=== PATIENT | male | born 1950 | race Two or more races ===

== ENCOUNTER 2023-01-19 11:07 | Emergency (ER) | payer OTHER, SELFPAY ==
--- NOTE | ~2023-01-19 | CT_ITS ---
EXAMINATION: CT ABDOMEN AND PELVIS WITHOUT CONTRAST CLINICAL INFORMATION: Hematuria, question stone COMPARISON: None TECHNIQUE: Multidetector volumetric imaging was performed from the superior aspect of the liver through the pubic symphysis. Sagittal and coronal reformatted images were obtained on the technologist's workstation. This CT examination was performed using dose optimization techniques as appropriate, variously including the following: *Automated exposure control *Adjustment of mA and/or kV according to patient size (this includes techniques or standardized protocols for targeted exams where dose is matched to indication/reason for exam; i.e. extremities or head) *Use of iterative reconstruction technique DLP: 637 mGy-cm FINDINGS: LUNG BASES: Unremarkable. ABDOMINAL AND PELVIC WALL: Diastases of the rectus abdominis musculature. LIVER AND BILIARY TREE: Hypoattenuating hepatic parenchyma compatible with hepatic steatosis. Liver is enlarged measuring 18.3 cm in span. GALLBLADDER: Unremarkable. PANCREAS: Unremarkable. SPLEEN: Unremarkable. ADRENAL GLANDS: Unremarkable. KIDNEYS AND URETERS: 6 mm nonobstructing stone is noted in the left mid ureter resulting in mild to moderate proximal hydroureteronephrosis and slightly asymmetric perinephric fat stranding and periureteral fat stranding. 1 cm nonobstructing right lower pole renal stone is also seen. GASTROINTESTINAL TRACT: A 6 mm fat-containing lesion in the duodenum may reflect a small duodenal lipoma. Colonic diverticulosis without evidence of diverticulitis. Normal appendix. VASCULAR: Unremarkable. LYMPH NODES/PERITONEUM: No lymphadenopathy. FREE FLUID: None. BLADDER: Heterogeneous high density lesion within the urinary bladder measuring 5 cm. PELVIC VISCERA: Prostate is enlarged measuring 7 cm in transverse diameter. OSSEOUS STRUCTURES: Multilevel degenerative disc disease. CT/CT abdomen pelvis wo IV con IMPRESSION: Heterogeneous high density lesion within the urinary bladder measuring 5 cm., For which differential considerations could include blood clot in the setting of hematuria alternatively a discrete bladder mass. Recommend urologic evaluation and management. 6 mm nonobstructing stone is noted in the left mid ureter resulting in mild to moderate proximal hydroureteronephrosis and slightly asymmetric perinephric fat stranding and periureteral fat stranding. 1 cm nonobstructing right lower pole renal stone is also seen. Hepatomegaly and hepatic steatosis.
[2023-01-19 11:35] VITALS: BP 141/75; PULSE 73; RESP 16; TEMP 36.6; O2SAT 96; BMI 30.1
--- NOTE | 2023-01-19 11:41 | ED.MALEGU ---
HPI - Male Genitourinary General Chief complaint: Urogenital-Male Stated complaint: bleeding from penis Time Seen by Provider: 01/19/23 11:29 Source: patient Mode of arrival: ambulatory Limitations: no limitations History of Present Illness HPI Narrative: This is a 72 years old male presented to the emergency department with chief complaint of hematuria. Hematuria is been ongoing on and off for about 1 anf 1/2 month, was seen at [facility] December 01 was DX with the 7 mm the right kidney stone he was referred to urologist DR Desai. He is anticoagulated with apixaban . Onset (ago): month(s) (1.5 Month) Duration: intermittent Location: penis Severity: mild Quality: aching Relieving factors: none Exacerbating factors: none Related Data Previous Rx's Medication Instructions Recorded cephalexin 500 mg capsule 500 mg PO Q8H #21 caps 01/19/23 tamsulosin 0.4 mg capsule (Flomax) 0.8 mg PO BEDTIME #7 caps 01/19/23 Allergies Allergy/AdvReac Type Severity Reaction Status Date / Time No Known Allergies Allergy Verified 01/19/23 11:45 Review of Systems Constitutional: Constitutional: Reports no additional constitutional complaints ENT: Reports system reviewed and no additional complaints, except as documented Cardiovascular: Cardiovascular: Reports no additional cardiovascular complaints Respiratory: Respiratory: Reports no additional respiratory complaints Gastrointestinal: Gastrointestinal: Reports no additional gastrointestinal complaints [facility] Past Medical History [facility] Narrative: A.FIB/anticoagulated/kidney stone Social History Social History Advance Directives: Yes Advance Directives on File: No Physical Exam Vital Signs: Vital Signs: Last Vital Signs Temp 97.9 F 01/19/23 11:35 Pulse 73 01/19/23 11:35 Resp 16 01/19/23 11:35 BP 141/75 H 01/19/23 11:35 Pulse Ox 96 01/19/23 11:35 O2 Del Method 01/19/23 11:35 BMI result Body Mass Index 30.1 Const: General: cooperative, comfortable, no acute distress, well developed, alert, awake and Physically active Nutritional Appearance: well nourished Orientation/consciousness: patient oriented x3 Limitations: no limitations HEENT: Head: Yes normal to inspection Ears: hearing grossly normal bilaterally General nose exam: Normal external nose present Face and sinus: Yes normal facial exam Throat: Yes posterior oropharynx normal Neck: Neck: Yes normal visual inspection and Yes full ROM Chest: Chest palpation & inspection: normal inspection of the chest Resp: Effort & Inspection: normal respiratory effort Auscultation: clear to auscultation bilaterally Cardio: Jugular venous distension: no JVD Rate: regular rate Rhythm: regular rhythm GI: Inspection: Yes normal to inspection Palpation (GI): Soft to palpation, not firm and nontender Auscultation: normal bowel sounds : General: Yes no CVA tenderness Back/Spine/Pelvis: Back: no CVA tenderness Thoracic/Lumbar Spine: thoracic and lumbar spine normal to inspection Skin: General skin exam: no rashes or lesions noted, elasticity normal and turgor normal Lesions: no lesions Rashes: no rashes Trauma: no lacerations or abrasions Neuro: General: patient oriented x3 Course Reevaluation(s) Reevaluation #1: feels better able to urinate. case was d/w Urologist,ct reviewed kidney stone and bladder high density lesion ,Dr Lynn thinks pt can go home with follow up in the office Time: 14:52 Medications Administered Discontinued Medications Generic Name Dose Route Start Last Admin Trade Name Freq PRN Reason Stop Dose Admin Sodium Chloride 1,000 mls @ 999 mls/hr 01/19/23 13:15 01/19/23 13:22 Ns IVCONT 01/19/23 14:15 999 mls/hr .Q1H1M DARRELL Administration Medical Decision Making Medical Decision Making [facility] Narrative: Patient presented with hematuria will do UA/CT scan of the abdomen and pelvis and reassess Differential Diagnosis Differential Diagnoses: The differential diagnosis associated with the presentation includes Kidney stone/bladder tumor/UTI Admission/Observation Consideration of admission/observation: Escalation of care including admission/observation considered Consult Healthcare Provider Management of the patient was discussed with: [employer] spoke with Dr Cheek Lab Data [facility] Lab Attestation statement: I reviewed the patient's lab results. 01/19/23 12:11 01/19/23 12:11 Labs: Lab Results 01/19/23 01/19/23 01/19/23 Range/Units 12:11 12:11 12:11 WBC 9.3 (4.8-10.8) X10*3/uL RBC 5.05 (4.60-5.80) X10*6/uL Hgb 14.7 (14.0-18.0) g/dl Hct 44.4 (42.0-52.0) % MCV 87.9 (80.0-98.0) fL MCH 29.1 (27.0-33.0) pg MCHC 33.1 (31.0-36.0) g/dl RDW 13.1 (11.0-16.0) % Plt Count 173 (160-400) X10*3/uL MPV 12.2 (9.4-12.4) fL Immature Gran % (Auto) 0.3 (0.0-0.4) % Neut % (Auto) 80.3 H (45-73) % Lymph % (Auto) 11.0 L (20-40) % Ocean % (Auto) 7.0 (2-11) % Eos % (Auto) 0.8 (0-4) % Baso % (Auto) 0.6 (0-2) % Lymph # (Auto) 1.0 L (1.2-4.9) X10*3/uL Ocean # (Auto) 0.7 (0.1-1.2) X10*3/uL Eos # (Auto) 0.1 (0.0-0.4) X10*3/uL Baso # (Auto) 0.1 (0.0-0.2) X10*3/uL Abs Immat Gran (auto) 0.03 (0.00-0.03) X10*3/uL Absolute Neuts (auto) 7.4 (2.0-8.3) x10*3/uL Absolute Nucleated RBC 0.000 (0.0-0.012) X10*3/uL Nucleated RBC % (auto) 0.0 (0.0-0.2) /100WBC Sodium 138 (135-145) mmol/L Potassium 3.5 (3.3-5.1) mmol/L Chloride 103 (96-108) mmol/L Carbon Dioxide 26 (22-29) mmol/L Anion Gap 13 (12-20) BUN 13 (9-16) mg/dL Creatinine 1.35 (0.5-1.4) mg/dL Estim Creat Clear Calc 57.2 Estimated GFR 52 Random Glucose 221 H (60-115) mg/dL Calcium 9.5 (8.4-10.2) mg/dL Total Bilirubin 1.2 H (0.0-1.0) mg/dL AST 25 (5-37) U/L ALT 29 (0-40) U/L Alkaline Phosphatase 81 (39-117) U/L Total Protein 8.0 (6.5-8.0) g/dL Albumin 4.2 (3.5-5.0) g/dL Urine Color RED Urine Appearance Turbid Urine pH 6.5 (5.0-9.0) Ur Specific [place] 1.010 (1.005-1.025) Urine Protein 300 (3+) H (Neg-Trace) mg/dL Urine Glucose (UA) See Note (Negative) mg/dL Urine Ketones See Note (Negative) mg/dL Urine Blood Large (3+) H (Negative) Urine Nitrite Positive H (Negative) Ur Leukocyte Esterase Small (1+) H (Negative) Urine RBC >20 H (0-2) /HPF Urine WBC 0-5 (0-5) /HPF Ur Squamous Epith Cells 0-2 (0-2) /HPF Urine Bacteria 1+ (None Seen) Hyaline Casts 0-2 (0-2) /LPF Independent Interpretation I performed an independent interpretation of an: CT Scan Radiology Impression Discussion of test interpretation with radiology: I discussed test interpretation with the radiologist and I have reviewed the radiologist's reading. Radiologist Impression: BLADDER: Heterogeneous high density lesion within the urinary bladder measuring 5 cm.? PELVIC VISCERA: Prostate is enlarged measuring 7 cm in transverse diameter. OSSEOUS STRUCTURES: Multilevel degenerative disc disease.? CT/CT abdomen pelvis wo IV con IMPRESSION: ? Heterogeneous high density lesion within the urinary bladder measuring 5 cm., For which differential considerations could include blood clot in the setting of hematuria alternatively a discrete bladder mass. Recommend urologic evaluation and management. ? 6 mm nonobstructing stone is noted in the left mid ureter resulting in mild to moderate proximal hydroureteronephrosis and slightly asymmetric perinephric fat stranding and periureteral fat stranding. 1 cm nonobstructing right lower pole renal stone is also seen.? ? Hepatomegaly and hepatic steatosis. Dictated By: Bronwyn Ying MD Signed By: <Electronically signed by Bronwyn Ying MD in [place]> 01/19/23 1225 Discharge Plan Discharge Clinical Impression: Hematuria, Calculus in urethra Patient Disposition: Home, Self-Care Instructions: Kidney Stones (ED), Hematuria (ED) Additional Instructions: Follow-up with the urologist we gave you the number of Dr. Jose Carlos Santacruz,take antibiotic and flomax as directed return if worse Prescriptions: New cephalexin 500 mg capsule 500 mg PO Q8H Qty: 21 0RF tamsulosin [Flomax] 0.4 mg capsule 0.8 mg PO BEDTIME Qty: 7 0RF Referrals: Lizzette Cheek MD [Physician] - 01/29/23
[2023-01-19 12:18] LABS: MANUAL DIFF FLAG NO
[2023-01-19 12:19] LABS: Basophils Absolute Auto 0.1 X10*3/uL (0.0-0.2); Basophils Percent Auto 0.6 % (0-2); Eosinophils Absolute Auto 0.1 X10*3/uL (0.0-0.4); Eosinophils Percent Auto 0.8 % (0-4); Hematocrit 44.4 % (42.0-52.0); Hemoglobin 14.7 g/dl (14.0-18.0); Imm Gran Abs Auto 0.03 X10*3/uL (0.00-0.03); Imm Gran Pct Auto 0.3 % (0.0-0.4); Mean Corpuscular HGB Conc 33.1 g/dl (31.0-36.0); Mean Corpuscular Hemoglobin 29.1 pg (27.0-33.0); Mean Corpuscular Volume 87.9 fL (80.0-98.0); Mean Platelet Volume 12.2 fL (9.4-12.4); Monocytes Absolute Auto 0.7 X10*3/uL (0.1-1.2); Neutrophils Absolute Auto 7.4 x10*3/uL (2.0-8.3); Neutrophils Percent Auto 80.3 % (45-73); Platelet Count 173 X10*3/uL (160-400); Red Blood Count 5.05 X10*6/uL (4.60-5.80); Red Cell Distribution Width 13.1 % (11.0-16.0); White Blood Count 9.3 X10*3/uL (4.8-10.8)
[2023-01-19 12:28] LABS: Appearance Urine Turbid; Color Urine RED; Leukocyte Esterase Urine Small (1+) (Negative); Nitrite Urine Positive (Negative); PH 6.5 (5.0-9.0); UMIC TRIGGER UACC YES; Urine Blood Large (3+) (Negative); Urine Protein 300 (3+) mg/dL (Neg-Trace)
[2023-01-19 12:35] LABS: Bacteria Urine 1+ (None Seen); Hyaline Casts Urine 0-2 /LPF (0-2); RBC Urine >20 /HPF (0-2); Squamous Epithelial Cell Urine 0-2 /HPF (0-2); UACC Culture Trigger YES; WBC Urine 0-5 /HPF (0-5)
[2023-01-19 12:47] LABS: Alanine Aminotransferase 29 U/L (0-40); Albumin Level 4.2 g/dL (3.5-5.0); Alkaline Phosphatase 81 U/L (39-117); Anion Gap 13 (12-20); Aspartate Amino Transferase 25 U/L (5-37); Bilirubin Total 1.2 mg/dL (0.0-1.0); Blood Urea Nitrogen 13 mg/dL (9-16); Calcium 9.5 mg/dL (8.4-10.2); Carbon Dioxide 26 mmol/L (22-29); Chloride 103 mmol/L (96-108); Creatinine Clr Calc Pharmacy 57.2; Estimated Glomerular Filt Rate 52; Glucose Random 221 mg/dL (60-115); Potassium 3.5 mmol/L (3.3-5.1); Sodium 138 mmol/L (135-145)
[2023-01-19] MEDS: 0.9 % Sodium Chloride 1,000 ML 999 ML IVCONT (13:22)
[2023-01-19 15:32] VITALS: BP 140/88; PULSE 62; RESP 16; O2SAT 97
== END 2023-01-19 16:05 | disposition home or self-care (01) ==
PROVIDERS: Emergency Provider Emergency Medicine
DX: N13.2 Hydronephrosis with renal and ureteral calculous obstruction (principal); R31.9 Hematuria, unspecified
CPT/HCPCS: 36415; 74176; 80053; 81001; 85025; 87086; 96360; 96361; 99284

== ENCOUNTER 2025-03-12 15:22 | Inpatient (IN) | payer OTHER, SELFPAY ==
--- NOTE | ~2025-03-12 | XR_ITS ---
EXAMINATION: XR CHEST CLINICAL INFORMATION: cough, shortness of breath COMPARISON: None available. TECHNIQUE: 2 views of the chest were obtained. FINDINGS: There is cardiac enlargement. The mediastinal and hilar contours appear normal. Mild aortic tortuosity. Lungs are diffusely hyperaerated, however clear bilaterally. There is no pneumothorax or pleural effusion. There is no focal osseous or soft tissue abnormality. XR/XR chest 2V IMPRESSION: 1. Cardiomegaly. 2. Hyperaerated lung parenchyma suggesting COPD. 3. No active superimposed disease. Electronically signed by: Cory Chauhan MD 03/12/2025 04:16 PM EDT
--- NOTE | ~2025-03-12 | CT_ITS ---
CLINICAL HISTORY: Umbilical pain rule out hernia CT ABDOMEN AND PELVIS WITH CONTRAST Comparison: CT/SR - CT ABDOMEN PELVIS WO IV CON - 01/19/23 11:50 EST Findings: No basilar consolidation or pleural effusion. There are several tiny calcified pulmonary granulomas. Tiny pericardial effusion. There are multiple predominantly hypoattenuated hepatic lesions. The main portal vein is patent. There is surface nodularity in the liver suggesting cirrhotic morphology. There is diffuse fatty infiltration of the liver which is enlarged; the right hepatic lobe measures 18.7 cm on coronal image 37. There is a poorly defined hypoattenuated pancreatic head lesion that measures 2 cm in greatest diameter. There is a 1.6 cm exophytic component on axial image 34 series 3 versus a necrotic lymph node. On sagittal images sixty-one and 62 series 7, there is hypoattenuated eccentric filling defect in the proximal celiac artery near the origin. On sagittal image 63 series 7, there is intimal thickening involving the SMA. There are multiple borderline enlarged periportal and peripancreatic lymph nodes. There are multiple nonenlarged left para-aortic lymph nodes. The spleen is enlarged measuring 14.1 cm. There is mild thickening of the left adrenal gland, possible hyperplasia. No adrenal nodule. No hydronephrosis. There are tiny nonobstructing left intrarenal calculi. Atherosclerotic changes; no AAA. No bowel obstruction, pneumoperitoneum, or pneumatosis. No ascites or significant mesenteric edema. Colonic diverticulosis. No acute diverticulitis. The appendix is identified. No acute appendicitis. The prostate is enlarged measuring 5.5 cm transversely. There is diffuse urinary bladder wall thickening. The anterior abdominal wall is intact with no evidence for a ventral hernia. There is a small umbilical hernia with nonspecific soft tissue density. There are small fat containing bilateral inguinal hernias. No grossly destructive osseous lesion. No acute fracture. IMPRESSION: 1. Poorly defined 2 cm hypoattenuated lesion in the pancreatic head consistent with malignancy. There is suspicion for tumoral invasion in the proximal celiac artery and proximal SMA. 2. Widespread hepatic metastases. 3. Peripancreatic lymphadenopathy. 4. No obstructive or acute inflammatory changes in the gastrointestinal tract. 5. No acute obstructive uropathy. Nonobstructing left nephrolithiasis. 6. Diverticulosis coli. 7. Small umbilical hernia contains a nonspecific soft tissue density. 8. Urinary bladder wall thickening secondary to cystitis, underdistention or outlet obstruction from prostatomegaly. This document has been electronically signed by: Bella Perdue DO on 03/12/2025 18:04:19
[2025-03-12 15:27] VITALS: BP 158/94; PULSE 127; RESP 22; TEMP 36.9; O2SAT 98; BMI 26.1
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
--- NOTE | 2025-03-12 15:34 | ECG_ITS ---
Test Reason : tachycardia Blood Pressure : */* mmHG Vent. Rate : 99 BPM Atrial Rate : * BPM P-R Int : * ms QRS Dur : 106 ms QT Int : 384 ms P-R-T Axes : * -15 210 degrees QTcB Int : 492 ms Atrial fibrillation with premature ventricular or aberrantly conducted complexes Left ventricular hypertrophy with repolarization abnormality ( Tet[place] product ) Prolonged QT Abnormal ECG No previous ECGs available Referred By: Patricia Daniels Electronically Signed By: Stefan Shaffer
[2025-03-12 15:50] LABS: MANUAL DIFF FLAG NO
[2025-03-12 15:52] LABS: Basophils Absolute Auto 0.1 X10*3/uL (0.0-0.2); Basophils Percent Auto 0.5 % (0-2); Eosinophils Absolute Auto 0.1 X10*3/uL (0.0-0.4); Hematocrit 41.8 % (42.0-52.0); Hemoglobin 13.6 g/dl (14.0-18.0); Imm Gran Abs Auto 0.05 X10*3/uL (0.00-0.03); Imm Gran Pct Auto 0.5 % (0.0-0.4); Lymphocytes Absolute Auto 1.1 X10*3/uL (1.2-4.9); Lymphocytes Percent Auto 10.4 % (20-40); Mean Corpuscular HGB Conc 32.5 g/dl (31.0-36.0); Mean Corpuscular Hemoglobin 28.2 pg (27.0-33.0); Mean Corpuscular Volume 86.7 fL (80.0-98.0); Mean Platelet Volume 12.1 fL (9.4-12.4); Monocytes Absolute Auto 0.8 X10*3/uL (0.1-1.2); Monocytes Percent Auto 7.3 % (2-11); Neutrophils Absolute Auto 8.7 x10*3/uL (2.0-8.3); Neutrophils Percent Auto 80.3 % (45-73); Platelet Count 215 X10*3/uL (160-400); Red Blood Count 4.82 X10*6/uL (4.60-5.80); White Blood Count 10.8 X10*3/uL (4.8-10.8)
[2025-03-12 15:56] LABS: Appearance Urine Cloudy; Color Urine Dark Yellow; Glucose Urine UA >=1000 mg/dL (Negative); Leukocyte Esterase Urine Moderate (2+) (Negative); Nitrite Urine Positive (Negative); PH 7.5 (5.0-9.0); Specific Gravity - Urine >= 1.030 (1.005-1.025); UMIC TRIGGER UACC YES; Urine Blood Negative (Negative); Urine Ketones Trace mg/dL (Negative); Urine Protein 100 (2+) mg/dL (Neg-Trace)
[2025-03-12 15:56] LABS: INTERNATIONAL NORM RATIO 1.2 (0.9-1.1); Prothrombin Time 13.7 SEC (10.9-12.4)
[2025-03-12 16:00] VITALS: BP 141/86; PULSE 81; RESP 20; TEMP 36.7; O2SAT 99
[2025-03-12 16:04] LABS: Alanine Aminotransferase 12 U/L (0-40); Albumin Level 3.7 g/dL (3.5-5.0); Alkaline Phosphatase 209 U/L (39-117); Anion Gap 11 (12-20); Aspartate Amino Transferase 22 U/L (5-37); Bilirubin Total 0.9 mg/dL (0.0-1.0); Blood Urea Nitrogen 14 mg/dL (9-16); Calcium 9.4 mg/dL (8.4-10.2); Carbon Dioxide 32 mmol/L (22-29); Chloride 101 mmol/L (96-108); Creatinine Clr Calc Pharmacy 67.7; Estimated Glomerular Filt Rate > 60; Glucose Random 175 mg/dL (60-115); Lipase 40 U/L (8-78); Potassium 4.2 mmol/L (3.3-5.1); Sodium 140 mmol/L (135-145); Total Protein 8.3 g/dL (6.5-8.0)
[2025-03-12 16:09] LABS: B Type Natriuretic Peptide 580 pg/mL (<100)
[2025-03-12 16:10] LABS: Bacteria Urine 2+ (None Seen); RBC Urine 0-2 /HPF (0-2); Squamous Epithelial Cell Urine 0-2 /HPF (0-2); UACC Culture Trigger YES; WBC Urine >50 /HPF (0-5)
--- OUTSIDE RECORDS SUMMARY | 2025-03-12 16:15 | XMS_ITS | Clinical Summary ---
Author Organization [facility] Address [address] [place] [address] Phone Care Team Providers Care Administrative Support Manager Name Role Phone Unavailable Primary Care Provider Unavailabl e Active Problems Problem Noted Date Diagnosed Date Hypertensive renal disease 07/16/202307/16 Renal disorder due to type 2 diabetes mellitus 0 07/16/2023 07/16/2023 Urinary frequency due to benign prostatic hypert rophy 03/10/2021 07/16/2023 Microalbuminuria 01/30/2021 07/16/2023 Chronic kidney disease 03/14/2016 3 Overview (07/16/2023): Follows with [facility]. Stage III with baseline Cr of 1.3. Last seen 10/10/[address] Stevie Rivera, Advised tot jose g lisinopril 20mg QD, labetolol 400mg qAM, 600mg q-noon, 400mg qPM. Low salt diet. Added lasix 20mg QD. (may need 40mg in the future) If Cr increases above 1.5, increase apixaban to 2.5mg BID and metformin should be stopped. Essential hypertension 03/06/2016 3 Resolved Problems Problem Noted Date Diagnosed Date Resolved Date Vitamin D deficiency 07/16/2023 07/16/2023 023 Dry skin dermatitis 03/10/2021 07/16/2023 07/16/20 23 Tinea pedis 03/10/2021 07/16/2023 07/16/2023 Glomerular filtration rate b elow reference range 01/30/2021 07/16/2023 Obesity 03/31/2020 07/16/2023 07/16/2023 Chronic congestive heart failure 06/24/2019 07/16/20 23 07/16/2023 Overview (07/16/2023): Followed by Cardiology 05/30/20 F/u [facility]. Pt advised to have cardiac MRI but declines due to covid-19 pandemic. Recommends continue AC with Apixaban. Advised continue ASA, statin. Increase nefedipine to 90 mg and f/u 1 month for HTN. Drug therapy finding 06/24/2019 07/16/2023 023 Overview (07/16/2023): AC with Apixaban Obstructive sleep apnea syndrome 09/16/2018 07/16/20 23 07/16/2023 Overview (07/16/2023): HST 08/22/18 at [facility] shows CT mild-mod. Recommends start CPAP Panic attack 09/05/2018 07/16/2023 07/16/2023 Overview (07/16/2023): Seen at [facility] Patient noncompliance - general 01/29/2017 07/16/2023 Overview (07/16/2023): 02/20/19 [facility]. No DR. 09/21/20 [facility]. No DR f/u 1 year. Patient encounter status 07/18/2016 07/16/2023 Overview (07/16/2023): 07/16/16 U/S of AAA at [facility] shows no visualized abdominal aortic aneurysm Umbilical hernia 07/18/2016 07/16/2023 07/16/2023 Overview (07/16/2023): 07/16/16 U/S at [facility] shows bowel containing periumbilical hernia. Referred to general surgery. 09/10/[address] Welch at [facility]. Pure hypercholesterolemia 03/13/2016 07/16/2023 Atrial fibrillation 03/06/2016 07/16/2023 07/16/20 23 Overview (07/16/2023): Previously seen by Dr Syed Mares at [facility] CT chest angiography 03/24/15 shows cardiomegaly with findings suggestive of CHF. Cardioverted 03/01/16 at [facility] by Dr Mares, 125 joules. Given labetolol IV Managed by Dr Mares, [facility] Last visit 03/14/16. Has h/o dificult to control hypertension and recent weight gain r/t CHF. Currently managed on - lisinopril 40mg 1 tab PO QD -labetalol Hcl 200mg 2 tabs qAM, 3 tabs q-noon, 2 tabs qPM. --Lasix 20mg 1 tab PO QD Taztia XT 360mg cap RX 1 cap QD Conlidine 0.1 mg 1 tab PO QD Apixaban 5mg 1 tab PO QD 10/03/16 Discharged from [facility] d/t no shows 03/12/[address] Eliseo Juarez at Cardiology Dx: significant junctional bradycardia, raising suspicion of sick sinus syndrome, may be aggravated by anithypertensives and psych meds. Recommend D/c cardizem, increase amlodipine to 10 mg QD. Get Holter monitor. If bradycardia does not resolve or if A-fib recurs, consider pacemaker and then antiarrhythmic therapy or resumption of CCB. F/u 2-3 weeks. 03/19/17 24 hours Holter- 1. Predominant rhythym sinus dee, baseline ST abnormality. 2. HR 35-73, avg of 46. 3. Rare PACs with a Few atrial pairs, no PVCs, 4. No pauses noted. Diary shows no sx's. No A-fib noted. 08/18/18-08/23/18 Admitted to [facility] for suspected CHF exacerbation d/t hypervolemia and hypertension. He was diuresed with furosemide. Advised to d/c amlodipine, clonidine, hold lisinopril until creatinine back to baseline. Start nifedepine ER 60 mg. Change dose of labetolol to 200 mg PO BID, furosemide 40 mg QD. Adivsed needs to f/u with Cardiology re: cardiac cacath. Echo found EF 45-50% with significant deficit of LV filling. Had non-sustianing VT on telemetry. Was offered cardiac cath while inpatient and declined. Concern for CT but pt did not tolerate sleep study previously. History of transurethral prostatectomy 03/06/201607/16/2023 Overview (07/16/2023): Managed by SHOBHA Samaniego at Urology Type 2 diabetes mellitus 03/06/2016 07/16/2023 Uncomplicated moderate persistent asthma 03/06/2016 07/16/2023 07/16/2023 Immunizations Immunization Administration Dates Next Due Influenza Split High Dose Preservative Free IM 1 12/19/2018 Influenza, Quadrivalent, Preservative Free 01/29 Influenza, Unspecified 09/01/2020 Pneumococcal Conjugate 13-Valent 04/17/2016 Pneumococcal Polysaccharide 04/23/2015 Tdap 04/17/2016 Family History Medical History Relation Comments Hypertension Father Diabetes Mother Diabetes Sibling 1 sister Hypertension Sibling 2 sister Heart disease Sibling 3 sister Relation Status Comments Father Mother Sibling 1 Sibling 2 Sibling 3 Social History Tobacco Use Types Packs/Day Years Used Date Smoking Tobacco: Never Sex and Gender Information Value Date Recorded Sex Assigned at Not on file Legal Sex Male 5:13 PM EST Gender Identity Not on file Sexual Orientation Not on file Plan of Treatment Health Maintenance Due Date Last Done Comments Colorectal Cancer Screening: Annual FOBT 1999 Colorectal Cancer Screening: Colonoscopy 1999 Colorectal Cancer Screening: Sigmoidoscopy 1999 Pneumococcal Vaccine: 50+ Years (3 of 3 - PPSV23 or PCV20) 04/23/2020 04/17/2016, 04/23/2015 Diabetes: Hemoglobin A1C 01/01/2021 Diabetes: Ophthalmology Exam 01/01/2021 Diabetes: Pedal Pulse Checked 01/01/2021 Diabetes: Sensory Foot Exam 01/01/2021 Diabetes: Visual Foot Exam 01/01/2021 Influenza Vaccine (Season Ended) 2025 09/01/2020, 10/19/2019, 01/29/2017 Hepatitis B Vaccine Aged Out No longe r eligible based on patient's age to complete this topic Insurance ([id number]) SHOBHA TAN [id number] ([id number]) SHOBHA TAN [id number]
--- OUTSIDE RECORDS SUMMARY | 2025-03-12 16:16 | XMS_ITS | Clinical Summary ---
Author Organization [facility] Address [address] [place] [address] Care Team Providers Care Kitchen Aide Name Role Phone Yari Lopez CALVIN Primary Care Provider [phone] Source Comments PLEASE NOTE, if this patient is a minor, it may be UNLAWFUL to discuss sensitive information that is contained in these records (such as FAMILY PLANNING, MENTAL HEALTH or SUBSTANCE ABUSE) with the minor patient's parent or other person without the patient's specific authorization.[facility] Allergies No known active allergies Medications blood pressure monitorIndications:Vishal taylor hypertension Check BP once daily at same time of the daily. Dx:I10.0 1 Kit 0 03/06/20 16 Active ELIQUIS 5 mg tab TK 1 T PO BID PER CARDIOLOGY 3 03/03/20 19 Active blood-glucose meter monitoring kitIndications:Type 2 diabetes mellitus with complication ([facility]),Type 2 diabetes mellitus with complication, without long-term current use of insulin ([facility]) Check FBS BID E11.65 1 Each 06/08/20 21 Active acetaminophen (TYLENOL) 500 mg tablet Take 1 Tablet by mouth every 6 (six) hours as needed for pain or fever 120 Tablet 2 03/29/20 22 Active blood sugar diagnostic (FREESTYLE LITE STRIPS) stripsIndications:Type 2 diabetes mellitus with complication ([facility]),Type 2 diabetes mellitus with complication, without long-term current use of insulin ([facility]) USE DIRECTED TO TEST BLOOD SUGAR TWICE DAILY 100 Each 1 01/04/20 23 Active FREESTYLE LANCETS 28 gaugeIndications:Type 2 diabetes mellitus with complication ([facility]),Type 2 diabetes mellitus with complication, without long-term current use of insulin ([facility]) USE DIRECTED FOR TESTING BLOOD SUGAR TWICE DAILY 100 Each 1 01/04/20 23 Active ezetimibe (ZETIA) 10 mg tablet TAKE 1 TABLET BY MOUTH DAILY 02/26/20 23 Active spironolactone (ALDACTONE) 25 mg tablet Take 25 mg by mouth once daily 05/15/20 23 Active albuterol (PROVENTIL) 2.5 mg /3 mL (0.083 %) nebulizer solutionIndications:Mod erate persistent asthma without complication ([facility]) USE 3 ML VIA NEBULIZER EVERY 6 HOURS NEEDED FOR WHEEZING 300 mL 2 11/28/20 23 Active ammonium lactate (AMLACTIN) 12 % creamIndications:Dry skin dermatitis APPLY TOPICALLY NEEDED FOR DRY SKIN 385 g 2 12/03/19 24 Active metoprolol succinate XL (TOPROL-XL) 50 mg 24 hr tabletIndications:Atria l fibrillation, unspecified type ([facility]) TAKE 1 TABLET BY MOUTH EVERY DAY 90 Tablet 1 01/22/20 24 Active NIFEdipine (PROCARDIA XL) 90 mg 24 hr tabletIndications:Essen tial hypertension Take 1 Tablet by mouth once daily Further refills requires appt with PCP 90 Tablet 05/27/20 24 Active atorvastatin (LIPITOR) 80 mg tabletIndications:Pure hypercholesterolemia TAKE 1 TABLET BY MOUTH DAILY 90 Tablet 1 07/02/20 24 Active triamcinolone (KENALOG) 0.1 % creamIndications:Dry skin dermatitis APPLY TOPICALLY TO THE AFFECTED AREA TWICE DAILY 15 g 2 11/23/20 24 Active budesonide-formoteroL (SYMBICORT) 160-4.5 mcg/actuation inhalerIndications:Mode rate persistent asthma with acute exacerbation ([facility]) Inhale 2 Puffs into the lungs 2 (two) times daily 30.6 g 12/16/19 25 Active albuterol HFA 90 mcg/actuation inhalerIndications:Mode rate persistent asthma with acute exacerbation ([facility]) Inhale 2 Puffs into the lungs every 4 (four) hours as needed for shortness of breath or wheezing Appt with PCP required for further refills. 25.5 g 12/16/19 25 Active predniSONE 50 mg tablet Take 50 mg by mouth daily 12/12/19 25 Active SITagliptin phos-metformin (JANUMET) 50-1,000 mg per tablet Take 1 Tablet by mouth 2 (two) times daily with a meal Active dapagliflozin propanediol 10 mg tab Take 10 mg by mouth Daily 07/12/20 Active lisinopriL 40 mg tabletIndications:Silvia tiavictor hugo hypertension TAKE 1 TABLET BY MOUTH EVERY DAY 90 Tablet 1 02/05/20 25 Active Active Problems Problem Noted Date Diagnosed Date Hematuria 02/20/2023 Overview (02/20/2023): 02/15/23 Admitted to [facility] for gross hematuria/ bladder obstruction/ urinary retention. Renal calculus, right 12/06/2022 Overview (12/06/2022): [facility] ED 12/01/22 Treated with Bactim and advised to f/u with Dr Desai at Urology CAD (coronary artery disease) 05/21/2022 Overview (01/30/2023): 04/25/22 F/u [facility], Dr Lindsey. 1. A-Fib. Continue rate control with BB and AC with apixaban. Check Holter monitor. 2. Cardiomyopathy: Nuclear stress test 08/2018 showed inferior infarct with LVEF of 47%. Echo 01/2019 showed global hypokinesis with LVEF 45-50% with severe LVH, at that time pt was recommended to undergo cardiac MRI and refused d/t covid-19 pandemic. Currently taking lisinopril, metoprolol, furosemide and has ongoing dyspnea while euvolemic. Recommends repeat echocardiogram to re-eval LV function and LVH. If still present, will need to get cardiac MRI. If LV function has decreased, will need cardiac catheterization. F/u 3 months. 05/24/22 Echocardiogram at [facility] shows LV mildly dilated. Moderate concentric LV hypertrophy. Global hypokinesis in the basal interoseptal wall and basal-mid inferior wall. Moderately reduced LV systolic function. LVEF 35-40%. Enlarged RV size. Normal RV systolic function. No significant valvular disease. 07/26/22 F/u [facility]; 1. A Fib- Continue Rate control with metoprolol succinate 50 mg QD. Continue Eliquis for AC. 2. Cardiomyopathy-- persistent; recommends Left heart cardiac catheterization to complete ischemic work up. 10/09/22 F/u [facility]; pt still hesistent to undergo cardiac catheterization; Add spironolactone to current med regimen and recheck labs in 1 week. Cont metoprolol, atorvastatin, ASA, Eliquis, nifedipine. 12/10/22 Cardiac catheterization at [facility]. No lesions found requiring angioplasty. Resume regular medical therapy. Sebaceous cyst 01/09/2022 Overview (01/09/2022): 01/03/22 Eval [facility]. Will excise sebaceous cyst of upper back. Needs pre-op clearance Elevated PSA 11/06/2021 Overview (11/06/2021): 09/06/21 Eval [facility]. Recheck labs, get MRI of prostate and f/u with Dr Desai. Dry skin dermatitis 03/10/2021 BPH s/p prostatectomy 03/10/2021 Overview (04/22/2023): 04/16/23 F/u [facility]. Pt has had prostatectomy-- showed 101 g prostate adenoma that was benign; can d/c Flomax. Resume Eliquis. Tinea pedis of both feet 03/10/2021 Microalbuminuria 01/30/2021 Class 1 obesity due to exces s calories with serious comorbidity and body mass index (BMI) of 32.0 to 32.9 in adult 03/31/2020 HFrEF (heart failure with re duced ejection fraction) ([facility]) 06/24/2019 Overview (05/21/2022): Followed by [facility] 05/30/20 F/u [facility]. Pt advised to have cardiac MRI but declines due to covid-19 pandemic. Recommends continue AC with Apixaban. Advised continue ASA, statin. Increase nefedipine to 90 mg and f/u 1 month for HTN. 04/25/22 F/u [facility], Dr Lindsey. 1. A-Fib. Continue rate control with BB and AC with apixaban. Check Holter monitor. 2. Cardiomyopathy: Nuclear stress test 08/2018 showed inferior infarct with LVEF of 47%. Echo 01/2019 showed global hypokinesis with LVEF 45-50% with severe LVH, at that time pt was recommended to undergo cardiac MRI and refused d/t covid-19 pandemic. Currently taking lisinopril, metoprolol, furosemide and has ongoing dyspnea while euvolemic. Recommends repeat echocardiogram to re-eval LV function and LVH. If still present, will need to get cardiac MRI. If LV function has decreased, will need cardiac catheterization. F/u 3 months. Anticoagulated 06/24/2019 Overview (06/24/2019): AC with Apixaban H/O complete eye exam 03/31/2019 Overview (03/07/2021): 02/20/19 [facility]. No DR. 09/21/20 [facility]. No DR f/u [address] (obstructive sleep apnea) 09/16/2018 Overview (09/16/2018): HST 08/22/18 at [facility] shows CT mild-mod. Recommends start CPAP Panic attack 09/05/2018 Overview (09/05/2018): Seen at [facility] 01/29/2017 Periumbilical hernia s/p repair 07/18/2016 Overview (09/14/2016): 07/16/16 U/S at [facility] shows bowel containing periumbilical hernia. Referred to general surgery. 09/10/[address] Welch at [facility]. Screening for AAA (abdominal aortic aneurysm) Overview (07/18/2016): 07/16/16 U/S of AAA at [facility] shows no visualized abdominal aortic aneurysm Chronic kidney disease 03/14/2016 Overview (03/14/2016): Follow[facility] with [facility]. Stage III with baseline Cr of 1.3. Last seen 10/10/[address] Stevie Rivera, Advised tot jose g lisinopril 20mg QD, labetolol 400mg qAM, 600mg q-noon, 400mg qPM. Low salt diet. Added lasix 20mg QD. (may need 40mg in the future) If Cr increases above 1.5, increase apixaban to 2.5mg BID and metformin should be stopped. Pure hypercholesterolemia 03/13/2016 Moderate persistent asthma without complication ([facility]) 03/06/2016 Essential hypertension 03/06/2016 Atrial fibrillation s/p cardioversion 03/06/2016 Overview (07/08/2024): Previously seen by Dr Syed Mares at [facility] CT chest angiography 03/24/15 shows cardiomegaly with findings suggestive of CHF. Cardioverted 03/01/16 at [facility] by Dr Mares, 125 joules. Given labetolol IV Managed by Dr Mares, [facility] Last visit 03/14/16. Has h/o dificult [...] 1 tab PO QD 10/03/16 Discharged from [facility] d/t no shows 03/12/17 Eval by [...] sx's. No A-fib noted. 08/18/18-08/23/18 [place] [facility] [place] suspected CHF exacerbation d/t hypervolemia and hypertension. He was diuresed with furosemide. Advised to d/c amlodipine, clonidine, hold lisinopril until creatinine back to baseline. Start nifedepine ER 60 mg. Change dose of labetolol to 200 mg PO BID, furosemide 40 mg QD. Adivsed needs to f/u with [facility] re: cardiac cacath. Echo found EF 45-50% with significant deficit of LV filling. Had non-sustianing VT on telemetry. Was offered cardiac cath while inpatient and declined. Concern for CT but pt did not tolerate sleep study previously. 12/21/21 Eval prior to surgery to remove lesion on back-- EKG shows he is in AFib. Pt non-compliant with Eliquis and metoprolol, advised to restart and f/u with PCP> 04/25/22 F/u [facility], Dr Lindsey. 1. A-Fib. Continue rate control with BB and AC with apixaban. Check Holter monitor. 2. Cardiomyopathy: Nuclear stress test 08/2018 showed inferior infarct with LVEF of 47%. Echo 01/2019 showed global hypokinesis with LVEF 45-50% with severe LVH, at that time pt was recommended to undergo cardiac MRI and refused d/t covid-19 pandemic. Currently taking lisinopril, metoprolol, furosemide and has ongoing dyspnea while euvolemic. Recommends repeat echocardiogram to re-eval LV function and LVH. If still present, will need to get cardiac MRI. If LV function has decreased, will need cardiac catheterization. F/u 3 months. 07/26/22 F/u [facility]; 1. A Fib- Continue Rate control with metoprolol succinate 50 mg QD. Continue Eliquis for AC. 2. Cardiomyopathy-- persistent; recommends Left heart cardiac catheterization to complete ischemic work up. 07/12/23 F/u [facility]; continue medicaitons including Eliquis; plan for cardioversion at [place] with Dr Kinsey. 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 GEOVANY planned for after cardioversion 07/01/24 F/u [facility]; A-Fib; recommended cardio ablation and pt declines; will continue medical management with Eliquis 5 mg BID and beta iqra. HFrEF with EF of 30%; s/p cardiac cath in Dec 2022. Taking metoprolol 50 mg QD, Farxiga 10 mg QD, spironolactone 25 mg QD, lisinopril 40 mg QD, no diuretic Type 2 diabetes mellitus with complication ([facility]) 03/06/2016 S/P TURP 03/06/2016 Overview (03/06/2016): Managed by SHOBHA Samaniego at Urology Resolved Problems Problem Noted Date Diagnosed Date Resolved Date Incidental pulmonary nodule 03/11/2023 07/18/2023 Overview (03/11/2023): 12/01/22 incidental 5 mm pulmonary nodule noted in the R lower lobe on abdominal CT, needs f/u. Decreased GFR 01/30/2021 06/17/[address] 10/19/201903/04 Urinary retention 08/25/2019 03/31/2020 Overview (08/25/2019): Admitted to [facility] 08/07/19-08/08/19 for urinary retention d/t BPH; relieved with Dong cath, to f/u with Dr Winslow at Urology Encounters Date Type Department Care Team Description 12/16/2024 Telemedicine Visit [facility] [address] [place] [id number] Mulu Coulter, ARUN COPD exacerbation ([facility]) (Primary Dx); Moderate persistent asthma with acute exacerbation; Medical non-compliance from Last 3 Months Immunizations Immunization Administration Dates Next Due Flu, High Dose, 65y+, Fluzone High Dose 09/01/20 20 Flu, Preservative Free 01/29/2017 Influenza (FLUZONE), high-do se, trivalent, PF 10/19/2019 PFIZER COVID VACCINE, PURPLE CAP, 12+ 10/12/2021 ,02/23/2021,02/02/2021 PNEUMOCOCCAL CONJUGATE PCV 13 04/17/2016 PNEUMOCOCCAL POLYSACCHARIDE PPV23 06/08/2021,,04/23/2015 TDAP 04/17/2016 ZOSTER VACCINE, RECOMBINANT (SHINGRIX) 3,06/08/2021 Family History Medical History Relation Name Comments Other (See Comments) Brother 1 Meningi tis Hypertension Brother 2 No Known Problems Daughter Asthma Father Diabetes Father Heart Problems Maternal Grandfather Diabetes Maternal Grandmother Asthma Mother Diabetes Sister 1 Depression Sister 2 Diabetes Sister 3 Mental illness Sister 3 No Known Problems Son Cancer Neg Relation Name Status Comments Brother 1 Brother 2 Alive Daughter Alive Father Maternal Grandfather Maternal Grandmother Mother Sister 1 Sister 2 Alive Sister 3 Alive Sister 4 Alive Sister 5 Alive Son Alive Social History Tobacco Use Types Packs/Day Years Used Date Smoking Tobacco: Former Cigarettes 2 14 Smokeless Tobacco: Never Tobacco Cessation:Counseling Given: Not Answered Comments:started smoking age 18, quit around age 32 Alcohol Use Standard Drinks/Week Comments No 0 (1 standard drink = 0.6 oz pur e alcohol) Former use Social Connections Answer Date Recorded Connectedness 0 08/20/2024 Financial Resource Strain Answer Date R ecorded Financial Resource Strain 0 2018 Stress Answer Date Recorded Stress 0 07/26/2019 Physical Activity Answer Date Recorded Physical Activity 0 07/26/2019 Food Insecurity Answer Date Recorded Food 0 08/27/2024 Transportation Needs Answer Date Record ed Transportation 0 07/26/2019 Housing Stability Answer Date Recorded Housing 0 07/26/2019 Safety and Environment Answer Date Kirit rded Safety 0 07/26/2019 Utilities Answer Date Recorded Utilities 0 07/26/2019 Employment Answer Date Recorded Stress 0 08/20/2024 Sex and Gender Information Value Date Recorded Sex Assigned at Male 04/29/2018 9:51 AM PDT Legal Sex Male 6:14 AM PDT Gender Identity Male 04/29/2018 9:51 AM PDT Sexual Orientation Don't know 04/29/2018 9: 51 AM PDT Last Filed Vital Signs Vital Sign Reading Time Taken Comments Blood Pressure 120/62 06/12/2023 3:22 PM EDT Pulse 86 06/12/2023 3:22 PM EDT Temperature 36.5 ??C (97.7 ??F) 06/12/2023 3:22 PM ED T Respiratory Rate 26 06/12/2023 3:22 PM EDT Oxygen Saturation 97% 06/12/2023 3:22 PM EDT Inhaled Oxygen Concentration - - Weight 97.5 kg (215 lb) 06/12/2023 3:22 PM EDT Height 177.8 cm (5' 10 ) 06/12/2023 3:22 PM EDT Body Mass Index 30.85 06/12/2023 3:22 PM EDT Plan of Treatment Health Maintenance Due Date Last Done Comments Dental Examination 1950 CT Colonography 1995 Colonoscopy 1995 Colorectal Cancer Screening 1995 FIT/gFOBT 1995 Fecal DNA 1995 Flexible Sigmoidoscopy 1995 Medicare Annual Wellness Visit 06/11/2018 06/11/2017 Retinopathy Screening 09/21/2021 09/21/2020 (Managed by Outside Provider), 02/20/2019 (Managed by Outside Provider) Urine Albumin Creatinine Rat io Screening 01/25/2022 01/25/2021, 06/11/2017, 04/17/2016 Diabetes Foot Exam 03/07/2022 03/07/2021, 04/17/2016 Falls Prevention 03/29/2023 03/29/2022, 03/07/2021 Diabetes HbA1c 12/13/2023 06/12/2023, 01/03, 10/19/2019, Additional history exists Lipid Screening 06/12/2024 06/12/2023, 06/01, 01/25/2021, Additional history exists [id number]-03 ( season) 2024 10/12/2021, 02/23/2021, 02/02/2021 Imm-Influenza (#1) 2024 09/01/2020, 1 12/19/2018, 01/29/2017 Alcohol and Drug Screen 12/02/2024 06/12/20 23, 01/31/2022, 03/07/2021, Additional history exists Depression Annual Screen 12/02/2024 023, 04/30/2017, 03/06/2016, Additional history exists Serum Creatinine 12/12/2025 12/12/2024, 11/2023, 01/25/2021, Additional history exists Tobacco Screening 12/16/2025 12/16/2024 Imm-DTaP/Tdap/Td (2 - Td or Tdap) 04/17/2026 016 Abdominal Aortic Aneurysm Screening Completed 07/16/2016 Imm-Pneumococcal 65+ Completed 06/08/2021, 04/17/2016, 07/14/2015, Additional history exists Hepatitis C Screening Completed 06/12/2023 Imm-Zoster, Recombinant Completed 06/12/2023, 06/08 Procedures Procedure Name Priority Date/Time Associated Diagnosis Comments REFERRAL SCANNED DOCUMENT 03/05/2025 3:00 AM EDT CARD SCANNED DOCUMENT 12/12/2024 3:00 AM EST IMAGING SCANNED DOCUMENT 12/12/2024 3:00 AM EST COMPREHENSIVE METABOLIC PANEL Routine 06/12/2023 4:07 PM EDT Type 2 diabetes mellitus with complication (HCC-CMS) HEPATITIS C AB W/RFLX HCV RNA, QT, RT PCR Routine 06/12/2023 4:07 PM EDT Type 2 diabetes mellitus with complication ([facility]CC-CMS) Encounter for hepatitis C screening test for low risk patient LIPID PANEL Routine 06/12/2023 4:07 PM EDT Type 2 diabetes mellitus with complication ([facility]CC-CMS) HEMOGLOBIN GLYCOSYLATED A1C Routine 06/12/2023 4:07 PM EDT Type 2 diabetes mellitus with complication ([facility]CC-CMS) MICROALBUMIN/CREATINI NE RATIO, URINE, RANDOM Routine 01/25/2021 1:16 PM EST Essential hypertension Pure hypercholesterolemia Atrial fibrillation, unspecified type ([facility]CC-CMS) Type 2 diabetes mellitus with complication (HCC-CMS) from Last 3 Months or Most Recently Relevant to Health Maintenance Results * REFERRAL SCANNED DOCUMENT (03/05/2025 3:00 AM EDT) 03/05/2025 3:00 AM EDT us [facility] Provider Default SCAN REFERRAL Final Resu lt * CARD SCANNED DOCUMENT (12/12/2024 3:00 AM EST) 12/12/2024 3:00 AM EST Mulu Coulter HOME RESTORATION SERVICE SUPERVISOR SCAN ECGS Final Res ult * IMAGING SCANNED DOCUMENT (12/12/2024 3:00 AM EST) 12/12/2024 3:00 AM EST Mulu Coulter HOME RESTORATION SERVICE SUPERVISOR SCAN IMAGING Final Res ult * HEPATITIS C AB W/RFLX HCV RNA, QT, RT PCR (06/12/2023 4:07 PM EDT) HEPATITIS C ANTIBODY NON-REACT JUAN ANTONIO NON-REACT JUAN ANTONIO [facility] Comment: HCV antibody was non-reactive. There is no laboratory evidence of HCV infection. In most cases, no further action is required. However, if recent HCV exposure is suspected, a test for HCV RNA (test code 41760) is suggested. For additional information please refer to http://education.[employer]/faq/SQJ83a4 (This link is being provided for informational/ educational purposes only.) Blood Blood / Unknown 06/12/2023 4 :07 PM EDT 06/12/2023 4:08 PM EDT Narrative [facility] - 06/13/2023 6:08 AM EDT PATIENT UNABLE TO VOID; ADVISED TO RETURN FOR COLLECTION. Mulu Coulter [facility] - BLOOD DRAW Edited R esult - Final [facility] [address] [place] [id number], [facility] [address] [address] * (ABNORMAL) HEMOGLOBIN GLYCOSYLATED A1C (06/12/2023 4:07 PM EDT) HEMOGLOBIN A1C 7.0(H) <5.7 % of total Hgb [facility] Comment: For someone without known diabetes, a hemoglobin A1c value of 6.5% or greater indicates that they may have diabetes and this should be confirmed with a follow-up test. For someone with known diabetes, a value <7% indicates that their diabetes is well controlled and a value greater than or equal to 7% indicates suboptimal control. A1c targets should be individualized based on duration of diabetes, age, comorbid conditions, and other considerations. Currently, no consensus exists regarding use of hemoglobin A1c for diagnosis of diabetes for children. ?? Blood Blood / Unknown 06/12/2023 4 :07 PM EDT 06/12/2023 4:08 PM EDT Narrative [facility] - 06/13/2023 6:08 AM EDT PATIENT UNABLE TO VOID; ADVISED TO RETURN FOR COLLECTION. Mulu Coulter [employer]ORATION SERVICE SUPERVIS[employer] LAB - BLOOD DRAW Final Re sult [facility] [address] [place] [id number], [facility] [address] [address] * (ABNORMAL) LIPID PANEL (06/12/2023 4:07 PM EDT) [facility] CHOLESTEROL, TOTAL 169 <200 mg/dL [facility] HDL CHOLESTEROL 40 > OR = 40 mg/dL [facility] TRIGLYCERIDES 183(H) <150 mg/dL [facility] LDL-CHOLESTEROL 101(H) 99 mg/dL (calc) [facility] Comment: Reference range: <100 Desirable range <100 mg/dL for primary prevention; ?? <70 mg/dL for patients with CHD or diabetic patients with > or = 2 CHD risk factors. LDL-C is now calculated using the Maurice-Stanton calculation, which is a validated novel method providing better accuracy than the Friedewald equation in the estimation of LDL-C. Maurice SS et al. KUSH. 2013;310(19): 1646-3031 (http://education.P[employer]/faq/PDX534) CHOL/HDLC RATIO 4.2 <5.0 (calc) [facility] NON-HDL CHOLESTEROL 129 <130 mg/dL (calc) [facility] Comment: For patients with diabetes plus 1 major ASCVD risk factor, treating to a non-HDL-C goal of <100 mg/dL (LDL-C of <70 mg/dL) is considered a therapeutic option. Blood Blood / Unknown 06/12/2023 4 :07 PM EDT 06/12/2023 4:08 PM EDT Narrative [facility] - 06/13/2023 6:08 AM EDT PATIENT UNABLE TO VOID; ADVISED TO RETURN FOR COLLECTION. Mulu Coulter [facility] - BLOOD DRAW Final Re sult [facility] [address] [id number], [facility] [address] [place] [address] * (ABNORMAL) COMPREHENSIVE METABOLIC PANEL (06/12/2023 4:07 PM EDT) [facility] GLUCOSE 113(H) 65 - 99 mg/dL [facility] Comment: ?Fasting reference interval For someone without known diabetes, a glucose value between 100 and 125 mg/dL is consistent with prediabetes and should be confirmed with a follow-up test. UREA NITROGEN (BUN) 23 7 - 25 mg/dL [facility] CREATININE (blood) 1.62(H) 0.70 - 1.28 mg/dL [facility] [address] [facility] EGFR 45(L) > OR = 60 mL/min/1. 73m2 [facility] Comment: The eGFR is based on the CKD-EPI 2020 equation. To calculate the new eGFR from a previous Creatinine or Cystatin C result, go to https://www.kidney.org/professionals/ kdoqi/gfr%5Fcalculator BUN/CREATININE RATIO 14 6 - 22 (calc) [facility] [address] [facility] SODIUM 139 135 - 146 mmol/L [facility] [address] [facility] POTASSIUM 3.9 3.5 - 5.3 mmol/L [facility] [address] [facility] CHLORIDE 101 98 - 110 mmol/L [facility] [address] [facility] CARBON DIOXIDE 32 20 - 32 mmol/L [facility] [address] [facility] CALCIUM 9.4 8.6 - 10.3 mg/dL [facility] [address] [facility] PROTEIN, TOTAL 7.6 6.1 - 8.1 g/dL [facility] [address] [facility] ALBUMIN 3.9 3.6 - 5.1 g/dL [facility] GLOBULIN 3.7 1.9 - 3.7 g/dL (calc) [facility] [address] [facility] ALBUMIN/GLOBULI N RATIO 1.1 1.0 - 2.5 (calc) [facility] [address] [facility] BILIRUBIN, TOTAL 0.6 0.2 - 1.2 mg/dL [facility] ALKALINE PHOSPHATASE 76 35 - 144 U/L [facility] AST 14 10 - 35 U/L [facility] ALT 13 9 - 46 U/L [facility] Blood Blood / Unknown 06/12/2023 4 :07 PM EDT 06/12/2023 4:08 PM EDT Narrative [facility] - 06/13/2023 6:08 AM EDT PATIENT UNABLE TO VOID; ADVISED TO RETURN FOR COLLECTION. [facility] DI[facility] - BLOOD DRAW Edited R esult - Final [facility] [address] [id number], [facility] [address] [id number] * (ABNORMAL) MICROALBUMIN/CREATININE RATIO, URINE, RANDOM (01/25/2021 1:16 PM EST) CREATININE, RANDOM URINE 223 mg/dL [facility] MICROALBUMIN, RANDOM 1050.0(H) 0.0 - 29.0 mg/L [facility] Comment:RECHECKED MICROALB/CRE RATIO RANDOM 470.8(H) 0.0 - 30.0 mg/G [facility] Urine Urine specimen / Unknown 01/25/2021 1:16 PM EST 01/25/2021 3:01 PM EST Narrative [facility] 01/25/2021 7:01 PM EST [employer], [place] [address] Print Operator - Sherry Knox MD PT ID [id number] ORD# [id number] [facility] - NO BLOOD DRAW Edite d Result - Final [address] [address], from Last 3 Months or Most Recently Relevant to Health Maintenance Insurance [employer] Member Subscriber Plan / Payer (Ef fective 2016-Present) Name:Prakash Díaz Relation to Subscriber:Self Name:Prakash Díaz Payer ID:[id number] Group ID:Not on file Type:Indemnity Address: [place] [address] [address] [address] Care Teams Kitchen Aide Relationship Specialty Start Date End Date Yari Lopez NP [address] [place] [address] PCP - General Family Medicine, NATIONAL ACCOUNT REPRESENTATIVE 10/06/24
[2025-03-12 16:31] LABS: Influenza A PCR NEGATIVE (Negative); Influenza B PCR NEGATIVE (Negative); Resp Syncy Virus RNA Qual PCR NEGATIVE (Negative); SARS COV2 PCR INHOUSE NEGATIVE (Negative)
[2025-03-12] MEDS: iohexoL 350 MG/ML 100 ML INFUS..BTL IV (17:07)
[2025-03-12 17:53] LABS: Troponin-I High Sensitivity 636.8 ng/L (<3.5-35.0)
--- NOTE | 2025-03-12 17:57 | ECG_ITS ---
Test Reason : Elevated troponin Blood Pressure : */* mmHG Vent. Rate : 77 BPM Atrial Rate : * BPM P-R Int : * ms QRS Dur : 112 ms QT Int : 424 ms P-R-T Axes : * -20 241 degrees QTcB Int : 479 ms Atrial fibrillation with premature ventricular or aberrantly conducted complexes Left ventricular hypertrophy with repolarization abnormality ( [place] product ) Abnormal ECG When compared with ECG of 12-Mar-2025 15:36, T wave inversion more evident in Inferior leads Referred By: Aryan Spivey Electronically Signed By: Stefan Shaffer
[2025-03-12] MEDS: Aspirin 81 MG TAB.CHEW PO (18:04)
[2025-03-12 18:21] VITALS: BP 141/84; PULSE 84; RESP 20; O2SAT 96
[2025-03-12 19:30] LABS: Troponin-I High Sensitivity 638.3 ng/L (<3.5-35.0)
[2025-03-12 20:00] VITALS: BP 137/87; PULSE 84; RESP 20; TEMP 36.7; O2SAT 96
[2025-03-12 21:26] LABS: Glucose, Whole Blood 115 mg/dL (60-115)
--- NOTE | 2025-03-12 22:05 | PHA.MEDREC ---
Pharmacy Consult ? Medication Reconciliation Pharmacy has completed the medication reconciliation. Spoke with patient and at bedside. Pt's was able to confirm medications by pulling out all his prescription bottles to show what he is currently taking. He states he only takes him Symbicort as needed for SOB. There are no pharmacy claims for Nifedepine Er 60mg, his bottle looked very old, but patient says he takes this prn when his SBP > 160, he last took this about 3 days ago. Pt took all his medication this morning.
--- NOTE | 2025-03-12 22:11 | P.HPHOSP_ITS ---
History of Present Illness Date of Service: 03/12/25 Attending physician on admission: Tavon Nielson Chief Complaint: SOB, abd pain Patient is a 74-year-old male with a past medical history significant for HTN, persistent AFib on Eliquis, type 2 diabetes on metformin, COPD unspecified and s/p hernia repair in 2018, who presented to the ED due to abdominal pain and shortness of breath with cough for the past month. He describes intermittent umbilical pain and a 20 lb weight loss. His reports that he has been very pale. He has had no change in diet and has been able to eat and drink without issues. His pain does not increase with eating or movement. He also reports occasional melena. He reports about 1 month ago he had norovirus and this triggered a cough and chronic abdominal pain for him. His also had similar symptoms but hers have resolved. He denies any urinary symptoms including frequency, urgency or dysuria. Review of Systems 2 Constitutional: Constitutional: Denies body ache(s), Denies chills, Denies fatigue, Denies fever(s) and Denies headache(s) Eyes: Eyes: Denies change in vision and Denies photophobia ENT: Denies headache(s), Denies nasal congestion, Denies nasal discharge and Denies sore throat Cardiovascular: Cardiovascular: Denies chest pain, Denies chest pain at rest, Denies rapid heart rate, Denies leg edema, Denies lightheadedness and Reports dyspnea Respiratory: Respiratory: Reports chest congestion, Reports cough, Reports dyspnea and Reports wheezing Gastrointestinal: Gastrointestinal: Denies diarrhea, Denies nausea and Denies vomiting Genitourinary: Genitourinary: Denies difficulty urinating, Denies urinary frequency, Denies urinary hesitancy and Denies urinary urgency Musculoskeletal: Musculoskeletal: Denies back pain and Denies myalgias Integumentary/Breasts: Skin/Breast: Denies rash Neurologic: Denies confusion and Denies headache(s) Psychiatric: Psychiatric: Denies confusion Endocrine: Endocrine: Denies fatigue Hematologic/Lymphatic: Hematologic/Lymphatic: Denies easy bleeding and Denies easy bruising Allergic/Immunologic: Allergic/Immunologic: Reports wheezing [facility] Medical History (Updated 03/12/25 @ 22:30 by Ailyn García PA-C) COPD (chronic obstructive pulmonary disease) HTN (hypertension) Type 2 diabetes mellitus without complications Persistent atrial fibrillation Functional capacity: independent ambulation Social History Smoked in Last 30 Days: No Advance Directives: No Advance Directives Information Provided: Yes Narrative: No smoking, alcohol or drug use Meds Allergies Allergy/AdvReac Type Severity Reaction Status Date / Time No Known Allergies Allergy Verified 03/12/25 15:34 Active Medications: Current Medications Acetaminophen (Acetaminophen 325 Mg Tablet) 650 mg PO Q6H PRN PRN Reason: Pain, Mild 1-3,fever,headache Albuterol/Ipratropium (Albuterol/Iprat 2.5/0.5mg 3 Ml Ampul.Neb) 3 ml INHALE RQ4H WHILE AWAKE [facility] Apixaban (Apixaban 5 Mg Tablet) 5 mg PO BID [facility] Calcium Carbonate (Calcium Carbonate 750 Mg Tab.Chew) 750 mg PO Q4H PRN PRN Reason: Heartburn Ceftriaxone Sodium (Ceftriaxone Sodium 1 Gm Vial) 1 gm IVPUSH Q24H [facility] Dextrose (Dextrose 50 % 25 Gm/50 Ml Syringe) 25 gm IVPUSH Q15M PRN; Protocol PRN Reason: per Hypoglycemia Standing Ord. Glucose (Glucose Gel 15 Gm Gel..Gram.) 15 gm PO Q15M PRN; Protocol PRN Reason: per Hypoglycemia Standing Ord. Insulin Human Lispro (Insulin Lispro 100 Unit/Ml 3 Ml Vial) 0 unit SUBCUT QIDACHS [facility]; Protocol Magnesium Hydroxide (Milk Of Magnesia 30 Ml Oral.Susp) 30 ml PO DAILY PRN PRN Reason: Constipation Melatonin (Melatonin 3 Mg Tablet) 6 mg PO BEDTIME PRN PRN Reason: Insomnia Methylprednisolone Sodium Succinate (Methylprednisolone Sod Succ 40 Mg/Ml Vial) 40 mg IVPUSH BID [facility] Morphine Sulfate (Morphine Sulfate 4 Mg/Ml Cartridge) 2 mg IVPUSH Q4H PRN; Protocol PRN Reason: Pain, Severe (Pain Scale 7-10) Oxycodone HCl (Oxycodone Hcl Immed Release 5 Mg Tablet) 5 mg PO Q6H PRN PRN Reason: Pain, Moderate(Pain Scale 4-6) Polyethylene Glycol (Polyethylene Glycol 3350 17 Gm Powd.Pack) 17 gm PO DAILY PRN PRN Reason: Constipation Sodium Chloride (0.9 % Sodium Chloride Flush 3 Ml Syringe) 3 ml IVFLUSH QSHIFT [facility] Home Medications ?Medication ?Instructions ?Recorded ?Confirmed ?Last Taken ?Type acetaminophen 325 mg tablet 650 mg PO Q6H PRN Pain 03/12/25 03/12/25 Unknown History albuterol sulfate 2.5 mg/3 mL 2.5 mg continuous nebulization Q4H 03/12/25 03/12/25 Unknown History (0.083 %) solution for nebulization PRN SOB apixaban 5 mg tablet (Eliquis) 5 mg PO BID 03/12/25 03/12/25 03/12/25 History aspirin 81 mg tablet,delayed 81 mg PO DAILY 03/12/25 03/12/25 03/12/25 History release atorvastatin 80 mg tablet 80 mg PO DAILY 03/12/25 03/12/25 03/12/25 History budesonide-formoterol HFA 160 2 puff inhalation BID PRN SOB 03/12/25 03/12/25 03/12/25 History mcg-4.5 mcg/actuation aerosol inhaler lisinopril 40 mg tablet 40 mg PO DAILY 03/12/25 03/12/25 03/12/25 History metformin 500 mg tablet 500 mg PO BIDWM 03/12/25 03/12/25 03/12/25 History metoprolol succinate 50 mg 50 mg PO DAILY 03/12/25 03/12/25 03/12/25 History tablet,extended release 24 hr montelukast 10 mg tablet 10 mg PO BEDTIME 03/12/25 03/12/25 03/12/25 History (Singulair) nifedipine 60 mg tablet,extended 60 mg PO DAILY PRN SBP > 160 03/12/25 03/12/25 3 Days Ago History release 24 hr ~03/09/25 Physical Exam 2 Vital Signs and Narrative: Vital Signs: Last Vital Signs Temp 98.0 F 03/12/25 20:00 Pulse 84 03/12/25 20:00 Resp 20 03/12/25 20:00 BP 137/87 03/12/25 20:00 Pulse Ox 96 03/12/25 20:00 O2 Del Method Room Air 03/12/25 20:00 O2 Flow Rate 2 03/12/25 16:00 BMI result Body Mass Index 26.1 General: AOx3, no acute distress, seen with bedside Resp: wheezing with inspiration and expiration. no crackles or rhonchi CVS: Regularly irregular, normal rate GI: +BS, tender periumbilical region no distention Skin: Warm, dry Neuro: Cranial nerves II-XII grossly intact bilaterally. Motor grossly intact bilaterally Extremities: No lower extremity edema Psych: Appropriate affect Const: General: No confusion Orientation/consciousness: No confusion Eyes: Direct Ophthalmoscopy: No photophobia Neuro: General: No confusion Results Labs 03/12/25 15:46 03/12/25 15:46 Labs: Laboratory Results - last 24 hr 03/12/25 03/12/25 03/12/25 15:45 15:46 15:50 MCV 86.7 MCH 28.2 MCHC 32.5 RDW 15.0 Plt Count 215 MPV 12.1 Immature Gran % (Auto) 0.5 H Neut % (Auto) 80.3 H Lymph % (Auto) 10.4 L [place] % (Auto) 7.3 Eos % (Auto) 1.0 Baso % (Auto) 0.5 Lymph # (Auto) 1.1 L [place] # (Auto) 0.8 Eos # (Auto) 0.1 Baso # (Auto) 0.1 Abs Immat Gran (auto) 0.05 H Absolute Neuts (auto) 8.7 H Absolute Nucleated RBC 0.000 Nucleated RBC % (auto) 0.0 PT 13.7 H INR 1.2 H Anion Gap 11 L Estim Creat Clear Calc 67.7 Estimated GFR > 60 POC Glucose Random Glucose 175 H Calcium 9.4 Total Bilirubin 0.9 AST 22 ALT 12 Alkaline Phosphatase 209 H B-Natriuretic Peptide 580 H Total Protein 8.3 H Albumin 3.7 Lipase 40 Urine Color Dark Yellow Urine Appearance Cloudy Urine pH 7.5 Ur Specific [place] >= 1.030 H Urine Protein 100 (2+) H Urine Glucose (UA) >=1000 H Urine Ketones Trace Urine Blood Negative Urine Nitrite Positive H Ur Leukocyte Esterase Moderate (2+) H Urine RBC 0-2 Urine WBC >50 H Ur Squamous Epith Cells 0-2 Urine Bacteria 2+ Hyaline Casts 3-5 Influenza Type A (PCR) NEGATIVE Influenza Type B (PCR) NEGATIVE RSV RNA Qual (PCR) NEGATIVE SARS-CoV-2 RNA (RT-PCR) NEGATIVE 03/12/25 21:22 MCV MCH MCHC RDW Plt Count MPV Immature Gran % (Auto) Neut % (Auto) Lymph % (Auto) [place] % (Auto) Eos % (Auto) Baso % (Auto) Lymph # (Auto) [place] # (Auto) Eos # (Auto) Baso # (Auto) Abs Immat Gran (auto) Absolute Neuts (auto) Absolute Nucleated RBC Nucleated RBC % (auto) PT INR Anion Gap Estim Creat Clear Calc Estimated GFR POC Glucose 115 Random Glucose Calcium Total Bilirubin AST ALT Alkaline Phosphatase B-Natriuretic Peptide Total Protein Albumin Lipase Urine Color Urine Appearance Urine pH Ur Specific [place] Urine Protein Urine Glucose (UA) Urine Ketones Urine Blood Urine Nitrite Ur Leukocyte Esterase Urine RBC Urine WBC Ur Squamous Epith Cells Urine Bacteria Hyaline Casts Influenza Type A (PCR) Influenza Type B (PCR) RSV RNA Qual (PCR) SARS-CoV-2 RNA (RT-PCR) Imaging Radiologist's Impressions: Impressions Chest X-Ray 03/12/25 15:33 IMPRESSION: 1. Cardiomegaly. 2. Hyperaerated lung parenchyma suggesting COPD. 3. No active superimposed disease. Electronically signed by: Cory Chauhan MD 03/12/2025 04:16 PM EDT RP Assessment and Plan (1) Acute non-ST elevation myocardial infarction (NSTEMI): Status: Acute (2) Abdominal pain: Qualifiers: Abdominal location: periumbilical Qualified Code(s): R10.33 - Periumbilical pain Status: Acute (3) Pancreatic lesion: Status: Acute (4) Metastatic cancer: Qualifiers: Digestive structure secondary neoplasm location: metastatic to liver Status: Acute (5) COPD exacerbation: Status: Acute (6) Urinary tract infection: Status: Acute (7) Elevated brain natriuretic peptide (BNP) level: Status: Acute Plan Patient is a 74-year-old male with a past medical history significant for HTN, persistent AFib on Eliquis, type 2 diabetes on metformin, COPD unspecified and s/p hernia repair in 2018, who presented to the ED due to abdominal pain and shortness of breath with cough for the past month. NSETMI - trop elevated at 636, and remains elevated at 638 on repeat - EKG with AFib with P PVCs, left ventricular hypertrophy, prolonged QT - repeat EKG with AFib with PVCs, left ventricular hypertrophy and T-wave inversions more evident in inferior leads - ED provider spoke with Cardiology who suggested admission here and to continue patient's Eliquis, no heparin - given ASA 81, patient takes this daily, continue - monitor on tele - echocardiogram - lipid panel complete, HDL low - cardiology consult - monitor BMP Abdominal pain secondary to pancreatic lesion with likely metastatic cancer - abdominopelvic CT with 2 cm lesion in the pancreatic head consistent with malignancy, there is suspicion for tomorrow invasion in the proximal celiac artery and proximal submitted. Widespread hepatic metastasis. Reanna pancreatic lymphadenopathy. Small umbilical hernia contains a nonspecific soft tissue density. Urinary bladder wall thickening secondary to cystitis, underdistention or outlet obstruction from prostatomegaly - ED provider spoke with Oncology who suggested outpatient biopsy after stabilization from NSTEMI - LFTs elevated secondary to liver metastasis - oncology consult - pain management with oxycodone and morphine as needed Urinary tract infection - WBC 10.8, tachycardia secondary to albuterol use at home, no fever, no sepsis - UA positive, patient asymptomatic - urine culture pending - ceftriaxone 1 g daily - monitor CBC Acute COPD exacerbation - wheezing on exam after recent illness - COVID/flu/RSV negative - chest x-ray negative - Solu-Medrol 40 mg b.i.d. - DuoNebs q.4h p.r.n. Elevated BNP - likely secondary to NSTEMI - no signs of fluid overload - echocardiogram as above HTN - continue metoprolol and lisinopril - patient has p.r.n. nifedipine 60 mg, hold for now given BP normal Persistent AFib - EKG with AFib, rate controlled - continue metoprolol and Eliquis Type 2 diabetes - hold metformin - sliding scale insulin - diabetic diet Full code VTE prophylaxis: [facility] Patient with NSTEMI, acute COPD exacerbation and new diagnosis of metastatic pancreatic cancer, requiring admission for at least 2 midnights stay for further evaluation, monitoring and IV steroids. Quality Stroke Does the patient have a stroke diagnosis?: No VTE Prior VTE?: No VTE Risk Level:: Medical - moderate - high VTE Device Contraindication: Treatment Not Indicated VTE Drug Contraindication: N/A - Med Ordered
[2025-03-12 22:19] LABS: Cholesterol 145 mg/dL (<200); HDL Cholesterol 34 mg/dL (>40); LDL Cholesterol Calculated 82 mg/dL (<100); Magnesium 1.8 mg/dL (1.6-2.6); Triglycerides 145 mg/dL (<150)
[2025-03-12] MEDS: Montelukast Sodium 10 MG TABLET PO (22:45)
[2025-03-12] MEDS: Apixaban 5 MG TABLET PO (22:45)
[2025-03-12] MEDS: methylPREDNISolone Sod Succ 40 MG/ML VIAL IVPUSH (22:45)
[2025-03-12] MEDS: cefTRIAXone sodium 1 GM VIAL IVPUSH (22:52)
[2025-03-13] VITALS (11 sets, daily range): BP systolic 146–169; BP diastolic 56–99; PULSE 74–103; RESP 16–24; TEMP 36.2–37.4; O2SAT 94–100; BMI 25.7
--- NOTE | 2025-03-13 | ECG_ITS ---
Test Reason : Elevated troponins Blood Pressure : */* mmHG Vent. Rate : 83 BPM Atrial Rate : * BPM P-R Int : * ms QRS Dur : 108 ms QT Int : 424 ms P-R-T Axes : * -14 227 degrees QTcB Int : 498 ms Atrial fibrillation Left ventricular hypertrophy with repolarization abnormality ( [place] product ) Prolonged QT Abnormal ECG When compared with ECG of 12-Mar-2025 18:13, No significant change was found Referred By: Stefan Shaffer Electronically Signed By: Stefan Shaffer
[2025-03-13] MEDS: 0.9 % Sodium Chloride Flush 3 ML SYRINGE IVFLUSH ×4 (05:28→19:52)
[2025-03-13 07:34] LABS: Glucose, Whole Blood 252 mg/dL (60-115)
[2025-03-13 07:37] LABS: Anion Gap 13 (12-20); Blood Urea Nitrogen 18 mg/dL (9-16); Calcium 9.1 mg/dL (8.4-10.2); Carbon Dioxide 26 mmol/L (22-29); Chloride 102 mmol/L (96-108); Creatinine Clr Calc Pharmacy 61.3; Estimated Glomerular Filt Rate > 60; Glucose Random 289 mg/dL (60-115); Potassium 4.3 mmol/L (3.3-5.1); Sodium 137 mmol/L (135-145)
[2025-03-13] MEDS: Metoprolol Succinate ER 50 MG TAB.ER.24H PO (07:45)
[2025-03-13] MEDS: methylPREDNISolone Sod Succ 40 MG/ML VIAL IVPUSH ×2 (07:45→19:52)
[2025-03-13] MEDS: lisinopriL 40 MG TABLET PO (07:45)
[2025-03-13] MEDS: Atorvastatin Calcium 80 MG TABLET PO (07:45)
[2025-03-13] MEDS: Apixaban 5 MG TABLET PO (07:45)
[2025-03-13] MEDS: Insulin Lispro 100 UNIT/ML 3 ML VIAL SUBCUT ×4 (07:45→22:05)
[2025-03-13] MEDS: Aspirin Enteric Coated 81 MG TABLET.DR PO (07:45)
[2025-03-13] MEDS: polyethylene glycoL 3350 17 GM POWD.PACK PO (07:48)
[2025-03-13 07:49] LABS: Hematocrit 43.1 % (42.0-52.0); Hemoglobin 13.9 g/dl (14.0-18.0); Mean Corpuscular HGB Conc 32.3 g/dl (31.0-36.0); Mean Corpuscular Hemoglobin 27.7 pg (27.0-33.0); Mean Corpuscular Volume 85.9 fL (80.0-98.0); Mean Platelet Volume 12.3 fL (9.4-12.4); Platelet Count 194 X10*3/uL (160-400); Red Blood Count 5.02 X10*6/uL (4.60-5.80); White Blood Count 6.9 X10*3/uL (4.8-10.8)
[2025-03-13] MEDS: Albuterol/Iprat 2.5/0.5MG 3 ML AMPUL.NEB INHALE ×4 (08:16→19:08)
[2025-03-13 09:17] LABS: Troponin-I High Sensitivity 689.1 ng/L (<3.5-35.0)
--- NOTE | 2025-03-13 11:08 | MHC.CM.PN ---
IMM 03/13/25, Pt. lives with his , he does not have home health services. For DME: he has a walker (needs a new one), a cane and shower chair. PCP is ARUN Ayala at [facility]. HCP to be completed here and added to chart. to transport home at DC, DCP: home, self care, CM to follow for DC needs.
--- NOTE | 2025-03-13 11:37 | P.CONCA_ITS ---
History of Present Illness History of Present Illness Date of Service: 03/13/25 Requesting physician: August Navarro Chief complaint: NSTEMI, UTI, COPD exacerbation, new dx pancreatic Narrative: 74-year-old gentleman who follows at [facility] for cardiovascular care. He has persistent atrial fibrillation and has been treated with rate control strategy and currently takes aspirin and Eliquis. He is on metoprolol succinate 50 mg daily. He is presenting with abdominal pain and is imaging is concerning for abdominal malignancy. He was also noticed to have elevated high sensitivity troponin level of 689. BNP was 580. Creatinine clearance and 61 and creatinine is 1.16. He has no chest discomfort shortness of breath. He presented mostly for abdominal pain. EKGs has lateral T-wave inversions and ST depressions which are persistent and I think that related to left ventricular hypertrophy. He is saying his abdominal pain is somewhat improved at this point. Blood pressure is elevated. [facility] Past Medical History Medical History COPD (chronic obstructive pulmonary disease) HTN (hypertension) Type 2 diabetes mellitus without complications Persistent atrial fibrillation Social History Social History Household Members: Spouse Housing: Apartment Do you presently have visiting nurse or other home services: No Patient Tobacco Use Status: Former Tobacco user Tobacco use type: Cigarette Smoked in Last 30 Days: No e-Cigarette/Vaping Use: Never Used Patient Interested in Nicotine Replacement: No Patient Given Instructions on How to Stop Smoking: No Second Hand Smoke Exposure: No Use of substances other than those prescribed or required for medical reasons: No Currently Displaying Signs/Symptoms of Drug Intoxication Withdrawal: No Any prior treatment program specific to substance use: No Have you been hit, kicked, punched, or otherwise hurt by someone within the past year? If so, by whom?: No Do you feel safe in your current relationship?: Yes Is there a partner from a previous relationship who is making you feel unsafe now?: No Are you made to feel afraid or neglected: No Spiritual Healthcare Practices: Quaker Advance Directives: No Advance Directives Information Provided: Yes Advance Directives on File: No Do you have a plan to hurt others: No Plan Recently lost weight without trying: No Eating poorly because of decreased appetite: No Nutrition Risks: No Nutritional Risk Poor oral hygiene: No service: No Meds Allergies Allergy/AdvReac Type Severity Reaction Status Date / Time No Known Allergies Allergy Verified 03/12/25 15:34 Active Medications: Current Medications Acetaminophen (Acetaminophen 325 Mg Tablet) 650 mg PO Q6H PRN PRN Reason: Pain, Mild 1-3,fever,headache Albuterol/Ipratropium (Albuterol/Iprat 2.5/0.5mg 3 Ml Ampul.Neb) 3 ml INHALE RQ4H WHILE AWAKE [facility] Last Admin: 03/13/25 08:16 Dose: 3 ml Apixaban (Apixaban 5 Mg Tablet) 5 mg PO BID [facility] Last Admin: 03/13/25 07:45 Dose: 5 mg Aspirin (Aspirin Enteric Coated 81 Mg Tablet.Dr) 81 mg PO DAILY [facility] Last Admin: 03/13/25 07:45 Dose: 81 mg Atorvastatin Calcium (Atorvastatin Calcium 80 Mg Tablet) 80 mg PO DAILY [facility] Last Admin: 03/13/25 07:45 Dose: 80 mg Calcium Carbonate (Calcium Carbonate 750 Mg Tab.Chew) 750 mg PO Q4H PRN PRN Reason: Heartburn Ceftriaxone Sodium (Ceftriaxone Sodium 1 Gm Vial) 1 gm IVPUSH Q24H [facility] Last Admin: 03/12/25 22:52 Dose: 1 gm Dextrose (Dextrose 50 % 25 Gm/50 Ml Syringe) 25 gm IVPUSH Q15M PRN; Protocol PRN Reason: per Hypoglycemia Standing Ord. Fluticasone/Vilanterol (Fluticasone/Vilanterol 200/25 Blst.W.Dev) 1 puff INHALE RDAILY PRN PRN Reason: Shortness of Breath Glucose (Glucose Gel 15 Gm Gel..Gram.) 15 gm PO Q15M PRN; Protocol PRN Reason: per Hypoglycemia Standing Ord. Insulin Human Lispro (Insulin Lispro 100 Unit/Ml 3 Ml Vial) 0 unit SUBCUT QIDACHS [facility]; Protocol Last Admin: 03/13/25 10:55 Dose: 8 unit Lisinopril (Lisinopril 40 Mg Tablet) 40 mg PO DAILY [facility]; Protocol Last Admin: 03/13/25 07:45 Dose: 40 mg Magnesium Hydroxide (Milk Of Magnesia 30 Ml Oral.Susp) 30 ml PO DAILY PRN PRN Reason: Constipation Melatonin (Melatonin 3 Mg Tablet) 6 mg PO BEDTIME PRN PRN Reason: Insomnia Methylprednisolone Sodium Succinate (Methylprednisolone Sod Succ 40 Mg/Ml Vial) 40 mg IVPUSH BID [facility] Last Admin: 03/13/25 07:45 Dose: 40 mg Metoprolol Succinate (Metoprolol Succinate Er 50 Mg Tab.Er.24h) 50 mg PO DAILY [facility]; Protocol Last Admin: 03/13/25 07:45 Dose: 50 mg Montelukast Sodium (Montelukast Sodium 10 Mg Tablet) 10 mg PO BEDTIME [facility] Last Admin: 03/12/25 22:45 Dose: 10 mg Morphine Sulfate (Morphine Sulfate 4 Mg/Ml Cartridge) 2 mg IVPUSH Q4H PRN; Protocol PRN Reason: Pain, Severe (Pain Scale 7-10) Oxycodone HCl (Oxycodone Hcl Immed Release 5 Mg Tablet) 5 mg PO Q6H PRN PRN Reason: Pain, Moderate(Pain Scale 4-6) Polyethylene Glycol (Polyethylene Glycol 3350 17 Gm Powd.Pack) 17 gm PO DAILY PRN PRN Reason: Constipation Last Admin: 03/13/25 07:48 Dose: 17 gm Sodium Chloride (0.9 % Sodium Chloride Flush 3 Ml Syringe) 3 ml IVFLUSH [facility] Last Admin: 03/13/25 07:49 Dose: 3 ml Home Medications ?Medication ?Instructions ?Recorded ?Confirmed ?Last Taken ?Type acetaminophen 325 mg tablet 650 mg PO Q6H PRN Pain 03/12/25 03/12/25 Unknown History albuterol sulfate 2.5 mg/3 mL 2.5 mg continuous nebulization Q4H 03/12/25 03/12/25 Unknown History (0.083 %) solution for nebulization PRN SOB apixaban 5 mg tablet (Eliquis) 5 mg PO BID 03/12/25 03/12/25 03/12/25 History aspirin 81 mg tablet,delayed 81 mg PO DAILY 03/12/25 03/12/25 03/12/25 History release atorvastatin 80 mg tablet 80 mg PO DAILY 03/12/25 03/12/25 03/12/25 History budesonide-formoterol HFA 160 2 puff inhalation BID PRN SOB 03/12/25 03/12/25 03/12/25 History mcg-4.5 mcg/actuation aerosol inhaler lisinopril 40 mg tablet 40 mg PO DAILY 03/12/25 03/12/25 03/12/25 History metformin 500 mg tablet 500 mg PO BIDWM 03/12/25 03/12/25 03/12/25 History metoprolol succinate 50 mg 50 mg PO DAILY 03/12/25 03/12/25 03/12/25 History tablet,extended release 24 hr montelukast 10 mg tablet 10 mg PO BEDTIME 03/12/25 03/12/25 03/12/25 History (Singulair) nifedipine 60 mg tablet,extended 60 mg PO DAILY PRN SBP > 160 03/12/25 03/12/25 3 Days Ago History release 24 hr ~03/09/25 Physical Exam 2 Vital Signs: Vital Signs: Last Vital Signs Temp 97.6 F 03/13/25 11:04 Pulse 74 03/13/25 11:04 Resp 18 03/13/25 11:04 BP 169/99 H 03/13/25 07:45 Pulse Ox 98 03/13/25 11:04 O2 Del Method Room Air 03/13/25 11:04 O2 Flow Rate 2 03/12/25 16:00 BMI result Body Mass Index 25.7 GENERAL APPEARANCE: in no acute distress, pleasant. SKIN: no suspicious lesions, warm and dry. HEART: no murmurs, irregular rate and rhythm. LUNGS: clear to auscultation anteriorly. ABDOMEN: soft, nontender. EXTREMITIES: no edema. PERIPHERAL PULSES: equal. NEUROLOGIC: No gross deficits, AAO X 3 Objective Labs and Meds 03/13/25 07:01 03/13/25 07:00 Lab results: Laboratory Results - last 24 hr 03/12/25 03/12/25 03/12/25 15:45 15:46 15:50 WBC 10.8 RBC 4.82 Hgb 13.6 L Hct 41.8 L MCV 86.7 MCH 28.2 MCHC 32.5 RDW 15.0 Plt Count 215 MPV 12.1 Immature Gran % (Auto) 0.5 H Neut % (Auto) 80.3 H Lymph % (Auto) 10.4 L [place] % (Auto) 7.3 Eos % (Auto) 1.0 Baso % (Auto) 0.5 Lymph # (Auto) 1.1 L [place] # (Auto) 0.8 Eos # (Auto) 0.1 Baso # (Auto) 0.1 Abs Immat Gran (auto) 0.05 H Absolute Neuts (auto) 8.7 H Absolute Nucleated RBC 0.000 Nucleated RBC % (auto) 0.0 PT 13.7 H INR 1.2 H Sodium 140 Potassium 4.2 Chloride 101 Carbon Dioxide 32 H Anion Gap 11 L BUN 14 Creatinine 1.05 Estim Creat Clear Calc 67.7 Estimated GFR > 60 POC Glucose Random Glucose 175 H Calcium 9.4 Magnesium Total Bilirubin 0.9 AST 22 ALT 12 Alkaline Phosphatase 209 H Troponin I High Sens 636.8 H* B-Natriuretic Peptide 580 H Total Protein 8.3 H Albumin 3.7 Triglycerides Cholesterol LDL Cholesterol, Calc HDL Cholesterol Lipase 40 Urine Color Dark Yellow Urine Appearance Cloudy Urine pH 7.5 Ur Specific [place] >= 1.030 H Urine Protein 100 (2+) H Urine Glucose (UA) >=1000 H Urine Ketones Trace Urine Blood Negative Urine Nitrite Positive H Ur Leukocyte Esterase Moderate (2+) H Urine RBC 0-2 Urine WBC >50 H Ur Squamous Epith Cells 0-2 Urine Bacteria 2+ Hyaline Casts 3-5 Influenza Type A (PCR) NEGATIVE Influenza Type B (PCR) NEGATIVE RSV RNA Qual (PCR) NEGATIVE SARS-CoV-2 RNA (RT-PCR) NEGATIVE 03/12/25 03/12/25 03/13/25 19:03 21:22 07:00 WBC RBC Hgb Hct MCV MCH MCHC RDW Plt Count MPV Immature Gran % (Auto) Neut % (Auto) Lymph % (Auto) [place] % (Auto) Eos % (Auto) Baso % (Auto) Lymph # (Auto) [place] # (Auto) Eos # (Auto) Baso # (Auto) Abs Immat Gran (auto) Absolute Neuts (auto) Absolute Nucleated RBC Nucleated RBC % (auto) PT INR Sodium 137 Potassium 4.3 Chloride 102 Carbon Dioxide 26 Anion Gap 13 BUN 18 H Creatinine 1.16 Estim Creat Clear Calc 61.3 Estimated GFR > 60 POC Glucose 115 Random Glucose 289 H Calcium 9.1 Magnesium 1.8 Total Bilirubin AST ALT Alkaline Phosphatase Troponin I High Sens 638.3 H* 689.1 H* B-Natriuretic Peptide Total Protein Albumin Triglycerides 145 Cholesterol 145 LDL Cholesterol, Calc 82 HDL Cholesterol 34 L Lipase Urine Color Urine Appearance Urine pH Ur Specific [place] Urine Protein Urine Glucose (UA) Urine Ketones Urine Blood Urine Nitrite Ur Leukocyte Esterase Urine RBC Urine WBC Ur Squamous Epith Cells Urine Bacteria Hyaline Casts Influenza Type A (PCR) Influenza Type B (PCR) RSV RNA Qual (PCR) SARS-CoV-2 RNA (RT-PCR) 03/13/25 03/13/25 07:01 07:28 WBC 6.9 RBC 5.02 Hgb 13.9 L Hct 43.1 MCV 85.9 MCH 27.7 MCHC 32.3 RDW 15.0 Plt Count 194 MPV 12.3 Immature Gran % (Auto) Neut % (Auto) Lymph % (Auto) [place] % (Auto) Eos % (Auto) Baso % (Auto) Lymph # (Auto) [place] # (Auto) Eos # (Auto) Baso # (Auto) Abs Immat Gran (auto) Absolute Neuts (auto) Absolute Nucleated RBC 0.000 Nucleated RBC % (auto) 0.0 PT INR Sodium Potassium Chloride Carbon Dioxide Anion Gap BUN Creatinine Estim Creat Clear Calc Estimated GFR POC Glucose 252 H Random Glucose Calcium Magnesium Total Bilirubin AST ALT Alkaline Phosphatase Troponin I High Sens B-Natriuretic Peptide Total Protein Albumin Triglycerides Cholesterol LDL Cholesterol, Calc HDL Cholesterol Lipase Urine Color Urine Appearance Urine pH Ur Specific [place] Urine Protein Urine Glucose (UA) Urine Ketones Urine Blood Urine Nitrite Ur Leukocyte Esterase Urine RBC Urine WBC Ur Squamous Epith Cells Urine Bacteria Hyaline Casts Influenza Type A (PCR) Influenza Type B (PCR) RSV RNA Qual (PCR) SARS-CoV-2 RNA (RT-PCR) Imaging Radiologist's impression: Impressions Chest X-Ray 03/12/25 15:33 IMPRESSION: 1. Cardiomegaly. 2. Hyperaerated lung parenchyma suggesting COPD. 3. No active superimposed disease. Electronically signed by: Cory Chauhan MD 03/12/2025 04:16 PM EDT Assessment and Plan (1) Persistent atrial fibrillation: Status: Acute (2) Elevated troponin I level: Status: Acute Plan 74-year-old gentleman presenting for abdominal pain with CT scan showing 2 cm hypoattenuating lesion in the pancreatic head consistent with malignancy. There is also suspicion for tumoral invasion in the proximal celiac artery and proximal SMA. Widespread hepatic metastasis. Peripancreatic lymphadenopathy also noted. He is denying any chest discomfort. He has lateral T-wave changes which I think are related to left ventricular hypertrophy. He also has uncontrolled hypertension currently. I do not believe his presentation is due to NSTEMI. This is likely a type 2 injury. I think he is nifedipine should be restarted as daily rather than as needed. Discussed with oncology whether inpatient further testing should be performed. In that case Eliquis can be held for 48 hours and he can undergo biopsy etc.. Thank you for allowing me to participate in the care of your patient. Please feel free to contact me if you have any questions. Procedures Date of Service Date of Service: 03/13/25
[2025-03-13 11:58] LABS: Glucose, Whole Blood 303 mg/dL (60-115)
--- NOTE | 2025-03-13 12:22 | P.CNHO_ITS ---
Subjective - Subjective Chief complaint: Epigastric discomfort epigastric discomfort Patient: new to practice Consult date: 03/13/25 Primary Care Provider: Unknown Physician Electrical Laboratory Technician Utilized?: No - Khmer Speaking HPI - Consult Narrative Reason for consult: Probable metastatic pancreatic cancer Narrative: Prakash Díaz is a 74 year old male who presented to [facility] ED with complaints of epigastric discomfort, weight loss and weakness. According to his who is the main historian, patient has been feeling rather weak since norovirus infection beginning of January. Initially he had a lot of cough which was causing chest discomfort but this was persistent and she felt that he was starting to look pale. He did not have any chest pain, dizziness or diaphoresis. No nausea or emesis, they did not notice any jaundice. He is a well controlled diabetic. He has had chronic atrial fibrillation and is on Eliquis. He has history of BPH, he denies any difficulty urinating. He denies any complaints such as hematochezia, melena or hematuria. He has never been diagnosed with cancer. He is 1 of 9 siblings and there is no family history of cancer. He denies smoking or alcohol use. 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 At home with his . He has 2 children. Review of Systems - Constitutional Reports as per HPI, Reports fatigue, Denies night sweats, Reports poor appetite, Reports weakness, Reports weight loss - Cardiovascular Reports no additional cardiovascular complaints, Denies chest pain with activity, Denies excessive sweating, Denies fainting, Denies foot swelling - Respiratory Reports cough, Denies dyspnea - Gastrointestinal Reports as per HPI, Reports abdominal pain, Denies black, tarry stools, Denies change in bowel habits, Denies coffee ground vomit, Denies constipation - Neurologic Denies confusion, Denies headache(s) [facility] Medical History: Medical History (Last Reviewed 03/13/25 @ 01:02 by Zeynep Batista RN) COPD (chronic obstructive pulmonary disease) HTN (hypertension) Persistent atrial fibrillation Type 2 diabetes mellitus without complications Functional capacity: independent ambulation Social History: Social History (Last Reviewed 01/19/23 @ 11:45 by Heber Berrios MD) Living Situation History: Household Members: Spouse Housing: Apartment Do you presently have visiting nurse or other home services: No Alcohol History Details: 1. How often do you have a drink containing alcohol?: a. Never 3. How often do you have six or more drinks on one occasion?: a. Never AUDIT-C Alcohol total score: 0 Currently Displaying Signs/Symptoms of Alcohol Withdrawal: No Tobacco History: Patient Tobacco Use Status: Former Tobacco user Tobacco use type: Cigarette Smoked in Last 30 Days: No e-Cigarette/Vaping Use: Never Used Patient Interested in Nicotine Replacement: No Patient Given Instructions on How to Stop Smoking: No Second Hand Smoke Exposure: No Substance Use History: Use of substances other than those prescribed or required for medical reasons : No Currently Displaying Signs/Symptoms of Drug Intoxication Withdrawal: No Any prior treatment program specific to substance use: No Domestic Abuse History: Have you been hit, kicked, punched, or otherwise hurt by someone within the past year? If so, by whom?: No Do you feel safe in your current relationship?: Yes Is there a partner from a previous relationship who is making you feel unsafe now?: No Are you made to feel afraid or neglected: No Healthcare Practices: Spiritual Healthcare Practices: Taoist Advance Directives: Advance Directives: No Advance Directives Information Provided: Yes Advance Directives on File: No Homicidal Assessment: Do you have a plan to hurt others: No Plan Nutrition Assessment: Recently lost weight without trying: No Eating poorly because of decreased appetite: No Nutrition Risks: No Nutritional Risk Poor oral hygiene: No Occupation Assessmet: service: No Home Medications and Allergies Current Medications: Current Medications Acetaminophen (Acetaminophen 325 Mg Tablet) 650 mg PO Q6H PRN PRN Reason: Pain, Mild 1-3,fever,headache Albuterol/Ipratropium (Albuterol/Iprat 2.5/0.5mg 3 Ml Ampul.Neb) 3 ml INHALE RQ4H WHILE AWAKE [facility] Last Admin: 03/13/25 11:45 Dose: 3 ml Apixaban (Apixaban 5 Mg Tablet) 5 mg PO BID [facility] Last Admin: 03/13/25 07:45 Dose: 5 mg Aspirin (Aspirin Enteric Coated 81 Mg Tablet.) 81 mg PO DAILY [facility] Last Admin: 03/13/25 07:45 Dose: 81 mg Atorvastatin Calcium (Atorvastatin Calcium 80 Mg Tablet) 80 mg PO DAILY [facility] Last Admin: 03/13/25 07:45 Dose: 80 mg Calcium Carbonate (Calcium Carbonate 750 Mg Tab.Chew) 750 mg PO Q4H PRN PRN Reason: Heartburn Ceftriaxone Sodium (Ceftriaxone Sodium 1 Gm Vial) 1 gm IVPUSH Q24H [facility] Last Admin: 03/12/25 22:52 Dose: 1 gm Dextrose (Dextrose 50 % 25 Gm/50 Ml Syringe) 25 gm IVPUSH Q15M PRN; Protocol PRN Reason: per Hypoglycemia Standing Ord. Fluticasone/Vilanterol (Fluticasone/Vilanterol 200/25 Blst.W.Dev) 1 puff INHALE RDAILY PRN PRN Reason: Shortness of Breath Glucose (Glucose Gel 15 Gm Gel..Gram.) 15 gm PO Q15M PRN; Protocol PRN Reason: per Hypoglycemia Standing Ord. Insulin Human Lispro (Insulin Lispro 100 Unit/Ml 3 Ml Vial) 0 unit SUBCUT QIDACHS [facility]; Protocol Last Admin: 03/13/25 10:55 Dose: 8 unit Lisinopril (Lisinopril 40 Mg Tablet) 40 mg PO DAILY [facility]; Protocol Last Admin: 03/13/25 07:45 Dose: 40 mg Magnesium Hydroxide (Milk Of Magnesia 30 Ml Oral.Susp) 30 ml PO DAILY PRN PRN Reason: Constipation Melatonin (Melatonin 3 Mg Tablet) 6 mg PO BEDTIME PRN PRN Reason: Insomnia Methylprednisolone Sodium Succinate (Methylprednisolone Sod Succ 40 Mg/Ml Vial) 40 mg IVPUSH BID [facility] Last Admin: 03/13/25 07:45 Dose: 40 mg Metoprolol Succinate (Metoprolol Succinate Er 50 Mg Tab.Er.24h) 50 mg PO DAILY [facility]; Protocol Last Admin: 03/13/25 07:45 Dose: 50 mg Montelukast Sodium (Montelukast Sodium 10 Mg Tablet) 10 mg PO BEDTIME [facility] Last Admin: 03/12/25 22:45 Dose: 10 mg Morphine Sulfate (Morphine Sulfate 4 Mg/Ml Cartridge) 2 mg IVPUSH Q4H PRN; Protocol PRN Reason: Pain, Severe (Pain Scale 7-10) Oxycodone HCl (Oxycodone Hcl Immed Release 5 Mg Tablet) 5 mg PO Q6H PRN PRN Reason: Pain, Moderate(Pain Scale 4-6) Polyethylene Glycol (Polyethylene Glycol 3350 17 Gm Powd.Pack) 17 gm PO DAILY PRN PRN Reason: Constipation Last Admin: 03/13/25 07:48 Dose: 17 gm Sodium Chloride (0.9 % Sodium Chloride Flush 3 Ml Syringe) 3 ml IVFLUSH QSHIFT [facility] Last Admin: 03/13/25 07:49 Dose: 3 ml Home Medications ?Medication ?Instructions ?Recorded ?Confirmed ?Type acetaminophen 325 mg tablet 650 mg PO Q6H PRN Pain 03/12/25 03/12/25 History albuterol sulfate 2.5 mg/3 mL 2.5 mg continuous nebulization Q4H 03/12/25 03/12/25 History (0.083 %) solution for nebulization PRN SOB apixaban 5 mg tablet (Eliquis) 5 mg PO BID 03/12/25 03/12/25 History aspirin 81 mg tablet,delayed 81 mg PO DAILY 03/12/25 03/12/25 History release atorvastatin 80 mg tablet 80 mg PO DAILY 03/12/25 03/12/25 History budesonide-formoterol HFA 160 2 puff inhalation BID PRN SOB 03/12/25 03/12/25 History mcg-4.5 mcg/actuation aerosol inhaler lisinopril 40 mg tablet 40 mg PO DAILY 03/12/25 03/12/25 History metformin 500 mg tablet 500 mg PO BIDWM 03/12/25 03/12/25 History metoprolol succinate 50 mg 50 mg PO DAILY 03/12/25 03/12/25 History tablet,extended release 24 hr montelukast 10 mg tablet 10 mg PO BEDTIME 03/12/25 03/12/25 History (Singulair) nifedipine 60 mg tablet,extended 60 mg PO DAILY PRN SBP > 160 03/12/25 03/12/25 History release 24 hr Allergies Allergy/AdvReac Type Severity Reaction Status Date / Time No Known Allergies Allergy Verified 03/12/25 15:34 Physical Exam Vital signs: Vital Signs Temp 97.6 F 03/13/25 11:04 Pulse 74 03/13/25 11:46 Resp 18 03/13/25 11:46 BP 169/99 H 03/13/25 07:45 Pulse Ox 98 03/13/25 11:04 O2 Del Method Room Air 03/13/25 11:04 O2 Flow Rate 2 03/12/25 16:00 Intake & Output 03/12/25 03/13/25 03/13/25 18:59 06:59 18:59 Intake Total 260 / 260 Balance 260 / 260 Intake: Intake, Oral Amount 260 / 260 Other: Dinner % Eaten 0% Last Bowel Movement 03/12/25 03/11/25 Weight 87.4 kg 86 kg [place] Weight in Grams [id number] Weight 86 kg - Constitutional Present: no acute distress - Routine HEENT Exam Head: Present: normal inspection Eye: Present: EOMI, PERRL. Absent: scleral icterus - Routine Neck Exam Present: supple. Absent: lymphadenopathy - Routine Respiratory Exam Present: CTAB. Absent: rhonchi, wheezes - Routine Cardiovascular Exam Cardiovascular: Present: RRR, S1, S2 - Routine Abdominal Exam Present: soft - Routine Extremities Exam Present: normal inspection - Routine Skin Exam Present: intact. Absent: cyanosis - Routine Neurological Exam Present: alert, oriented X3 Hem/Onc Consult Result - Labs CBC & Chem 7: 03/13/25 07:01 03/13/25 07:00 Labs: Short CBC 03/12/25 03/13/25 Range/Units 15:46 07:01 WBC 10.8 6.9 (4.8-10.8) X10*3/uL Hgb 13.6 L 13.9 L (14.0-18.0) g/dl Hct 41.8 L 43.1 (42.0-52.0) % Plt Count 215 194 (160-400) X10*3/uL BMP 03/12/25 03/13/25 15:46 07:00 Sodium 140 137 Potassium 4.2 4.3 Chloride 101 102 Carbon Dioxide 32 H 26 BUN 14 18 H Creatinine 1.05 1.16 Calcium 9.4 9.1 Liver Function 03/12/25 Range/Units 15:46 Total Bilirubin 0.9 (0.0-1.0) mg/dL AST 22 (5-37) U/L ALT 12 (0-40) U/L Alkaline Phosphatase 209 H (39-117) U/L Albumin 3.7 (3.5-5.0) g/dL Urine 03/12/25 Range/Units 15:50 Urine Color Dark Yellow Urine Appearance Cloudy Urine pH 7.5 (5.0-9.0) Ur Specific [place] >= 1.030 H (1.005-1.025) Urine Protein 100 (2+) H (Neg-Trace) mg/dL Urine Glucose (UA) >=1000 H (Negative) mg/dL Assessment and Plan Patient Active problem list reviewed?: Yes (1) Metastatic cancer Status: Acute Assessment and plan: 1. This is a 74-year-old male with past medical history significant for type 2 diabetes mellitus and atrial fibrillation on Eliquis who presented with epigastric discomfort and found to have pancreatic mass with liver metastasis. CT abdomen/pelvis without IV contrast performed 03/12/2025 shows a 2 cm poorly defined lesion in the pancreatic head, 1.6 cm necrotic lymph node, multiple borderline enlarged periportal and peripancreatic lymph nodes, enlarged spleen measuring 14.1 cm, diffuse fatty infiltration of the liver with multiple hypoattenuated hepatic lesions consistent with hepatic metastasis. This suspicion of tumoral invasion in the proximal celiac artery and proximal SMA. This is consistent with metastatic pancreatic cancer. Biopsy of liver lesion can be performed, Eliquis have to be stopped. Lovenox 1 milligram/kilos b.i.d. can be initiated, dose to be held 12 hours before biopsy. Blood work fortunately is normal with only mild elevation in alkaline phosphatase level. Submit LDH and CA 19 9 level. I discussed with patient and family further workup which includes biopsy, outpatient PET scan. Systemic therapy recommendations will be made after biopsy. He is not a candidate for any surgery. I thank you for the consultation, will follow with you. - Time Spent With Patient Time Spent with Patient (in minutes): 35 Additional Coding: - Additional E/M codes Complex E/M visit Add On: CPT G2211
--- NOTE | 2025-03-13 12:31 | HO.PM.IMPN ---
Subjective Subjective Date of Service: 03/13/25 Interval History: No acute issues. No chest pain since admission. Review of Systems Denies chest pain Denies shortness of breath Denies nausea vomiting diarrhea Denies fever chills Physical Exam Vital Signs: Vital Signs: Last Vital Signs Temp 97.6 F 03/13/25 11:04 Pulse 74 03/13/25 11:46 Resp 18 03/13/25 11:46 BP 169/99 H 03/13/25 07:45 Pulse Ox 98 03/13/25 11:04 O2 Del Method Room Air 03/13/25 11:04 O2 Flow Rate 2 03/12/25 16:00 BMI result Body Mass Index 25.7 Const: Other: Awake alert no acute distress Resp: Other: Clear to auscultation bilaterally no rales rhonchi or wheezes Cardio: Other: Irregularly irregular. No S4; positive S1-S2; no S3 murmurs rubs or gallops GI: Other: Soft nontender nondistended with normoactive bowel sounds Extrem: Other: No edema bilaterally Objective Data Active Medications Acetaminophen (Acetaminophen 325 Mg Tablet) 650 mg PO Q6H PRN PRN Reason: Pain, Mild 1-3,fever,headache Albuterol/Ipratropium (Albuterol/Iprat 2.5/0.5mg 3 Ml Ampul.Neb) 3 ml INHALE RQ4H WHILE AWAKE [facility] Last Admin: 03/13/25 11:45 Dose: 3 ml Documented By: GRIS Apixaban (Apixaban 5 Mg Tablet) 5 mg PO BID [facility] Last Admin: 03/13/25 07:45 Dose: 5 mg Documented By: JACKI Aspirin (Aspirin Enteric Coated 81 Mg Tablet.) 81 mg PO DAILY [facility] Last Admin: 03/13/25 07:45 Dose: 81 mg Documented By: JACKI Atorvastatin Calcium (Atorvastatin Calcium 80 Mg Tablet) 80 mg PO DAILY [facility] Last Admin: 03/13/25 07:45 Dose: 80 mg Documented By: JACKI Calcium Carbonate (Calcium Carbonate 750 Mg Tab.Chew) 750 mg PO Q4H PRN PRN Reason: Heartburn Ceftriaxone Sodium (Ceftriaxone Sodium 1 Gm Vial) 1 gm IVPUSH Q24H [facility] Last Admin: 03/12/25 22:52 Dose: 1 gm Documented By: NIRU Dextrose (Dextrose 50 % 25 Gm/50 Ml Syringe) 25 gm IVPUSH Q15M PRN; Protocol PRN Reason: per Hypoglycemia Standing Ord. Fluticasone/Vilanterol (Fluticasone/Vilanterol 200/25 Blst.W.Dev) 1 puff INHALE RDAILY PRN PRN Reason: Shortness of Breath Glucose (Glucose Gel 15 Gm Gel..Gram.) 15 gm PO Q15M PRN; Protocol PRN Reason: per Hypoglycemia Standing Ord. Insulin Human Lispro (Insulin Lispro 100 Unit/Ml 3 Ml Vial) 0 unit SUBCUT QIDACHS [facility]; Protocol Last Admin: 03/13/25 10:55 Dose: 8 unit Documented By: JACKI Lisinopril (Lisinopril 40 Mg Tablet) 40 mg PO DAILY [facility]; Protocol Last Admin: 03/13/25 07:45 Dose: 40 mg Documented By: JACKI Magnesium Hydroxide (Milk Of Magnesia 30 Ml Oral.Susp) 30 ml PO DAILY PRN PRN Reason: Constipation Melatonin (Melatonin 3 Mg Tablet) 6 mg PO BEDTIME PRN PRN Reason: Insomnia Methylprednisolone Sodium Succinate (Methylprednisolone Sod Succ 40 Mg/Ml Vial) 40 mg IVPUSH BID [facility] Last Admin: 03/13/25 07:45 Dose: 40 mg Documented By: JACKI Metoprolol Succinate (Metoprolol Succinate Er 50 Mg Tab.Er.24h) 50 mg PO DAILY [facility]; Protocol Last Admin: 03/13/25 07:45 Dose: 50 mg Documented By: JACKI Montelukast Sodium (Montelukast Sodium 10 Mg Tablet) 10 mg PO BEDTIME [facility] Last Admin: 03/12/25 22:45 Dose: 10 mg Documented By: NIRU Morphine Sulfate (Morphine Sulfate 4 Mg/Ml Cartridge) 2 mg IVPUSH Q4H PRN; Protocol PRN Reason: Pain, Severe (Pain Scale 7-10) Oxycodone HCl (Oxycodone Hcl Immed Release 5 Mg Tablet) 5 mg PO Q6H PRN PRN Reason: Pain, Moderate(Pain Scale 4-6) Polyethylene Glycol (Polyethylene Glycol 3350 17 Gm Powd.Pack) 17 gm PO DAILY PRN PRN Reason: Constipation Last Admin: 03/13/25 07:48 Dose: 17 gm Documented By: HO.ARTING Sodium Chloride (0.9 % Sodium Chloride Flush 3 Ml Syringe) 3 ml IVFLUSH QSHIFT [facility] Last Admin: 03/13/25 07:49 Dose: 3 ml Documented By: ARTING Labs 03/13/25 07:01 03/13/25 07:00 Labs: Laboratory Results - last 24 hr 03/12/25 03/12/25 03/12/25 15:45 15:46 15:50 MCV 86.7 MCH 28.2 MCHC 32.5 RDW 15.0 Plt Count 215 MPV 12.1 Immature Gran % (Auto) 0.5 H Neut % (Auto) 80.3 H Lymph % (Auto) 10.4 L [place] % (Auto) 7.3 Eos % (Auto) 1.0 Baso % (Auto) 0.5 Lymph # (Auto) 1.1 L [place] # (Auto) 0.8 Eos # (Auto) 0.1 Baso # (Auto) 0.1 Abs Immat Gran (auto) 0.05 H Absolute Neuts (auto) 8.7 H Absolute Nucleated RBC 0.000 Nucleated RBC % (auto) 0.0 PT 13.7 H INR 1.2 H Anion Gap 11 L Estim Creat Clear Calc 67.7 Estimated GFR > 60 POC Glucose Random Glucose 175 H Calcium 9.4 Magnesium Total Bilirubin 0.9 AST 22 ALT 12 Alkaline Phosphatase 209 H B-Natriuretic Peptide 580 H Total Protein 8.3 H Albumin 3.7 Triglycerides Cholesterol LDL Cholesterol, Calc HDL Cholesterol Lipase 40 Urine Color Dark Yellow Urine Appearance Cloudy Urine pH 7.5 Ur Specific [place] >= 1.030 H Urine Protein 100 (2+) H Urine Glucose (UA) >=1000 H Urine Ketones Trace Urine Blood Negative Urine Nitrite Positive H Ur Leukocyte Esterase Moderate (2+) H Urine RBC 0-2 Urine WBC >50 H Ur Squamous Epith Cells 0-2 Urine Bacteria 2+ Hyaline Casts 3-5 Influenza Type A (PCR) NEGATIVE Influenza Type B (PCR) NEGATIVE RSV RNA Qual (PCR) NEGATIVE SARS-CoV-2 RNA (RT-PCR) NEGATIVE 03/12/25 03/12/25 03/13/25 19:03 21:22 07:00 MCV MCH MCHC RDW Plt Count MPV Immature Gran % (Auto) Neut % (Auto) Lymph % (Auto) [place] % (Auto) Eos % (Auto) Baso % (Auto) Lymph # (Auto) [place] # (Auto) Eos # (Auto) Baso # (Auto) Abs Immat Gran (auto) Absolute Neuts (auto) Absolute Nucleated RBC Nucleated RBC % (auto) PT INR Anion Gap 13 Estim Creat Clear Calc 61.3 Estimated GFR > 60 POC Glucose 115 Random Glucose 289 H Calcium 9.1 Magnesium 1.8 Total Bilirubin AST ALT Alkaline Phosphatase B-Natriuretic Peptide Total Protein Albumin Triglycerides 145 Cholesterol 145 LDL Cholesterol, Calc 82 HDL Cholesterol 34 L Lipase Urine Color Urine Appearance Urine pH Ur Specific [place] Urine Protein Urine Glucose (UA) Urine Ketones Urine Blood Urine Nitrite Ur Leukocyte Esterase Urine RBC Urine WBC Ur Squamous Epith Cells Urine Bacteria Hyaline Casts Influenza Type A (PCR) Influenza Type B (PCR) RSV RNA Qual (PCR) SARS-CoV-2 RNA (RT-PCR) 03/13/25 03/13/25 03/13/25 07:01 07:28 10:52 MCV 85.9 MCH 27.7 MCHC 32.3 RDW 15.0 Plt Count 194 MPV 12.3 Immature Gran % (Auto) Neut % (Auto) Lymph % (Auto) [place] % (Auto) Eos % (Auto) Baso % (Auto) Lymph # (Auto) [place] # (Auto) Eos # (Auto) Baso # (Auto) Abs Immat Gran (auto) Absolute Neuts (auto) Absolute Nucleated RBC 0.000 Nucleated RBC % (auto) 0.0 PT INR Anion Gap Estim Creat Clear Calc Estimated GFR POC Glucose 252 H 303 H Random Glucose Calcium Magnesium Total Bilirubin AST ALT Alkaline Phosphatase B-Natriuretic Peptide Total Protein Albumin Triglycerides Cholesterol LDL Cholesterol, Calc HDL Cholesterol Lipase Urine Color Urine Appearance Urine pH Ur Specific [place] Urine Protein Urine Glucose (UA) Urine Ketones Urine Blood Urine Nitrite Ur Leukocyte Esterase Urine RBC Urine WBC Ur Squamous Epith Cells Urine Bacteria Hyaline Casts Influenza Type A (PCR) Influenza Type B (PCR) RSV RNA Qual (PCR) SARS-CoV-2 RNA (RT-PCR) Microbiology Microbiology Results: Microbiology 03/12/25 15:50 Urine Culture - Preliminary Urine clean catch - Clean Catch Midstream Culture too young to evaluate. Assessment and Plan (1) Pancreatic lesion: Status: Acute (2) COPD exacerbation: Status: Acute (3) Type 2 diabetes mellitus without complications: Status: Acute Plan Patient is a 74-year-old male with a past medical history significant for HTN, persistent AFib on Eliquis, type 2 diabetes on metformin, COPD unspecified and s/p hernia repair in 2018, who presented to the ED due to abdominal pain and shortness of breath with cough for the past month. 1.Type 2 Tropnin leak - seen by Cardiology; persistent AFib without acute changes on EKG -cardiology does not feel this is an acute cardiac event - echocardiogram -continue anticoagulation 2.Pancreatic mass - abdominopelvic CT with 2 cm lesion in the pancreatic head consistent with malignancy -oncology consulted -DC Eliquis in favor of Lovenox for possible biopsy -pain management with oxycodone and morphine as needed 3.Urinary tract infection - ceftriaxone 1 g IV daily (2) -urine culture pending. . . Adjust as indicated 4.Acute COPD exacerbation -Solu-Medrol 40 mg b.i.d... Switch to prednisone in a.m. -DuoNebs q.4h p.r.n. 5.HTN -continue metoprolol and lisinopril -scheduled nifedipine daily -adjust as indicated 6.Persistent AFib - EKG with AFib, rate controlled -Lovenox as ordered 7.Type 2 diabetes - hold metformin - lispro correctional scale -adjust as indicated Full code Lovenox Patient with NSTEMI, acute COPD exacerbation and new diagnosis of metastatic pancreatic cancer, requiring specialty consultation Quality Stroke Does the patient have a stroke diagnosis?: No VTE Prior VTE?: No VTE Risk Level:: Medical - moderate - high VTE Device Contraindication: Treatment Not Indicated VTE Drug Contraindication: N/A - Med Ordered
[2025-03-13 13:14] LABS: Hematocrit 42.8 % (42.0-52.0); Hemoglobin 13.9 g/dl (14.0-18.0); Mean Corpuscular HGB Conc 32.5 g/dl (31.0-36.0); Mean Corpuscular Hemoglobin 27.7 pg (27.0-33.0); Mean Corpuscular Volume 85.3 fL (80.0-98.0); Mean Platelet Volume 12.6 fL (9.4-12.4); Platelet Count 209 X10*3/uL (160-400); Red Blood Count 5.02 X10*6/uL (4.60-5.80); White Blood Count 9.5 X10*3/uL (4.8-10.8)
[2025-03-13 13:21] LABS: INTERNATIONAL NORM RATIO 1.4 (0.9-1.1); Prothrombin Time 16.8 SEC (10.9-12.4)
[2025-03-13 13:24] LABS: Partial Thromboplastin Time 34.2 SEC (26.0-36.8)
[2025-03-13 16:18] LABS: Glucose, Whole Blood 248 mg/dL (60-115)
[2025-03-13] MEDS: Montelukast Sodium 10 MG TABLET PO (19:52)
[2025-03-13] MEDS: Enoxaparin Sodium 100 MG/ML SYRINGE 90 MG SUBCUT (19:52)
[2025-03-13 20:36] LABS: Glucose, Whole Blood 267 mg/dL (60-115)
[2025-03-13] MEDS: cefTRIAXone sodium 1 GM VIAL IVPUSH (22:06)
[2025-03-14] VITALS (11 sets, daily range): BP systolic 130–169; BP diastolic 78–93; PULSE 69–115; RESP 16–24; TEMP 36.3–37.1; O2SAT 95–100
[2025-03-14 07:43] LABS: Hematocrit 43.4 % (42.0-52.0); Hemoglobin 14.2 g/dl (14.0-18.0); Mean Corpuscular HGB Conc 32.7 g/dl (31.0-36.0); Mean Corpuscular Hemoglobin 27.8 pg (27.0-33.0); Mean Corpuscular Volume 85.1 fL (80.0-98.0); Mean Platelet Volume 12.1 fL (9.4-12.4); Platelet Count 196 X10*3/uL (160-400); Red Cell Distribution Width 14.9 % (11.0-16.0)
[2025-03-14] MEDS: Albuterol/Iprat 2.5/0.5MG 3 ML AMPUL.NEB INHALE ×4 (07:45→19:43)
[2025-03-14 07:59] LABS: Anion Gap 11 (12-20); Blood Urea Nitrogen 21 mg/dL (9-16); Calcium 9.1 mg/dL (8.4-10.2); Carbon Dioxide 26 mmol/L (22-29); Chloride 105 mmol/L (96-108); Creatinine Clr Calc Pharmacy 61.8; Estimated Glomerular Filt Rate > 60; Glucose Random 187 mg/dL (60-115); Lactate Dehydrogenase 131 U/L (118-273); Sodium 138 mmol/L (135-145)
[2025-03-14 08:20] LABS: Glucose, Whole Blood 186 mg/dL (60-115)
[2025-03-14] MEDS: Atorvastatin Calcium 80 MG TABLET PO (09:48)
[2025-03-14] MEDS: Enoxaparin Sodium 100 MG/ML SYRINGE 90 MG SUBCUT ×2 (09:48→20:55)
[2025-03-14] MEDS: lisinopriL 40 MG TABLET PO (09:48)
[2025-03-14] MEDS: Metoprolol Succinate ER 50 MG TAB.ER.24H PO (09:48)
[2025-03-14] MEDS: Aspirin Enteric Coated 81 MG TABLET.DR PO (09:48)
[2025-03-14] MEDS: methylPREDNISolone Sod Succ 40 MG/ML VIAL IVPUSH (09:49)
[2025-03-14] MEDS: 0.9 % Sodium Chloride Flush 3 ML SYRINGE IVFLUSH ×3 (09:49→20:56)
[2025-03-14] MEDS: Insulin Lispro 100 UNIT/ML 3 ML VIAL SUBCUT ×4 (09:49→20:56)
[2025-03-14 11:25] LABS: Glucose, Whole Blood 284 mg/dL (60-115)
[2025-03-14] MEDS: Milk of Magnesia 30 ML ORAL.SUSP PO (11:47)
--- NOTE | 2025-03-14 12:22 | HO.PM.IMPN ---
Subjective Subjective Date of Service: 03/14/25 Interval History: No acute events overnight. Isolated episode of nonsustained VT. Patient asymptomatic Review of Systems Denies chest pain Denies shortness of breath Denies nausea vomiting diarrhea Denies fever chills Physical Exam Vital Signs: Vital Signs: Last Vital Signs Temp 98.3 F 03/14/25 07:22 Pulse 93 03/14/25 11:12 Resp 18 03/14/25 11:12 BP 150/80 H 03/14/25 09:48 Pulse Ox 96 03/14/25 07:22 O2 Del Method Room Air 03/14/25 07:22 O2 Flow Rate 2 03/12/25 16:00 BMI result Body Mass Index 25.7 Const: Other: Awake alert no acute distress Resp: Other: Clear to auscultation bilaterally no rales rhonchi or wheezes Cardio: Other: Irregularly irregular. No S4; positive S1-S2; no S3 murmurs rubs or gallops GI: Other: Soft nontender nondistended with normoactive bowel sounds Extrem: Other: No edema bilaterally Objective Data Active Medications Acetaminophen (Acetaminophen 325 Mg Tablet) 650 mg PO Q6H PRN PRN Reason: Pain, Mild 1-3,fever,headache Albuterol/Ipratropium (Albuterol/Iprat 2.5/0.5mg 3 Ml Ampul.Neb) 3 ml INHALE RQ4H WHILE AWAKE [facility] Last Admin: 03/14/25 11:12 Dose: 3 ml Documented By: GRIS Aspirin (Aspirin Enteric Coated 81 Mg Tablet.) 81 mg PO DAILY [facility] Last Admin: 03/14/25 09:48 Dose: 81 mg Documented By: JOELLE Atorvastatin Calcium (Atorvastatin Calcium 80 Mg Tablet) 80 mg PO DAILY [facility] Last Admin: 03/14/25 09:48 Dose: 80 mg Documented By: JOELLE Calcium Carbonate (Calcium Carbonate 750 Mg Tab.Chew) 750 mg PO Q4H PRN PRN Reason: Heartburn Ceftriaxone Sodium (Ceftriaxone Sodium 1 Gm Vial) 1 gm IVPUSH Q24H [facility] Last Admin: 03/13/25 22:06 Dose: 1 gm Documented By: PETER Dextrose (Dextrose 50 % 25 Gm/50 Ml Syringe) 25 gm IVPUSH Q15M PRN; Protocol PRN Reason: per Hypoglycemia Standing Ord. Enoxaparin Sodium (Enoxaparin Sodium 100 Mg/Ml Syringe) 90 mg 1 mg/kg (90 mg) SUBCUT Q12H [facility] Last Admin: 03/14/25 09:48 Dose: 90 mg Documented By: JOELLE Fluticasone/Vilanterol (Fluticasone/Vilanterol 200/25 Blst.W.Dev) 1 puff INHALE RDAILY PRN PRN Reason: Shortness of Breath Glucose (Glucose Gel 15 Gm Gel..Gram.) 15 gm PO Q15M PRN; Protocol PRN Reason: per Hypoglycemia Standing Ord. Insulin Human Lispro (Insulin Lispro 100 Unit/Ml 3 Ml Vial) 0 unit SUBCUT QIDACHS [facility]; Protocol Last Admin: 03/14/25 11:45 Dose: 6 unit Documented By: JOELLE Lisinopril (Lisinopril 40 Mg Tablet) 40 mg PO DAILY [facility]; Protocol Last Admin: 03/14/25 09:48 Dose: 40 mg Documented By: JOELLE Magnesium Hydroxide (Milk Of Magnesia 30 Ml Oral.Susp) 30 ml PO DAILY PRN PRN Reason: Constipation Last Admin: 03/14/25 11:47 Dose: 30 ml Documented By: JOELLE Melatonin (Melatonin 3 Mg Tablet) 6 mg PO BEDTIME PRN PRN Reason: Insomnia Methylprednisolone Sodium Succinate (Methylprednisolone Sod Succ 40 Mg/Ml Vial) 40 mg IVPUSH BID [facility] Last Admin: 03/14/25 09:49 Dose: 40 mg Documented By: JOELLE Metoprolol Succinate (Metoprolol Succinate Er 50 Mg Tab.Er.24h) 50 mg PO DAILY [facility]; Protocol Last Admin: 03/14/25 09:48 Dose: 50 mg Documented By: JOELLE Montelukast Sodium (Montelukast Sodium 10 Mg Tablet) 10 mg PO BEDTIME [facility] Last Admin: 03/13/25 19:52 Dose: 10 mg Documented By: PETER Morphine Sulfate (Morphine Sulfate 4 Mg/Ml Cartridge) 2 mg IVPUSH Q4H PRN; Protocol PRN Reason: Pain, Severe (Pain Scale 7-10) Oxycodone HCl (Oxycodone Hcl Immed Release 5 Mg Tablet) 5 mg PO Q6H PRN PRN Reason: Pain, Moderate(Pain Scale 4-6) Polyethylene Glycol (Polyethylene Glycol 3350 17 Gm Powd.Pack) 17 gm PO DAILY PRN PRN Reason: Constipation Last Admin: 03/13/25 07:48 Dose: 17 gm Documented By: JACKI Sodium Chloride (0.9 % Sodium Chloride Flush 3 Ml Syringe) 3 ml IVFLUSH QSHIFT [facility] Last Admin: 03/14/25 09:49 Dose: 3 ml Documented By: JOELLE Labs 03/14/25 06:59 03/14/25 06:59 Labs: Laboratory Results - last 24 hr 03/13/25 03/13/25 03/13/25 12:58 16:09 20:07 MCV 85.3 MCH 27.7 MCHC 32.5 RDW 15.0 Plt Count 209 MPV 12.6 H Absolute Nucleated RBC 0.000 Nucleated RBC % (auto) 0.0 PT 16.8 H D INR 1.4 H APTT 34.2 Anion Gap Estim Creat Clear Calc Estimated GFR POC Glucose 248 H 267 H Random Glucose Calcium Lactate Dehydrogenase 03/14/25 03/14/25 03/14/25 06:59 07:20 11:10 MCV 85.1 MCH 27.8 MCHC 32.7 RDW 14.9 Plt Count 196 MPV 12.1 Absolute Nucleated RBC 0.000 Nucleated RBC % (auto) 0.0 PT INR APTT Anion Gap 11 L Estim Creat Clear Calc 61.8 Estimated GFR > 60 POC Glucose 186 H 284 H Random Glucose 187 H Calcium 9.1 Lactate Dehydrogenase 131 Microbiology Microbiology Results: Microbiology 03/12/25 15:50 Urine Culture - Final Urine clean catch - Clean Catch Midstream Assessment and Plan (1) Pancreatic lesion: Status: Acute (2) COPD exacerbation: Status: Acute Plan Patient is a 74-year-old male with a past medical history significant for HTN, persistent AFib on Eliquis, type 2 diabetes on metformin, COPD unspecified and s/p hernia repair in 2018, who presented to the ED due to abdominal pain and shortness of breath with cough for the past month. 1.Pancreatic mass - abdominopelvic CT with 2 cm lesion in the pancreatic head consistent with malignancy -oncology consulted.. Hopeful biopsy in a.m. -DC Eliquis in favor of Lovenox for possible biopsy -pain management with oxycodone and morphine as needed 2. Nonsustained VT -asymptomatic -discussed with Cardiology; continue beta-iqra 3.Urinary tract infection - ceftriaxone 1 g IV daily (3) -urine culture pending. . . Adjust as indicated 4.Acute COPD exacerbation -Solu-Medrol 40 mg b.i.d... Switch to prednisone -DuoNebs q.4h p.r.n. 5.HTN -continue metoprolol and lisinopril -scheduled nifedipine daily -adjust as indicated 6.Persistent AFib - EKG with AFib, rate controlled -Lovenox as ordered 7.Type 2 diabetes - hold metformin - lispro correctional scale -adjust as indicated Full code Lovenox Patient with NSTEMI, acute COPD exacerbation and new diagnosis of metastatic pancreatic cancer, requiring specialty consultation Quality Stroke Does the patient have a stroke diagnosis?: No VTE Prior VTE?: No VTE Risk Level:: Medical - moderate - high VTE Device Contraindication: Treatment Not Indicated VTE Drug Contraindication: N/A - Med Ordered
[2025-03-14 12:40] LABS: INTERNATIONAL NORM RATIO 1.2 (0.9-1.1); Prothrombin Time 14.1 SEC (10.9-12.4)
[2025-03-14 16:21] LABS: Glucose, Whole Blood 207 mg/dL (60-115)
[2025-03-14 20:08] LABS: Glucose, Whole Blood 312 mg/dL (60-115)
[2025-03-14] MEDS: Montelukast Sodium 10 MG TABLET PO (20:55)
[2025-03-14] MEDS: cefTRIAXone sodium 1 GM VIAL IVPUSH (20:56)
[2025-03-15 03:53] VITALS: BP 156/101; PULSE 70; RESP 16; TEMP 36.9; O2SAT 95
[2025-03-15 06:48] LABS: Anion Gap 13 (12-20); Blood Urea Nitrogen 31 mg/dL (9-16); Carbon Dioxide 27 mmol/L (22-29); Chloride 103 mmol/L (96-108); Creatinine Clr Calc Pharmacy 51.1; Estimated Glomerular Filt Rate 50; Glucose Random 132 mg/dL (60-115); Potassium 3.6 mmol/L (3.3-5.1); Sodium 139 mmol/L (135-145)
[2025-03-15 06:59] LABS: Hematocrit 42.2 % (42.0-52.0); Hemoglobin 13.7 g/dl (14.0-18.0); Mean Corpuscular HGB Conc 32.5 g/dl (31.0-36.0); Mean Corpuscular Hemoglobin 27.8 pg (27.0-33.0); Mean Corpuscular Volume 85.6 fL (80.0-98.0); Mean Platelet Volume 12.4 fL (9.4-12.4); Platelet Count 189 X10*3/uL (160-400); Red Blood Count 4.93 X10*6/uL (4.60-5.80); Red Cell Distribution Width 15.3 % (11.0-16.0); White Blood Count 18.6 X10*3/uL (4.8-10.8)
--- NOTE | 2025-03-15 07:00 | CA_ITS ---
Transthoracic Echocardiogram Patient (Last, First, Middle): Prakash Díaz, Gender: Male Date of : 1950 Age: 74 Procedure Date: 03/15/2025 Procedure Type: Transthoracic Echocardiogram Location: [facility] [place] Height: 182.88 cm Weight: 85.73 kg BSA: 2.08 m2 Heart Rate: bpm BP: 156 / 101 mmHg Associate Consulting Engineer: MYNOR Referring MD: Ailyn García PA-C News Technical Director: Dima Jones MD Symptoms: ?NSTEMI Study Quality: Adequate ECG Rhythm: Atrial Fibrillation Conclusions: - 1. Severely reduced LV ejection fraction 15-20% with mild LVH. Regional wall motion abnormality can not be entirely ruled out with suggestive of increased filling pressures 2. Severe biatrial enlargement 3. Mild mitral regurgitation 4. Normal calculated RV systolic pressure with mildly elevated right atrial pressures 5. No gross pericardial effusion Findings Left Ventricle Normal left ventricular cavity size. There is mildly increased left ventricular wall thickness. The left ventricular systolic function is severely decreased. The visually estimated ejection fraction is between 15 20%. Regional wall motion abnormalities can not be excluded due to suboptimal endocardial definition. Spectral Doppler is indicative of a restrictive filling pattern. Elevated left atrial and left ventricular end diastolic pressures. E/E prime ratio is >15, consistent with elevated filling pressures. Right Ventricle Moderately increased right ventricular cavity size. There is normal right ventricular systolic function. Atria Severe biatrial enlargement. There is no evidence of interatrial shunt. Aortic Valve Normal aortic valve structure and function. There is no aortic valve stenosis. There is no aortic valve regurgitation. Mitral Valve There is mild anterior and posterior mitral leaflet thickening. There is mild mitral valve regurgitation. There is no mitral valve stenosis. Tricuspid Valve Normal tricuspid valve structure. There is mild tricuspid valve regurgitation. Mildly elevated right atrial pressure. There is no evidence of pulmonary hypertension. Great Vessels The pulmonary artery was not well visualized. Venous The inferior vena cava is moderately dilated and collapses greater than 50% with inspiration. Pericardium/Pleural There is no evidence of pericardial effusion. Prior Study Comparison No prior study available for comparison. Measurements 2D Linear Measurements IVSd: 1.38 0.6-0.9/0.6-1.0 cm LVIDd: 5.41 3.9-5.3/4.2-5.9 cm LVIDd Index: 2.60 2.4-3.2/2.2-3.1 cm/m2 LVIDs: 4.80 2.0-3.6 cm LVPWd: 1.35 0.7-1.1 cm LA Diam: 6.00 2.7-3.8/3.0-4.0 cm LAIDs Index: 2.88 1.5-2.3 cm/m2 LV Mass: 396.25 67-162/88-224 g LV Mass Index: 190.51 43-95/49-115 g/m2 LVOT Diam: 2.30 3.0+(-)1.3 cm 2D Systolic Function EF 4C: 16.80 >55% EF 2C: 29.40 >55% EF BiP: 20.60 >55% Mitral Valve MV Pk E: 1.17 MV Decel Time: 162.00 E'Lateral: 5.77 E'Medial: 6.74 E/E' Med: 17.40 E/E' Lat: 20.30 PHT: 48.00 MVA PHT: 4.58 Decel [place]: 7.18 Aortic Valve AoV Pk Robson: 1.26 AoV Mn Robson: 0.84 AoV VTI: 0.21 AoV Pk Grad: 6.00 Aov Mn Grad: 3.00 ELMA Cont.VTI: 2.36 LVOT LVOT Pk [place]son: 0.69 LVOT Mn Robson: 0.47 LVOT VTI: 0.12 LVOT Pk Grad: 2.00 LVOT Mn Grad: 1.00 LVOT Diam: 2.30 LVOT Area: 4.15 Diastolic Function MV Pk E: 1.17 E'Medial: 6.74 E/E' Med: 17.40 E' Laterial: 5.77 E/E' Lat: 20.30 Right Ventricle TAPSE (mm): 22.50 TVS' Robson: 9.36 Tricuspid Valve TR Pk Robson: 1.93 TR Pk Grad: 15.00 RA Press: 8.00 RVSP: 23.00 Great Vessels Aorta Sinus of Valsalva: 3.80 2.0-3.5 cm Ao Asc: 3.50 2.1-3.4 cm Pulmonary Valve PV Pk Robson: 0.80 Peak PV Grad: 3.00 Updated in Other Vendor System with Status of Final Dima Jones MD electronically signed on 03/15/2025 11:50:18 AM with status of Final
[2025-03-15 07:15] VITALS: BP 153/99; PULSE 84; RESP 18; TEMP 36.4; O2SAT 97
[2025-03-15] MEDS: Albuterol/Iprat 2.5/0.5MG 3 ML AMPUL.NEB INHALE ×2 (07:36→11:21)
[2025-03-15 07:38] VITALS: PULSE 85; RESP 15; O2SAT 97
[2025-03-15 07:47] LABS: Glucose, Whole Blood 130 mg/dL (60-115)
[2025-03-15] MEDS: Metoprolol Succinate ER 50 MG TAB.ER.24H PO (08:26)
[2025-03-15] MEDS: Atorvastatin Calcium 80 MG TABLET PO (08:26)
[2025-03-15] MEDS: lisinopriL 40 MG TABLET PO (08:26)
[2025-03-15] MEDS: predniSONE 20 MG TABLET 40 MG PO (08:26)
[2025-03-15] MEDS: 0.9 % Sodium Chloride Flush 3 ML SYRINGE IVFLUSH (08:27)
[2025-03-15 10:47] VITALS: BP 159/85; PULSE 92; RESP 18; TEMP 36.7; O2SAT 96
[2025-03-15 11:06] LABS: Glucose, Whole Blood 134 mg/dL (60-115)
[2025-03-15] MEDS: Apixaban 5 MG TABLET PO (11:14)
[2025-03-15 11:22] VITALS: PULSE 88; RESP 17; O2SAT 96
--- NOTE | 2025-03-15 12:48 | P.DS_ITS ---
DS: Providers Provider Date of Service: 03/15/25 Date of admission: 03/12/25 21:52 Date of discharge: 03/15/25 Primary care physician: Mulu Coulter NP Consults: 03/12/25 21:57 Consult to Cardiology Routine Consulting Provider: Stefan Shaffer Reason for consultation: elevated trop x2, ?NSTEMI Has provider been notified: Yes Consult to Hematology / Oncology Routine Consulting Provider: [facility] Oncology/Hematology Reason for consultation: new dx pancreatic cancer with liver mets Has provider been notified: Yes DS: Diagnosis Discharge Diagnosis (1) Pancreatic lesion: Status: Acute (2) COPD exacerbation: Status: Acute DS: Summary Hospital Course Hospital Course: 74-year-old male with a past medical history significant for HTN, persistent AFib on Eliquis, type 2 diabetes on metformin, COPD unspecified and s/p hernia repair in 2018, who presented to the ED due to abdominal pain and shortness of breath with cough for the past month. He describes intermittent umbilical pain and a 20 lb weight loss. His reports that he has been very pale. He has had no change in diet and has been able to eat and drink without issues. His pain does not increase with eating or movement. He also reports occasional melena. He reports about 1 month ago he had norovirus and this triggered a cough and chronic abdominal pain for him. His also had similar symptoms but hers have resolved. He denies any urinary symptoms including frequency, urgency or dysuria. ER Course Workup in the ER consistent with a troponin elevated at 636 with EKG noted to have AFib with controlled rate. Abdominal pelvic CT demonstrated a 2 cm lesion in the pancreatic head consistent with malignancy and suspicion for liver metastasis. Hospital Course Patient admitted to telemetry where he remained in AFib. He was seen in consultation by Cardiology who felt this was not an and STEMI rather a type 2 troponin leak. He was also seen in consultation by Oncology who recommended outpatient biopsy with follow up with . Patient had a history of COPD and presented with a mild exacerbation for which he was treated with ceftriaxone and steroids. At this point outpatient scheduling for ultrasound-guided biopsy of liver lesion will be arranged and patient will follow up with Oncology thereafter. Both interventional and Oncology will call patient with the appointments Directions about Eliquis and biopsy were included in the patient's directions. He will be discharged home to complete a course of Ceftin along with prednisone taper. Time Attestation Discharge Coordination Time (in mins): 35 Quality: Safe Use of Opioids Does Pt have an Active Cancer Diagnosis on the Problem List?: No Quality: Stroke Does the patient have a stroke diagnosis?: No Physical Exam Vital Signs: Vital Signs: Last Vital Signs Temp 98.1 F 03/15/25 10:47 Pulse 88 03/15/25 11:22 Resp 17 03/15/25 11:22 BP 159/85 H 03/15/25 10:47 Pulse Ox 96 03/15/25 10:47 O2 Del Method Room Air 03/15/25 10:47 O2 Flow Rate 2 03/12/25 16:00 BMI result Body Mass Index 25.7 Const: Other: Awake alert no acute distress Resp: Other: Clear to auscultation bilaterally no rales rhonchi or wheezes Cardio: Other: Irregularly irregular. No S4; positive S1-S2; no S3 murmurs rubs or gallops GI: Other: Soft nontender nondistended with normoactive bowel sounds Extrem: Other: No edema bilaterally DS: Data Data Completed and Pending Labs on day of discharge: Laboratory Results - last 24 hr 03/14/25 03/14/25 03/15/25 16:13 20:04 06:12 WBC 18.6 H RBC 4.93 Hgb 13.7 L Hct 42.2 MCV 85.6 MCH 27.8 MCHC 32.5 RDW 15.3 Plt Count 189 MPV 12.4 Absolute Nucleated RBC 0.000 Nucleated RBC % (auto) 0.0 Sodium 139 Potassium 3.6 Chloride 103 Carbon Dioxide 27 Anion Gap 13 BUN 31 H Creatinine 1.39 Estim Creat Clear Calc 51.1 Estimated GFR 50 POC Glucose 207 H 312 H Random Glucose 132 H Calcium 9.0 03/15/25 03/15/25 07:13 10:53 WBC RBC Hgb Hct MCV MCH MCHC RDW Plt Count MPV Absolute Nucleated RBC Nucleated RBC % (auto) Sodium Potassium Chloride Carbon Dioxide Anion Gap BUN Creatinine Estim Creat Clear Calc Estimated GFR POC Glucose 130 H 134 H Random Glucose Calcium Discharge Plan Discharge Anticipated Discharge Date/Time: 03/15/25 12:30 Patient Disposition: Home Health Service Discharge Diagnosis: Pancreatic mass Referrals: Mulu Coulter NP [Primary Care Provider] - 1 Week Discharge Medications: New cefuroxime axetil 500 mg tablet 500 mg PO BID 7 Days Qty: 14 0RF prednisone 20 mg tablet See Rx Instructions .Route .COMPLEX Qty: 18 0RF Rx Instructions: 20 mg orally; 3 tabs daily for 3 days, 2 tabs daily for 3 days, 1 tab daily for 3 days Continued metformin 500 mg tablet 500 mg PO BIDWM atorvastatin 80 mg tablet 80 mg PO DAILY metoprolol succinate 50 mg tablet extended release 24 hr 50 mg PO DAILY montelukast [Singulair] 10 mg tablet 10 mg PO BEDTIME lisinopril 40 mg tablet 40 mg PO DAILY budesonide-formoterol 160-4.5 mcg/actuation HFA aerosol inhaler 2 puff inhalation BID PRN (Reason: SOB) Rx Instructions: RX label directions that pt does not follow: 2 puffs BID Eliquis 5 mg tablet 5 mg PO BID acetaminophen 325 mg Tablet 650 mg PO Q6H PRN (Reason: Pain) albuterol sulfate 2.5 mg /3 mL (0.083 %) solution for nebulization 2.5 mg continuous nebulization Q4H PRN (Reason: SOB) nifedipine 60 mg Tablet Extended Release 24hr 60 mg PO DAILY PRN (Reason: SBP > 160) Discontinued aspirin 81 mg tablet,delayed release (DR/EC) 81 mg PO DAILY Discharge Orders: Discharge Order (Routine); Ordered 03/15/25 Ordered By: August Navarro Diet: Advance to usual diet Activity on Discharge: As tolerated Stand Alone Forms: Patient Portal Discharge page Print Language: Turkmen Care Plan Goals: Resume all your medicines as taken prior to hospitalization; complete antibiotic and prednisone taper as ordered Health Concerns: Interventional radiology will call you with the date for your liver biopsy; Dr. Almeida's office will call you for a follow-up. I have verified this with both of them. Plan of Treatment: To not resume your aspirin at home. Stop her Eliquis 3 days before your biopsy. Radiologist will tell you when it is okay to restart your Eliquis Assessment: See discharge summary
--- NOTE | 2025-03-15 14:18 | P.CDIM_ITS ---
PROVIDER RESPONSE TEXT: To clarify, the appropriate diagnosis supported by the clinical indicators: Diabetes mellitus Type 2 with hyperglycemia: resolved QUERY TEXT: PHYSICIAN'S DOCUMENTATION REQUEST Date of Query: 03/15/2025 09:19 AM EDT Patient Name: Prakash Díaz Admit Date: 03/13/2025 Dear August Navarro DO, A review of the medical record indicates additional documentation may be needed. Please review below and update the documentation accordingly. Clinical Indicators: LABS-POC glucose: 207 H 312 H 130 Insulin DM type 2 Please clarify if there is a link between the Diabetes and the elevated POC glucose: Diabetes mellitus Type 2 with hyperglycemia resolved, possible, probable etc. Other specified Other (explain) Clinically unable to determine (explain) Thank you, Raquel Bustos, CCS, CDIS Use of terms such as suspected, likely, concern for, or probable (associated with a specific diagnosi s that is being evaluated, monitored, or treated as if it exists) are acceptable and can be coded in the inpatient se tting, when documented at the time of discharge. Please use your independent medical judgment in providing your response. THIS QUERY IS PART OF THE PERMANENT MEDICAL RECORD
[2025-03-17 10:29] LABS: Carbohydrate Antigen 19-9 29988 U/mL (<34)
== END 2025-03-15 14:05 | disposition home health service (06) | DRG 435 ==
LOC: HO.ED 21:26 → HO.EDOVER 22:06 → HO.IMC 23:48
PROVIDERS: Nurse Practitioner Family; Admitting Provider Physician Assistant; Emergency Provider Emergency Medicine Emergency Medical Services; PCP Nurse Practitioner; Visit Provider Hospitalist
DX: C25.0 Malignant neoplasm of head of pancreas (principal); I21.A1 Myocardial infarction type 2; C78.7 Secondary malignant neoplasm of liver and intrahepatic bile duct; I48.19 Other persistent atrial fibrillation; J44.1 Chronic obstructive pulmonary disease with (acute) exacerbation; I47.20 Ventricular tachycardia, unspecified; E11.65 Type 2 diabetes mellitus with hyperglycemia; Z20.822 Contact with and (suspected) exposure to COVID-19; Z87.891 Personal history of nicotine dependence; Z79.84 Long term (current) use of oral hypoglycemic drugs; Z79.01 Long term (current) use of anticoagulants; Z79.899 Other long term (current) drug therapy
CPT/HCPCS: 0241U; 36415; 71046; 74177; 80048; 80053; 80061; 81001; 82947; 83615; 83690; 83735; 83880; 84484; 85025; 85027; 85610; 85730; 86301; 87086; 93005; 93306; 94640; 99285; J0696; J1650; J2919; Q9957; Q9967

== ENCOUNTER → 2025-03-12 15:33 | Outpatient (BNV) | payer OTHER, SELFPAY | PROVIDERS: Emergency Provider Emergency Medicine Emergency Medical Services; Visit Provider Radiology Diagnostic Radiology | DX: K86.9 Disease of pancreas, unspecified (principal); C78.7 Secondary malignant neoplasm of liver and intrahepatic bile duct; R59.0 Localized enlarged lymph nodes; K57.90 Diverticulosis of intestine, part unspecified, without perforation or abscess without bleeding; R05.9 Cough, unspecified; R06.02 Shortness of breath | CPT/HCPCS: 71046; 74177 ==

== ENCOUNTER 2025-03-12 21:52 | Outpatient (BNV) | payer OTHER, SELFPAY | END 2025-03-15 07:00 | PROVIDERS: Admitting Provider Physician Assistant; Emergency Provider Emergency Medicine Emergency Medical Services; PCP Nurse Practitioner; Visit Provider Internal Medicine Cardiovascular Disease | DX: I48.91 Unspecified atrial fibrillation (principal) | CPT/HCPCS: 93306 ==

== ENCOUNTER 2025-03-12 21:52 | Outpatient (BNV) | payer OTHER, SELFPAY | END 2025-03-13 10:56 | PROVIDERS: Admitting Provider Physician Assistant; Emergency Provider Emergency Medicine Emergency Medical Services; Visit Provider Internal Medicine Cardiovascular Disease | DX: I48.91 Unspecified atrial fibrillation (principal); I51.7 Cardiomegaly | CPT/HCPCS: 93010 ==

== ENCOUNTER → 2025-03-12 21:52 | Outpatient (BNV) | payer OTHER, SELFPAY | PROVIDERS: Admitting Provider Physician Assistant; Emergency Provider Emergency Medicine Emergency Medical Services; Visit Provider Hospitalist | DX: K86.9 Disease of pancreas, unspecified (principal); J44.1 Chronic obstructive pulmonary disease with (acute) exacerbation; E11.9 Type 2 diabetes mellitus without complications | CPT/HCPCS: 99223; 99233 ==

== ENCOUNTER → 2025-03-12 21:52 | Outpatient (BNV) | payer OTHER, SELFPAY | PROVIDERS: Admitting Provider Physician Assistant; Emergency Provider Emergency Medicine Emergency Medical Services; Visit Provider Internal Medicine | DX: K86.9 Disease of pancreas, unspecified (principal); K76.9 Liver disease, unspecified | CPT/HCPCS: 99222 ==

== ENCOUNTER → 2025-03-12 21:52 | Outpatient (BNV) | payer OTHER, SELFPAY | PROVIDERS: Admitting Provider Physician Assistant; Emergency Provider Emergency Medicine Emergency Medical Services; Visit Provider Internal Medicine Cardiovascular Disease | DX: I48.19 Other persistent atrial fibrillation (principal); R79.89 Other specified abnormal findings of blood chemistry | CPT/HCPCS: 93010; 99223 ==

== ENCOUNTER → 2025-03-17 09:00 | Outpatient (BNV) | payer OTHER, SELFPAY | PROVIDERS: Visit Provider Internal Medicine | DX: C25.9 Malignant neoplasm of pancreas, unspecified (principal); C78.7 Secondary malignant neoplasm of liver and intrahepatic bile duct | CPT/HCPCS: 99215 ==

== ENCOUNTER 2025-03-23 12:45 | Day surgery (SDC) | payer OTHER, SELFPAY ==
--- OUTSIDE RECORDS SUMMARY | 2025-03-17 15:12 | XMS_ITS | Clinical Summary ---
Author Organization [facility] Address [address] [place] [address] Phone Care Team Providers Care Crane Chaser Name Role Phone Unavailable Primary Care Provider [...] 23 07/16/2023 Overview (07/16/2023): HST 08/22/18 at [facility] shows CT mild-mod. Recommends start CPAP Panic attack 09/05/2018 07/16/2023 07/16/2023 Overview (07/16/2023): Seen at [facility] Patient noncompliance - general 01/29/2017 07/16/2023 Overview (07/16/2023): 02/20/19 [facility]. No DR. 09/21/20 [facility]. No DR f/u 1 year. Patient encounter status 07/18/2016 07/16/2023 Overview (07/16/2023): 07/16/16 U/S of AAA at [facility] shows no visualized abdominal aortic aneurysm Umbilical hernia 07/18/2016 07/16/2023 07/16/2023 Overview (07/16/2023): 07/16/16 U/S at [facility] shows bowel containing periumbilical hernia. Referred to general surgery. 09/10/[address] Welch at [facility]. Pure hypercholesterolemia 03/13/2016 07/16/2023 Atrial fibrillation 03/06/2016 07/16/2023 07/16/20 23 Overview (07/16/2023): Previously seen by Dr Syed Mares at [facility] CT chest angiography 03/24/15 shows cardiomegaly with findings suggestive of CHF. Cardioverted 03/01/16 at [facility] by Dr Mares, 125 joules. Given labetolol IV Managed by Dr Mares, [facility] Last visit 03/14/16. Has h/o dificult [...] 1 tab PO QD 10/03/16 Discharged from [facility] d/t no shows 03/12/[address] [...] sx's. No A-fib noted. 08/18/18-08/23/18 [place] [facility] [place] suspected [place]F exacerbation d/t hypervolemia and [...] Vaccine: 50+ Years (3 of 3 - PPSV23, PCV20 or PCV21) 04/23/2020 04/17/2016, 04/23/2015 Diabetes: Hemoglobin A1C 01/01/2021 Diabetes: Ophthalmology Exam 01/01/2021 Diabetes: Pedal Pulse Checked 01/01/2021 Diabetes: Sensory Foot Exam 01/01/2021 Diabetes: Visual Foot Exam 01/01/2021 Influenza Vaccine (Season Ended) 2025 09/01/2020, 10/19/2019, 01/29/2017 Pneumococcal Vaccine: Peds ( 0 to 5 Years) and At-Risk Patients (6 to 49 Years) Discontinued 04/17/2016, 04/23/2015 Hepatitis B Vaccine Aged Out No longe r eligible based on patient's age to complete this topic Insurance ([id number]) [place] [address] ([id number])
--- OUTSIDE RECORDS SUMMARY | 2025-03-17 15:12 | XMS_ITS | Clinical Summary ---
Author Organization [facility] Address [address] [place] [address] Phone Care Team Providers Care Industrial Machine System Technician Name Role Phone Marielle Coulter [facility] Primary Care Provider [phone] Allergies No known active allergies Medications albuterol HFA (PROAIR HFA ; PROVENTIL HFA ; VENTOLIN HFA) 90 mcg/actuation inhaler 1 (one) time each day. 5 Active atorvastatin (LIPITOR) 80 mg tablet Take by mouth daily. 0 Active dapagliflozin propanediol (Farxiga) 10 mg tablet Take 10 mg by mouth daily. 3 Active ezetimibe (ZETIA) 10 mg tablet Take 1 tablet (10 mg total) by mouth 1 (one) time each day. 3 Active fluticasone-cornelius meterol (Wixela Inhub) 250-50 mcg/dose diskus inhaler 1 (one) time each day. 2 Active lisinopril (PRINIVIL,ZESTR IL) 40 mg tablet Take 40 mg by mouth daily. Active NIFEdipine CC (ADALAT CC) 60 mg 24 hr tablet Take 1 tablet (60 mg total) by mouth 1 (one) time each day. 9 Active SITagliptin-met FORMIN (Janumet) 50-1,000 mg per tablet Take 1 Tablet by mouth 2 times daily (with meals). Active spironolactone (ALDACTONE) 25 mg tablet Take 1 tablet (25 mg total) by mouth 1 (one) time each day. 4 Active metoprolol succinate (TOPROL-XL) 50 mg 24 hr tablet TAKE 1 TABLET BY MOUTH DAILY 90 tablet 1 4 Active apixaban (Eliquis) 5 mg tablet TAKE 1 TABLET BY MOUTH TWICE DAILY 180 tablet 1 4 Active predniSONE (DELTASONE) 50 mg tablet Take 1 tablet (50 mg total) by mouth 1 (one) time each day. See instructions. 5 tablet 5 Active albuterol 2.5 mg /3 mL (0.083 %) nebulizer solution Take 3 mL (2.5 mg total) by nebulization every 6 (six) hours if needed for wheezing. 75 mL 5 Active Active Problems Problem Noted Date Diagnosed Date CAD (coronary artery disease) 01/15/2023 Overview (09/08/2024): Last Assessment & Plan: The patient has a history of coronary artery disease and maintained on medical management. He continues on cardioprotective medical therapies and metoprolol and atorvastatin. He is also on Eliquis for anticoagulation. He denies any exertional symptoms. Patient advised to seek emergency medical attention by calling 911 if they were to develop severe dyspnea, chest pain that did not resolve with rest or nitroglycerin, or if they were to faint. Chronic HFrEF (heart failure with reduced ejection fraction) (CMS/HCC V24, CMS/HCC V28) 10/09/2022 Overview (09/08/2024): Last Assessment & Plan: Patient has a history of HFrEF. His last echocardiogram in May 2022 showed an LVEF of 35 to 40%. The patient subsequently underwent a left heart catheterization to rule any underlying coronary artery disease as a cause of his cardiomyopathy. Cardiac catheterization completed 12/10/2022 revealed LAD 60% lesion, left ramus intermedius 90% proximal lesion, 65% lesion in ISAAC, 95% proximal lesion of the RCA. It was recommended the patient maintain medical management at this point and he did not require angioplasty. He appears euvolemic on physical exam without clinical signs of acute heart failure. 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 He underwent successful cardioversion on 07/29/23. He continues on GDMT with lisinopril, metoprolol, Farxiga and spironolactone. He feels well from a cardiac standpoint. We will continue his medications as prescribed. I recommend the patient complete an echocardiogram to reassess his LV function after maintaining normal sinus rhythm. I've asked the patient to call if they develop worsening symptoms of heart failure such as increased shortness of breath, new or worsening cough, increased swelling in the legs or ankles, or weight gain of more than 2 pounds in one day or 4 pounds in one week. A-fib ([facility] V24, [facility] V28) 04/25/2022 Overview (09/08/2024): Last Assessment & Plan: The patient has a history of atrial fibrillation. He underwent a successful GEOVANY and cardioversion on 07/29/23. Today, his EKG shows sinus bradycardia at a rate of 42 bpm. He reports he has been feeling well from a cardiac standpoint and his swelling has improved in his bilateral lower extremities. He will occasionally experience mild intermittent dizziness with position changes, however he denies any near-syncope or syncope. At this point, I will have him complete a 48-hour Holter monitor to assess his heart rates. I will also have him decrease his metoprolol from 50 mg orally daily to 25 mg orally daily. He continues on anticoagulation with Eliquis 5 mg orally twice daily based on his age, weight, and kidney function. We discussed the importance of adherence to his medications and potential triggers of atrial fibrillation. Cardiomyopathy ([facility] V24, [facility] V28) 2021 Overview (09/08/2024): Last Assessment & Plan: Patient with history of mild cardiomyopathy. In the past, he underwent a nuclear stress test in August 2018 that showed an apparent medium size infarct in the inferior wall with no ischemia. At that time, his LVEF was 47%. Subsequently he underwent a transthoracic echo in January 2019 that showed global hypokinesis but no specific wall motion abnormality in the inferior wall to suggest an infarct. His LVEF was noted to be 45 to 50% and he had severe LVH. At that time he was recommended to undergo a cardiac MRI but the patient refused. In regards to his medical therapies, he is on lisinopril and metoprolol succinate. He also takes furosemide 20 mg orally daily. He underwent a recent echocardiogram in May 2022 that showed left ventricular mildly dilated with moderate concentric LVH with global hypokinesis in the basal inferior septal wall and basal mid inferior wall with moderately reduced left ventricular systolic function of 35 to 40%. Given the persistence of this cardiomyopathy, we should consider an invasive ischemic work-up. At this time, I recommended we proceed with a left heart catheterization. This was discussed in depth with patient and his . I described the procedure in full detail. I did explain that there is risk for bleeding around the insertion site, infection, pain, bruising. I did explain there is the very rare, less than 1% chance of the patient suffering an WA, stroke, arterial dissection. HLD (hyperlipidemia) 04/25/2022 Overview (09/08/2024): Last Assessment & Plan: The patient has history of hyperlipidemia as well as a history of coronary artery disease. His last LDL cholesterol in July showed an LDL of 101. At that time, the patient was reporting missed doses of his medications including his atorvastatin and Zetia. At this point, I will have him maintain adherence with his cholesterol-lowering medications for 3 months and recheck a fasting lipid panel at that time. The patient reports he now has a POLE PEELER who is helping him with his medications to ensure adherence. At that time, if he is still not at goal which would ideally be less than 70 given his history, we can discuss considering PCSK9 inhibitors for further lipid control. I have reviewed with the patient the importance of a heart healthy lifestyle which includes eating a low-fat low-salt diet, getting regular exercise, maintaining a healthy weight, not smoking, and following up with routine medical care. HTN (hypertension) 04/25/2022 Overview (09/08/2024): Last Assessment & Plan: Patient's blood pressure is well controlled. We will continue his current antihypertensive medication regimen with lisinopril, spironolactone, nifedipine, and metoprolol. Immunizations Name Administration Dates Next Due [employer] SARS-CoV-2 COVID-19, mRNA, LNP-S, preservative free 10/12/2021,02/23/2021,02/02/2021 Medical History Medical History Date Comments Asthma DX:Asthma BPH (benign prostatic hyperplasia) DX:BPH (benign prostatic hyperplasia) Hematuria DX:Hematuria Indwelling Dong catheter present DX:Indwelling Dong catheter present Social History Tobacco Use Types Packs/Day Years Used Date Smoking Tobacco: Former Smokeless Tobacco: Never Alcohol Use Standard Drinks/Week Comments Never 0 (1 standard drink = 0.6 oz pur e alcohol) Sex and Gender Information Value Date Recorded Sex Assigned at Male 12/12/2024 8:26 PM EST Legal Sex Male 4:16 PM EST Gender Identity Male 12/12/2024 8:26 PM EST Sexual Orientation Not on file Obstetrics History Last Filed Vital Signs Vital Sign Reading Time Taken Comments Blood Pressure 152/90 12/12/2024 10:00 PM EST Pulse 77 12/12/2024 10:00 PM EST Temperature 36.7 ??C (98.1 ??F) 12/12/2024 10:[address] Respiratory Rate 17 12/12/2024 10:00 PM EST Oxygen Saturation 96% 12/12/2024 10:00 PM EST Inhaled Oxygen Concentration - - Weight 99.8 kg (220 lb) 12/12/2024 3:26 PM EST Height 177.8 cm (5' 10 ) 12/12/2024 3:26 PM EST Body Mass Index 31.57 12/12/2024 3:26 PM EST Plan of Treatment Health Maintenance Due Date Last Done Comments Diabetes: Annual Foot Exam 1960 Diabetes: Annual Retina Eye Exam 1960 RSV Immunization Adult Patients (1 - Risk 60-74 years 1-dose series) 2010 Abdominal Aortic Aneurysm (AAA) Screen 10/31/2022 Colorectal Cancer Screening: Colonoscopy 10/31/2022 Falls Risk Assessment 10/31/2022 Medicare Annual Wellness Visit 10/31/2022 Social Influencers of Health Screening 10/31/2022 Depression Screening 06/12/2024 06/12/2023 COVID-19 Vaccine ( season) 2024 10/12/2021, 02/23/2021, 02/02/2021 Diabetes: Annual Urine Albumin-Creatinine Ratio (uACR) 11/04/2024 01/25/2021, 01/25/2021 Diabetes: Blood Sugar Control Test (HGBA1C) 11/04/2024 06/12/2023 Influenza Vaccine (Season Ended) 2025 09/01/2020, 10/19/2019, 01/27/2019, Additional history exists Diabetes: Annual GFR (Glomerular Filtration Rate) 12/12/2025 12/12/2024, 06/12/2023, 06/12/2023 Hypertension/CHF/CAD Annual BMP Blood Test 12/12/2025 12/12/2024, 06/12/2023, 06/12/2023 DTaP,Tdap,and Td Vaccines (2 - Td or Tdap) 04/17/2026 04/17/2016 Cholesterol Screening (Lipid Panel) 06/12/2028 06/12/2023, 06/12/2023, 06/12/2023, Additional history exists Pneumococcal Vaccine: 50+ Years Completed 06/08/2021, 04/17/2016, 07/14/2015, Additional history exists Hepatitis C Screening Completed 06/12/2023, 023 Zoster Vaccines Completed 06/12/2023, 06/08/2021 HIB Vaccines Aged Out No longer eligi ble based on patient's age to complete this topic HPV Vaccines Aged Out No longer eligi ble based on patient's age to complete this topic Hepatitis A Vaccines Aged Out No long er eligible based on patient's age to complete this topic Hepatitis B Vaccines Aged Out No long er eligible based on patient's age to complete this topic IPV Vaccines Aged Out No longer eligi ble based on patient's age to complete this topic MMR Vaccines Aged Out No longer eligi ble based on patient's age to complete this topic Meningococcal ACWY Vaccine Aged Out N o longer eligible based on patient's age to complete this topic Meningococcal B Vaccine Aged Out No l onger eligible based on patient's age to complete this topic RSV Immunization Patients Under 20 months Aged Out No longer eligible based on patient's age to complete this topic Varicella Vaccines Aged Out No longer eligible based on patient's age to complete this topic Procedures Procedure Name Priority Date/Time Associated Diagnosis Comments BASIC METABOLIC PANEL STAT 12/12/2024 3:41 PM EST HM HEPATITIS C SCREENING Routine 06/12/2023 LIPID PANEL Routine 06/12/2023 HM URINE ALBUMIN CREATININE RATIO Routine 01/25/2021 from Last 3 Months or Most Recently Relevant to Health Maintenance Results * (ABNORMAL) Basic metabolic panel (12/12/2024 3:41 PM EST) Sodium 140 133 - 145 mmol/L LAB CHEMISTRY METHOD 12/12/2024 4:[address] [facility] Potassium 3.4(L) 3.5 - 5.5 mmol/L LAB CHEMISTRY METHOD 12/12/2024 4:[address] [facility] Chloride 103 96 - 110 mmol/L LAB CHEMISTRY METHOD 12/12/2024 4:[address] [facility] CO2 32 21 - 32 mmol/L LAB CHEMISTRY METHOD 12/12/2024 4:[address] [facility] Anion Gap 5 3 - 11 LAB CHEMISTRY METHOD 12/12/2024 4:[address] [facility] Glucose 133(H) 70 - 100 mg/dL LAB CHEMISTRY METHOD 12/12/2024 4:[address] [facility] BUN 17 5 - 25 mg/dL LAB CHEMISTRY METHOD 12/12/2024 4:[address] [facility] Creatinine 1.42(H) 0.70 - 1.30 mg/dL LAB CHEMISTRY METHOD 12/12/2024 4:[address] [facility] eGFR 52(L) >=60 mL/min/1. 73m2 LAB CHEMISTRY METHOD 12/12/2024 4:[address] [facility] Comment:Calculation based on the??Chronic Kidney Disease Epidemiology Collaboration (CKD-EPI) equation refit??without adjustment for race. BUN/Creatinine Ratio 12.0 LAB CHEMISTRY METHOD 12/12/2024 4:[address] [facility] Calcium 9.3 8.5 - 10.5 mg/dL LAB CHEMISTRY METHOD 12/12/2024 4:09 PM EST [facility] Blood Venous blood specimen / Unknown Venipuncture / Unknown 12/12/2024 3:41 PM EST 12/12/2024 3:49 PM EST Jc Chen MD LAB BLOOD ORDERABLES Leni l Result [facility] [address] [place] [address], [place] [phone] * Hepatitis C Screening (06/12/2023) [facility] Hepatitis C Screening abstracted Historical [facility] Final Result * Lipid panel (06/12/2023) Pathologist [facility] LDL/HDL Ratio 0 Comment:no interpretation, a bstracted Triglycerides 0 mg/dL Comment:no interpretation, a bstracted Cholesterol 0 mg/dL Comment:no interpretation, a bstracted HDL 0 mg/dL Comment:no interpretation, a bstracted LDL Cholesterol 0 mg/dL Comment:no interpretation, a bstracted Blood Venous blood specimen / Unknown Toño Marie MD LAB BLOOD ORDERABLES Leni l Result * Urine Albumin Creatinine Ratio (01/25/2021) [facility] Urine Albumin Creatinine Ratio abstracted Historical [facility] Final Result from Last 3 Months or Most Recently Relevant to Health Maintenance Insurance A[address]: [address] [place] [id number] [facility] MEDICARE Member Subscriber Plan / Payer (Ef fective 2015-Present) Name:Prakash Díaz Relation to Subscriber:Self Name:Prakash Díaz Payer ID:[id number] Group ID:[id number] Type:Not on file Address: [address] [address] Care Teams Industrial Machine System Technician Relationship Specialty Start Date End Date Marielle Coulter FNP PCP - General Internal Medicine 04/25/22
--- OUTSIDE RECORDS SUMMARY | 2025-03-17 15:12 | XMS_ITS | Clinical Summary ---
Author Organization [facility] Address [address] [place] [address] Care Team Providers Care Raw Cheese Worker Name Role Phone Yari Lopez CALVIN Primary Care Provider [phone] Source Comments PLEASE NOTE, if this patient [...] monitoring kitIndications:Type 2 diabetes mellitus with complication ([facility]),Type 2 diabetes mellitus with complication, without long-term current use of insulin ([facility]) Check FBS BID E11.65 1 Each 06/08/20 21 Active acetaminophen (TYLENOL) 500 mg tablet Take 1 Tablet by mouth every 6 (six) hours as needed for pain or fever 120 Tablet 2 03/29/20 22 Active blood sugar diagnostic (FREESTYLE LITE STRIPS) stripsIndications:Type 2 diabetes mellitus with complication ([facility]),Type 2 diabetes mellitus with complication, without long-term current use of insulin ([facility]) USE DIRECTED TO TEST BLOOD SUGAR TWICE DAILY 100 Each 1 01/04/20 23 Active FREESTYLE LANCETS 28 gaugeIndications:Type 2 diabetes mellitus with complication ([facility]),Type 2 diabetes mellitus with complication, without long-term current use of insulin ([facility]) USE DIRECTED FOR TESTING BLOOD SUGAR TWICE DAILY 100 Each 1 01/04/20 23 Active ezetimibe (ZETIA) 10 mg tablet TAKE 1 TABLET BY MOUTH DAILY 02/26/20 23 Active spironolactone (ALDACTONE) 25 mg tablet Take 25 mg by mouth once daily 05/15/20 23 Active albuterol (PROVENTIL) 2.5 mg /3 mL (0.083 %) nebulizer solutionIndications:Mod erate persistent asthma without complication ([facility]) USE 3 ML VIA NEBULIZER EVERY 6 HOURS NEEDED FOR WHEEZING 300 mL 2 11/28/20 23 Active ammonium lactate (AMLACTIN) 12 % creamIndications:Dry skin dermatitis APPLY TOPICALLY NEEDED FOR DRY SKIN 385 g 2 12/03/19 24 Active metoprolol succinate XL (TOPROL-XL) 50 mg 24 hr tabletIndications:Atria l fibrillation, unspecified type ([facility]) TAKE 1 TABLET BY MOUTH EVERY DAY [...] inhalerIndications:Mode rate persistent asthma with acute exacerbation ([facility]) Inhale 2 Puffs into the lungs 2 (two) times daily 30.6 g 12/16/19 25 Active albuterol HFA 90 mcg/actuation inhalerIndications:Mode rate persistent asthma with acute exacerbation ([facility]) Inhale 2 Puffs into the lungs every [...] Hematuria 02/20/2023 Overview (02/20/2023): 02/15/23 Admitted to [facility] for gross hematuria/ bladder obstruction/ urinary retention. Renal calculus, right 12/06/2022 Overview (12/06/2022): [facility] ED 12/01/22 Treated with Bactim and [...] catheterization. F/u 3 months. 05/24/22 Echocardiogram at [facility] shows LV mildly dilated. Moderate concentric LV [...] ASA, Eliquis, nifedipine. 12/10/22 Cardiac catheterization at [facility]. No lesions found requiring angioplasty. Resume regular medical therapy. Sebaceous cyst 01/09/2022 Overview (01/09/2022): 01/03/22 Eval [facility] Gen Surgery. Will excise sebaceous cyst of [...] (heart failure with re duced ejection fraction) ([facility]) 06/24/2019 Overview (05/21/2022): Followed by [facility] [...] apnea) 09/16/2018 Overview (09/16/2018): HST 08/22/18 at [facility] shows CT mild-mod. Recommends start CPAP Panic attack 09/05/2018 Overview (09/05/2018): Seen at [facility] 01/29/2017 Periumbilical hernia s/p repair 07/18/2016 Overview (09/14/2016): 07/16/16 U/S at [facility] shows bowel containing periumbilical hernia. Referred to general surgery. 09/10/[address] Welch at [facility]. Screening for AAA (abdominal aortic aneurysm) Overview (07/18/2016): 07/16/16 U/S of AAA at [facility] shows no visualized abdominal aortic aneurysm [...] hypercholesterolemia 03/13/2016 Moderate persistent asthma without complication ([facility]) 03/06/2016 Essential hypertension 03/06/2016 Atrial fibrillation s/p cardioversion 03/06/2016 Overview (07/08/2024): Previously seen by Dr Syed Mares at [facility] CT chest angiography 03/24/15 shows cardiomegaly with findings suggestive of CHF. Cardioverted 03/01/16 at [facility] by Dr Mares, 125 joules. Given labetolol IV Managed by Dr Mares, [facility] Last visit 03/14/16. Has h/o [...] 1 tab PO QD 10/03/16 Discharged from [facility] d/t no shows 03/12/17 Eval [...] sx's. No A-fib noted. 08/18/18-08/23/18 Admitted to [facility] for suspected CHF exacerbation d/t hypervolemia and [...] medicaitons including Eliquis; plan for cardioversion at [place] with Dr Kinsey. Needs SOFTWARE ANALYST for med compliance. GEOVANY planned for after [...] diuretic Type 2 diabetes mellitus with complication ([facility]) 03/06/2016 S/P TURP 03/06/2016 Overview (03/06/2016): Managed [...] to f/u with Dr Winslow at Urology Immunizations Immunization Administration Dates Next Due Flu, [...] 06/12/2024 06/12/2023, 06/01, 01/25/2021, Additional history exists [id number] ( season) 2024 10/12/2021, 02/23/2021, 02/02/2021 Imm-Influenza [...] REFERRAL SCANNED DOCUMENT 03/05/2025 3:00 AM EDT COMPREHENSIVE METABOLIC PANEL Routine 06/12/2023 4:07 PM [...] 3:00 AM EDT) 03/05/2025 3:00 AM EDT [facility] Provider Default SCAN REFERRAL Final Resu lt * HEPATITIS C AB W/RFLX HCV RNA, QT, RT PCR (06/12/2023 4:07 PM EDT) HEPATITIS C ANTIBODY NON-REACT JUAN ANTONIO NON-REACT JUAN ANTONIO [facility] Comment: HCV antibody was non-reactive. There is no laboratory evidence of HCV infection. In most cases, no further action is required. However, if recent HCV exposure is suspected, a test for HCV RNA (test code 96898) is suggested. For additional information please refer to http://education.Kamibu/faq/RTC20j6 (This link is being provided for informational/ educational purposes only.) Blood Blood / Unknown 06/12/2023 4 :07 PM EDT 06/12/2023 4:08 PM EDT Narrative [facility] - 06/13/2023 6:08 AM EDT PATIENT UNABLE TO VOID; ADVISED TO RETURN FOR COLLECTION. Shyann Belinda [facility] - BLOOD DRAW Edited R esult - Final Performing Organization Address [facility] Co de Phone Number [facility] [address] [address], [address] [address] [address] * (ABNORMAL) HEMOGLOBIN GLYCOSYLATED A1C (06/12/2023 4:07 PM EDT) HEMOGLOBIN A1C 7.0(H) <5.7 % of total Hgb [facility] Comment: For someone without known diabetes, a [...] PM EDT 06/12/2023 4:08 PM EDT Narrative [facility] - 06/13/2023 6:08 AM EDT PATIENT UNABLE TO VOID; ADVISED TO RETURN FOR COLLECTION. Shyann Marylin [facility] - BLOOD DRAW Final Re sult Performing Organization Address [facility]/ZIP Co de Phone Number [facility] [address] [address], [address] [address] * (ABNORMAL) LIPID PANEL (06/12/2023 4:07 PM EDT) CHOLESTEROL, TOTAL 169 <200 mg/dL [facility] HDL CHOLESTEROL 40 > OR = 40 mg/dL [facility] TRIGLYCERIDES 183(H) <150 mg/dL [facility] LDL-CHOLESTEROL 101(H) 99 mg/dL (calc) [facility] Comment: Reference range: <100 Desirable range <100 mg/dL for primary prevention; ?? <70 mg/dL for patients with CHD or diabetic patients with > or = 2 CHD risk factors. LDL-C is now calculated using the Sherrie calculation, which is a validated novel method providing better accuracy than the Friedewald equation in the estimation of LDL-C. Maurice HORAN et al. KUSH. 2013;310(19): 7019-5953 (http://education.KAL/faq/DJS547) CHOL/HDLC RATIO 4.2 <5.0 (calc) [facility] NON-HDL CHOLESTEROL 129 <130 mg/dL (calc) [facility] Comment: For patients with diabetes plus 1 major ASCVD risk factor, treating to a non-HDL-C goal of <100 mg/dL (LDL-C of <70 mg/dL) is considered a therapeutic option. Blood Blood / Unknown 06/12/2023 4 :07 PM EDT 06/12/2023 4:08 PM EDT Narrative [facility] - 06/13/2023 6:08 AM EDT PATIENT UNABLE TO VOID; ADVISED TO RETURN FOR COLLECTION. [facility] - BLOOD DRAW Final Re sult [facility] [address] [place] [id number], [facility] [address] [place] [phone] * (ABNORMAL) COMPREHENSIVE METABOLIC PANEL (06/12/2023 4:07 PM EDT) GLUCOSE 113(H) 65 - 99 mg/dL [facility] Comment: ?Fasting reference interval For someone without known diabetes, a glucose value between 100 and 125 mg/dL is consistent with prediabetes and should be confirmed with a follow-up test. UREA NITROGEN (BUN) 23 7 - 25 mg/dL [facility] CREATININE (blood) 1.62(H) 0.70 - 1.28 mg/dL [facility] EGFR 45(L) > OR = 60 mL/min/1. 73m2 [facility] Comment: The eGFR is based on the CKD-EPI 2020 equation. To calculate the new eGFR from a previous Creatinine or Cystatin C result, go to https://www.kidney.org/professionals/ kdoqi/gfr%5Fcalculator BUN/CREATININE RATIO 14 6 - 22 (calc) [facility] SODIUM 139 135 - 146 mmol/L [facility] POTASSIUM 3.9 3.5 - 5.3 mmol/L [facility] CHLORIDE 101 98 - 110 mmol/L [facility] CARBON DIOXIDE 32 20 - 32 mmol/L [facility] CALCIUM 9.4 8.6 - 10.3 mg/dL [facility] PROTEIN, TOTAL 7.6 6.1 - 8.1 g/dL [facility] ALBUMIN 3.9 3.6 - 5.1 g/dL [facility] GLOBULIN 3.7 1.9 - 3.7 g/dL (calc) [facility] ALBUMIN/GLOBULI N RATIO 1.1 1.0 - 2.5 (calc) [facility] BILIRUBIN, TOTAL 0.6 0.2 - 1.2 mg/dL [facility] ALKALINE PHOSPHATASE 76 35 - 144 U/L [facility] AST 14 10 - 35 U/L [facility] ALT 13 9 - 46 U/L [facility] Blood Blood / Unknown 06/12/2023 4 :07 PM EDT 06/12/2023 4:08 PM EDT Narrative [facility] - 06/13/2023 6:08 AM EDT PATIENT UNABLE TO VOID; ADVISED TO RETURN FOR COLLECTION. Mulu Coulter [facility] - BLOOD DRAW Edited R esult - Final [facility] [address] [address], [address] [address] [address] * (ABNORMAL) MICROALBUMIN/CREATININE RATIO, URINE, RANDOM (01/25/2021 1:16 PM EST) CREATININE, RANDOM URINE 223 mg/dL [facility] MICROALBUMIN, RANDOM 1050.0(H) 0.0 - 29.0 mg/L [facility] Comment:RECHECKED MICROALB/CRE RATIO RANDOM 470.8(H) 0.0 - 30.0 mg/G [facility] Urine Urine specimen / Unknown 01/25/2021 1:16 PM EST 01/25/2021 3:01 PM EST Narrative [facility] - 01/25/2021 7:01 PM EST [employer], [place] [address] Multimedia Designer - Sherry Knox MD PT ID [id number] ORD# [id number] [facility] [employer] [facility]PER[facility] - NO BLOOD DRAW Edite d Result - Final [facility] [address], from Last 3 Months or Most Recently Relevant to Health Maintenance Insurance [facility] Member Subscriber Plan / Payer (Ef fective 2016-Present) Name:Prakash Díaz Relation to Subscriber:Self Name:Prakash Díaz Payer ID:[id number] Group ID:Not on file Type:Indemnity Address: [place] [address] [place] [address] Care Teams Raw Cheese Worker Relationship Specialty Start Date End Date Yari Lopez NP [address] [place] [address] PCP - General Family Medicine, COMMISSARY SUPERINTENDENT 10/06/24
[2025-03-23] VITALS (14 sets, daily range): BP systolic 128–168; BP diastolic 74–105; PULSE 65–119; RESP 14–28; TEMP 36.6–36.8; O2SAT 94–100; BMI 27.8
--- NOTE | ~2025-03-23 | US_ITS ---
History: Patient with pancreatic cancer and liver metastases. Procedures performed: 1. Ultrasound-guided core biopsy of liver metastasis Physician: Tristin Tinoco MD FSIR Anesthesia: IV moderate sedation with intravenous fentanyl and versed was administered under my direct supervision with continuous physiologic monitoring for a total of 30 minutes. 6 mL of 1% lidocaine was used for local anesthesia. Specimen: Five 20-gauge core specimens Drain: None Estimated blood loss: Minimal Complications: None Procedure in detail: Informed and written consent was obtained and placed in the patient's chart. The patient was positioned oblique supine on the ultrasound examination table. Ultrasound showed a lesion suitable for biopsy in the left lobe of the liver. The overlying skin was prepped and draped. 1% lidocaine was injected subcutaneously and extended to the hepatic capsule. A small incision was made in the skin with a #11 blade. Through the incision and under ultrasound guidance with permanent recordings, the outer coaxial needle was advanced through the liver parenchyma to the edge of the mass located in the left lobe of the liver. Through the coaxial needle, five 20-gauge core specimens were obtained and placed in formalin. The specimens were confirmed to be adequate. A gelfoam slurry was then injected through the coaxial needle before it was removed. A sterile dressing was applied. Summary: Successful ultrasound-guided core biopsy of a metastatic lesion in the left lobe of the liver. Electronically signed by: Geraldo Tinoco MD 03/23/2025 03:06 PM EDT
[2025-03-23 13:28] LABS: Glucose, Whole Blood 194 mg/dL (60-115)
[2025-03-23 14:01] LABS: Basophils Percent Auto 0.1 % (0-2); Eosinophils Absolute Auto 0.1 X10*3/uL (0.0-0.4); Eosinophils Percent Auto 0.5 % (0-4); Hematocrit 41.2 % (42.0-52.0); Hemoglobin 13.5 g/dl (14.0-18.0); Imm Gran Pct Auto 0.7 % (0.0-0.4); Lymphocytes Absolute Auto 0.9 X10*3/uL (1.2-4.9); Lymphocytes Percent Auto 6.3 % (20-40); Mean Corpuscular HGB Conc 32.8 g/dl (31.0-36.0); Mean Corpuscular Hemoglobin 27.9 pg (27.0-33.0); Mean Corpuscular Volume 85.1 fL (80.0-98.0); Mean Platelet Volume 12.8 fL (9.4-12.4); Monocytes Absolute Auto 1.2 X10*3/uL (0.1-1.2); Monocytes Percent Auto 7.8 % (2-11); Neutrophils Absolute Auto 12.6 x10*3/uL (2.0-8.3); Neutrophils Percent Auto 84.6 % (45-73); Platelet Count 120 X10*3/uL (160-400); Red Blood Count 4.84 X10*6/uL (4.60-5.80); Red Cell Distribution Width 15.3 % (11.0-16.0); White Blood Count 14.8 X10*3/uL (4.8-10.8)
[2025-03-23 14:03] LABS: MANUAL DIFF FLAG SCAN
[2025-03-23 14:19] LABS: SLIDE REVIEW VERIFIED
[2025-03-23] MEDS: Midazolam HCl 2 MG/2 ML VIAL 1 MG IVPUSH (14:30)
[2025-03-23] MEDS: fentaNYL citrate/PF 100 MCG/2 ML VIAL 50 MCG IVPUSH (14:30)
[2025-03-23] MEDS: Lidocaine HCl 1% PF/Epi 1:200,000 30 ML VIAL 5 ML SUBCUT (14:47)
--- NOTE | 2025-03-23 18:04 | PC.NURSE ---
Confirmed via [place] Message with Dr Florez that patient may restart Eliquis tomorrow.
== END 2025-03-23 18:03 | disposition home or self-care (01) ==
LOC: HO.SSS 12:46
PROVIDERS: Radiology Diagnostic Radiology; Radiology Vascular & Interventional Radiology; PCP Nurse Practitioner; Visit Provider Hospitalist
DX: C78.7 Secondary malignant neoplasm of liver and intrahepatic bile duct (principal); C25.9 Malignant neoplasm of pancreas, unspecified; I10 Essential (primary) hypertension; I48.19 Other persistent atrial fibrillation; J44.9 Chronic obstructive pulmonary disease, unspecified; E11.9 Type 2 diabetes mellitus without complications; Z79.84 Long term (current) use of oral hypoglycemic drugs; Z79.82 Long term (current) use of aspirin; Z79.899 Other long term (current) drug therapy; Z79.01 Long term (current) use of anticoagulants; Z98.890 Other specified postprocedural states
CPT/HCPCS: 36415; 47000; 76942; 82947; 85025; 88307; 88313; 88341; 88342; 99152; J2003; J2250; J2310; J3010

== ENCOUNTER → 2025-03-23 13:42 | Outpatient (BNV) | payer OTHER, SELFPAY | PROVIDERS: PCP Nurse Practitioner; Visit Provider Radiology Vascular & Interventional Radiology | DX: C78.7 Secondary malignant neoplasm of liver and intrahepatic bile duct (principal) | CPT/HCPCS: 47000; 76942 ==

== ENCOUNTER 2025-04-02 12:23 | Emergency (ER) | payer OTHER, SELFPAY ==
[2025-04-02] VITALS (10 sets, daily range): BP systolic 117–141; BP diastolic 81–97; PULSE 78–114; RESP 20–32; TEMP 36.2–36.8; O2SAT 94–98; BMI 31.6; BMI 28.9
--- NOTE | ~2025-04-02 | CT_ITS ---
EXAMINATION: CT CHEST ANGIOGRAPHY WITH IV CONTRAST INDICATION: dyspnea, tachycardia COMPARISON: Correlation is made with PA and lateral views of the chest with 03/12/2025. TECHNIQUE: Helical CT scan of the chest was performed following administration of intravenous contrast (65 mL Omnipaque 350). The contrast bolus was timed to optimally opacify the pulmonary arteries. Thin sections were obtained through the pulmonary arteries. Coronal and sagittal reformatted images were generated. 3D/MIP reconstructed images are also obtained and reviewed. This CT exam was performed with one or more of the following dose reduction techniques: automated exposure control, adjustment of the mA and/or kV according to patient size, use of iterative reconstruction technique. DLP: 335 mGy-cm CHEST: THYROID: The thyroid gland is unremarkable. PULMONARY ARTERIES: No intraluminal filling defects are identified within the pulmonary arteries to suggest pulmonary emboli. LUNGS: There are thickened interlobular septae at the lung apices and at the lung bases. Findings are suggestive of pulmonary vascular congestion. There is a 5 mm nodule in the right middle lobe (series 6, image 82). There is a 4 mm nodule in the superior segment of the left lower lobe (series 6, image 55). Multiple additional small pulmonary nodules are identified. There are no focal airspace opacities. MEDIASTINUM: There are enlarged paratracheal lymph nodes measuring up to 1.8 cm. There are AP window lymph nodes measuring up to 1.9 cm. There is a 2.9 cm subcarinal lymph node. SOFYA: There is no hilar lymphadenopathy. CARDIOVASCULATURE: The heart is markedly enlarged. There is no pericardial effusion. The thoracic aorta is normal in caliber. DEGREE OF CORONARY CALCIFICATION: moderate PLEURA: There is no pleural effusion. No pneumothorax. MAIN AIRWAYS: The mainstem bronchi and proximal branches are patent. AXILLA: There is no axillary lymphadenopathy. UPPER ABDOMEN: There is reflux of contrast material into the inferior vena cava. The liver and spleen appear enlarged. Multiple hypodensities are noted in the liver as seen on recent abdominal CT dated 03/12/2025. BONES AND SOFT TISSUES: Unremarkable. CT/CT angio chest PE protocol IMPRESSION: 1. No evidence of pulmonary emboli. 2. Cardiomegaly and findings suggestive of pulmonary vascular congestion. 3. Multiple masses in the liver as seen on recent CT of the abdomen and pelvis, consistent with metastatic disease. 4. Multiple subcentimeter pulmonary nodules, suggestive of metastatic disease. Electronically signed by: Kei Emmanuel MD 04/02/2025 02:07 PM EDT
--- NOTE | 2025-04-02 12:32 | ED_ITS ---
HPI - SOB/Dyspnea General Chief Complaint: Asthma Stated Complaint: Trouble Breathing Time Seen by Provider: 04/02/25 12:55 Source: patient and old records reviewed Mode of arrival: ambulatory Limitations: no limitations History of Present Illness ED Provider: FERNANDO SOTELO Narrative: 74 yo male with PMH of COPD not on home O2 and no INH or neb therapy, HTN, afib on eliquis, metastatic stage 4 pancreatic cancer managed by Dr. Almeida who is supposed to start on palliative chemotherapy he presents today with c/o worsening breathing x 3 to 4 days with exertion. He denies chest pain. He is not wheezing, having fevers or sputum production. He denies chest pain. He has an intermittent cough. He states no other new areas of pain has lingering chronic upper abdominal pain MD elicited complaint: shortness of breath Pertinent past history: COPD Onset (ago): day(s) (4) Context: other Timing: intermittent Severity: moderate Exacerbating factors: lying flat and exertion Relieving factors: rest Known history of: COPD Associated symptoms: cough Treatment prior to arrival: none Related Data Home Medications ?Medication ?Instructions ?Recorded ?Confirmed acetaminophen 325 mg tablet 650 mg PO Q6H PRN Pain 03/12/25 03/26/25 albuterol sulfate 2.5 mg/3 mL 2.5 mg continuous nebulization Q4H 03/12/25 03/26/25 (0.083 %) solution for nebulization PRN SOB apixaban 5 mg tablet (Eliquis) 5 mg PO BID 03/12/25 03/26/25 atorvastatin 80 mg tablet 80 mg PO DAILY 03/12/25 03/26/25 budesonide-formoterol HFA 160 2 puff inhalation BID PRN SOB 03/12/25 03/26/25 mcg-4.5 mcg/actuation aerosol inhaler lisinopril 40 mg tablet 40 mg PO DAILY 03/12/25 03/26/25 metformin 500 mg tablet 500 mg PO BIDWM 03/12/25 03/26/25 metoprolol succinate 50 mg 50 mg PO DAILY 03/12/25 03/26/25 tablet,extended release 24 hr nifedipine 60 mg tablet,extended 60 mg PO DAILY PRN SBP > 160 03/12/25 03/26/25 release 24 hr Previous Rx's ?Medication ?Instructions ?Recorded cefuroxime axetil 500 mg tablet 500 mg PO BID 7 days #14 tabs 03/15/25 prednisone 20 mg tablet See Rx Instructions .Route 03/15/25 .COMPLEX #18 tabs Allergies Allergy/AdvReac Type Severity Reaction Status Date / Time No Known Allergies Allergy Verified 04/02/25 12:34 Review of Systems 2 Review of Systems: Constitutional : No Fever, No Chills ENT/Mouth : No Hoarseness, No sore throat, No Rhinorrhea Eyes: No Redness, No Discharge, No Vision Changes Cardiovascular : No Chest Pain, positive SOB, positive Dyspnea on Exertion, No Edema Respiratory : positive Cough, No Sputum, no Wheezing, Gastrointestinal : No Nausea, No Vomiting, No Diarrhea, No abdominal Pain Genitourinary : No Dysuria, No Hematuria Musculoskeletal : No joint pain, No Myalgias Skin : No rash Neuro : No Weakness, No Numbness, No Headache All other systems reviewed and are negative [facility] Past Medical History Attestation statement: The following information was validated with the patient. Source: old records reviewed Medical History Pancreatic lesion COPD (chronic obstructive pulmonary disease) HTN (hypertension) Type 2 diabetes mellitus without complications Persistent atrial fibrillation Metastatic cancer Family History Family History (Updated 03/26/25 @ 16:07 by Alina Almeida MD) Daughter Ovarian cancer Social History Social History Household Members: Spouse Housing: Apartment Are you a primary animal care worker to a significant other at home: No Do you presently have visiting nurse or other home services: No Patient Tobacco Use Status: Former Tobacco user Tobacco use type: Cigarette Cigarette Packs Per Day: 1 e-Cigarette/Vaping Use: Never Used Second Hand Smoke Exposure: No Advance Directives: Yes Advance Directives on File: Yes Advance Directives Date on File: 03/17/25 Do you have a plan to hurt others: No Plan service: No Current occupational status: retired Physical Exam 2 Vital Signs: Vital Signs: Last Vital Signs Temp 97.5 F 04/02/25 13:07 Pulse 100 04/02/25 14:00 Resp 20 04/02/25 14:00 BP 123/83 04/02/25 14:00 Pulse Ox 95 04/02/25 14:00 O2 Del Method Room Air 04/02/25 14:00 BMI result Body Mass Index 31.6 Appearance: Alert. Oriented X3. No acute distress. Eyes: Pupils equal, round and reactive to light. ENT: Pharynx normal. Neck: Normal inspection. Neck supple. CVS: Normal heart rate and rhythm. Pulses normal. Respiratory: No respiratory distress. Breath sounds diminished in both bases crackles heard as well Abdomen: Soft and nontender. Skin: Skin warm and dry. pale skin color. Normal skin turgor. Extremities: trace edema bilateral ankles No calf ttp Neuro: Oriented X 3. No motor deficit. No sensory deficit. CN2-12 intact Course Course Course Narrative: This is an RME performed by Tristin Daniels, [employer]EVEL SALES CONSULTANT: Additional HPI, ROS, PE not included below will be deferred to primary provider. Patient is a 74-year-old male who presents emergency department for evaluation of shortness of breath over the past 3-4 days, intermittent cough, denies any chest pain Plan: Serum labs, viral serologies, CXR, EKG Reevaluation(s) Reevaluation #1: accepted by medicine team Dr. Garnett discussed case with Dr. Mcmahon 245pm Medications Administered Discontinued Medications Generic Name Dose Route Start Last Admin Trade Name Freq PRN Reason Stop Dose Admin Albuterol/Ipratropium 3 ml 04/02/25 13:07 04/02/25 13:22 Albuterol/Iprat 2.5/0.5mg 3 Ml Ampul.Neb INHALE 04/02/25 13:08 3 ml ONCE ONE Administration Furosemide 20 mg 04/02/25 13:25 04/02/25 14:31 Furosemide 20 Mg/2 Ml Vial IVPUSH 04/02/25 13:26 20 mg ONCE ONE Administration Protocol Iohexol 100 ml 04/02/25 13:39 04/02/25 13:39 Iohexol 350 Mg/Ml 100 Ml Infus..Btl IV 04/02/25 13:40 65 ml ONCE ONE Administration Methylprednisolone Sodium Succinate 60 mg 04/02/25 12:57 04/02/25 13:22 Methylprednisolone Sod Succ 125 Mg/2 Ml Vial IVPUSH 04/02/25 12:58 60 mg ONCE ONE Administration Medical Decision Making Medical Decision Making MDM Narrative: 74 yo male with PMH of COPD not on home O2 and no INH or neb therapy, afib on eliquis, HTN, metastatic stage 4 pancreatic cancer managed by Dr. Almeida who is supposed to start on palliative chemotherapy he presents today with c/o dyspnea on exam he has crackles - he is not wheezing for his increased work of breathing - at this time will trial neb, IV steroids, IV lasix and obtain CTA:PE for mass/VTE/effusion, could also be cardiac given recent troponins/EKG, CHF ECHO from 03/15/25 Date of Service: 03/15/25 Procedure(s): CA echo transthoracic complete Accession Number(s): cc: Ailyn García PA-C~ Transthoracic Echocardiogram Patient (Last, First, Middle): Prakash Díaz, Gender: Male Date of : 1950 Age: 74 Procedure Date: 03/15/2025 Procedure Type: Transthoracic Echocardiogram [place] [facility] [place] Height: 182.88 cm Weight: 85.73 kg BSA: 2.08 m2 Heart Rate: bpm BP: 156 / 101 mmHg Photostatic Copy Maker: Referring MD: Ailyn García PA-C Button Broacher: Dima Jones MD Symptoms: ?NSTEMI Study Quality: Adequate ECG Rhythm: Atrial Fibrillation Conclusions: - 1. Severely reduced LV ejection fraction 15-20% with mild LVH. Regional wall motion abnormality can not be entirely ruled out with suggestive of increased filling pressures 2. Severe biatrial enlargement 3. Mild mitral regurgitation 4. Normal calculated RV systolic pressure with mildly elevated right atrial pressures 5. No gross pericardial effusion Findings Left Ventricle Normal left ventricular cavity size. There is mildly increased left ventricular wall thickness. The left ventricular systolic function is severely decreased. The visually estimated ejection fraction is between 15 20%. Regional wall motion abnormalities can not be excluded due to suboptimal endocardial definition. Spectral Doppler is indicative of a restrictive filling pattern. Elevated left atrial and left ventricular end diastolic pressures. E/E prime ratio is >15, consistent with elevated filling pressures. Right Ventricle Moderately increased right ventricular cavity size. There is normal right ventricular systolic function. Atria Severe biatrial enlargement. There is no evidence of interatrial shunt. Aortic Valve Normal aortic valve structure and function. There is no aortic valve stenosis. There is no aortic valve regurgitation. Mitral Valve There is mild anterior and posterior mitral leaflet thickening. There is mild mitral valve regurgitation. There is no mitral valve stenosis. Tricuspid Valve Normal tricuspid valve structure. There is mild tricuspid valve regurgitation. Mildly elevated right atrial pressure. There is no evidence of pulmonary hypertension. Great Vessels The pulmonary artery was not well visualized. Venous The inferior vena cava is moderately dilated and collapses greater than 50% with inspiration. Pericardium/Pleural There is no evidence of pericardial effusion. Prior Study Comparison No prior study available for comparison. Differential Diagnosis Differential Diagnoses: The differential diagnosis associated with the presentation includes COPD, mass/VTE/effusion/CHF/ACS Admission/Observation Consideration of admission/observation: Escalation of care including admission/observation considered given troponin and EKG though no sig change from most recent March 13 cardiology here advises transfer to [facility] call to transfer line 215pm per Dr. Shaffer transfer for cardiac cath Consult Healthcare Provider Management of the patient was discussed with: Neonatal Surgeon Lab Data [facility] Lab Attestation statement: I reviewed the patient's lab results. 04/02/25 12:57 04/02/25 12:57 Labs: Lab Results 04/02/25 Range/Units 12:57 WBC 13.0 H (4.8-10.8) X10*3/uL RBC 4.32 L (4.60-5.80) X10*6/uL Hgb 12.1 L (14.0-18.0) g/dl Hct 37.3 L (42.0-52.0) % MCV 86.3 (80.0-98.0) fL MCH 28.0 (27.0-33.0) pg MCHC 32.4 (31.0-36.0) g/dl RDW 15.9 (11.0-16.0) % Plt Count 166 D (160-400) X10*3/uL MPV 12.1 (9.4-12.4) fL Immature Gran % (Auto) 0.4 (0.0-0.4) % Neut % (Auto) 86.1 H (45-73) % Lymph % (Auto) 5.9 L (20-40) % Gonzales % (Auto) 7.1 (2-11) % Eos % (Auto) 0.3 (0-4) % Baso % (Auto) 0.2 (0-2) % Lymph # (Auto) 0.8 L (1.2-4.9) X10*3/uL Gonzales # (Auto) 0.9 (0.1-1.2) X10*3/uL Eos # (Auto) 0.0 (0.0-0.4) X10*3/uL Baso # (Auto) 0.0 (0.0-0.2) X10*3/uL Abs Immat Gran (auto) 0.05 H (0.00-0.03) X10*3/uL Absolute Neuts (auto) 11.2 H (2.0-8.3) x10*3/uL Absolute Nucleated RBC 0.000 (0.0-0.012) X10*3/uL Nucleated RBC % (auto) 0.0 (0.0-0.2) /100WBC Sodium 138 (135-145) mmol/L Potassium 4.7 D (3.3-5.1) mmol/L Chloride 101 (96-108) mmol/L Carbon Dioxide 27 (22-29) mmol/L Anion Gap 15 (12-20) BUN 19 H (9-16) mg/dL Creatinine 1.17 (0.5-1.4) mg/dL Estim Creat Clear Calc 65.5 Estimated GFR > 60 Random Glucose 214 H (60-115) mg/dL Calcium 9.1 (8.4-10.2) mg/dL Total Bilirubin 1.5 H (0.0-1.0) mg/dL AST 161 H (5-37) U/L ALT 33 (0-40) U/L Alkaline Phosphatase 302 H (39-117) U/L Troponin I High Sens > 33149.0 H* D (<3.5-35.0) ng/L B-Natriuretic Peptide 1693 H (<100) pg/mL Total Protein 7.2 (6.5-8.0) g/dL Albumin 3.3 L (3.5-5.0) g/dL Influenza Type A (PCR) NEGATIVE (Negative) Influenza Type B (PCR) NEGATIVE (Negative) RSV RNA Qual (PCR) NEGATIVE (Negative) SARS-CoV-2 RNA (RT-PCR) NEGATIVE (Negative) Independent Interpretation I performed an independent interpretation of an: EKG and CT Scan Interpretation: Rate: 100 Rhythm: afib [place]: left Normal QRS complex. ST T wave : inverted t waves I and aVL, flat t waves inf leads, V4-V6 - ST depressions qTC: 510 prior studies: unchanged from prior The study has been interpreted contemporaneously by me. . Radiology Impression Discussion of test interpretation with radiology: I have reviewed the radiologist's reading. Radiologist Impression: TECHNIQUE: Helical CT scan of the chest was performed following administration of intravenous contrast (65 mL Omnipaque 350). The contrast bolus was timed to optimally opacify the pulmonary arteries. Thin sections were obtained through the pulmonary arteries. Coronal and sagittal reformatted images were generated. 3D/MIP reconstructed images are also obtained and reviewed. This CT exam was performed with one or more of the following dose reduction techniques: automated exposure control, adjustment of the mA and/or kV according to patient size, use of iterative reconstruction technique. DLP: 335 mGy-cm CHEST: THYROID: The thyroid gland is unremarkable. PULMONARY ARTERIES: No intraluminal filling defects are identified within the pulmonary arteries to suggest pulmonary emboli. LUNGS: There are thickened interlobular septae at the lung apices and at the lung bases. Findings are suggestive of pulmonary vascular congestion. There is a 5 mm nodule in the right middle lobe (series 6, image 82). There is a 4 mm nodule in the superior segment of the left lower lobe (series 6, image 55). Multiple additional small pulmonary nodules are identified. There are no focal airspace opacities. MEDIASTINUM: There are enlarged paratracheal lymph nodes measuring up to 1.8 cm. There are AP window lymph nodes measuring up to 1.9 cm. There is a 2.9 cm subcarinal lymph node. SOFYA: There is no hilar lymphadenopathy. CARDIOVASCULATURE: The heart is markedly enlarged. There is no pericardial effusion. The thoracic aorta is normal in caliber. DEGREE OF CORONARY CALCIFICATION: moderate PLEURA: There is no pleural effusion. No pneumothorax. MAIN AIRWAYS: The mainstem bronchi and proximal branches are patent. AXILLA: There is no axillary lymphadenopathy. UPPER ABDOMEN: There is reflux of contrast material into the inferior vena cava. The liver and spleen appear enlarged. Multiple hypodensities are noted in the liver as seen on recent abdominal CT dated 03/12/2025. BONES AND SOFT TISSUES: Unremarkable. CT/CT angio chest PE protocol IMPRESSION: 1. No evidence of pulmonary emboli. 2. Cardiomegaly and findings suggestive of pulmonary vascular congestion. 3. Multiple masses in the liver as seen on recent CT of the abdomen and pelvis, consistent with metastatic disease. 4. Multiple subcentimeter pulmonary nodules, suggestive of metastatic disease. Independent Historian Clinical information obtained from an independent historian. History obtained from or confirmed by: Spouse External Record Review External record reviewed: Inpatient record and Outpatient record Critical Care Time Critical Care Time Critical Care Time: Yes Total Critical Care Time: 45 Attestation: review of records, medical consult, ACS work up, transfer [facility], discussion of goals with family I attest to this time spent taking care of the patient Discharge Plan Discharge Clinical Impression: Non-ST elevation DC (NSTEMI), Acute CHF Patient Disposition: er [facility] Transfer Details: [facility] Prescriptions: No Action metformin 500 mg tablet 500 mg PO BIDWM atorvastatin 80 mg tablet 80 mg PO DAILY metoprolol succinate 50 mg tablet extended release 24 hr 50 mg PO DAILY lisinopril 40 mg tablet 40 mg PO DAILY budesonide-formoterol 160-4.5 mcg/actuation HFA aerosol inhaler 2 puff inhalation BID PRN (Reason: SOB) Rx Instructions: RX label directions that pt does not follow: 2 puffs BID Eliquis 5 mg tablet 5 mg PO BID acetaminophen 325 mg Tablet 650 mg PO Q6H PRN (Reason: Pain) albuterol sulfate 2.5 mg /3 mL (0.083 %) solution for nebulization 2.5 mg continuous nebulization Q4H PRN (Reason: SOB) nifedipine 60 mg Tablet Extended Release 24hr 60 mg PO DAILY PRN (Reason: SBP > 160) cefuroxime axetil 500 mg tablet 500 mg PO BID 7 Days Qty: 14 0RF prednisone 20 mg tablet See Rx Instructions .Route .COMPLEX Qty: 18 0RF Rx Instructions: 20 mg orally; 3 tabs daily for 3 days, 2 tabs daily for 3 days, 1 tab daily for 3 days Print Language: Portuguese
--- NOTE | 2025-04-02 12:33 | ECG_ITS ---
Test Reason : SOB Blood Pressure : */* mmHG Vent. Rate : 100 BPM Atrial Rate : * BPM P-R Int : * ms QRS Dur : 104 ms QT Int : 396 ms P-R-T Axes : * -19 203 degrees QTcB Int : 510 ms Atrial fibrillation with premature ventricular or aberrantly conducted complexes Left ventricular hypertrophy with repolarization abnormality ( Lefty product ) Prolonged QT Abnormal ECG When compared with ECG of 13-Mar-2025 10:56, No significant change was found Referred By: Patricia Daniels Electronically Signed By: Stefan Shaffer
[2025-04-02 13:01] LABS: MANUAL DIFF FLAG NO
[2025-04-02 13:02] LABS: Basophils Percent Auto 0.2 % (0-2); Eosinophils Percent Auto 0.3 % (0-4); Hematocrit 37.3 % (42.0-52.0); Hemoglobin 12.1 g/dl (14.0-18.0); Imm Gran Abs Auto 0.05 X10*3/uL (0.00-0.03); Imm Gran Pct Auto 0.4 % (0.0-0.4); Lymphocytes Absolute Auto 0.8 X10*3/uL (1.2-4.9); Lymphocytes Percent Auto 5.9 % (20-40); Mean Corpuscular HGB Conc 32.4 g/dl (31.0-36.0); Mean Corpuscular Volume 86.3 fL (80.0-98.0); Mean Platelet Volume 12.1 fL (9.4-12.4); Monocytes Absolute Auto 0.9 X10*3/uL (0.1-1.2); Monocytes Percent Auto 7.1 % (2-11); Neutrophils Absolute Auto 11.2 x10*3/uL (2.0-8.3); Neutrophils Percent Auto 86.1 % (45-73); Platelet Count 166 X10*3/uL (160-400); Red Blood Count 4.32 X10*6/uL (4.60-5.80); Red Cell Distribution Width 15.9 % (11.0-16.0)
[2025-04-02 13:18] LABS: Alanine Aminotransferase 33 U/L (0-40); Albumin Level 3.3 g/dL (3.5-5.0); Anion Gap 15 (12-20); Aspartate Amino Transferase 161 U/L (5-37); Bilirubin Total 1.5 mg/dL (0.0-1.0); Blood Urea Nitrogen 19 mg/dL (9-16); Calcium 9.1 mg/dL (8.4-10.2); Carbon Dioxide 27 mmol/L (22-29); Chloride 101 mmol/L (96-108); Creatinine Clr Calc Pharmacy 65.5; Estimated Glomerular Filt Rate > 60; Glucose Random 214 mg/dL (60-115); Potassium 4.7 mmol/L (3.3-5.1); Sodium 138 mmol/L (135-145); Total Protein 7.2 g/dL (6.5-8.0)
[2025-04-02] MEDS: Albuterol/Iprat 2.5/0.5MG 3 ML AMPUL.NEB INHALE (13:22)
[2025-04-02] MEDS: methylPREDNISolone Sod Succ 125 MG/2 ML VIAL 60 MG IVPUSH (13:22)
--- OUTSIDE RECORDS SUMMARY | 2025-04-02 13:22 | XMS_ITS | Clinical Summary ---
Author Organization [address] [facility] Address [address] [place] [address] Phone Care Team Providers Care Rn Travel Name Role Phone Marielle Coulter [facility] Primary Care Provider [phone] Allergies No known active allergies Medications albuterol HFA (PROAIR HFA ; PROVENTIL HFA ; VENTOLIN HFA) 90 mcg/actuation inhaler 1 (one) time each day. 09/09/20 15 Active atorvastatin (LIPITOR) 80 mg tablet Take by mouth daily. 04/19/20 20 Active dapagliflozin propanediol (Farxiga) 10 mg tablet Take 10 mg by mouth daily. 07/12/20 23 Active ezetimibe (ZETIA) 10 mg tablet Take 1 tablet (10 mg total) by mouth 1 (one) time each day. 09/12/20 23 Active fluticasone-sa lmeterol (Wixela Inhub) 250-50 mcg/dose diskus inhaler 1 (one) time each day. 03/23/20 22 Active lisinopril (PRINIVIL,ZEST RIL) 40 mg tablet Take 40 mg by mouth daily. Active SITagliptin-me tFORMIN (Janumet) 50-1,000 mg per tablet Take 1 Tablet by mouth 2 times daily (with meals). Active metoprolol succinate (TOPROL-XL) 50 mg 24 hr tablet TAKE 1 TABLET BY MOUTH DAILY 90 tablet 1 11/04/20 24 Active apixaban (Eliquis) 5 mg tablet TAKE 1 TABLET BY MOUTH TWICE DAILY 180 tablet 1 11/04/20 24 Active predniSONE (DELTASONE) 50 mg tablet Take 1 tablet (50 mg total) by mouth 1 (one) time each day. See instructions. 5 tablet 12/12/19 25 Active albuterol 2.5 mg /3 mL (0.083 %) nebulizer solution Take 3 mL (2.5 mg total) by nebulization every 6 (six) hours if needed for wheezing. 75 mL 12/12/19 25 Active NIFEdipine CC (ADALAT CC) 60 mg 24 hr tablet TAKE 1 TABLET BY MOUTH DAILY 90 tablet 1 04/02/20 25 Active spironolactone (ALDACTONE) 25 mg tablet TAKE 1 TABLET BY MOUTH DAILY 90 tablet 1 04/02/20 25 Active NIFEdipine CC (ADALAT CC) 60 mg 24 hr tablet Take 1 tablet (60 mg total) by mouth 1 (one) time each day. 01/31/20 19 025 Discontinued spironolactone (ALDACTONE) 25 mg tablet Take 1 tablet (25 mg total) by mouth 1 (one) time each day. 03/03/20 24 025 Discontinued Active Problems Problem Noted Date Diagnosed Date [...] HFrEF (heart failure with reduced ejection fraction) ([facility] V24, [facility] V28) 10/09/2022 Overview (09/08/2024): Last Assessment & [...] or 4 pounds in one week. A-fib ([facility] V24, [facility] V28) 04/25/2022 Overview (09/08/2024): Last Assessment & [...] and potential triggers of atrial fibrillation. Cardiomyopathy ([facility] V24, [facility] V28) 2021 Overview (09/08/2024): Last Assessment & [...] 1% chance of the patient suffering an DC, stroke, arterial dissection. HLD (hyperlipidemia) 04/25/2022 Overview [...] The patient reports he now has a FINANCE CLERK who is helping him with his medications [...] metoprolol. Immunizations Name Administration Dates Next Due Pfizer SARS-CoV-2 COVID-19, mRNA, LNP-S, preservative free 10/12/2021,02/23/2021,02/02/2021 Medical History Medical History Date Comments Asthma DX:Asthma BPH (benign prostatic hyperplasia) DX:BPH (benign prostatic hyperplasia) Hematuria DX:Hematuria Indwelling Dong catheter present DX:Indwelling Dnog catheter present Social History Tobacco Use Types [...] METABOLIC PANEL STAT 12/12/2024 3:41 PM EST HEPATITIS C SCREENING Routine 06/12/2023 LIPID PANEL Routine 06/12/2023 URINE ALBUMIN CREATININE RATIO Routine 01/25/2021 from Last 3 Months or Most Recently Relevant to Health Maintenance Results * (ABNORMAL) Basic metabolic panel (12/12/2024 3:41 PM EST) Sodium 140 133 - 145 mmol/L LAB CHEMISTRY METHOD 12/12/2024 4:09 PM [facility] Potassium 3.4(L) 3.5 - 5.5 mmol/L LAB CHEMISTRY METHOD 12/12/2024 4:09 PM [facility] Chloride 103 96 - 110 mmol/L LAB CHEMISTRY METHOD 12/12/2024 4:09 PM [facility] CO2 32 21 - 32 mmol/L LAB CHEMISTRY METHOD 12/12/2024 4:09 PM [facility] Anion Gap 5 3 - 11 LAB CHEMISTRY METHOD 12/12/2024 4:09 PM [facility] Glucose 133(H) 70 - 100 mg/dL LAB CHEMISTRY METHOD 12/12/2024 4:09 PM [facility] BUN 17 5 - 25 mg/dL LAB CHEMISTRY METHOD 12/12/2024 4:09 PM [facility] Creatinine 1.42(H) 0.70 - 1.30 mg/dL LAB CHEMISTRY METHOD 12/12/2024 4:09 PM [facility] eGFR 52(L) >=60 mL/min/1. 73m2 LAB CHEMISTRY METHOD 12/12/2024 4:09 PM EST [facility] Comment:Calculation based on the??Chronic Kidney Disease Epidemiology Collaboration (CKD-EPI) equation refit??without adjustment for race. BUN/Creatinine Ratio 12.0 LAB CHEMISTRY METHOD 12/12/2024 4:09 PM EST [facility] Calcium 9.3 8.5 - 10.5 mg/dL LAB CHEMISTRY METHOD 12/12/2024 4:09 PM EST [facility] Blood Venous blood specimen / Unknown Venipuncture / Unknown 12/12/2024 3:41 PM EST 12/12/2024 3:49 PM EST Jc Chen MD LAB BLOOD ORDERABLES Leni l Result [facility] [address] [place] [address], * Hepatitis C Screening (06/12/2023) Pathologist [facility] Hepatitis C Screening abstracted Historical Provider HEALTH MAINTENANCE Final Result * Lipid panel (06/12/2023) [facility] LDL/HDL Ratio 0 Comment:no interpretation, a bstracted Triglycerides 0 mg/dL Comment:no interpretation, a bstracted Cholesterol 0 mg/dL Comment:no interpretation, a bstracted HDL 0 mg/dL Comment:no interpretation, a bstracted LDL Cholesterol 0 mg/dL Comment:no interpretation, a bstracted Blood Venous blood specimen / Unknown Historical Provider LAB BLOOD ORDERABLES Leni l Result * Urine Albumin Creatinine Ratio (01/25/2021) Pathologist [facility] Urine Albumin Creatinine Ratio abstracted Historical Provider HEALTH MAINTENANCE Final Result from Last 3 Months or Most Recently Relevant to Health Maintenance Insurance [address] [place] [address] [employer] Member Subscriber Plan / Payer (Ef fective 2015-Present) Name:Prakash Díaz Relation to Subscriber:Self Name:Prakash Díaz Payer ID:[id number] Group ID:[id number] Type:Not on file Address: [place] [address] [address] [address] Care Teams Rn Travel Relationship Specialty Start Date End Date Marielle Coulter FNP PCP - General Internal Medicine 04/25/22
--- OUTSIDE RECORDS SUMMARY | 2025-04-02 13:22 | XMS_ITS | Clinical Summary ---
Author Organization [facility] Address [address] [place] [address] Phone Care Team Providers Care Director Of Medicare Name Role Phone Unavailable Primary Care Provider [...] 23 07/16/2023 Overview (07/16/2023): HST 08/22/18 at [facility] shows CT mild-mod. Recommends start CPAP Panic attack 09/05/2018 07/16/2023 07/16/2023 Overview (07/16/2023): Seen at [facility] Patient noncompliance - general 01/29/2017 07/16/2023 Overview (07/16/2023): 02/20/19 [facility]. No DR. 09/21/20 [facility]. No DR f/u 1 year. Patient encounter status 07/18/2016 07/16/2023 Overview (07/16/2023): 07/16/16 U/S of AAA at [facility] shows no visualized abdominal aortic aneurysm Umbilical hernia 07/18/2016 07/16/2023 07/16/2023 Overview (07/16/2023): 07/16/16 U/S at [facility] shows bowel containing periumbilical hernia. Referred to general surgery. 09/10/[address] Welch at [facility]. Pure hypercholesterolemia 03/13/2016 07/16/2023 Atrial fibrillation 03/06/2016 07/16/2023 07/16/20 23 Overview (07/16/2023): Previously seen by Dr Syed Mares at [facility] CT chest angiography 03/24/15 shows cardiomegaly with findings suggestive of CHF. Cardioverted 03/01/16 at [facility] by Dr Mares, 125 joules. Given labetolol IV Managed by Dr aMres, [facility] Last visit 03/14/16. Has h/o [...] tab PO QD 10/03/16 Discharged from [facility] d/t no shows 03/12/17 Eval by [...] sx's. No A-fib noted. 08/18/18-08/23/18 Admitted to [facility] for suspected CHF exacerbation d/t hypervolemia and [...] age to complete this topic Insurance ([id number]) [place] [address] ([id number])
--- OUTSIDE RECORDS SUMMARY | 2025-04-02 13:22 | XMS_ITS | Clinical Summary ---
Author Organization [facility] Address [address] [place] [address] Care Team Providers Care Assistant Broker Name Role Phone Yari Lopez CALVIN Primary Care Provider [phone] Source Comments PLEASE NOTE, if this patient is a minor, it may be UNLAWFUL to discuss sensitive information that is contained in these records (such as FAMILY PLANNING, MENTAL HEALTH or SUBSTANCE ABUSE) with the minor patient's parent or other person without the patient's specific authorization.[facility] Allergies No known active allergies Medications blood pressure monitorIndications:[facility] ential hypertension Check BP once daily at same time of the daily. Dx:I10.0 1 Kit 0 016 Active ELIQUIS 5 mg tab TK 1 T PO BID PER CARDIOLOGY 3 019 Active blood-glucose meter monitoring kitIndications:Type 2 diabetes mellitus with complication ([facility]),Type 2 diabetes mellitus with complication, without long-term current use of insulin ([facility]) Check FBS BID E11.65 1 Each 021 Active acetaminophen (TYLENOL) 500 mg tablet Take 1 Tablet by mouth every 6 (six) hours as needed for pain or fever 120 Tablet 2 022 Active blood sugar diagnostic (FREESTYLE LITE STRIPS) stripsIndications:Type 2 diabetes mellitus with complication ([facility]),Type 2 diabetes mellitus with complication, without long-term current use of insulin ([facility]) USE DIRECTED TO TEST BLOOD SUGAR TWICE DAILY 100 Each 1 023 Active FREESTYLE LANCETS 28 gaugeIndications:Type 2 diabetes mellitus with complication ([facility]),Type 2 diabetes mellitus with complication, without long-term current use of insulin ([facility]) USE DIRECTED FOR TESTING BLOOD SUGAR TWICE DAILY 100 Each 1 023 Active ezetimibe (ZETIA) 10 mg tablet TAKE 1 TABLET BY MOUTH DAILY 023 Active spironolactone (ALDACTONE) 25 mg tablet Take 25 mg by mouth once daily 023 Active albuterol (PROVENTIL) 2.5 mg /3 mL (0.083 %) nebulizer solutionIndications:Mo derate persistent asthma without complication (HHS-HCC) USE 3 ML VIA NEBULIZER EVERY 6 HOURS NEEDED FOR WHEEZING 300 mL 2 023 Active ammonium lactate (AMLACTIN) 12 % creamIndications:Dry skin dermatitis APPLY TOPICALLY NEEDED FOR DRY SKIN 385 g 2 024 Active NIFEdipine (PROCARDIA XL) 90 mg 24 hr tabletIndications:Esse ntial hypertension Take 1 Tablet by mouth once daily Further refills requires appt with PCP 90 Tablet 024 Active atorvastatin (LIPITOR) 80 mg tabletIndications:Pure hypercholesterolemia TAKE 1 TABLET BY MOUTH DAILY 90 Tablet 1 024 Active triamcinolone (KENALOG) 0.1 % creamIndications:Dry skin dermatitis APPLY TOPICALLY TO THE AFFECTED AREA TWICE DAILY 15 g 2 024 Active budesonide-formoteroL (SYMBICORT) 160-4.5 mcg/actuation inhalerIndications:Mod erate persistent asthma with acute exacerbation ([facility]) Inhale 2 Puffs into the lungs 2 (two) times daily 30.6 g 025 Active albuterol HFA 90 mcg/actuation inhalerIndications:Mod erate persistent asthma with acute exacerbation ([facility]) Inhale 2 Puffs into the lungs every 4 (four) hours as needed for shortness of breath or wheezing Appt with PCP required for further refills. 25.5 g 025 Active predniSONE 50 mg tablet Take 50 mg by mouth daily 025 Active SITagliptin phos-metformin (JANUMET) 50-1,000 mg per tablet Take 1 Tablet by mouth 2 (two) times daily with a meal Active dapagliflozin propanediol 10 mg tab Take 10 mg by mouth Daily 023 Active lisinopriL 40 mg tabletIndications:Esse ntial hypertension TAKE 1 TABLET BY MOUTH EVERY DAY 90 Tablet 1 025 Active metoprolol succinate XL (TOPROL-XL) 50 mg 24 hr tabletIndications:Atri al fibrillation, unspecified type (HCC-CMS) TAKE 1 TABLET BY MOUTH EVERY DAY 90 Tablet 1 025 Active metoprolol succinate XL (TOPROL-XL) 50 mg 24 hr tabletIndications:Atri al fibrillation, unspecified type (HCC-CMS) TAKE 1 TABLET BY MOUTH EVERY DAY 90 Tablet 1 024 04/02 Discontinued Active Problems Problem Noted Date Diagnosed Date Hematuria 02/20/2023 Overview (02/20/2023): 02/15/23 Admitted to [facility] for gross hematuria/ bladder obstruction/ urinary retention. Renal calculus, right 12/06/2022 Overview (12/06/2022): [facility] ED 12/01/22 Treated with Bactim [...] catheterization. F/u 3 months. 05/24/22 Echocardiogram at [facility] shows LV mildly dilated. Moderate concentric LV [...] ASA, Eliquis, nifedipine. 12/10/22 Cardiac catheterization at [facility]. No lesions found requiring angioplasty. Resume regular medical therapy. Sebaceous cyst 01/09/2022 Overview (01/09/2022): 01/03/22 Eval [facility]. Will excise sebaceous cyst [...] (heart failure with re duced ejection fraction) ([facility]) 06/24/2019 Overview (05/21/2022): Followed by [facility] [...] apnea) 09/16/2018 Overview (09/16/2018): HST 08/22/18 at [facility] shows CT mild-mod. Recommends start CPAP Panic attack 09/05/2018 Overview (09/05/2018): [facility] 01/29/2017 Periumbilical hernia s/p repair 07/18/2016 Overview (09/14/2016): 07/16/16 U/S at [facility] shows bowel containing periumbilical hernia. Referred to general surgery. 09/10/[address] Welch at [facility]. Screening for AAA (abdominal aortic aneurysm) Overview (07/18/2016): 07/16/16 U/S of AAA at [facility] shows no visualized abdominal aortic [...] hypercholesterolemia 03/13/2016 Moderate persistent asthma without complication ([facility]) 03/06/2016 Essential hypertension 03/06/2016 Atrial fibrillation s/p cardioversion 03/06/2016 Overview (07/08/2024): Previously seen by Dr Syed Mares at [facility] CT chest angiography 03/24/15 shows cardiomegaly with findings suggestive of CHF. Cardioverted 03/01/16 at [facility] by Dr Mares, 125 joules. Given labetolol IV Managed by Dr Mares, [facility] Last visit 03/14/16. Has h/o [...] 1 tab PO QD 10/03/16 Discharged from [facility] d/t no shows 03/12/[address] [...] sx's. No A-fib noted. 08/18/18-08/23/18 Admitted to [facility] for suspected CHF exacerbation d/t hypervolemia and [...] medicaitons including Eliquis; plan for cardioversion at [place] with Dr Kinsey. Needs NUTRITION WORKER for med compliance. GEOVANY planned for after [...] diuretic Type 2 diabetes mellitus with complication ([facility]) 03/06/2016 S/P TURP 03/06/2016 Overview (03/06/2016): Managed [...] CONJUGATE PCV 13 04/17/2016 PNEUMOCOCCAL POLYSACCHARIDE PPV23 (Pneumovax 23) 06/08/2021,07/14/2015,04/23/2015 TDAP 04/17/2016 ZOSTER VACCINE, RECOMBINANT (SHINGRIX) 3,06/08/2021 [...] 06/12/2024 06/12/2023, 06/01, 01/25/2021, Additional history exists [id number] ( season) 2024 10/12/2021, 02/23/2021, 02/02/2021 Imm-Influenza [...] Procedure Name Priority Date/Time Associated Diagnosis Comments MEDICATIONS SCANNED DOCUMENT 03/30/2025 3:00 AM EDT REFERRAL SCANNED DOCUMENT 03/05/2025 3:00 AM EDT [...] Recently Relevant to Health Maintenance Results * MEDICATIONS SCANNED DOCUMENT (03/30/2025 3:00 AM EDT) 03/30/2025 3:00 AM EDT [facility] Provider Default SCAN MEDS OTHER ORDERS Fin al Result * REFERRAL SCANNED DOCUMENT (03/05/2025 3:00 AM EDT) 03/05/2025 3:00 AM EDT [facility] Provider Default SCAN REFERRAL Final Resu lt * HEPATITIS C AB W/RFLX HCV RNA, QT, RT PCR (06/12/2023 4:07 PM EDT) HEPATITIS C ANTIBODY NON-REACT JUAN ANTONIO NON-REACT JUAN ANTONIO [facility] Comment: HCV antibody was non-reactive. There is no laboratory evidence of HCV infection. In most cases, no further action is required. However, if recent HCV exposure is suspected, a test for HCV RNA (test code 91919) is suggested. For additional information please refer to http://education.[employer]/faq/TIT65f5 (This link is being provided for informational/ educational purposes only.) Blood Blood / Unknown 06/12/2023 4 :07 PM EDT 06/12/2023 4:08 PM EDT Narrative [facility] [facility] - 06/13/2023 6:08 AM EDT PATIENT UNABLE TO VOID; ADVISED TO RETURN FOR COLLECTION. us Mulu Coulter [facility] - BLOOD DRAW Edited R esult - Final [facility] [facility] [address] [place] [id number], [employer] [address] [place] [phone] * (ABNORMAL) HEMOGLOBIN GLYCOSYLATED A1C (06/12/2023 4:07 PM EDT) HEMOGLOBIN A1C 7.0(H) <5.7 % of total Hgb [facility] Comment: For someone without known diabetes, a [...] :07 PM EDT 06/12/2023 4:08 PM EDT [facility] - 06/13/2023 6:08 AM EDT PATIENT UNABLE TO VOID; ADVISED TO RETURN FOR COLLECTION. us [facility] - BLOOD DRAW Final Re sult Performing Organization Address [facility] Co de Phone Number [facility] [address] [address], [facility] [address] [address] * (ABNORMAL) LIPID PANEL (06/12/2023 4:07 PM EDT) [facility] Signature CHOLESTEROL, TOTAL 169 <200 mg/dL [facility] HDL CHOLESTEROL 40 > OR = 40 mg/dL [facility] TRIGLYCERIDES 183(H) <150 mg/dL [facility] LDL-CHOLESTEROL 101(H) 99 mg/dL (calc) [facility] Comment: Reference range: <100 Desirable range <100 mg/dL for primary prevention; ?? <70 mg/dL for patients with CHD or diabetic patients with > or = 2 CHD risk factors. LDL-C is now calculated using the Sherrie calculation, which is a validated novel method providing better accuracy than the Friedewald equation in the estimation of LDL-C. Maurice SS et al. KUSH. 2013;310(19): 4910-6321 (http://education.[employer]/faq/GVP593) CHOL/HDLC RATIO 4.2 <5.0 (calc) [facility] NON-HDL CHOLESTEROL 129 <130 mg/dL (calc) [facility] Comment: For patients with diabetes plus 1 major ASCVD risk factor, treating to a non-HDL-C goal of <100 mg/dL (LDL-C of <70 mg/dL) is considered a therapeutic option. Blood Blood / Unknown 06/12/2023 4 :07 PM EDT 06/12/2023 4:08 PM EDT Narrative [facility] - 06/13/2023 6:08 AM EDT PATIENT UNABLE TO VOID; ADVISED TO RETURN FOR COLLECTION. Mulu Coulter [facility] - BLOOD DRAW Final Re sult Performing Organization Address [facility]/ZIP Co de Phone Number [facility] [address] [address], [facility] [address] [address] * (ABNORMAL) COMPREHENSIVE METABOLIC PANEL (06/12/2023 4:07 PM EDT) GLUCOSE 113(H) 65 - 99 mg/dL [facility] Comment: ?Fasting reference interval For someone without known diabetes, a glucose value between 100 and 125 mg/dL is consistent with prediabetes and should be confirmed with a follow-up test. UREA NITROGEN (BUN) 23 7 - 25 mg/dL [facility] CREATININE (blood) 1.62(H) 0.70 - 1.28 mg/dL [facility] EGFR 45(L) > OR = 60 mL/min/1. 73m2 [facility] Comment: The eGFR is based on the CKD-EPI 2020 equation. To calculate the new eGFR from a previous Creatinine or Cystatin C result, go to https://www.kidney.org/professionals/ kdoqi/gfr%5Fcalculator BUN/CREATININE RATIO 14 6 - 22 (calc) [facility] SODIUM 139 135 - 146 mmol/L [facility] POTASSIUM 3.9 3.5 - 5.3 mmol/L [facility] CHLORIDE 101 98 - 110 mmol/L [facility] CARBON DIOXIDE 32 20 - 32 mmol/L [facility] CALCIUM 9.4 8.6 - 10.3 mg/dL [facility] PROTEIN, TOTAL 7.6 6.1 - 8.1 g/dL [facility] ALBUMIN 3.9 3.6 - 5.1 g/dL [facility] GLOBULIN 3.7 1.9 - 3.7 g/dL (calc) [facility] ALBUMIN/GLOBULI N RATIO 1.1 1.0 - 2.5 (calc) [facility] BILIRUBIN, TOTAL 0.6 0.2 - 1.2 mg/dL [facility] ALKALINE PHOSPHATASE 76 35 - 144 U/L [facility] AST 14 10 - 35 U/L [facility] ALT 13 9 - 46 U/L [facility] Blood Blood / Unknown 06/12/2023 4 :07 PM EDT 06/12/2023 4:08 PM EDT [facility] - 06/13/2023 6:08 AM EDT PATIENT UNABLE TO VOID; ADVISED TO RETURN FOR COLLECTION. Mulu Cowaninda [facility] - BLOOD DRAW Edited R esult - Final [facility] [address] [address], [facility] [address] [place] [address] * (ABNORMAL) MICROALBUMIN/CREATININE RATIO, URINE, RANDOM (01/25/2021 1:16 PM EST) CREATININE, RANDOM URINE 223 mg/dL [facility] MICROALBUMIN, RANDOM 1050.0(H) 0.0 - 29.0 mg/L [facility] Comment:RECHECKED MICROALB/CRE RATIO RANDOM 470.8(H) 0.0 - 30.0 mg/G [facility] Urine Urine specimen / Unknown 01/25/2021 1:16 PM EST 01/25/2021 3:01 PM EST Narrative [facility] - 01/25/2021 7:01 PM EST [employer], [place] [address] Coal Loader - Sherry Knox MD PT ID [id number] ORD# [id number] [facility]ulu Fuentesa [facility] - NO BLOOD DRAW Edite d Result - Final Performing Organization Address [facility] Co de Phone Number [address] [address], from Last 3 Months or Most Recently Relevant to Health Maintenance Insurance [facility] Member Subscriber Plan / Payer (Ef fective 2016-Present) Name:Prakash Díaz Relation to Subscriber:Self Name:Prakash Díaz Payer ID:[id number] Group ID:Not on file Type:Indemnity Address: [place] [address] [place] [id number] Care Teams Assistant Broker Relationship Specialty Start Date End Date Yari Lopez NP [address] [place] [address] PCP - General Family Medicine, CALVIN 10/06/24
[2025-04-02 13:23] LABS: B Type Natriuretic Peptide 1693 pg/mL (<100)
[2025-04-02] MEDS: iohexoL 350 MG/ML 100 ML INFUS..BTL IV (13:39)
[2025-04-02 13:44] LABS: Troponin-I High Sensitivity > 60000.0 ng/L (<3.5-35.0)
[2025-04-02 13:45] LABS: Influenza A PCR NEGATIVE (Negative); Influenza B PCR NEGATIVE (Negative); Resp Syncy Virus RNA Qual PCR NEGATIVE (Negative); SARS COV2 PCR INHOUSE NEGATIVE (Negative)
[2025-04-02 13:57] LABS: Alkaline Phosphatase 302 U/L (39-117)
--- NOTE | 2025-04-02 14:00 | PC.NURSE ---
Patient is a 74 yo male with PMH of COPD not on home O2 and no INH or neb therapy, afib on eliquis, HTN, metastatic stage 4 pancreatic cancer managed by Dr. Almeida who is supposed to start on palliative chemotherapy he presents today with c/o dyspnea on exam he has crackles - he is not wheezing for his increased work of breathing - at this time will trial neb, IV steroids, IV lasix and obtain CTA:PE for mass/VTE/effusion, could also be cardiac given recent troponins/EKG, CHF. Patient alert and oriented. concession supervisor applied and afib noted. Lungs diminished throughout. Respirations deep and sl labored with use of abdominal muscles. Abdomen soft, non-tender with positive bowel sounds. Positive pedal pulses with no edema. Patient diagnosed with an NSTEMI and CHF and plan to transfer to a higher level of care. Plan for the initiation of heparin.
[2025-04-02] MEDS: Furosemide 20 MG/2 ML VIAL IVPUSH ×2 (14:31→15:37)
--- NOTE | 2025-04-02 15:05 | PC.NURSE ---
Patient is a 74 yo male with PMH of COPD not on home O2 and no INH or neb therapy, afib on eliquis, HTN, metastatic stage 4 pancreatic cancer managed by Dr. Almeida who is supposed to start on palliative chemotherapy he presents today with c/o dyspnea on exam he has crackles - he is not wheezing for his increased work of breathing - at this time will trial neb, IV steroids, IV lasix and obtain CTA:PE for mass/VTE/effusion, could also be cardiac given recent troponins/EKG, CHF
[2025-04-02 15:08] LABS: INTERNATIONAL NORM RATIO 1.3 (0.9-1.1); Prothrombin Time 15.4 SEC (10.9-12.4)
[2025-04-02 15:10] LABS: PTT Heparin Drip 32.3 SEC (53-77.9)
[2025-04-02] MEDS: Heparin Sodium,Porcine/1/2NS 25,000 UNIT/250 ML IV.SOLN 10 UNIT IVCONT (15:29)
[2025-04-02] MEDS: Metoprolol Tartrate 12.5 MG HALFTAB PO (17:40)
--- NOTE | 2025-04-02 18:32 | MHC.EDTECH ---
Patient was given ate 50 % of dinner ,and drank 120 ml toni alexei .
--- NOTE | 2025-04-02 18:33 | PC.NURSE ---
Patient noted to have a non-sustained 31 beat run of vtach. No complaints noted at this time and vital signs were stable. Will continue to monitor.
--- NOTE | 2025-04-02 19:43 | PC.NURSE ---
Pt resting comfortably on stretcher, Denies any current pain. [facility] transport [place] [facility].
--- NOTE | 2025-04-02 20:48 | PC.NURSE ---
Report called to Deya LOWERY at [facility] on [address].
== END 2025-04-02 21:19 | disposition short-term general hospital (02) ==
PROVIDERS: Nurse Practitioner Family; Emergency Provider Emergency Medicine
DX: I21.4 Non-ST elevation (NSTEMI) myocardial infarction (principal); I50.9 Heart failure, unspecified; I11.0 Hypertensive heart disease with heart failure; R06.02 Shortness of breath; R00.0 Tachycardia, unspecified; R06.00 Dyspnea, unspecified; C25.9 Malignant neoplasm of pancreas, unspecified; R05.9 Cough, unspecified; I48.91 Unspecified atrial fibrillation; J44.9 Chronic obstructive pulmonary disease, unspecified; Z03.818 Encounter for observation for suspected exposure to other biological agents ruled out; Z79.01 Long term (current) use of anticoagulants; Z79.899 Other long term (current) drug therapy
CPT/HCPCS: 0241U; 36415; 71275; 80053; 83880; 84484; 85025; 85610; 85730; 93005; 94640; 96374; 96375; 96376; 99285; J1644; J1938; J2919; Q9967

== ENCOUNTER → 2025-04-02 12:33 | Outpatient (BNV) | payer OTHER, SELFPAY | PROVIDERS: Emergency Provider Emergency Medicine; Visit Provider Internal Medicine Cardiovascular Disease | DX: I48.91 Unspecified atrial fibrillation (principal); I51.7 Cardiomegaly | CPT/HCPCS: 93010 ==

== ENCOUNTER → 2025-04-02 13:07 | Outpatient (BNV) | payer OTHER, SELFPAY | PROVIDERS: Emergency Provider Emergency Medicine; Visit Provider Radiology Diagnostic Radiology | DX: R00.0 Tachycardia, unspecified (principal); R06.09 Other forms of dyspnea | CPT/HCPCS: 71275 ==

== ENCOUNTER 2025-04-20 10:32 | Outpatient (REF) | payer OTHER, SELFPAY ==
--- NOTE | ~2025-04-20 | PE_ITS ---
PT/CT SKULL BASE TO MID THIGH HISTORY: Initial staging pancreatic cancer COMPARISON: Correlation is made with a CT of the abdomen with contrast dated 03/12/2025. TECHNIQUE: Images were obtained from the skull base to the proximal thighs. Image reconstruction was performed in the axial, coronal, and sagittal planes. Fusion images were obtained and evaluated using the concurrently performed unenhanced CT scan. Images were obtained approximately 48 minutes after the intravenous administration of 19.7 mCi F18-FDG. A low dose 3.[address] scan was acquired for attenuation correction. PET and CT in-line fusion was performed for anatomical correlation of the functional information obtained from FDG PET imaging. FINDINGS: HEAD/NECK: No abnormal FDG uptake is identified in the head or neck. Physiologic COMMUNITY RELATIONS COORDINATOR, salivary, pharyngeal, laryngeal and muscular uptake appears symmetric. CHEST: There is a 3 mm nodule in the left upper lobe (series 102, image 263). This does not demonstrate FDG uptake, although it is likely below the resolution of PET scanning. No abnormal FDG uptake is identified in the chest. The heart is enlarged. Physiologic cardiac activity is noted. ABDOMEN/PELVIS: There are multiple foci of abnormal increased uptake in the liver, the most intense of which is at the dome of the right lobe demonstrating an SUV max of 6.6. These are consistent with metastatic disease. There is a focus of increased activity in the pancreatic head corresponding to the mass noted on CT. This demonstrates an SUV max of 4.5. There are enlarged peripancreatic/periportal lymph nodes which demonstrate an SUV max of 3.1. There is an 8 mm nonobstructing calculus at the lower pole of the left kidney. There is a small amount of ascites around the liver. Physiologic activity is noted in the GI and tracts. SKELETAL: No suspicious musculoskeletal uptake is identified. PET/CT SCAN PET/PET CT fusion skull to thigh IMPRESSION: 1. FDG avid pancreatic head mass as seen on CT, consistent with pancreatic carcinoma. There is FDG avid peripancreatic lymphadenopathy and FDG avid liver metastases as described. 2. 3 mm left upper lobe pulmonary nodule which is likely below the resolution of PET scanning. 3. Small amount of ascites around the liver. Electronically signed by: Kei Emmanuel MD 04/27/2025 11:36 AM EDT
--- OUTSIDE RECORDS SUMMARY | 2025-04-20 11:49 | XMS_ITS | Clinical Summary ---
Author Organization [facility] Address [address] [place] [address] Phone Care Team Providers Care Patient Access Coordinator Name Role Phone Unavailable Primary Care Provider [...] 23 07/16/2023 Overview (07/16/2023): HST 08/22/18 at [facility] shows CT mild-mod. Recommends start CPAP Panic attack 09/05/2018 07/16/2023 07/16/2023 Overview (07/16/2023): Seen at [facility] Patient noncompliance - general 01/29/2017 07/16/2023 Overview (07/16/2023): 02/20/19 [facility]. No DR. 09/21/20 [facility]. No DR f/u 1 year. Patient encounter status 07/18/2016 07/16/2023 Overview (07/16/2023): 07/16/16 U/S of AAA at [facility] shows no visualized abdominal aortic aneurysm Umbilical hernia 07/18/2016 07/16/2023 07/16/2023 Overview (07/16/2023): 07/16/16 U/S at [facility] shows bowel containing periumbilical hernia. Referred to general surgery. 09/10/[address] Welch at [facility]. Pure hypercholesterolemia 03/13/2016 07/16/2023 Atrial fibrillation 03/06/2016 07/16/2023 07/16/20 23 Overview (07/16/2023): Previously seen by Dr Syed Mares at [facility] CT chest angiography 03/24/15 shows cardiomegaly with findings suggestive of CHF. Cardioverted 03/01/16 at [facility] by Dr Mares, 125 joules. Given labetolol IV Managed by Dr Mares, [facility] Last visit 03/14/16. Has h/o [...] PO QD 10/03/16 Discharged from [facility] d/t no shows 03/12/17 Eval [...] sx's. No A-fib noted. 08/18/18-08/23/18 Admitted to [facility] for suspected CHF exacerbation d/t hypervolemia and [...] Vaccine: 50+ Years (3 of 3 - PCV20 or PCV21) 04/23/2020 04/17/2016, 04/23/2015 Diabetes: [...] age to complete this topic Insurance ([id number]) [facility] ([id number]) [place] [id number]
--- OUTSIDE RECORDS SUMMARY | 2025-04-20 11:49 | XMS_ITS | Clinical Summary ---
Author Organization [address] [facility] Address [address] [place] [address] Phone Care Team Providers Care Dry Kiln Operator Name Role Phone Marielle Coulter [facility] Primary Care Provider [phone] Allergies No known active allergies Medications albuterol [...] HFrEF (heart failure with reduced ejection fraction) ([facility] V24, CMS/[facility] V28) 10/09/2022 Overview (09/08/2024): Last Assessment & [...] or 4 pounds in one week. A-fib ([facility] V24, [facility] V28) 04/25/2022 Overview (09/08/2024): Last Assessment [...] and potential triggers of atrial fibrillation. Cardiomyopathy ([facility] V24, [facility] V28) 2021 Overview (09/08/2024): Last Assessment [...] 1% chance of the patient suffering an UT, stroke, arterial dissection. HLD (hyperlipidemia) 04/25/2022 Overview [...] The patient reports he now has a WEIGHT CONTROL LECTURER who is helping him with his medications [...] regimen with lisinopril, spironolactone, nifedipine, and metoprolol. Encounters Date Type Department Care Team Description 04/08/2025 Telephone [facility] [address] [place] [address] Ailyn Cleary NP from Last 3 Months Immunizations Name Administration Dates Next Due Pfizer [...] LAB CHEMISTRY METHOD 12/12/2024 4:09 PM EST [facility] Comment:Calculation based on the??Chronic Kidney Disease Epidemiology Collaboration (CKD-EPI) equation refit??without adjustment for race. BUN/Creatinine Ratio 12.0 LAB CHEMISTRY METHOD 12/12/2024 4:09 PM [facility] Calcium 9.3 8.5 - 10.5 mg/dL LAB CHEMISTRY METHOD 12/12/2024 4:09 PM [facility] Blood Venous blood specimen / Unknown Venipuncture / Unknown 12/12/2024 3:41 PM EST 12/12/2024 3:49 PM EST Jc Chen MD LAB BLOOD ORDERABLES Leni l Result [facility] [address] [place] [address], * Hepatitis C Screening (06/12/2023) [facility] Hepatitis C Screening abstracted Historical Provider HEALTH MAINTENANCE Final Result * Lipid panel (06/12/2023) [facility] LDL/HDL Ratio 0 Comment:no interpretation, a bstracted Triglycerides 0 mg/dL Comment:no interpretation, a bstracted Cholesterol 0 mg/dL Comment:no interpretation, a bstracted HDL 0 mg/dL Comment:no interpretation, a bstracted LDL Cholesterol 0 mg/dL Comment:no interpretation, a bstracted Blood Venous blood specimen / Unknown Historical Provider LAB BLOOD ORDERABLES Leni l Result * Urine Albumin Creatinine Ratio (01/25/2021) [facility] Urine Albumin Creatinine Ratio abstracted Historical Provider HEALTH MAINTENANCE Final Result from Last 3 Months or Most Recently Relevant to Health Maintenance Insurance [address] [place], [place] [id number] [employer] MED[employer] Member Subscriber Plan / Payer (Ef fective 2015-Present) Name:Prakash Díaz Relation to Subscriber:Self Name:Prakash Díaz Payer ID:[id number] Group ID:[id number] Type:Not on file Address: [address] [facility] [place] [address] Care Teams Dry Kiln Operator Relationship Specialty Start Date End Date Marielle Coulter FNP PCP - General Internal Medicine 04/25/22
--- OUTSIDE RECORDS SUMMARY | 2025-04-20 11:49 | XMS_ITS | Clinical Summary ---
Author Organization [facility] Address [address] [place] [address] Care Team Providers Care Load Builder Name Role Phone Yari Lopez CALVIN Primary Care Provider [phone] Source Comments PLEASE NOTE, if this patient is a minor, it may be UNLAWFUL to discuss sensitive information that is contained in these records (such as FAMILY PLANNING, MENTAL HEALTH or SUBSTANCE ABUSE) with the minor patient's parent or other person without the patient's specific authorization.[facility] Allergies No known active allergies Medications blood pressure monitorIndications:[facility] ential hypertension Check BP once daily at same time of the daily. Dx:I10.0 1 Kit 0 016 Active ELIQUIS 5 mg tab TK 1 T PO BID PER CARDIOLOGY 3 019 Active blood-glucose meter monitoring kitIndications:Type 2 diabetes mellitus with complication ([facility]),Type 2 diabetes mellitus with complication, without long-term current use of insulin ([facility]) Check FBS BID E11.65 1 Each 021 Active acetaminophen (TYLENOL) 500 mg tablet Take 1 Tablet by mouth every 6 (six) hours as needed for pain or fever 120 Tablet 2 022 Active blood sugar diagnostic (FREESTYLE LITE STRIPS) stripsIndications:Type 2 diabetes mellitus with complication ([facility]),Type 2 diabetes mellitus with complication, without long-term current use of insulin ([facility]) USE DIRECTED TO TEST BLOOD SUGAR TWICE DAILY 100 Each 1 023 Active FREESTYLE LANCETS 28 gaugeIndications:Type 2 diabetes mellitus with complication ([facility]),Type 2 diabetes mellitus with complication, without long-term current use of insulin ([facility]) USE DIRECTED FOR TESTING BLOOD SUGAR TWICE DAILY 100 Each 1 023 Active ezetimibe (ZETIA) 10 mg tablet TAKE 1 TABLET BY MOUTH DAILY 023 Active spironolactone (ALDACTONE) 25 mg tablet Take 25 mg by mouth once daily 023 Active albuterol (PROVENTIL) 2.5 mg /3 mL (0.083 %) nebulizer solutionIndications:Mo derate persistent asthma without complication ([facility]) USE 3 ML VIA NEBULIZER EVERY 6 HOURS NEEDED FOR WHEEZING 300 mL 2 023 Active ammonium lactate (AMLACTIN) 12 % creamIndications:Dry skin dermatitis APPLY TOPICALLY NEEDED FOR DRY SKIN 385 g 2 024 Active NIFEdipine (PROCARDIA XL) 90 mg 24 hr tabletIndications:Esse ntial hypertension Take 1 Tablet by mouth once daily Further refills requires appt with PCP 90 Tablet 024 Active triamcinolone (KENALOG) 0.1 % creamIndications:Dry skin dermatitis APPLY TOPICALLY TO THE AFFECTED AREA TWICE DAILY 15 g 2 024 Active budesonide-formoteroL (SYMBICORT) 160-4.5 mcg/actuation inhalerIndications:Mod erate persistent asthma with acute exacerbation ([facility]) Inhale 2 Puffs into the lungs 2 (two) times daily 30.6 g 025 Active predniSONE 50 mg tablet [...] 24 hr tabletIndications:Atri al fibrillation, unspecified type ([facility]) TAKE 1 TABLET BY MOUTH EVERY DAY 90 Tablet 1 025 Active albuterol HFA 90 mcg/actuation inhalerIndications:Mod erate persistent asthma with acute exacerbation ([facility]) INHALE 2 PUFFS INTO THE LUNGS EVERY 4 HOURS NEEDED FOR SHORTNESS OF BREATH OR WHEEZING 25.5 g 025 Active atorvastatin (LIPITOR) 80 mg tabletIndications:Pure hypercholesterolemia TAKE 1 TABLET BY MOUTH DAILY 90 Tablet 025 Active metoprolol succinate XL (TOPROL-XL) 50 mg 24 hr tabletIndications:Atri al fibrillation, unspecified type ([facility]) TAKE 1 TABLET BY MOUTH EVERY DAY 90 Tablet 1 024 04/02 Discontinued atorvastatin (LIPITOR) 80 mg tabletIndications:Pure hypercholesterolemia TAKE 1 TABLET BY MOUTH DAILY 90 Tablet 1 024 04/11 Discontinued albuterol HFA 90 mcg/actuation inhalerIndications:Mod erate persistent asthma with acute exacerbation ([facility]) Inhale 2 Puffs into the lungs every 4 (four) hours as needed for shortness of breath or wheezing Appt with PCP required for further refills. 25.5 g 025 04/03 Discontinued Active Problems Problem Noted Date Diagnosed Date Hematuria 02/20/2023 Overview (02/20/2023): 02/15/23 Admitted to [facility] for gross hematuria/ bladder obstruction/ urinary retention. Renal calculus, right 12/06/2022 Overview (12/06/2022): [facility] ED 12/01/22 Treated with Bactim and advised [...] catheterization. F/u 3 months. 05/24/22 Echocardiogram at [facility] shows LV mildly dilated. Moderate concentric [...] ASA, Eliquis, nifedipine. 12/10/22 Cardiac catheterization at [facility]. No lesions found requiring angioplasty. Resume regular medical therapy. Sebaceous cyst 01/09/2022 Overview (01/09/2022): 01/03/22 [facility] Gen Surgery. Will excise sebaceous cyst of upper back. Needs pre-op clearance Elevated PSA 11/06/2021 Overview (11/06/2021): 09/06/21 [facility] Urology. Recheck labs, get MRI of prostate [...] (heart failure with re duced ejection fraction) ([facility]) 06/24/2019 Overview (05/21/2022): Followed by PV [...] apnea) 09/16/2018 Overview (09/16/2018): HST 08/22/18 at [facility] shows CT mild-mod. Recommends start CPAP Panic attack 09/05/2018 Overview (09/05/2018): Seen at [facility] 01/29/2017 Periumbilical hernia s/p repair 07/18/2016 Overview (09/14/2016): 07/16/16 U/S at [facility] shows bowel containing periumbilical hernia. Referred to general surgery. 09/10/[address] Welch at [facility]. Screening for AAA (abdominal aortic aneurysm) Overview (07/18/2016): 07/16/16 U/S of AAA at [facility] shows no visualized abdominal aortic aneurysm Chronic [...] hypercholesterolemia 03/13/2016 Moderate persistent asthma without complication ([facility]) 03/06/2016 Essential hypertension 03/06/2016 Atrial fibrillation s/p cardioversion 03/06/2016 Overview (07/08/2024): Previously seen by Dr Syed Mares at [place] and [facility] chest angiography 03/24/15 shows cardiomegaly with findings suggestive of CHF. Cardioverted 03/01/16 at [facility] by Dr Mares, 125 joules. Given labetolol IV Managed by Dr Mares, [facility] Last visit 03/14/16. Has h/o [...] 1 tab PO QD 10/03/16 Discharged from [facility] d/t no shows 03/12/17 Eval [...] sx's. No A-fib noted. 08/18/18-08/23/18 Admitted to [facility] for suspected CHF exacerbation d/t hypervolemia and [...] medicaitons including Eliquis; plan for cardioversion at [place] with Dr Kinsey. 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 [place] planned for after [...] diuretic Type 2 diabetes mellitus with complication ([facility]) 03/06/2016 S/P TURP 03/06/2016 Overview (03/06/2016): [...] 06/12/2024 06/12/2023, 06/01, 01/25/2021, Additional history exists Obc-GRPSG-09 ( season) 2024 10/12/2021, 02/23/2021, 02/02/2021 Imm-Influenza [...] 3:00 AM EDT) 03/30/2025 3:00 AM EDT [facility] Provider Default SCAN MEDS OTHER ORDERS Fin al Result * REFERRAL SCANNED DOCUMENT (03/05/2025 3:00 AM EDT) 03/05/2025 3:00 AM EDT [facility] Provider Default SCAN REFERRAL Final Resu lt * HEPATITIS C AB W/RFLX HCV RNA, QT, RT PCR (06/12/2023 4:07 PM EDT) HEPATITIS C ANTIBODY NON-REACT JUAN ANTONIO NON-REACT JUAN ANTONIO [employer] [employer] Comment: HCV antibody was non-reactive. There is no laboratory evidence of HCV infection. In most cases, no further action is required. However, if recent HCV exposure is suspected, a test for HCV RNA (test code 56901) is suggested. For additional information please refer to http://education.[employer]/faq/CRH08f7 (This link is being provided for informational/ educational purposes only.) Blood Blood / Unknown 06/12/2023 4 :07 PM EDT 06/12/2023 4:08 PM EDT Narrative [facility] - 06/13/2023 6:08 AM EDT PATIENT UNABLE TO VOID; ADVISED TO RETURN FOR COLLECTION. [facility] - BLOOD DRAW Edited R esult - Final [facility] [address] [place] [address], [employer] [employer] [address] [place] [id number] * (ABNORMAL) HEMOGLOBIN, GLYCOSYLATED (A1C) (06/12/2023 4:07 PM EDT) HEMOGLOBIN A1C 7.0(H) <5.7 % of total Hgb [employer] [employer] Comment: For someone without known diabetes, a [...] PM EDT 06/12/2023 4:08 PM EDT Narrative [facility] - 06/13/2023 6:08 AM EDT PATIENT UNABLE TO VOID; ADVISED TO RETURN FOR COLLECTION. [facility] Coulter [employer] INTERCEPT CONTROLLER [facility] - BLOOD DRAW Final Re sult [facility] [address] [address], [facility] [address] [place] [address] * (ABNORMAL) LIPID PANEL (06/12/2023 4:07 PM EDT) CHOLESTEROL, TOTAL 169 <200 mg/dL [email or web address] [facility] HDL CHOLESTEROL 40 > OR = 40 mg/dL [email or web address] [facility] TRIGLYCERIDES 183(H) <150 mg/dL [email or web address] [facility] LDL-CHOLESTEROL 101(H) 99 mg/dL (calc) [email or web address] [facility] Comment: Reference range: <100 Desirable range <100 mg/dL for primary prevention; ?? <70 mg/dL for patients with CHD or diabetic patients with > or = 2 CHD risk factors. LDL-C is now calculated using the Maurice-Eid calculation, which is a validated novel method providing better accuracy than the Friedewald equation in the estimation of LDL-C. Maurice HORAN et al. KUSH. 2013;310(19): 0709-5070 (http://education.[employer].AccuVein/faq/HOZ852) CHOL/HDLC RATIO 4.2 <5.0 (calc) [email or web address] [facility] NON-HDL CHOLESTEROL 129 <130 mg/dL (calc) [facility] Comment: For patients with diabetes plus 1 major ASCVD risk factor, treating to a non-HDL-C goal of <100 mg/dL (LDL-C of <70 mg/dL) is considered a therapeutic option. Blood Blood / Unknown 06/12/2023 4 :07 PM EDT 06/12/2023 4:08 PM EDT Narrative [facility] - 06/13/2023 6:08 AM EDT PATIENT UNABLE TO VOID; ADVISED TO RETURN FOR COLLECTION. [facility] Coulter [facility] - BLOOD DRAW Final Re sult [facility] [address] [address], [email or web address] [facility] [address] [place] [address] * (ABNORMAL) COMPREHENSIVE METABOLIC PANEL (06/12/2023 4:07 PM EDT) [facility] GLUCOSE 113(H) 65 - 99 mg/dL [email or web address] [facility] Comment: ?Fasting reference interval For someone without known diabetes, a glucose value between 100 and 125 mg/dL is consistent with prediabetes and should be confirmed with a follow-up test. UREA NITROGEN (BUN) 23 7 - 25 mg/dL [facility] CREATININE (blood) 1.62(H) 0.70 - 1.28 mg/dL [facility] EGFR 45(L) > OR = 60 mL/min/1. 73m2 [email or web address] [facility] Comment: The eGFR is based on the CKD-EPI 2020 equation. To calculate the new eGFR from a previous Creatinine or Cystatin C result, go to https://www.kidney.org/professionals/ kdoqi/gfr%5Fcalculator BUN/CREATININE RATIO 14 6 - 22 (calc) [facility] SODIUM 139 135 - 146 mmol/L [facility] POTASSIUM 3.9 3.5 - 5.3 mmol/L [facility] CHLORIDE 101 98 - 110 mmol/L [facility] CARBON DIOXIDE 32 20 - 32 mmol/L [facility] CALCIUM 9.4 8.6 - 10.3 mg/dL [email or web address] [facility] [facility] PROTEIN, TOTAL 7.6 6.1 - 8.1 g/dL [email or web address] [facility] [facility] ALBUMIN 3.9 3.6 - 5.1 g/dL [email or web address] [facility] [facility] GLOBULIN 3.7 1.9 - 3.7 g/dL (calc) [facility] ALBUMIN/GLOBULI N RATIO 1.1 1.0 - 2.5 (calc) [facility] BILIRUBIN, TOTAL 0.6 0.2 - 1.2 mg/dL [facility] ALKALINE PHOSPHATASE 76 35 - 144 U/L [facility] AST 14 10 - 35 U/L [facility] ALT 13 9 - 46 U/L [facility] Blood Blood / Unknown 06/12/2023 4 :07 PM EDT 06/12/2023 4:08 PM EDT Narrative [facility] - 06/13/2023 6:08 AM EDT PATIENT UNABLE TO VOID; ADVISED TO RETURN FOR COLLECTION. Mulu Coulter [facility] - BLOOD DRAW Edited R esult - Final [facility] [address] [address], [facility] [address] [address] * (ABNORMAL) MICROALBUMIN/CREATININE RATIO, URINE, RANDOM (01/25/2021 1:16 PM EST) CREATININE, RANDOM URINE 223 mg/dL [facility] MICROALBUMIN, RANDOM 1050.0(H) 0.0 - 29.0 mg/L [facility] Comment:RECHECKED MICROALB/CRE RATIO RANDOM 470.8(H) 0.0 - 30.0 mg/G [facility] Urine Urine specimen / Unknown 01/25/2021 1:16 PM EST 01/25/2021 3:01 PM EST Narrative 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 - Sherry Knox MD PT ID [id number] ORD# [id number] [facility] URINE AMBULATORY Edit ed Result - Final [facility] [employer] [address], from Last 3 Months or Most Recently Relevant to Health Maintenance Insurance [facility] Member Subscriber Plan / Payer (Ef fective 2016-Present) Name:Prakash Díaz Relation to Subscriber:Self Name:Prakash Díaz Payer ID:[id number] Group ID:Not on file Type:Indemnity Address: [place] [address] [place] [address] Care Teams Load Builder Relationship Specialty Start Date End Date Yari Lopez NP [address] [place] [address] PCP - General Family Medicine, CONTRACTING ANALYST 10/06/24
== END 2025-04-20 10:33 | disposition home or self-care (01) ==
LOC: HO.PET 10:32
PROVIDERS: Visit Provider Internal Medicine
DX: Z13.89 Encounter for screening for other disorder (principal)

== ENCOUNTER 2025-05-05 15:27 | Outpatient (AMB) | payer OTHER, SELFPAY ==
--- NOTE | 2025-05-05 15:28 | A.OFFVIS_ITS ---
Vital Signs 05/05/25 15:32 Height 5 ft 10 in Weight 194 lb 3.636 oz BMI 27.9 BP 120/70 Blood Pressure Location Lt brachial Position Sitting Pulse 142 H Pulse Source Monitor Intake Visit Reasons: f/up-: Elle- undergo chemotherapy. Intake Note: f/up Monorail Operator Required: No Accompanied by: Spouse Allergies No Known Allergies Allergy (Verified 05/05/25 16:29) Medication List - Last Reconciled 05/05/25 by Stefan Shaffer MD acetaminophen 650 mg PO Q6H PRN albuterol sulfate 2.5 mg continuous nebulization Q4H PRN albuterol sulfate 90 mcg/actuation 2 puffs inhalation Q6H PRN apixaban (Eliquis) 5 mg PO BID dapagliflozin propanediol 10 mg PO DAILY ezetimibe 10 mg PO DAILY PRN furosemide 20 mg PO DAILY metformin 500 mg PO BID metoprolol succinate ER 150 mg PO DAILY sacubitril-valsartan 24-26 mg (Entresto) 1 tab PO BID sitagliptin phos-metformin 50-1,000 mg (Janumet) 1 tab PO BID PRN HPI Comments Details: [age] year gentleman who is here for follow-up. He was recently seen at [facility] when he presented with atrial fibrillation and had some lateral T-wave changes and abdominal pain. CT scan showed pancreatic mass and lymph nodes which will atrial confirmed as pancreatic cancer. He came back with the abdominal pain and had significantly elevated troponin levels and was urgently transferred to [facility] where apparently was medically managed for NSTEMI but had a significant myocardial infarction with EF of 10-15% by echocardiography. He subsequently got admitted to [facility] and there was some question about left atrial mass picked up during that admission. He has persistent atrial fibrillation and has been on Eliquis. He has seen Oncology and discussions are ongoing about potential chemotherapy although with significant LV dysfunction it is unclear whether he will be a good candidate for chemo or not. He is short of breath and sweaty. EKG in the office is showing AFib with RVR. [facility] Medical History Pancreatic lesion COPD (chronic obstructive pulmonary disease) HTN (hypertension) Type 2 diabetes mellitus without complications Persistent atrial fibrillation Metastatic cancer Family History Daughter Ovarian cancer Social History Household Members: Spouse Housing: Apartment Are you a primary outdoor emergency care technician to a significant other at home: No Do you presently have visiting nurse or other home services: No Unable to assess alcohol history related to: Unknown Patient Tobacco Use Status: Former Tobacco user Tobacco use type: Cigarette Cigarette Packs Per Day: 1 Smoked in Last 30 Days: No e-Cigarette/Vaping Use: Never Used Second Hand Smoke Exposure: No Use of substances other than those prescribed or required for medical reasons: No Advance Directives: Yes Advance Directives on File: Yes Advance Directives Date on File: 03/17/25 Do you have a plan to hurt others: No Plan service: No Current occupational status: retired Review of Systems Const Denies chills, Denies fatigue, Denies fever(s), Denies frequent falls, Denies weakness, Denies weight gain and Denies weight loss ENT Denies dizziness Card Denies chest pain, Denies leg edema, Denies lightheadedness, Denies palpitations, Denies dyspnea and Denies dyspnea on exertion Resp Denies cough, Denies dyspnea and Denies dyspnea on exertion GI Denies hematochezia Musc Denies abnormal gait, Denies muscle weakness, Denies numbness, Denies radiating pain into limb and Denies tingling Neuro Denies abnormal gait, Denies dizziness, Denies frequent falls, Denies numbness, Denies tingling and Denies weakness Endo Denies fatigue and Denies palpitations Physical Exam Vital Signs: Last Vital Signs Pulse 142 H 05/05/25 15:32 BP 120/70 05/05/25 15:32 BMI result Body Mass Index 27.9 GENERAL APPEARANCE: Short of breath, ill-appearing. NECK: no carotid bruit, mild jugular venous distention. SKIN: no suspicious lesions. HEART: no murmurs, irregular rate and rhythm. Tachycardic. LUNGS: clear to auscultation bilaterally. ABDOMEN: soft, nontender. Distended. EXTREMITIES: no edema. PERIPHERAL PULSES: equal. NEUROLOGIC: No gross deficits, AAO X 3 Office Procedures EKG Details: AFib with RVR 142 beats per minute, rightward axis, anteroseptal infarct, lateral ST depressions with T-wave inversions, QTC 446 milliseconds. [id number], Complete Assessment & Plan Assessment & Plan (1) Pancreatic cancer: Code(s): C25.9 - Malignant neoplasm of pancreas, unspecified Category: Medical (2) Atrial fibrillation with rapid ventricular response: Code(s): I48.91 - Unspecified atrial fibrillation Category: Medical (3) Cardiomyopathy: Code(s): I42.9 - Cardiomyopathy, unspecified Category: Medical Plan Pleasant 74 year gentleman who is here for follow-up. He was seen in the hospital for atrial fibrillation and abdominal pain and was diagnosed with pancreatic cancer. Subsequently got admitted again with abdominal pain and had significant NSTEMI and has severe LV dysfunction. Overall he appears to be in AFib with RVR and has symptoms/signs of heart failure. I have discussed with the patient to be sent to the emergency department. I have discussed the case with ER physician. I think we tried digoxin loading to see if we can rate control him. With the LV dysfunction I think using beta- iqra/calcium channel iqra will be quite challenging. We will check chest x-ray and do basic labs including BNP. Continue anticoagulation. We will get records from [facility] especially echocardiography because there was some question that he may have left atrial mass. With him being in persistent atrial fibrillation it is possible that this is thrombus but concern of the final rail cutter there was that this was metastasis. Thank you for allowing me to participate in the care of your patient. Please feel free to contact me if you have any questions. Coding Level of Care Code Est Pt Level 5 (88683) Diagnoses Pancreatic cancer C25.9 Atrial fibrillation with rapid ventricular response I48.91 Cardiomyopathy I42.9 CPT Codes EKG - CPT: 71266-[id number], Complete ([id number])
[2025-05-05 15:32] VITALS: BP 120/70; PULSE 142; BMI 27.9
--- OUTSIDE RECORDS SUMMARY | 2025-05-05 15:38 | XMS_ITS | Encounter Summary ---
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 Name Role Phone Physician, Pcp Unknown Primary Care Provider Mary vailable Reason for Referral * Home Health (Routine) - Closed Specialty Diagnoses / Procedures Referred By Contac t Referred To Contact Home Health Services Diagnoses Acute pulmonary embolism with acute cor pulmonale, unspecified pulmonary embolism type (CMS/HCC V24, CMS/HCC V28) Elevated troponin Left atrial mass Alma Mon MD [address] [place] [address] Phone: tel: fax: [facility] [place] [address] [facility] , [address] [place] [address] Phone: tel: fax: Referral ID Status Reason Start Date Expiration Date V isits Requested Visits Authorized [id number] Closed Consult and Treat 05/01/2025 05/01/2026 1 1 Reason for Visit * Reason Comments Shortness of Breath * Auth/Cert (Routine) Specialty Diagnoses / Procedures Referred By Contac t Referred To Contact Diagnoses Pancreatic adenocarcinoma (CMS/HCC V24, CMS/HCC V28) Elevated troponin NSTEMI (non-ST elevated myocardial infarction) (CMS/HCC V24, CMS/HCC V28) Acute pulmonary embolism ([facility] V24, [facility] V28) Dyspnea, unspecified type Acute pulmonary embolism with acute cor pulmonale, unspecified pulmonary embolism type ([facility] V24, [facility] V28) Other acute pulmonary embolism, unspecified whether acute cor pulmonale present ([facility] V24, [facility] V28) Procedures . Ambrose Amador MD [address] [place] [address] Phone: tel: fax: [facility] [address] [place] [address] Phone: tel: Referral ID Status Reason Start Date Expiration Date Visits Re quested Visits Authorized [id number] 1 1 Encounter Details Date Type Department Care Team (Latest Contact Info) Description 04/28/2025 6:26 PM EDT - 05/01/2025 3:06 PM EDT Hospital Encounter [facility] [address] [place] [phone] Catalina Avina DO [address] [place] [address] Ambrose Amador MD [address] [place] [address] Shawn Hilton MD [address] [place] [address] Alma Mon MD [address] [place] [phone] Acute pulmonary embolism with acute cor pulmonale, unspecified pulmonary embolism type ([facility] V24, [facility] V28) (Primary Dx); Dyspnea, unspecified type; Other acute pulmonary embolism, unspecified whether acute cor pulmonale present ([facility] V24, [facility] V28); NSTEMI (non-ST elevated myocardial infarction) ([place] [id number], [facility] V28); Pancreatic adenocarcinoma ([facility] V24, [facility] V28); Elevated troponin; Left atrial mass Discharge Disposition: Home-Health Care Svc Social History Tobacco Use Types Packs/Day Years Used Date Smoking Tobacco: Former Smokeless Tobacco: Never Alcohol Use Standard Drinks/Week Comments Never 0 (1 standard drink = 0.6 oz pur e alcohol) Interpersonal Safety Answer Date Record ed Physical Abuse 04/29/2025 Verbal Abuse 04/29/2025 Sex and Gender Information Value Date Recorded Sex Assigned at Male 12/12/2024 8:26 PM EST Legal Sex Male 4:16 PM EST Gender Identity Male 12/12/2024 8:26 PM EST Sexual Orientation Not on file documented as of this encounter Last Filed Vital Signs Vital Sign Reading Time Taken Comments Blood Pressure 117/92 05/01/2025 11:48 AM EDT Pulse 114 05/01/2025 11:48 AM EDT Temperature 36.4 ??C (97.5 ??F) 05/01/2025 11:48 AM E DT Respiratory Rate 28 05/01/2025 8:00 AM EDT Oxygen Saturation 99% 05/01/2025 11:48 AM EDT Inhaled Oxygen Concentration - - Weight 87.3 kg (192 lb 6.4 oz) 05/01/2025 3:16 A M EDT Height 177 cm (5' 9.69 ) 04/29/2025 11:58 AM EDT Body Mass Index 27.86 04/29/2025 11:58 AM EDT documented in this encounter Functional Status * Are you deaf or do you have serious difficulty hearing? Answer Date of Assessment Author No 12/12/2024 8:44 PM Maame Morrell RN * Are you blind or do you have serious difficulty seeing, even when wearing glasses? Answer Date of Assessment Author No 12/12/2024 8:44 PM Maame Morrell RN * Do you have serious difficulty walking or climbing stairs? Answer Date of Assessment Author No 12/12/2024 8:44 PM Maame Morrell RN * Do you have serious difficulty dressing or bathing? Answer Date of Assessment Author No 12/12/2024 8:44 PM Maame Morrell RN * Because of a physical, mental, or emotional condition, do you have serious difficulty doing errandsalone such as visiting the doctor? Answer Date of Assessment Author No 12/12/2024 8:44 PM Maame Morrell RN documented as of this encounter Mental Status * Because of a physical, mental, or emotional condition, do you have serious difficulty concentrating, remembering, or making decisions? (5 years old or older) Answer Entry Date Author No 12/12/2024 8:44 PM Maame Morrell RN documented in this encounter Discharge Summaries * Alma Mon MD - 05/01/2025 1:04 PM EDT Images from the original note were not included. ORONDO DISCHARGE SUMMARY Patient Information Dorothy Díaz : 1950 [74 y.o.] Admitting Provider Ambrose Amador MD Discharge Provider Alma Mon MD, Alma Mon MD Primary Care Physician Pcp Unknown Physician Admission Date 04/28/2025 Discharge Date 05/01/2025 Primary/Secondary Diagnosis VTE -PE and LLE DVT L atrial mass/likely thrombus NSTEMI Persistent A fib HFrEF CAD Metastatic pancreatic cancer DM2 Consults: Cardiology Procedures: None Hospital Course Summary HPI: 74 year-old male with history of metastatic pancreatic adenocarcinoma, coronary artery disease, heart failure with reduced ejection fraction LVEF 20-40%, atrial fibrillation on apixaban anticoagulation, hypertension, hyperlipidemia presents with acute pulmonary embolism complicated by elevated troponin levels. After discussion with ER provider, the patient will be admitted to the hospital. The patient presented with worsening dyspnea and was found to have acute pulmonary embolism in the right upper and middle lobe arteries. The patient was recently hospitalized at [facility] from 04/02/2025-04/08/2025 with an NSTEMI. He was found to have multivessel disease and felt to be poor candidate for intervention in the setting of his metastatic cancer and was treated with medical therapy. A CT angiogram performed at that time was negative for pulmonary embolism. Today's troponins are again severelyelevated and flat at >5000 ng/L, likely as a result of cardiac strain from the pulmonary embolus rather than evidence of plaque rupture. An echocardiogram has been ordered to evaluate for right heart strain. He is currently being treated with a heparin infusion. He has been prescribed apixaban but it is unclear if this was a treatment failure as he reports missing doses of the medication. Additionally does appear to be somewhat volume overloaded. We will judiciously diurese the patient as he may have some preload dependence due to his pulmonary embolus. As above echocardiography may be helpful in determining how aggressively he may tolerate diuresis. In terms of the patient's pancreatic adenocarcinoma, he reportedly is not a candidate for chemotherapy due to his poor functional status. Engaging with palliative care may be beneficial. Management of additional chronic medical problems as below. Hospital course: 74 year old man with complicated medical history including metastatic pancreatic cancer, HFrEF, CAD, chronic atrial fibrillation on apixaban, admitted with complaints of dyspnea and generalized weakness, diagnosed and treated for acute pulmonary embolism and acute left lower extremity DVT, non-ST elevation [place], also noted to have left atrial mass suspicious for thrombus. He reported missing doses of his apixaban which he chronically takes for atrial fibrillation. He was treated with IV heparin drip, cardiology recommended medical management due to co morbidities, advanced malignancy and frailty( he was not to be a candidate for any invasive intervention or surgery even in the past), medications were adjusted, he was maintained on heparin for 48 hours then tr ansition to apixaban. His heart rate was rate controlled, with acceptable rates(cardiology felt that higher rates acceptable with new PE). He felt improved and could not wait to be discharged. He wasall dressed up for me waiting for discharge paperwork. at the bedside will accompany him home. He understands overall prognosis of his health. He will continue further conversation with his primary providers about transitioning to palliative care and possibly hospice. Not interested in this atthis time. I took over his care on the day of discharge. DC diagnosis: # VTE -acute PE and left lower extremity DVT -noncompliant with apixaban which he was taking for atrial fibrillation. PTE likely due to underlying malignancy. He will need lifelong anticoagulation. He was initially on heparin drip and transition to apixaban. New prescription provided for VTE indication. He remained hemodynamic stable without hypoxia, oxygen saturation 99 to 100% on ambient air. # Probable non-ST elevation [place]/h/o CAD -elevated troponin in 5000 range. Treated medically with 48 hours heparin. Echocardiogram demonstrated low EF which was previously known at 20 to 25% with severe LV global hypokinesis. Seen by cardiology -he was advised to follow-up with his regular chlorinator at [facility]. Palliative care consult also strongly advised. # Chronic atrial fibrillation -rate controlled currently on metoprolol 150 mg daily. Not a candidate for Cardizem due to low EF and cannot tolerate digoxin due to kidney disease. Apixaban for anticoagulation. # HFrEF -Farxiga, Entresto, spironolactone, furosemide, no bottles # Left atrial mass -mobile mass attached to the superior portion of the inferoseptum and inferior wall, thrombus versus tumor. Anticoagulation was recommended with repeat echo in 1 month or so. # Metastatic pancreatic cancer Per records known history of metastatic pancreatic cancer. CT scan shows evidence of metastasis to liver, lymph nodes and possibly lungs. Follows up with oncology at [place]; apparently patient has not been started on any treatment yet. # Probable splenic infarct evidence on CT - likely embolic. Anticoagulation as above. # DM2 - resume home regimen # Probable CKD3A - stable Overall prognosis remains guarded, with heart rate risk of life-threatening complications, readmissions. I explained at length significance of anticoagulation -Apxiaban/Eliquis, importance of taking everydose as prescribed, both patient and his understand that if he does not take his medications as prescribed his condition may worsen/could be life-threatening. >30 min spent on DC Follow-Up Instructions and Recommendations PCP in 1 week Cardiology as planned Oncology as planned Continue further discussion re palliative care Discharge Medications Your medication list START taking these medications Instructions Last Dose Given Next Dose Due furosemide 20 mg tablet Commonly known as: LASIX Take 1 tablet (20 mg total) by mouth 1 (one) time each day. CHANGE how you take these medications Instructions Last Dose Given Next Dose Due albuterol 2.5 mg /3 mL (0.083 %) nebulizer solution What changed: Another medication with the same name was changed. Make sure you understand how and when to take each. Take 3 mL (2.5 mg total) by nebulization every 6 (six) hours if needed for wheezing. albuterol HFA 90 mcg/actuation inhaler Commonly known as: PROAIR HFA ; PROVENTIL HFA ; VENTOLIN HFA What changed: how much to take how to take this when to take this reasons to take this Inhale 2 puffs by mouth every 6 (six) hours if needed for wheezing or shortness of breath. apixaban 5 mg tablet Commonly known as: ELIQUIS Start taking on: May 01, 2025 What changed: See the new instructions. Take 2 tablets (10 mg total) by mouth 2 (two) times a day for 7 days, THEN 1 tablet (5 mg total) 2 (two) times a day. CONTINUE taking these medications Instructions Last Dose Given Next Dose Due aspirin 81 mg EC tablet Take 1 tablet (81 mg total) by mouth 1 (one) time each day. atorvastatin 80 mg tablet Commonly known as: LIPITOR Take by mouth daily. Entresto 24-26 mg per tablet Generic drug: sacubitriL-valsartan Take 1 tablet by mouth 2 (two) times a day. ezetimibe 10 mg tablet Commonly known as: ZETIA Take 1 tablet (10 mg total) by mouth 1 (one) time each day. Farxiga 10 mg tablet Generic drug: dapagliflozin propanediol Take 10 mg by mouth daily. Janumet 50-1,000 mg per tablet Generic drug: SITagliptin-metFORMIN Take 1 Tablet by mouth 2 times daily (with meals). metoprolol succinate 50 mg 24 hr tablet Commonly known as: TOPROL-XL Take 3 tablets (150 mg total) by mouth 1 (one) time each day. spironolactone 25 mg tablet Commonly known as: ALDACTONE TAKE 1 TABLET BY MOUTH DAILY Wixela Inhub 250-50 mcg/dose diskus inhaler Generic drug: fluticasone-salmeterol 1 (one) time each day. STOP taking these medications lisinopril 40 mg tablet Commonly known as: PRINIVIL,ZESTRIL NIFEdipine CC 60 mg 24 hr tablet Commonly known as: ADALAT CC Where to Get Your Medications These medications were sent to [id number] - [address] AT [address] OF [facility] [place] [phone] albuterol 2.5 mg /3 mL (0.083 %) nebulizer solution albuterol HFA 90 mcg/actuation inhaler apixaban 5 mg tablet furosemide 20 mg tablet Physical Exam at time of Discharge Fatigued and chronically ill-appearing, not in acute distress Awake and alert Heart is fast irregular Lungs diminished Abdomen is soft Trace pedal edema Vitals Vitals: 05/01/25 1148 BP: (!) 117/92 Pulse: (!) 114 Resp: Temp: 36.4 ??C (97.5 ??F) SpO2: 99% HEMATOLOGY Lab Results Component Value Date WBC 12.4 (H) 05/01/2025 HGB 13.2 (L) 05/01/2025 HCT 41.8 (L) 05/01/2025 MCV 87.3 05/01/2025 PLT 199 05/01/2025 INR 1.2 04/28/2025 CHEMISTRY Lab Results Component Value Date GLUCOSE 151 (H) 05/01/2025 NA 137 05/01/2025 K 4.3 05/01/2025 CO2 28 05/01/2025 CL 103 05/01/2025 BUN 32 (H) 05/01/2025 CREATININE 1.40 (H) 05/01/2025 EGFR 53 (L) 05/01/2025 CALCIUM 8.5 05/01/2025 MG 2.0 05/01/2025 PHOS 3.0 05/01/2025 ANIONGAP 6 05/01/2025 Radiology Results (last 21 days) Procedure Component Value Units Date/Time Vascular US duplex lower extremity venous bilateral [[id number]] Collected: 04/29/25106 Order Status: Completed Updated: 04/29/25113 Addenda: ADDENDUM: This report was discussed with Palak Lopez RN on April 29, 2025 01:12:00 EDT. This document has been electronically signed by: Karla Elliott on 04/29/2025 01:13:10 Signed: 04/29/25112 by Jovany Jeffery MD Narrative: INDICATION: edema Venous duplex ultrasound bilateral lower extremity Comparison: None Findings: Hypoechoic occlusive thrombus within the left peroneal and posterior tibial veins. Remaining deep veins in both lower extremities are patent with flow and compressibility. No popliteal cysts. Impression: 1. Acute occlusive left peroneal and posterior tibial vein deep vein thrombosis. 2. No deep vein thrombosis in the right lower extremity. This document has been electronically signed by: Jovany Jeffery MD on 04/29/2025 01:07:09 CT Angio Chest wo and/or w Contrast [[id number]] Collected: 04/28/252122 Order Status: Completed Updated: 04/28/252128 Addenda: ADDENDUM: This report was discussed with Dr. Avina on April 28, 2025 21:28:00 EDT. This document has been electronically signed by: Alexus Segura on 04/28/2025 21:28:13 Signed: 04/28/252127 by Adriano Vinson MD Narrative: INDICATION: PE suspected, high prob CT angiography chest with contrast. 3D Postprocessing. Comparison: None Findings: Heart is enlarged. Possible contrast filling defect in the left atrium series 2, image 349. The thoracic aorta is normal caliber. Contrast filling defects in the right upper and middle lobe lobar and segmental pulmonary arteries. There are subcentimeter mediastinal lymph nodes. There are numerous bilateral pulmonary nodules: 5.7 mm in the right middle lobe series 4, image 37. The bones are intact. Impression: Acute pulmonary embolism of the right upper and middle lobe pulmonary arteries. Numerous bilateral pulmonary nodules, suspicious for pulmonary metastases. Clinical correlation is recommended. Possible contrast filling defect in the left atrium. Correlation with echocardiogram findings as indicated. This document has been electronically signed by: Adriano Vinson MD on 04/28/2025 21:23:46 CT Abdomen Pelvis w Contrast [[id number]] Collected: 04/28/252139 Order Status: Completed Updated: 04/28/252140 Narrative: INDICATION: pancreatic ca worsening abd pain CT abdomen and pelvis with contrast Comparison: None Findings: Small pericardial effusion. Heterogeneous enhancement within the pericardium series 5, image 5. There are multiple hypodense lesions of the liver measuring 4.5 x 5 cm axial image 25. No intrahepatic or extrahepatic ductal dilatation is seen. No portal venous thrombosis. No calcified gallstones in the gallbladder. No adrenal nodule. Splenic infarction. 1.1 x 1.2 cm hypodense lesion in the area of pancreatic head series 5, image 63. No suspicious focal lesion of the kidneys. No hydronephrosis. Stone in the left renal pelvis. The abdominal aorta demonstrates no evidence of aneurysmal dilatation or dissection. The colon is normal in appearance and without wall thickening or inflammatory change. Colonic diverticulosis. No evidence of bowel obstruction. Appendix is normal. The pelvic organs are within normal limits. Small ascites. There are multiple enlarged periportal and peripancreatic lymph nodes: 1 x 1.3 cm peripancreatic lymph node axial image 66. There are no osseous or soft tissue abnormalities. Impression: Hypodense lesion in the area of the pancreatic head likely represents the known pancreatic cancer. Multiple hypodense lesions of the liver are concerning for metastasis. Multiple metastatic peripancreatic and periportal lymph nodes. Small pericardial effusion. Heterogeneous enhancement of the pericardium. Metastasis can not be excluded. Small ascites. Splenic infarction. Additional findings as above. This document has been electronically signed by: Adriano Vinson MD on 04/28/2025 21:40:09 documented in this encounter Medications at Time of Discharge albuterol 2.5 mg /3 mL (0.083 %) nebulizer solutionIndicatio ns:Acute pulmonary embolism with acute cor pulmonale, unspecified pulmonary embolism type (CMS/HCC V24, CMS/HCC V28),Elevated troponin Take 3 mL (2.5 mg total) by nebulization every 6 (six) hours if needed for wheezing. 75 mL 05/01/2025 5 albuterol HFA (PROAIR HFA ; PROVENTIL HFA ; VENTOLIN HFA) 90 mcg/actuation inhaler Inhale 2 puffs by mouth every 6 (six) hours if needed for wheezing or shortness of breath. 6.7 g 05/01/2025 aspirin 81 mg EC tablet Take 1 tablet (81 mg total) by mouth 1 (one) time each day. 01/30/2019 Entresto 24-26 mg per tablet Take 1 tablet by mouth 2 (two) times a day. 04/08/2025 metoprolol succinate (TOPROL-XL) 50 mg 24 hr tablet Take 3 tablets (150 mg total) by mouth 1 (one) time each day. 04/08/2025 apixaban (ELIQUIS) 5 mg tablet Take 2 tablets (10 mg total) by mouth 2 (two) times a day for 7 days, THEN 1 tablet (5 mg total) 2 (two) times a day. 88 each 05/01/2025 5 atorvastatin (LIPITOR) 80 mg tablet Take by mouth daily. 04/19/2020 dapagliflozin propanediol (Farxiga) 10 mg tablet Take 10 mg by mouth daily. 07/12/2023 ezetimibe (ZETIA) 10 mg tablet Take 1 tablet (10 mg total) by mouth 1 (one) time each day. 09/12/2023 fluticasone-salme terol (Wixela Inhub) 250-50 mcg/dose diskus inhaler 1 (one) time each day. 03/23/2022 furosemide (LASIX) 20 mg tablet Take 1 tablet (20 mg total) by mouth 1 (one) time each day. 30 each 05/01/2025 SITagliptin-metFO RMIN (Janumet) 50-1,000 mg per tablet Take 1 Tablet by mouth 2 times daily (with meals). spironolactone (ALDACTONE) 25 mg tablet TAKE 1 TABLET BY MOUTH DAILY 90 tablet 1 04/02/2025 documented as of this encounter Ordered Prescriptions Prescription Sig Dispense Quantity Refills Last Filled Start Date End Date furosemide (LASIX) 20 mg tablet Take 1 tablet (20 mg total) by mouth 1 (one) time each day. 30 each 05/01/2025 apixaban (ELIQUIS) 5 mg tablet Take 2 tablets (10 mg total) by mouth 2 (two) times a day for 7 days, THEN 1 tablet (5 mg total) 2 (two) times a day. 88 each 05/01/2025 albuterol HFA (PROAIR HFA ; PROVENTIL HFA ; VENTOLIN HFA) 90 mcg/actuation inhaler Inhale 2 puffs by mouth every 6 (six) hours if needed for wheezing or shortness of breath. 6.7 g 05/01/2025 albuterol 2.5 mg /3 mL (0.083 %) nebulizer solutionIndicatio ns:Acute pulmonary embolism with acute cor pulmonale, unspecified pulmonary embolism type (CMS/HCC V24, CMS/HCC V28),Elevated troponin Take 3 mL (2.5 mg total) by nebulization every 6 (six) hours if needed for wheezing. 75 mL 05/01/2025 5 documented in this encounter Discharge Disposition Disposition Code Departure Means Destination Comment s Home-Health Care Svc Wheelchair Home documented in this encounter Progress Notes * Carly Najera RN - 05/01/2025 2:29 PM EDT 05/01/25 1429 Transportation Transportation at discharge Family What day is the transport expected? 05/01/25 Final Discharge Disposition Home Health Care Services Pt d/c home with [facility], D/C summ and Amb referral for HH sent via [facility] * Adrienne Sy RN - 05/01/2025 12:42 AM EDT Goals: Problem: Atrial Fibrillation Goal: Resident will have no complications due to atrial fibrillation Outcome: Adequate for Discharge Problem: Sensory: Acute Pain Goal: Pain level will improve or be tolerable Outcome: Adequate for Discharge Problem: Risk for excess fluid volume Goal: I will remain free from complications r/t CHF Outcome: Progressing Problem: Deep Vein Thrombosis Goal: Resident will remain free from complications of deep vein thrombosis and maintain current level of mobility Outcome: Progressing Identify possible barriers to meeting goals/advancing plan of care: Stability of the patient: Moderately Stable - Low risk of patient condition declining or worsening End of Shift Summary: Family at bedside beginning of shift, alert and oriented x4 C/o decrease appetite encouraged small amts. HS blood sugar 103 no coverage needed. Tylenol given for c/o L+ rib pain Skin dusky jaundice warm dry OOB to bathroom gait steady Heparin d/c'd Eliquis re-started Call fall at bedside, safety monitoring continued * Mine Haro RN - 04/30/2025 4:27 PM EDT CM 04/30 ICC spoke with patient and family at bedside, family upset that pts son is allowed to visit. Per patient he wants his son to visit. ICC advised we would not go against patient wishes and stop son from visiting. Family states they understand. CHARISSA: 05/01 Plan: [facility] once they confirm PCP([facility] family) Barriers: Panc CA w/ met, Hep gtt, HR 73, UTI, DVT+, Therapy Eval: na Referral status: [facility] + once they confirm PCP([facility] per family) * Milagro Morgan MD - 04/30/2025 12:59 PM EDT Images from the original note were not included. [facility] Cardiology- Cardiology Follow-up Note PATIENT NAME: Dorothy Díaz ([id number]) DOS: 04/30/25 ASSESSMENT & PLAN 74 y.o. male presents for severe dyspnea on exertion-likely related to acute pulmonary embolism. Heis otherwise clinically euvolemic and in fact developed some RUTH with prior diuresis so diuretics are being held. At this point, overall prognosis is quite poor. Agree with ongoing goals of care discussions. Will sign off. Please see problem specific recommendations below. I did reach out one of the cardiology attendings at [facility] to let them know that the patient is hospitalized.His tells me that he has an appointment with them next week. Will sign off. Please feel free to reconsult with questions or issues. Left atrial mass Given patient's clinical history, this likely represents a metastatic tumor. Of note, it is not in the typical location that 1 would expect for a left atrial appendage thrombus related to A-fib, so this is unlikely. However, this could also be a thrombus regardless in a different location. In lightof patient's clinical comorbidities and condition, he is high risk for any sort of open heart procedure as he was just evaluated for CABG at [facility] and deemed not to be a candidate at this time. Furthermore, I am not sure that it would ultimately change prognosis. Being that he will need to be on lifelong anticoagulation in the setting of metastatic cancer with PE, my bias would be to treat conservatively with anticoagulation. If it is a thrombus, it should resolve in 1 to 2 months. This would present a risk for stroke but ultimately, the best strategy is still anticoagulation as the patient is likely too high risk for other options. A-fib (CMS/HCC V24, CMS/HCC V28) Patient is back in A-fib with reasonably controlled heart rates given PE. Would continue home dose of Toprol-XL 150 mg daily. In light of possible need for compensatory tachycardia in the setting of PE, would hold off on aggressive rate control. He is current heart rates in the range of 90s to low 100s is reasonable. At this point given mass in his left heart, he is not a candidate for rhythm control options. Cannot use digoxin due to reduced creatinine clearance. Would avoid using diltiazem due to severely reduced EF. Type 2 acute myocardial infarction (CMS/HCC V24, CMS/HCC V28) Patient has known three-vessel coronary artery disease as demonstrated by recent cardiac cath at [facility]. However, he was not deemed to be a good candidate for aggressive revascularization with CABG understandably. His elevated high-sensitivity troponins during this admission are unlikely to represent true acute plaque rupture but rather demand mediated phenomenon in the setting of acute pulmonary embolism on top of A-fib with intermittent rapid ventricular response rate. As such, we will manage medically. He is not having any acute anginal symptoms. Continue current Toprol XL, high-dose atorvastatin, aspirin, heparin drip. To that end, I would continue heparin drip for 48 hours per ACS protocol before transitioning to DOAC. Chronic HFrEF (heart failure with reduced ejection fraction) (CMS/HCC V24, CMS/HCC V28) Patient actually appears euvolemic on exam after a few doses of IV Lasix. I suspect his elevated BNP is more likely related to acute PE than true volume overload. Would transition to oral diuretic therapy-likely Lasix 20 mg p.o. twice daily starting tomorrow. Has acute on chronic kidney injury but I think in light of diabetic nephropathy, would continue current Entresto. Unclear why Farxiga is being held. Would please resume. Would hold spironolactone in light of reduced creatinine clearance. Though because creatinine is improving, we can consider reinitiating tomorrow if Farxiga is reinitiated today. SUBJECTIVE Patient is resting relatively comfortably. He denies significant shortness of breath. His is at the bedside. PAST MEDICAL HISTORY He has a past medical history of Asthma, BPH (benign prostatic hyperplasia), Hematuria, and Indwelling Dong catheter present. PAST SURGICAL HISTORY He has no past surgical history on file. SOCIAL HISTORY Tob: reports that he has quit smoking. He has never used smokeless tobacco. ETOH: reports no history of alcohol use. Drug: reports no history of drug use. FAMILY HISTORY He family history is not on file. MEDICATIONS: SCHEDULED MEDICATIONS: [START ON 05/01/2025] apixaban, 5 mg, oral, BID aspirin, 81 mg, oral, Daily atorvastatin, 80 mg, oral, Daily [Held by provider] dapagliflozin propanediol, 10 mg, oral, Daily furosemide, 20 mg, oral, BID 08-18 insulin lispro, 1-6 Units, subcutaneous, Before meals & nightly ipratropium-albuteroL, 3 mL, nebulization, TID lactulose, 20 g, oral, TID metoprolol succinate, 150 mg, oral, Daily sacubitriL-valsartan, 1 tablet, oral, BID sodium chloride, 10 mL, intravenous, BID PRN MEDICATIONS: PRN medications: acetaminophen, albuterol, dextrose 50%, dextrose 50%, dextrose, dextrose, glucagoninjection, heparin OR heparin, prochlorperazine OR prochlorperazine OR prochlorperazine, Insert peripheral IV AND Maintain IV access AND Saline lock IV AND sodium chloride AND sodium chloride, trimethobenzamide DRIPS: heparin, 18 Units/kg/hr, Last Rate: 17 Units/kg/hr (04/30/25 0128) ALLERGIES: He has No Known Allergies. OBJECTIVE Vitals: 04/30/25 1103 BP: 120/75 Pulse: 50 Resp: 20 Temp: 36.2 ??C (97.1 ??F) SpO2: 99% Body mass index is 27.57 kg/m??. PHYSICAL EXAMINATION: APPEARANCE: Alert and in no acute distress EYES: PERRL, conjunctiva and sclera normal HENT: AT/NC, MMM NECK: JVP less then 8cm H2O, No bruits., Neck supple HEART: RRR with normal S1 and S2, no murmurs, no gallops, no JVD appreciated LUNG: clear to auscultation EXTREMITIES: Extremities warm and well perfused without edema, 2+ peripheral pulses in all extremities NEURO: Awake, alert and oriented x 3, no gross focal abnormalities PSYCH: Appropriate, calm SKIN: Skin color, texture, turgor normal. No rashes or lesions. LABS: Lab Results Component Value Date GLUCOSE 138 (H) 04/30/2025 CALCIUM 8.5 04/30/2025 NA 136 04/30/2025 K 3.9 04/30/2025 CO2 23 04/30/2025 CL 103 04/30/2025 BUN 30 (H) 04/30/2025 CREATININE 1.34 (H) 04/30/2025 Lab Results Component Value Date WBC 10.7 04/30/2025 HGB 12.0 (L) 04/30/2025 HCT 38.0 (L) 04/30/2025 MCV 87.0 04/30/2025 PLT 170 04/30/2025 Lab Results Component Value Date INR 1.2 04/28/2025 Lab Results Component Value Date HSTROPI 5,178 (HH) 04/29/2025 CARDIOVASCULAR TESTING 04/28/25 TRANSTHORACIC ECHOCARDIOGRAM (TTE) COMPLETE (CONTRAST/BUBBLE/3D PRN) 04/29/2025 04/29/2025 Interpretation Summary Left Ventricle: Left ventricle cavity is mildly dilated. There is asymmetric moderate hypertrophy with granular appearance. Severe global LV hypokinesis is present. Unable to assess diastolic function due to arrhythmia, likely abnormal. Right ventricle cavity is mildly enlarged. Right ventricular systolic function is severely reduced. Left atrium cavity is severely dilated. There is a mobile mass attached to the superior portion of the inferoseptum and inferior wall, probably a thrombus although a tumor cannot be excluded. Right atrium cavity is severely dilated. Mild mitral regurgitation There is moderate tricuspid regurgitation. Estimated RA pressure is 15 mmHg. The RVSP is estimated at 46 mmHg. Trivial pericardial effusion. Compared to previous study of 05/24/2022, there are multiple changes. Signed by: Rafi Vinson MD on 04/29/2025 12:37 PM [id number] with heart rates in the low 100s with frequent isolated PVCs Thank you for allowing us to participate in this consultation. Please feel free to contact us with questions or concerns. We will continue to follow as an outpatient and are signing off. . 30 minutes was spent reviewing the medical record, imaging, labs, and seeing the patient which included explaining relevant diagnosis, providing patient education, discussing treatment options, in addition to documenting in the record. [facility] [address] [place] [address] * Shawn Hilton MD - 04/30/2025 11:29 AM EDT [facility] Provider Response Note PATIENT: DOROTHY DÍAZ : 1950 ADMIT DATE: 04/28/2025 10:33 PM DISCH DATE: RESPONDING PROVIDER #: [id number] PROVIDER RESPONSE TEXT: The patient has Chronic kidney disease Stage 3b. QUERY TEXT: Chronic Kidney Disease (CKD) is documented in the medical record. Please specify the disease stage such as: Stages are defined by the [employer] as follows: -- CKD Stage 1: GFR >= 90 ml / min per 1.73 m2 and persistent albuminuria -- CKD Stage 2: GFR between 60 and 89 with persistent albuminuria -- CKD Stage 3 , unspecified: GFR between 30 and 59 -- CKD Stage 3a: GFR between 45 and 59 -- CKD Stage 3b: GFR between 30 and 44 -- CKD Stage 4 GFR between 15 and 29 -- CKD Stage 5 GFR between less than 15 -- End Stage Renal Disease The following clinical indicators are noted on this patient: Admitted for/Risk Factors: ?74 year-old male with history of metastatic pancreatic adenocarcinoma, coronary artery disease, heart failure with reduced ejection fraction LVEF 20-40%, atrial fibrillation on apixaban anticoagulation, hypertension, hyperlipidemia presents with acute pulmonary embolism complicated by elevated troponin levels? per H&P Treatments: ?RUTH on CKD: Creatinine today noted to be 1.8, last creatinine on file was 1.42. I do not have other creatinines for review. Possibly cardiorenal. Avoid/hold nephrotoxins? per H&P Labs: 04/28/25 BUN (mg/dL) 30H BUN/Creatinine Ratio 16.7 Creatinine (mg/dL) 1.80H eGFR (mL/min/1.73m2) 39L C: [phone] The patient's clinical indicators include: Options provided: -- Chronic kidney disease Stage 3a -- Chronic kidney disease Stage 3b -- Other - I will add my own diagnosis -- Disagree - Not applicable / Not valid Query created by: Berny Simms on 04/29/2025 8:23 AM PROVIDER RESPONSE TEXT: Patient has Anemia due to/in/with chronic disease QUERY TEXT: QUERY: Please clarify a diagnosis, if any indicated by the patient?s lab findings and pertinent medical history: The following clinical indicators are noted in the documentation regarding this patient: Admitted for/Risk Factors: ?74 year-old male with history of metastatic pancreatic adenocarcinoma, coronary artery disease, heart failure with reduced ejection fraction LVEF 20-40%, atrial fibrillation on apixaban anticoagulation, hypertension, hyperlipidemia presents with acute pulmonary embolism complicated by elevated troponin levels? per H&P Labs: 04/29/25 04/28/25 Hematocrit (%) 38.1L 40.4L Hemoglobin (g/dL) 12.4L 12.6L C: [phone] The patient's clinical indicators include: Options provided: -- Anemia due to/in/with chronic disease -- Anemia due to/in/with CKD -- Anemia due to/in/with neoplastic disease -- Chronic anemia, unknown/other etiology -- Other - I will add my own diagnosis -- Disagree - Not applicable / Not valid Query created by: Berny Simms on 04/29/2025 8:24 AM Electronically signed by: SHAWN HILTON MD 04/30/2025 11:29 AM * Shawn Hilton MD - 04/30/2025 11:28 AM EDT Images from the original note were not included. LORETA PROGRESS NOTE Date: 04/30/2025 Author: Shawn Hilton MD Patient ID: Dorothy Díaz is a 74 y.o. male : 1950 MR#: [id number] SUBJECTIVE Subjective Patient seen and examined bedside this morning. present bedside as well. Offers no complaints and reports no events overnight. He is aware of the plan for 48 hours of IV heparin. Objective Allergy- Patient has no known allergies. OBJECTIVE Vitals: 04/30/25 0336 04/30/25 0600 04/30/25 0745 04/30/25 1103 BP: 118/87 126/76 120/75 BP Location: Left arm Left arm Left arm Patient Position: Lying Lying Lying Pulse: 50 58 50 Resp: 20 17 20 Temp: 36.4 ??C (97.5 ??F) 36.3 ??C (97.3 ??F) 36.2 ??C (97.1 ??F) TempSrc: Temporal Temporal Temporal SpO2: 97% 97% 99% Weight: 86.4 kg (190 lb 6.4 oz) Height: Temp (24hrs), Av.3 ??C (97.3 ??F), Min:36.1 ??C (97 ??F), Max:36.4 ??C (97.6 ??F) Physical Exam General-patient appears comfortable, no acute distress HEENT-NCAT Eyes-anicteric Cardiology- irregularly irregular rhythm and tachycardia Respiratory-no significant wheezing appreciated abdomen-nontender nondistended Extremity-no significant lower extremity edema noted Neurology-awake alert oriented to time place and person Skin-warm and dry Lab Results: CBC BMP Results from last 7 days Lab Units 04/30/25 0604/29/25 0656 04/28/25 191 WBC AUTO K/mcL 10.7 10.5 11.1* HEMOGLOBIN g/dL 12.0* 12.4* 12.6* HEMATOCRIT % 38.0* 38.1* 40.4* PLATELETS K/mcL 170 173 203 LYMPHS PCT AUTO % -- 8.1 7.4 MONO PCT AUTO % -- 11.5 10.2 EOS PCT AUTO % -- 1.4 1.1 Results from last 7 days Lab Units 04/30/25 0625 04/29/252 04/29/25 0656 04/28/25 191 SODIUM mmol/L 136 137 136 139 POTASSIUM mmol/L 3.9 4.1 4.4 5.0 CHLORIDE mmol/L 103 103 104 105 CO2 mmol/L 23 26 25 27 ANION GAP 10 8 7 7 BUN mg/dL 30* 34* 35* 30* CREATININE mg/dL 1.34* 1.67* 1.70* 1.80* CALCIUM mg/dL 8.5 8.4* 8.7 8.7 MAGNESIUM mg/dL 2.0 2.0 -- 2.1 PHOSPHORUS mg/dL 3.0 -- -- -- Results from last 7 days Lab Units 04/30/25 1103 04/30/25 0745 04/30/25 0625 04/29/252 04/29/251911 POCT GLUCOSE mg/dL 138* 105* -- -- 117* GLUCOSE mg/dL -- -- 111* 122* -- Results from last 7 days Lab Units 04/28/25 191 AST unit/L 29 ALT unit/L 18 Scheduled Medications PRN Medications IV Medications aspirin, 81 mg, Daily atorvastatin, 80 mg, Daily [Held by provider] dapagliflozin propanediol, 10 mg, Daily furosemide, 20 mg, BID - insulin lispro, 1-6 Units, Before meals & nightly ipratropium-albuteroL, 3 mL, TID lactulose, 20 g, TID metoprolol succinate, 150 mg, Daily sacubitriL-valsartan, 1 tablet, BID sodium chloride, 10 mL, BID acetaminophen, 650 mg, q4h PRN albuterol, 2.5 mg, q4h PRN dextrose 50%, 12.5 g, q15 min PRN dextrose 50%, 25 g, q15 min PRN dextrose, 15 g, q15 min PRN dextrose, 30 g, q15 min PRN glucagon injection, 1 mg, Once PRN heparin, 80 Units/kg, q6h PRN Or heparin, 40 Units/kg, q6h PRN prochlorperazine, 10 mg, q6h PRN Or prochlorperazine, 10 mg, q6h PRN Or prochlorperazine, 25 mg, q12h PRN sodium chloride, 10 mL, PRN trimethobenzamide, 200 mg, q6h PRN heparin, Last Rate: 17 Units/kg/hr (04/30/25 0128) ASSESSMENT & PLAN Assessment/Plan Principal Problem: Acute pulmonary embolism ([facility] V24, [facility] V28) Active Problems: A-fib ([facility] V24, [facility] V28) Chronic HFrEF (heart failure with reduced ejection fraction) ([facility]/HCC V24, CMS/HCC V28) Left atrial mass Type 2 acute myocardial infarction (CMS/HCC V24, CMS/HCC V28) Patient is a 74 years old male with past medical history significant for but not limited to atrial fibrillation, HFrEF, hypertension, hyperlipidemia, CAD, pancreatic cancer presents to the hospital with shortness of breath and generalized weakness. Acute pulmonary embolism Acute left leg DVT - CT angiogram of chest showed acute PE of right upper and middle lobe pulmonary arteries. - Venous Doppler showed acute occlusive left peroneal and posterior tibial vein DVT. - Patient is supposed to be on Eliquis at home but admits intermittent noncompliance -Placed on heparin drip. Heparin to be stopped tonight and first dose of Eliquis tomorrow morning. Troponin elevation; suspected NSTEMI History of HFrEF History of CAD Atrial fibrillation - Troponin elevated to 5800 on admission which up trended to 5900s and then down trended. Cardiology consulted; on heparin drip. Plan is to continue heparin drip for 48 hours and then switch to Eliquis. With high risk for any aggressive intervention plan is to treat conservatively. - 2D echocardiogram showed 20 to 25% LVEF with severe LV global hypokinesis - Currently on Toprol-XL 150 mg daily, Entresto twice daily, statin, heparin drip, aspirin, Lasix twice daily. Left atrial mass-there is a mobile mass attached to the superior portion of the inferoseptum and inferior wall, thrombus versus tumor. - Patient is high risk for any sort of cardiac surgery. Conservative management with Eliquis Metastatic pancreatic cancer - Known history of metastatic pancreatic cancer. CT scan shows evidence of metastasis to liver andpossibly lungs. Follows up with oncology at [place]; apparently patient has not been started on anytreatment yet. Diabetes-insulin sliding scale. Diet: Cardiac Resuscitation: Full Discharge barrier-patient remains on heparin drip. Possibly within next 24 to 48 hours patient can be discharged on Eliquis Case discussed in detail with patient's present bedside and all the questions answered appropriately * Ko Alejo RN - 04/29/2025 11:46 PM EDT Goals: Problem: Risk for excess fluid volume Goal: I will remain free from complications r/t CHF Outcome: Progressing Problem: Deep Vein Thrombosis Goal: Resident will remain free from complications of deep vein thrombosis and maintain current level of mobility Outcome: Progressing Problem: Atrial Fibrillation Goal: Resident will have no complications due to atrial fibrillation Outcome: Progressing Problem: Sensory: Acute Pain Goal: Pain level will improve or be tolerable Outcome: Progressing Identify possible barriers to meeting goals/advancing plan of care: DVT on heparin drip Stability of the patient: Moderately Unstable - Medium risk of patient condition declining or worsening End of Shift Summary: * Mine Haro RN - 04/29/2025 5:25 PM EDT 04/29/251724 Initial Transition Plan Initial Transition Plan Home Health Care Back up Transition Plan Back up Transition plan Home Health Care Discharge Planning Living Arrangements Spouse/significant other Type of Residence Private residence ([facility] appt no stairs) Assistive Devices Eyeglasses;Dentures lower;Dentures upper;Cane;Walker Support Systems Spouse/significant other;Children Medication Coverage Has Med Coverage Under Insurance Plan Yes Medication Affordability No concerns related to payment for meds Anticipated Discharge Needs Discipline following for SNF placement 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 Yes CHARISSA: 05/01-05/02 Plan: [facility] declines SNF Barriers: Panc CA w/ met, Hep gtt, HR 113, ? UTI, BP 120/105, DVT+, Trop 5,178 Therapy Eval: pend Referral status: entered Auth status: na Last BM: sammy [facility]: [facility] HCP: Yes to bring to hospital tomorrow Support Persons and Availability: Family PCP: Pcp Unknown Physician * Milagro Morgan MD - 04/29/2025 1:52 PM EDTAssociated Problem(s): Chronic HFrEF (heart failure with reduced ejection fraction) (CMS/HCC V24, CMS/HCC V28) Patient actually appears euvolemic on exam after a few doses of IV Lasix. I suspect his elevated BNP is more likely related to acute PE than true volume overload. Would transition to oral diuretic therapy-likely Lasix 20 mg p.o. twice daily starting tomorrow. Has acute on chronic kidney injury but I think in light of diabetic nephropathy, would continue current Entresto. Unclear why Farxiga is being held. Would please resume. Would hold spironolactone in light of reduced creatinine clearance. Though because creatinine is improving, we can consider reinitiating tomorrow if Farxiga is reinitiated today. * Milagro Morgan MD - 04/29/2025 1:50 PM EDTAssociated Problem(s): Type 2 acute myocardial infarction (CMS/HCC V24, CMS/HCC V28) Patient has known three-vessel coronary artery disease as demonstrated by recent cardiac cath at [facility]. However, he was not deemed to be a good candidate for aggressive revascularization with CABG understandably. His elevated high-sensitivity troponins during this admission are unlikely to represent true acute plaque rupture but rather demand mediated phenomenon in the setting of acute pulmonary embolism on top of A-fib with intermittent rapid ventricular response rate. As such, we will manage medically. He is not having any acute anginal symptoms. Continue current Toprol XL, high-dose atorvastatin, aspirin, heparin drip. To that end, I would continue heparin drip for 48 hours per ACS protocol before transitioning to DOAC. * Milagro Morgan MD - 04/29/2025 1:47 PM EDTAssociated Problem(s): A-fib (CMS/HCC V24, CMS/HCC V28) Patient is back in A-fib with reasonably controlled heart rates given PE. Would continue home dose of Toprol-XL 150 mg daily. In light of possible need for compensatory tachycardia in the setting of PE, would hold off on aggressive rate control. He is current heart rates in the range of 90s to low 100s is reasonable. At this point given mass in his left heart, he is not a candidate for rhythm control options. Cannot use digoxin due to reduced creatinine clearance. Would avoid using diltiazem due to severely reduced EF. * Milagro Morgan MD - 04/29/2025 1:42 PM EDTAssociated Problem(s): Left atrial mass Given patient's clinical history, this likely represents a metastatic tumor. Of note, it is not in the typical location that 1 would expect for a left atrial appendage thrombus related to A-fib, so this is unlikely. However, this could also be a thrombus regardless in a different location. In lightof patient's clinical comorbidities and condition, he is high risk for any sort of open heart procedure as he was just evaluated for CABG at [facility] and deemed not to be a candidate at this time. Furthermore, I am not sure that it would ultimately change prognosis. Being that he will need to be on lifelong anticoagulation in the setting of metastatic cancer with PE, my bias would be to treat conservatively with anticoagulation. If it is a thrombus, it should resolve in 1 to 2 months. This would present a risk for stroke but ultimately, the best strategy is still anticoagulation as the patient is likely too high risk for other options. * Shawn Hilton MD - 04/29/2025 1:00 PM EDT Images from the original note were not included. [facility]ORETA PROGRESS NOTE Date: 04/29/2025 Author: Shawn Hilton MD Patient ID: Dorothy Díaz is a 74 y.o. male : 1950 MR#: [id number] SUBJECTIVE Subjective Patient seen and examined bedside this morning. present bedside as well. He reports significant improvement in his breathing from yesterday. Denies any chest pain, nausea, vomiting, palpitation or dizziness Objective Allergy- Patient has no known allergies. OBJECTIVE Vitals: 04/29/25 0548 04/29/25 0724 04/29/25 0741 04/29/25 1158 BP: (!) 120/105 (!) 120/105 BP Location: Left arm Patient Position: Lying Pulse: (!) 113 Resp: (!) 28 Temp: 36.3 ??C (97.4 ??F) TempSrc: Temporal SpO2: 99% 98% Weight: 88.9 kg (196 lb) 88.9 kg (196 lb) Height: 1.77 m (69.69 ) Temp (24hrs), Av.4 ??C (97.6 ??F), Min:36.3 ??C (97.3 ??F), Max:36.8 ??C (98.2 ??F) Physical Exam General-patient appears comfortable, no acute distress HEENT-NCAT Eyes-anicteric Cardiology- irregularly irregular rhythm and tachycardia Respiratory-no significant wheezing appreciated abdomen-nontender nondistended Extremity-no significant lower extremity edema noted Neurology-awake alert oriented to time place and person Skin-warm and dry Lab Results: CBC BMP Results from last 7 days Lab Units 04/29/25 0656 04/28/251910 WBC AUTO K/mcL 10.5 11.1* HEMOGLOBIN g/dL 12.4* 12.6* HEMATOCRIT % 38.1* 40.4* PLATELETS K/mcL 173 203 LYMPHS PCT AUTO % 8.1 7.4 MONO PCT AUTO % 11.5 10.2 EOS PCT AUTO % 1.4 1.1 Results from last 7 days Lab Units 04/29/25 0656 04/28/251910 SODIUM mmol/L 136 139 POTASSIUM mmol/L 4.4 5.0 CHLORIDE mmol/L 104 105 CO2 mmol/L 25 27 ANION GAP 7 7 BUN mg/dL 35* 30* CREATININE mg/dL 1.70* 1.80* CALCIUM mg/dL 8.7 8.7 MAGNESIUM mg/dL -- 2.1 Results from last 7 days Lab Units 04/29/25 1206 04/29/25 0725 04/29/25 0656 04/29/25 0226 04/28/251910 POCT GLUCOSE mg/dL 149* 136* -- 169* -- GLUCOSE mg/dL -- -- 142* -- 127* Results from last 7 days Lab Units 04/28/25 191 AST unit/L 29 ALT unit/L 18 Scheduled Medications PRN Medications IV Medications atorvastatin, 80 mg, Daily [Held by provider] dapagliflozin propanediol, 10 mg, Daily furosemide, 20 mg, BID - insulin lispro, 1-6 Units, Before meals & nightly ipratropium-albuteroL, 3 mL, TID lactulose, 20 g, TID metoprolol succinate, 150 mg, Daily sacubitriL-valsartan, 1 tablet, BID sodium chloride, 10 mL, BID acetaminophen, 650 mg, q4h PRN albuterol, 2.5 mg, q4h PRN dextrose 50%, 12.5 g, q15 min PRN dextrose 50%, 25 g, q15 min PRN dextrose, 15 g, q15 min PRN dextrose, 30 g, q15 min PRN glucagon injection, 1 mg, Once PRN heparin, 80 Units/kg, q6h PRN Or heparin, 40 Units/kg, q6h PRN prochlorperazine, 10 mg, q6h PRN Or prochlorperazine, 10 mg, q6h PRN Or prochlorperazine, 25 mg, q12h PRN sodium chloride, 10 mL, PRN trimethobenzamide, 200 mg, q6h PRN heparin, Last Rate: 17 Units/kg/hr (04/29/25 0945) ASSESSMENT & PLAN Assessment/Plan Principal Problem: Acute pulmonary embolism ([facility] V24, CMS/[facility] V28) No problem-specific Assessment & Plan notes found for this encounter. Patient is a 74 years old male with past medical history significant for but not limited to atrial fibrillation, HFrEF, hypertension, hyperlipidemia, CAD, pancreatic cancer presents to the hospital with shortness of breath and generalized weakness. Acute pulmonary embolism Acute left leg DVT - CT angiogram of chest showed acute PE of right upper and middle lobe pulmonary arteries. - Venous Doppler showed acute occlusive left peroneal and posterior tibial vein DVT. - Patient is supposed to be on Eliquis at home but admits intermittent noncompliance -Placed on heparin drip. 2D echocardiogram ordered Troponin elevation; suspected NSTEMI History of HFrEF History of CAD Atrial fibrillation - Troponin elevated to 5800 on admission which up trended to 5900s and then down trended. Cardiology consulted; on heparin drip - 2D echocardiogram showed 20 to 25% LVEF with severe LV global hypokinesis - Currently on Toprol-XL 150 mg daily, Entresto twice daily, statin, heparin drip, aspirin, Lasix twice daily. Abnormal echo finding-there is a mobile mass attached to the superior portion of the inferoseptum and inferior wall, probably a thrombus although a tumor cannot be excluded Metastatic pancreatic cancer - Known history of metastatic pancreatic cancer. CT scan shows evidence of metastasis to liver and possibly lungs. Follows up with oncology at [facility]-insulin sliding scale. Diet: Cardiac Resuscitation: Full Case discussed in detail with patient's , daughter, friend present bedside and all the questions answered appropriately * Adrienne Sy RN - 04/29/2025 1:40 AM EDT Goals: Identify possible barriers to meeting goals/advancing plan of care: Stability of the patient: Moderately Unstable - Medium risk of patient condition declining or worsening End of Shift Summary: C/O abdominal pain and SOB with activity DX RUL/RML PE LLE DVT Pancreatic CA w? Mets Patient arrived on floor alert and oriented x4 able to answer most questions appropriately, atbedside assisting in admission questions. Heparin 18units running into R+ PIV repeat labs 0250 Anti XA 0.72 Heparin 17units Resp room air no cough Lungs diminished c/o SOB x1 Respiratory at bedside with neb tx GI/ voiding in urinal dk yellow urine sample sent per orders, stated LBM 04/27. Abdomin distendedsoft bowel sounds active, tenderness with palpation. SKIN clear pale/jaundice BLE w/ 1-2+ pitting edema, warm dry Tele monitoring A-fib 90-110's at rest 140's with ambulation, Critical Troponin 5937 Team notified,patient continues with NO chest pain. One assist to bathroom gait steady Call fall at bedside bed alarm on for safety. Critical results called + duplex and troponin * Shalom Mckeon RN - 04/28/2025 10:46 PM EDT .ED RN HANDOFF (All Garcia Below Must Be Completed) Reason/Diagnosis for Admission: acute PE Type of Admission: [] Medsurg, [x] Telemetry Already in a Hospital Bed: [] Yes / [x] No Room Considerations/Precautions (ex: fever, diarrhea, or any infectious concerns): [] Yes / [x] No Optical Store Manager: [x] Yes / [] No If YES, Cardiac Rhythm: [] NSR, [] SB, [] ST, [x] A-FIB, [] A-Flutter, [] Pacemaker, [] 1st Degree HB, [] 2nd Degree HB, [] 3rd Degree HB Reason for Optical Store Manager: VS: Visit Vitals BP 109/87 (BP Location: Right arm, Patient Position: Sitting) Pulse 88 Temp 36.3 ??C (97.3 ??F) Resp 17 Ht 1.77 m (69.69 ) Wt 87.5 kg (192 lb 14.4 oz) SpO2 97% BMI 27.93 kg/m?? Smoking Status Former BSA 2.05 m?? Current Mental Status: A/O x [x]4, []3, []2, []1 Current Ambulation Status: stand pivot IV Access: [x] Yes / [] No Field IV present: [] Yes / [x] No Hx of Violence: [] Yes / [x] No / [] Unknown Fall Risk:[x] Yes / [] No Yellow Bracelet Applied [x] Yes / [] No Yellow Socks Applied [x] Yes / [] No Patient Belongings inventoried and BL completed: [x] Yes / [] No Patient belongings stored in the security closet: [] Yes (If Yes please supply Security bag #): [x] No Patient Medications stored in Pharmacy: [] Yes (If Yes please supply Medication Security bag #): [x] No ED Summary of Care: Hx of asthma, bph, recently dx pancreatic adenocarcinoma biopsy done x2 weeks ago Pt c/o abd pain sob and dyspnea w/ exertion x1 week Troponin [address] showed Acute pulmonary embolism of the right upper and middle lobe pulmonary arteries. Numerous bilateral pulmonary nodules, suspicious for pulmonary metastases. Clinical correlation is recommended. Possible contrast filling defect in the left atrium. Correlation with echocardiogram findings as i ndicated. Pt started on heparin PE protocol Pt is in AFIB HR 100s-120s Heparin anti xa due at 0320 BNP 2653 Lasix 20 mg given; I&Os Pt alert and oriented Per US Tech + DVT Submitted by and Phone Extension: Shalom CANTOR * James Garcia RN - 04/28/2025 6:18 PM EDT Pt c/o dyspnea with exertion/asthma exacerbation x1 week. Home treatments temporarily helping. Denies fevers. Speaking full sentences in triage. * Catalina Avina DO - 04/28/2025 6:12 PM EDT Emergency Medicine Note Patient Name: Dorothy Díaz Initial Evaluation: 04/28/2025 : 1950 Patient's PCP: Pcp Unknown Physician Emergency Physician: Catalina Avina DO History of Present Illness Chief Complaint: Chief Complaint Patient presents with Shortness of Breath HPI: This is a 74-year-old male history of asthma, BPH, recently diagnosed pancreatic adenocarcinoma biopsy done 2 weeks ago at [facility] today for evaluation of abdominal pain, shortness of breath. Patient is a very poor historian. Unable to provide much history in regards to his biopsy. Extensive chart review was performed by me. Patient states the reason why he is here today is because of shortness of breath however he is alsohaving right lower quadrant pain after the biopsy. He was unsure where the biopsy was done or what they have found. He stated that he does have cancer. Patient does complain of increased shortness of breath when he lays flat. ROS: I have performed a ROS with the pertinent positives and negatives documented in the history ofpresent illness. Previous History Past Medical History: Diagnosis Date Asthma DX:Asthma BPH (benign prostatic hyperplasia) DX:BPH (benign prostatic hyperplasia) Hematuria DX:Hematuria Indwelling Dong catheter present DX:Indwelling Dong catheter present No past surgical history on file. Social History Tobacco Use Smoking status: Former Smokeless tobacco: Never Substance Use Topics Alcohol use: Never Drug use: Never No family history on file. has No Known Allergies. No current facility-administered medications on file prior to encounter. Current Outpatient Medications on File Prior to Encounter Medication Sig Dispense Refill albuterol 2.5 mg /3 mL (0.083 %) nebulizer solution Take 3 mL (2.5 mg total) by nebulization every 6 (six) hours if needed for wheezing. 75 mL 0 albuterol HFA (PROAIR HFA ; PROVENTIL HFA ; VENTOLIN HFA) 90 mcg/actuation inhaler 1 (one) time each day. apixaban (Eliquis) 5 mg tablet TAKE 1 TABLET BY MOUTH TWICE DAILY 180 tablet 1 atorvastatin (LIPITOR) 80 mg tablet Take by mouth daily. dapagliflozin propanediol (Farxiga) 10 mg tablet Take 10 mg by mouth daily. ezetimibe (ZETIA) 10 mg tablet Take 1 tablet (10 mg total) by mouth 1 (one) time each day. fluticasone-salmeterol (Wixela Inhub) 250-50 mcg/dose diskus inhaler 1 (one) time each day. lisinopril (PRINIVIL,ZESTRIL) 40 mg tablet Take 40 mg by mouth daily. metoprolol succinate (TOPROL-XL) 50 mg 24 hr tablet TAKE 1 TABLET BY MOUTH DAILY 90 tablet 1 NIFEdipine CC (ADALAT CC) 60 mg 24 hr tablet TAKE 1 TABLET BY MOUTH DAILY 90 tablet 1 predniSONE (DELTASONE) 50 mg tablet Take 1 tablet (50 mg total) by mouth 1 (one) time each day. Seeinstructions. 5 tablet 0 SITagliptin-metFORMIN (Janumet) 50-1,000 mg per tablet Take 1 Tablet by mouth 2 times daily (with meals). spironolactone (ALDACTONE) 25 mg tablet TAKE 1 TABLET BY MOUTH DAILY 90 tablet 1 Physical Exam ED Triage Vitals [04/28/25 1822] Temp Heart Rate Resp BP 36.3 ??C (97.3 ??F) (!) 133 16 (!) 143/98 SpO2 Temp src Heart Rate Source Patient Position 98 % -- -- -- BP Location FiO2 (%) -- -- General: Appears chronically ill Head: Normacephalic, atraumatic ENT: oral mucosa moist, neck supple, no tracheal deviation Cardiovascular: regular rate, regular rhythm, no murmurs, rubbing, gallops Respiratory: Manage lung sounds bilaterally no wheezing appreciated on exam Gastrointestinal: Soft, non distended, diffuse abdominal tenderness on palpation Extremities: No limb pain or swelling, no calf tenderness Neurological: Awake and alert, no facial droop noted Skin: Warm and dry Psychiatric: Appropriate mood and thoughts Results Labs Reviewed TROPONIN I HIGH SENSITIVITY - Abnormal Result Value High Sensitivity Troponin I 5,865 (*) Narrative: High levels of biotin in samples may falsely decrease hsTroponin values. Use caution when interpreting hsTroponin results in patients taking biotin who exhibit renal impairment (eGFR <60) or in patients taking more than 20 mg/day of biotin. COMPREHENSIVE METABOLIC PANEL - Abnormal Sodium 139 Potassium 5.0 Chloride 105 CO2 27 Anion Gap 7 Glucose 127 (*) BUN 30 (*) Creatinine 1.80 (*) eGFR 39 (*) BUN/Creatinine Ratio 16.7 Calcium 8.7 AST (SGOT) 29 ALT (SGPT) 18 Alkaline Phosphatase 402 (*) Total Protein 6.7 Albumin 2.3 (*) Total Bilirubin 1.0 B-TYPE NATRIURETIC PEPTIDE - Abnormal BNP 2,653 (*) CBC WITH AUTO DIFFERENTIAL - Abnormal WBC 11.1 (*) RBC 4.60 Hemoglobin 12.6 (*) Hematocrit 40.4 (*) MCV 88.0 MCH 27.5 MCHC 31.2 (*) RDW 17.0 (*) Platelets 203 MPV 12.5 (*) NRBC 0.0 NRBC Absolute 0.00 Neutrophils Relative 80.4 Lymphocytes Relative 7.4 Monocytes Relative 10.2 Eosinophils Relative 1.1 Basophils Relative 0.4 Immature Granulocytes Relative 0.5 Neutrophils Absolute 8.93 (*) Lymphocytes Absolute 0.82 (*) Monocytes Absolute 1.13 (*) Eosinophils Absolute 0.12 Basophils Absolute 0.04 Immature Granulocytes Absolute 0.05 (*) PROTHROMBIN TIME WITH INR - Abnormal Protime 14.9 (*) INR 1.2 AMMONIA - Abnormal Ammonia 86 (*) HEPARIN ANTI XA - Abnormal Heparin Anti-Xa <0.04 (*) Narrative: Therapeutic range listed is for Unfractionated Heparin. LMW Heparin therapeutic range: 0.50-1.20 IU/mL LIPASE - Normal Lipase 60 MAGNESIUM - Normal Magnesium 2.1 THYROID STIMULATING HORMONE WITH REFLEX TO FREE T4 AND FREE T3 - Normal TSH 3.29 ACTIVATED PARTIAL THROMBOPLASTIN TIME - Normal aPTT 33.0 CBC AND DIFFERENTIAL Narrative: The following orders were created for panel order CBC and differential. Procedure Abnormality Status --------- ------ CBC auto differential[[id number]] Abnormal Final result Please view results for these tests on the individual orders. TROPONIN I HIGH SENSITIVITY Abnormal Labs Reviewed TROPONIN I HIGH SENSITIVITY - Abnormal; Notable for the following components: Result Value High Sensitivity Troponin I 5,865 (*) All other components within normal limits Narrative: High levels of biotin in samples may falsely decrease hsTroponin values. Use caution when interpreting hsTroponin results in patients taking biotin who exhibit renal impairment (eGFR <60) or in patients taking more than 20 mg/day of biotin. COMPREHENSIVE METABOLIC PANEL - Abnormal; Notable for the following components: Glucose 127 (*) BUN 30 (*) Creatinine 1.80 (*) eGFR 39 (*) Alkaline Phosphatase 402 (*) Albumin 2.3 (*) All other components within normal limits B-TYPE NATRIURETIC PEPTIDE - Abnormal; Notable for the following components: BNP 2,653 (*) All other components within normal limits CBC WITH AUTO DIFFERENTIAL - Abnormal; Notable for the following components: WBC 11.1 (*) Hemoglobin 12.6 (*) Hematocrit 40.4 (*) MCHC 31.2 (*) RDW 17.0 (*) MPV 12.5 (*) Neutrophils Absolute 8.93 (*) Lymphocytes Absolute 0.82 (*) Monocytes Absolute 1.13 (*) Immature Granulocytes Absolute 0.05 (*) All other components within normal limits PROTHROMBIN TIME WITH INR - Abnormal; Notable for the following components: Protime 14.9 (*) All other components within normal limits AMMONIA - Abnormal; Notable for the following components: Ammonia 86 (*) All other components within normal limits HEPARIN ANTI XA - Abnormal; Notable for the following components: Heparin Anti-Xa <0.04 (*) All other components within normal limits Narrative: Therapeutic range listed is for Unfractionated Heparin. LMW Heparin therapeutic range: 0.50-1.20 IU/mL CT Angio Chest wo and/or w Contrast Final Result Addendum (preliminary) ADDENDUM: This report was discussed with Dr. Avina on April 28, 2025 21:28:00 EDT. This document has been electronically signed by: Alexus Segura on 04/28/2025 21:28:13 Final Acute pulmonary embolism of the right upper and middle lobe pulmonary arteries. Numerous bilateral pulmonary nodules, suspicious for pulmonary metastases. Clinical correlation is recommended. Possible contrast filling defect in the left atrium. Correlation with echocardiogram findings as indicated. This document has been electronically signed by: Adriano Vinson MD on 04/28/2025 21:23:46 CT Abdomen Pelvis w Contrast Final Result Hypodense lesion in the area of the pancreatic head likely represents the known pancreatic cancer. Multiple hypodense lesions of the liver are concerning for metastasis. Multiple metastatic peripancreatic and periportal lymph nodes. Small pericardial effusion. Heterogeneous enhancement of the pericardium. Metastasis can not be excluded. Small ascites. Splenic infarction. Additional findings as above. This document has been electronically signed by: Adriano Vinson MD on 04/28/2025 21:40:09 I have discussed the incidental/abnormal imaging and/or lab abnormalities with the patient and haveinstructed them the need for further evaluation and workup with their primary care doctor. I have provided the patient with a paper copy of the abnormality. The laboratory results, imaging results and other diagnostic exam results were reviewed in the EMR. Medical Decision Making Medications heparin infusion 100 units/mL in D5W (18 Units/kg/hr ?? 87.5 kg intravenous New Bag 04/28/25 5051) heparin (UFH) bolus from infusion 7,000 Units (has no administration in time range) Or heparin (UFH) bolus from infusion 3,500 Units (has no administration in time range) ipratropium-albuteroL (DUONEB) 0.5-2.5 mg/3 mL nebulizer solution 3 mL (3 mL nebulization Given 04/28/251917) HYDROmorphone (PF) injection 0.5 mg (0.5 mg intravenous Given 04/28/251920) sodium chloride 0.9 % flush 10 mL (10 mL intravenous Given 04/28/252025) iopamidoL (ISOVUE-370) 370 mg iodine /mL (76 %) injection 90 mL (90 mL intravenous Given 04/28/252025) furosemide (LASIX) injection 20 mg (20 mg intravenous Given 04/28/252116) heparin (UFH) bolus from infusion 3,850 Units (3,850 Units intravenous Bolus from Bag 04/28/252123) heparin (UFH) bolus from infusion 3,150 Units (3,150 Units intravenous Bolus from Bag 04/28/252145) ED Course as of 04/28/252219April 28, 20251929 74-year-old male presented hospital today for evaluation of shortness of breath and abdominal pain After extensive chart review. Patient was recently diagnosed with pancreatic adenocarcinoma with sign of metastases in his abdomen. He is currently on palliative chemotherapy. Patient was recently admitted to [facility] for NSTEMI. It was deemed that he was not a candidate for A-fib cardioversion. Hewas being medically managed. He did have some blockages in his coronary artery however they had decided for medical therapy for his CAD. Patient was noted to have EF of 20% while at [facility]. At this time we will perform cardiac workup including CBC CMP troponin. BNP will be obtained to assess for any sign of CHF exacerbation chest x-ray will be obtained to assess for any sign of pulmonary edema. Patient does have bilateral lateral diminished lung sounds. Will plan to give patient DuoNeb treatment as well. Patient does have history of asthma in the past. In the setting of pancreatic adenocarcinoma and abdominal pain. We will plan to obtain a CTA of thechest to rule out PE. We will also plan to obtain CT abdomen pelvis to assess for any signs of progression of his pancreatic cancer that may be causing his pain or any signs of bleeding postbiopsy. A dose of IV Dilaudid will be given for his pain. [TC] 2218 Patient lab work significant for slight elevation creatinine 1.80. Slight leukocytosis 11.1. However patient BNP is elevated 2600. Troponin is elevated at 5800. Heparin drip initiated for patient CTA chest was significant for right- sided pulmonary embolism. Patient CT abdomen pelvis did show signs of metastases to his liver, abdomen. He also has signs of a splenic infarction. With these finding of concern that patient may have a embolic event throughout his body. Patient placed on heparin drip. Discussed the case with the chlorinator. They do not think this isfrom his heart. They think his elevated troponin is from the PE. They recommend starting patient on heparin drip and admitting him to the hospital for further monitoring and evaluation. Patient will be admitted to the hospital. [TC] ED Course User Index [TC] Catalina Avina DO Clinical Impressions as of 04/28/25 2220 Dyspnea, unspecified type Other acute pulmonary embolism, unspecified whether acute cor pulmonale present (CMS/HCC V24, CMS/HCC V28) NSTEMI (non-ST elevated myocardial infarction) (CMS/HCC V24, CMS/HCC V28) Pancreatic adenocarcinoma (CMS/HCC V24, CMS/HCC V28) Procedures Procedures Diagnosis 1. Dyspnea, unspecified type CT Angio Chest wo and/or w Contrast CT Angio Chest wo and/or w Contrast 2. Other acute pulmonary embolism, unspecified whether acute cor pulmonale present (CMS/HCC V24, CMS/HCC V28) 3. NSTEMI (non-ST elevated myocardial infarction) (CMS/HCC V24, CMS/HCC V28) 4. Pancreatic adenocarcinoma (CMS/HCC V24, CMS/HCC V28) Disposition Admit to Inpatient ED Prescriptions None Physician Attestation Catalina Avina DO 04/28/25 1851 Catalina Avina DO 04/28/25 1930 Catalina Avina DO 04/28/25 2220 documented in this encounter H&P Notes * Lesley Rios NP - 04/28/2025 10:38 PM EDT Images from the original note were not included. .. [facility] Please contact author [Lesley Rios NP] via [employer]. Patient: Dorothy Díaz Admission Date/Time: 04/28/2025 6:26 PM : 1950 [74 y.o.] Patient's PCP: Pcp Unknown Physician Attending Provider: Ambrose Amador MD CHIEF COMPLAINT I have been short of breath again and just very weak, I haven't been able to walk much HISTORY OF PRESENT ILLNESS This is a 74-year-old male with a past medical history significant for atrial fibrillation chronically anticoagulated on Eliquis, chronic heart failure with reduced EF, last known EF 20-40%, cardiomyopathy, hypertension, hyperlipidemia, CAD and recent diagnosis of pancreatic adenocarcinoma on biopsy performed at [facility] as well as recent admission at [facility] for NSTEMI, Afib RVR, heart failure amongst others issues who presents to the emergency department today for an evaluation of shortness of breath, generalized abdominal pain and weakness/difficulty ambulating. Patient is a limited historian, his is present at bedside however she is also a limited histo beryl as well. He is currently denying chest pain. CT abdomen pelvis with contrast: Hypodense lesion in the area of the pancreatic head likely represents the known pancreatic cancer. Multiple hypodense lesions of the liver are concerning for metastasis. Multiple metastatic peripancreatic and periportal lymph nodes. Small pericardial effusion. Heterogeneous enhancement of the pericardium. Metastasis can not be excluded. Small ascites. Splenic infarction. Additional findings as above. CT angio chest: Acute pulmonary embolism of the right upper and middle lobe pulmonary arteries. Numerous bilateral pulmonary nodules, suspicious for pulmonary metastases. Clinical correlation is recommended. Possible contrast filling defect in the left atrium. Correlation with echocardiogram findings as indicated. Initial laboratory results: CMP reveals glucose 127, BUN/creatinine 30/1.80, alk phos 402, albumin 2.3, ammonia 86. Cardiac profile: BNP 2653, troponin high- sensitivity 5865 with a repeat of 5333. CBC reveals WBCs 11.1, H&H 12.6/40.4, platelets 203. PT/INR 14.9/1.2. In the emergency department the above was performed and patient received 20 mg IV Lasix, 0.5 mg IV hydromorphone, 3 mL ipratropium/albuterol darted on heparin drip. The decision was made to admit patient for medical management. Review of Systems A complete 10 point review of systems has been performed and if not noted in HPI is otherwise negative. MEDICAL HISTORY Past Medical History Past Medical History: Diagnosis Date ??? Asthma DX:Asthma ??? BPH (benign prostatic hyperplasia) DX:BPH (benign prostatic hyperplasia) ??? Hematuria DX:Hematuria ??? Indwelling Dong catheter present DX:Indwelling Dong catheter present Past Surgical History No past surgical history on file. Social History reports that he has quit smoking. He has never used smokeless tobacco. He reports that he does not drink alcohol and does not use drugs. Family History family history is not on file. Allergies has No Known Allergies. Home Medications No current facility-administered medications on file prior to encounter. Current Outpatient Medications on File Prior to Encounter Medication Sig Dispense Refill ??? aspirin 81 mg EC tablet Take 1 tablet (81 mg total) by mouth 1 (one) time each day. ??? Entresto 24-26 mg per tablet Take 1 tablet by mouth 2 (two) times a day. ??? metoprolol succinate (TOPROL-XL) 50 mg 24 hr tablet Take 3 tablets (150 mg total) by mouth 1 (one) time each day. ??? albuterol 2.5 mg /3 mL (0.083 %) nebulizer solution Take 3 mL (2.5 mg total) by nebulization every 6 (six) hours if needed for wheezing. 75 mL 0 ??? albuterol HFA (PROAIR HFA ; PROVENTIL HFA ; VENTOLIN HFA) 90 mcg/actuation inhaler 1 (one) timeeach day. ??? apixaban (Eliquis) 5 mg tablet TAKE 1 TABLET BY MOUTH TWICE DAILY 180 tablet 1 ??? atorvastatin (LIPITOR) 80 mg tablet Take by mouth daily. ??? dapagliflozin propanediol (Farxiga) 10 mg tablet Take 10 mg by mouth daily. ??? ezetimibe (ZETIA) 10 mg tablet Take 1 tablet (10 mg total) by mouth 1 (one) time each day. ??? fluticasone-salmeterol (Wixela Inhub) 250-50 mcg/dose diskus inhaler 1 (one) time each day. ??? lisinopril (PRINIVIL,ZESTRIL) 40 mg tablet Take 40 mg by mouth daily. ??? NIFEdipine CC (ADALAT CC) 60 mg 24 hr tablet TAKE 1 TABLET BY MOUTH DAILY 90 tablet 1 ??? SITagliptin-metFORMIN (Janumet) 50-1,000 mg per tablet Take 1 Tablet by mouth 2 times daily (with meals). ??? spironolactone (ALDACTONE) 25 mg tablet TAKE 1 TABLET BY MOUTH DAILY 90 tablet 1 ??? [DISCONTINUED] metoprolol succinate (TOPROL-XL) 50 mg 24 hr tablet TAKE 1 TABLET BY MOUTH DAILY90 tablet 1 ??? [DISCONTINUED] predniSONE (DELTASONE) 50 mg tablet Take 1 tablet (50 mg total) by mouth 1 (one)time each day. See instructions. 5 tablet 0 Patient and his are limited historian to details on medications. reports that she will bebringing in a list tomorrow with his medications. OBJECTIVE Vitals Visit Vitals BP 118/89 (BP Location: Right arm, Patient Position: Lying) Pulse (!) 117 Temp 36.8 ??C (98.2 ??F) (Oral) Resp 22 Temp (24hrs), Av.6 ??C (97.8 ??F), Min:36.3 ??C (97.3 ??F), Max:36.8 ??C (98.2 ??F) Body mass index is 28.1 kg/m??. No results found for: PTWT , PTHT Physical Examination General: Appears stated age, no respiratory distress, acute and chronically ill and appearing, pale, slightly jaundiced, answers questions however not always appropriate, limited historian. is present at bedside. Skin: Clean, dry and intact, no obvious open wounds or sores, bruises or abrasions Cardiac: Irregularly irregular rate and rhythm, atrial fibrillation on monitor with RVR. Positive JVD. Respiratory: Crackles noted to bases. Abdomen: Soft, rounded, generalized abdominal tenderness noted on exam, nondistended, bowel sounds active in all 4 quadrants, no abdominal guarding or Eugene sign. Extremities: 1+ pitting edema noted to right lower extremity, no edema to left lower extremity. Neuro: Alert and oriented x 3 however very limited historian Psychiatric: Calm, cooperative, without agitation or restlessness. ECG: Was ECG Performed? Yes . Sinus Rhythm? No. Signs of acute ischemia? LAB RESULTS (most recent) HEMATOLOGY Lab Results Component Value Date WBC 11.1 (H) 04/28/2025 HGB 12.6 (L) 04/28/2025 HCT 40.4 (L) 04/28/2025 MCV 88.0 04/28/2025 PLT 203 04/28/2025 CHEMISTRY Lab Results Component Value Date GLUCOSE 127 (H) 04/28/2025 NA 139 04/28/2025 K 5.0 04/28/2025 CO2 27 04/28/2025 CL 105 04/28/2025 BUN 30 (H) 04/28/2025 CREATININE 1.80 (H) 04/28/2025 EGFR 39 (L) 04/28/2025 CALCIUM 8.7 04/28/2025 MG 2.1 04/28/2025 ANIONGAP 7 04/28/2025 Radiology Vascular US duplex lower extremity venous bilateral Final Result Addendum (preliminary) ADDENDUM: This report was discussed with Palak Lopze RN on April 29, 2025 01:12:00 EDT. This document has been electronically signed by: Karla Elliott on 04/29/2025 01:13:10 Final 1. Acute occlusive left peroneal and posterior tibial vein deep vein thrombosis. 2. No deep vein thrombosis in the right lower extremity. This document has been electronically signed by: Jovany Jeffery MD on 04/29/2025 01:07:09 CT Angio Chest wo and/or w Contrast Final Result Addendum (preliminary) ADDENDUM: This report was discussed with Dr. Avina on April 28, 2025 21:28:00 EDT. This document has been electronically signed by: Alexus Segura on 04/28/2025 21:28:13 Final Acute pulmonary embolism of the right upper and middle lobe pulmonary arteries. Numerous bilateral pulmonary nodules, suspicious for pulmonary metastases. Clinical correlation is recommended. Possible contrast filling defect in the left atrium. Correlation with echocardiogram findings as indicated. This document has been electronically signed by: Adriano Vinson MD on 04/28/2025 21:23:46 CT Abdomen Pelvis w Contrast Final Result Hypodense lesion in the area of the pancreatic head likely represents the known pancreatic cancer. Multiple hypodense lesions of the liver are concerning for metastasis. Multiple metastatic peripancreatic and periportal lymph nodes. Small pericardial effusion. Heterogeneous enhancement of the pericardium. Metastasis can not be excluded. Small ascites. Splenic infarction. Additional findings as above. This document has been electronically signed by: Adriano Vinson MD on 04/28/2025 21:40:09 Transthoracic echocardiogram (TTE) complete with PRN contrast, bubble, strain, and 3D order panel (Results Pending) ASSESSMENT & PLAN ACUTE MEDICAL ISSUES: Acute pulmonary embolism Left lower extremity DVT - Patient presented with shortness of breath found to have acute PE/DVT LLE - CT angio chest: Acute pulmonary embolism of the right upper and middle lobe pulmonary arteries. Numerous bilateral pulmonary nodules, suspicious for pulmonary metastases. Clinical correlation is recommended. Possible contrast filling defect in the left atrium. Correlation with echocardiogram findings as indicated. - Of note, patient was recently hospitalized at [facility] 04/02-04/08 and he had a CT angio performed at that time which did not reveal pulmonary embolus. - Vascular duplex lower extremities: 1. Acute occlusive left peroneal and posterior tibial vein deep vein thrombosis. 2. No deep vein thrombosis in the right lower extremity. - Patient normally is chronically anticoagulant Eliquis. Question Eliquis failure. Unable to determine patient's compliance due to AMS. - Started on heparin drip. - Patient is prescribed Eliquis but forgets to take it at times - Will re-obtain echocardiogram to assess for heart strain - Monitor on telemetry, no chest pain reported Atrial fibrillation with RVR Secondary hypercoagulable state Prolonged QTc - Patient does carry history of A-fib, ECG on arrival noted to be A-fib with RVR, rate 110, QTc 511- avoid prolonging medications - Currently on heparin drip. - Monitor on telemetry. NSTEMI CAD - Initial troponin 5865 with a repeat of 5333 apparently ED provider noted that patient was recently admitted at [facility] for an NSTEMI as well from 04/02-04/08 - Cardiology was consulted by ED provider who recommended starting patient on heparin drip which has been performed. - Continue heparin drip per protocol. - Cardiac catheterization in December 2022 at [facility] showed multivessel disease including 60% of LAD, 90% ramus, 95% RCA. - Most recent [facility] note states that given patient's metastatic cancer, further discussion abouttreatment needs to be had regarding CAD for possible revascularization after discussing with oncology team his life expectancy and overall prognosis. Acute exacerbation of chronic CHF with reduced EF - BNP noted to be 2653 - Last echocardiogram on file at [facility] was 07/29/2023 which revealed an LVEF of 35-40% - ED provider was able to look at echocardiogram at [facility] which reportedly showed an LVEF of 20%. - CT abdomen pelvis also revealed: Small pericardial effusion. Heterogeneous enhancement of the pericardium. Metastasis can not be excluded. - Will repeat echocardiogram. - IV lasix BID, strict I&O's and daily weights ordered - Cardiology consulted for this as well as above recommendations appreciated Pancreatic adenocarcinoma Splenic infarction/Generalized abdominal pain - Patient recently diagnosed by biopsy performed 2 weeks ago at [facility] with pancreatic adenocarcinoma. - Patient reports right lower quadrant pain since procedure performed. - CT abdomen pelvis with contrast: Hypodense lesion in the area of the pancreatic head likely represents the known pancreatic cancer. Multiple hypodense lesions of the liver are concerning for metastasis. Multiple metastatic peripancreatic and periportal lymph nodes. Small pericardial effusion. Heterogeneous enhancement of the pericardium. Metastasis can not be excluded. Small ascites. Splenic infarction. Additional findings as above. - Palliative chemotherapy was considered however due to patients weakness this hasn't been started - Followed by Oncology at [facility] Hepatic encephalopathy Hyperammonemia - Patient's ammonia level noted to be 86. He is slightly altered/confused, likely hepatic encephalopathy due to lesions noted liver being concerning for metastasis. - He as well as his are limited to details RUTH on CKD - Creatinine today noted to be 1.8, last creatinine on file was 1.42. I do not have other creatinines for review. - Possibly cardiorenal. Avoid/hold nephrotoxins. CHRONIC MEDICAL ISSUES: Type 2 diabetes mellitus - Insulin sliding scale with nutrition AC/at bedtime ordered. Metformin held COPD - Appearing in exacerbation. Albuterol continued as needed. Patient and his are limited historian to details on medications. reports that she will be bringing in a list tomorrow with his medications. Hypertension - Metoprolol continued Hyperlipidemia - Aspirin and atorvastatin continued OTHER: DVT Prophylaxis Currently on a heparing drip for acute PE/ right lower extremity DVT CODE STATUS: FULL CODE HCP/emergency contact is Kenny Ojeda [phone] Case and plan discussed with Dr. Ambrose Amador Cosigned by Ambrose Amador MD at 04/29/2025 7:15 AM EDT Associated attestation - Ambrose Amador MD - 04/29/2025 7:15 AM EDT This is a split/shared visit with Lesley Rios NP. I personally performed the medical decision making (MDM) for the care of this patient on 04/28/2025 as documented below 74 year-old male with history of metastatic pancreatic adenocarcinoma, coronary artery disease, heart failure with reduced ejection fraction LVEF 20-40%, atrial fibrillation on apixaban anticoagulation, hypertension, hyperlipidemia presents with acute pulmonary embolism complicated by elevated troponin levels. After discussion with ER provider, the patient will be admitted to the hospital. The patient presented with worsening dyspnea and was found to have acute pulmonary embolism in the right upper and middle lobe arteries. The patient was recently hospitalized at [facility] from 04/02/2025-04/08/2025 with an NSTEMI. He was found to have multivessel disease and felt to be poor candidate for intervention in the setting of his metastatic cancer and was treated with medical therapy. A CT angiogram performed at that time was negative for pulmonary embolism. Today's troponins are again severelyelevated and flat at >5000 ng/L, likely as a result of cardiac strain from the pulmonary embolus rather than evidence of plaque rupture. An echocardiogram has been ordered to evaluate for right heart strain. He is currently being treated with a heparin infusion. He has been prescribed apixaban but it is unclear if this was a treatment failure as he reports missing doses of the medication. Additionally does appear to be somewhat volume overloaded. We will judiciously diurese the patient as he may have some preload dependence due to his pulmonary embolus. As above echocardiography may be helpful in determining how aggressively he may tolerate diuresis. In terms of the patient's pancreatic adenocarcinoma, he reportedly is not a candidate for chemotherapy due to his poor functional status. Engaging with palliative care may be beneficial. Management of additional chronic medical problems as below. Ambrose Amador MD 04/29/25 6:52 AM EDT documented in this encounter Consult Notes * Milagro Morgan MD - 04/29/2025 1:22 PM EDTAssociated Order(s): IP CONSULT TO CARDIOLOGY Images from the original note were not included. [facility] Cardiology- Cardiology Consultation Note PATIENT NAME: Dorothy Díaz ([id number]) DATE OF CONSULT: 04/29/25 REFERRING PROVIDER: Dr Hilton PRIMARY SUPERVISOR [employer]: previously Dr Lindsey, but pt requested transfer to [facility] ASSESSMENT & PLAN 74 y.o. male who presents with progressive dyspnea on exertion and is found to have an acute pulmonary embolism. He also has chronic A-fib with varying heart rates that are likely influenced by otherfactors. He also has metastatic pancreatic cancer and has been found to have new pulmonary mets andpossibly a left atrial metastatic tumor. Clinically after a few doses of IV Lasix he appears to be reasonably euvolemic on exam. Ultimately, in light of his comorbidities-his prognosis at 1 year is extremely poor. He is not a candidate for any cardiac interventions at this time. Agree with ongoing discussions about palliative care. See problem specific recommendations below. All findings and recommendations discussed with Dr. Hilton. Left atrial mass Given patient's clinical history, this likely represents a metastatic tumor. However, this could also be a thrombus. In light of patient's clinical comorbidities and condition, he is high risk for any sort of open heart procedure as he was just evaluated for CABG at [facility] and dedylan d not to be a candidate at this time. Furthermore, I am not sure that it would ultimately change prognosis. Being that he will need to be on lifelong anticoagulation in the setting of metastatic cancer with PE, my bias would be to treat conservatively with anticoagulation. If it is a thrombus, it should resolve in 1 to 2 months. This would present a risk for stroke but ultimately, the best strategy is still anticoagulation as the patient is likely too high risk for other options. A-fib (CMS/HCC V24, CMS/HCC V28) Patient is back in A-fib with borderline rate control likely driven by PE. At this point given massin his left heart, he is not a candidate for rhythm control options. Will try to optimize rate control as such. Currently, he is on Toprol- XL 150 mg daily. Could add an additional 50 mg Toprol XL dose in the evening if heart rates are persistently above 120 bpm. However currently he is mainly in the 100s to 110s which in the setting of PE is probably appropriate as he may need a slightly higher heart rate to compensate. He is asymptomatic with regards to chest pain and therefore I think continuing current dose of Toprol XL seems reasonable. Cannot use digoxin due to reduced creatinine clearance. Would avoid using diltiazem due to severely reduced EF. Type 2 acute myocardial infarction (CMS/HCC V24, CMS/HCC V28) Patient has known three-vessel coronary artery disease as demonstrated by recent cardiac cath at [facility]. However, he was not deemed to be a good candidate for aggressive revascularization with CABG understandably. His elevated high-sensitivity troponins during this admission are unlikely to represent true acute plaque rupture but rather demand mediated phenomenon in the setting of acute pulmonary embolism on top of A-fib with intermittent rapid ventricular response rate. As such, we will manage medically. He is not having any acute anginal symptoms. Continue current Toprol XL, high-dose atorvastatin, aspirin, heparin drip. To that end, I would continue heparin drip for 48 hours per ACS protocol before transitioning to DOAC. Chronic HFrEF (heart failure with reduced ejection fraction) (CMS/HCC V24, CMS/HCC V28) Patient actually appears euvolemic on exam after a few doses of IV Lasix. I suspect his elevated BNP is more likely related to acute PE than true volume overload. Would transition to oral diuretic therapy-likely Lasix 20 mg p.o. twice daily starting tomorrow. Has acute on chronic kidney injury but I think in light of diabetic nephropathy, would continue current Entresto and Farxiga. Would hold spironolactone in light of reduced creatinine clearance. SUBJECTIVE REASON FOR CONSULTATION: Shortness of breath, elevated high-sensitivity troponins, A-fib with RVR, LA mass HISTORY OF PRESENT ILLNESS: 74 y.o. male who presents for acute inpatient hospitalization. He has an extensive cardiac history.He was previously followed by Dr. Lindsey in our office but at his last visit to [facility], his family requested transfer to [facility]-which I actually helped facilitate. He has the following cardiac history: 1. 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 -Longstanding history dating back to at least 2019 but with recent drop in ejection fraction to severely reduced range - A cardiac cath at [facility] (in [employer] records and scanned under media section in epic) which showed normal left main, 90% proximal ramus (medium size vessel), 65% ostial OM1, and 90% proximal RCA lesion in a small nondominant vessel-ultimately, it was not felt that angioplasty was indicated and because he was not having anginal symptoms, it was determined that CABG was likely not worth the risk and therefore medical management was pursued - Recent hospitalization for non-ST elevation [place] starting at [facility] and transferring to [facility] where he was hospitalized from 04/03/2025 to 04/08/2025-he presented mainlyas an acute heart failure exacerbation with elevated high-sensitivity troponins that plateaued in the high 1000's to low 2000's-he was treated with 48 hours of IV heparin and ultimately started on escalating doses of GDMT-I actually ended up rounding on him for a few days myself during that admission - Upon discharge, we had gotten him on Farxiga, metoprolol 150 mg daily, Entresto 24 x 26 mg twice daily, and spironolactone 25 mg daily -Most recent echocardiogram during this hospitalization showed mild, concentric left ventricular hypertrophy with mildly dilated LV cavity size, severe, global LV systolic dysfunction with ejection fraction 20 to 25%, severe biatrial enlargement, mildly dilated right ventricle with moderately to severely reduced systolic function, mildly thickened and apically tented mitral valve leaflets with mild mitral regurgitation, mild to moderate tricuspid regurgitation, evidence of mild pulmonary hypertension, evidence of high right atrial pressure, tissue Doppler evidence of high left atrial pressure, and most importantly a mobile, homogenous appearing mass at the inferior portion of the left atrium at the entrance of the right sided pulmonary veins-of note, the mass was not described on prior recent echocardiogram at [facility] from 04/06/2025 2. Left atrial mass-see echo above; differential includes tumor versus thrombus 3. Chronic atrial fibrillation - On Eliquis for CVA prophylaxis and rate controlled; but apparently has missed some doses 4. CAD-see cardiac cath above Most importantly, he also has a recent diagnosis of metastatic pancreatic cancer with widespread metastases, diabetes among other things. After discharge from his hospitalization at [facility], he initially reported that he was doing okay. Unfortunately he is a very vague historian so cannot give me exact dates on anything. What he can tell me is that recently he has been getting more and more short of breath. He finally decided to come to the ER for further evaluation and management. In the ER, he was noted to be in atrial fibrillation of course with heart rates in the 100s to 110s. He had elevated high-sensitivity troponins in the 4999's where they plateaued and BNP is in the s. A CT of the chest showed acute pulmonary embolism of the right upper and middle lobes of the pulmonary arteries with numerous bilateral pulmonary nodules spacious for pulmonary mets. There was also a contrast filling defect in the left atrium for which echocardiogram was recommended. Echocardiogram confirmed that this was a left atrial mass. Patient himself denies having any overt chest pain but again not a great historian. He was thought to be somewhat volume overloaded so given 20 mg of IV Lasix in the ER and transition to 20 IV twice daily. He was also given pain medications and a DuoNeb. He was started on a heparin drip per PE protocol. REVIEW OF SYSTEMS (ROS): Negative except as mentioned in the HPI. PAST MEDICAL HISTORY He has a past medical history of Asthma, BPH (benign prostatic hyperplasia), Hematuria, and Indwelling Dong catheter present. PAST SURGICAL HISTORY He has no past surgical history on file. SOCIAL HISTORY Tob: reports that he has quit smoking. He has never used smokeless tobacco. ETOH: reports no history of alcohol use. Drug: reports no history of drug use. FAMILY HISTORY He family history is not on file. MEDICATIONS: Current Facility-Administered Medications: ??? acetaminophen (TYLENOL) tablet 650 mg, 650 mg, oral, q4h PRN, Ambrose Amador MD, 650 mg at 04/29/25 1211 ??? albuterol 2.5 mg /3 mL (0.083 %) nebulizer solution 2.5 mg, 2.5 mg, nebulization, q4h PRN, Lesley Rios NP, 2.5 mg at 04/29/25 0353 ??? aspirin EC tablet 81 mg, 81 mg, oral, Daily, Shawn Hilton MD, 81 mg at 04/29/25 1343 ??? atorvastatin (LIPITOR) tablet 80 mg, 80 mg, oral, Daily, Lesley Rios NP, 80 mg at 04/29/25 0931 ??? [Held by provider] dapagliflozin propanediol (FARXIGA) tablet 10 mg, 10 mg, oral, Daily, Lesley Rios NP ??? dextrose (D50W) 50% injection 12.5 g, 12.5 g, intravenous, q15 min PRN, Lesley Rios NP ??? dextrose (D50W) 50% injection 25 g, 25 g, intravenous, q15 min PRN, Lesley Rios NP ??? dextrose 15 gram/60 mL oral solution 15 g, 15 g, oral, q15 min PRN, Lesley Rios NP ??? dextrose 15 gram/60 mL oral solution 30 g, 30 g, oral, q15 min PRN, Lesley Rios NP ??? [START ON 04/30/2025] furosemide (LASIX) injection 20 mg, 20 mg, intravenous, Daily, Shawn Hilton MD ??? Glucagon HCl (rDNA) injection 1 mg, 1 mg, intramuscular, Once PRN, Lesley Rios NP ??? heparin (UFH) bolus from infusion 7,000 Units, 80 Units/kg, intravenous, q6h PRN OR heparin(UFH) bolus from infusion 3,500 Units, 40 Units/kg, intravenous, q6h PRN, Catalina Avina, DO ??? heparin infusion 100 units/mL in D5W, 18 Units/kg/hr, intravenous, Continuous, Ambrose Amador MD, Last Rate: 14.9 mL/hr at 04/29/25 0945, 17 Units/kg/hr at 04/29/25 0945 ? ? insulin lispro injection 1-6 Units, 1-6 Units, subcutaneous, Before meals & nightly, Lesley Rios NP, 1 Units at 04/29/25 0307 ??? ipratropium-albuteroL (DUONEB) 0.5-2.5 mg/3 mL nebulizer solution 3 mL, 3 mL, nebulization, TID, Lesley Rios NP, 3 mL at 04/29/25 1323 ??? lactulose (CHRONULAC) solution 20 g, 20 g, oral, TID, Lesley Rios NP, 20 g at 04/29/25 1344 ??? metoprolol succinate (TOPROL-XL) 24 Hour tablet 150 mg, 150 mg, oral, Daily, Lesley Rios NP, 150 mg at 04/29/25 0931 ??? prochlorperazine (COMPAZINE) tablet 10 mg, 10 mg, oral, q6h PRN OR prochlorperazine (COMPAZINE) injection 10 mg, 10 mg, intravenous, q6h PRN OR prochlorperazine (COMPAZINE) suppository 25mg, 25 mg, rectal, q12h PRN, Ambrose Amador MD ??? sacubitriL-valsartan (ENTRESTO) 24-26 mg per tablet 1 tablet, 1 tablet, oral, BID, Lesley Rios NP, 1 tablet at 04/29/25 0308 ??? Insert peripheral IV, , , Once AND Maintain IV access, , , Until discontinued AND Saline lock IV, , , Once AND sodium chloride 0.9 % flush 10 mL, 10 mL, intravenous, BID, 10 mL at 04/29/25 1214 AND sodium chloride 0.9 % flush 10 mL, 10 mL, intravenous, PRN, Ambrose Amador MD ??? trimethobenzamide (TIGAN) injection 200 mg, 200 mg, intramuscular, q6h PRN, Lesley Rios NP ALLERGIES: He has No Known Allergies. OBJECTIVE Vitals: 04/29/25 1158 BP: (!) 120/105 Pulse: Resp: Temp: SpO2: Body mass index is 28.38 kg/m??. PHYSICAL EXAMINATION: General/constitutional: No acute distress, very stoic, flat affect Eyes: EOMI, normal convergence HENT: Atraumatic and normocephalic, moist mucous membranes Neck: Supple, no obvious jugular venous distention Cardiovascular: Irregularly irregular, harsh 2 out of 6 late peaking systolic murmur, no gallops Lungs: No accessory muscle use, right basilar crackles Abdomen: Positive bowel sounds, nontender to palpation, no organomegaly Extremities: 1+ distal left lower extremity edema, otherwise extremities are warm and well-perfused Skin: Warm and dry Psych: Stoic with flat affect, does not know much about the details of his medical history and frequently refers to his as generally handling this LABS: Lab Results Component Value Date GLUCOSE 149 (H) 04/29/2025 CALCIUM 8.7 04/29/2025 NA 136 04/29/2025 K 4.4 04/29/2025 CO2 25 04/29/2025 CL 104 04/29/2025 BUN 35 (H) 04/29/2025 CREATININE 1.70 (H) 04/29/2025 Lab Results Component Value Date WBC 10.5 04/29/2025 HGB 12.4 (L) 04/29/2025 HCT 38.1 (L) 04/29/2025 MCV 86.2 04/29/2025 PLT 173 04/29/2025 Lab Results Component Value Date INR 1.2 04/28/2025 Lab Results Component Value Date HSTROPI 5,178 (HH) 04/29/2025 TESTING 04/28/25 TRANSTHORACIC ECHOCARDIOGRAM (TTE) COMPLETE (CONTRAST/BUBBLE/3D PRN) 04/29/2025 04/29/2025 Interpretation Summary ??? Left Ventricle: Left ventricle cavity is mildly dilated. There is asymmetric moderate hypertrophy with granular appearance. Severe global LV hypokinesis is present. Unable to assess diastolic function due to arrhythmia, likely abnormal. ??? Right ventricle cavity is mildly enlarged. Right ventricular systolic function is severely reduced. ??? Left atrium cavity is severely dilated. There is a mobile mass attached to the superior portionof the inferoseptum and inferior wall, probably a thrombus although a tumor cannot be excluded. ??? Right atrium cavity is severely dilated. ??? Mild mitral regurgitation ??? There is moderate tricuspid regurgitation. Estimated RA pressure is 15 mmHg. The RVSP is estimated at 46 mmHg. ??? Trivial pericardial effusion. ??? Compared to previous study of 05/24/2022, there are multiple changes. Signed by: Rafi Vinson MD on 04/29/2025 12:37 PM [id number] with heart rates generally in the low 100s to 110s with occasional spikes to the 120s CT angiography as detailed in HPI Venous duplex ultrasound showed occlusive thrombus in the left peroneal and posterior tibial veins Thank you for allowing us to participate in this consultation. Please feel free to contact us with questions or concerns. We will continue to follow while inpatient.. 40 minutes was spent reviewing the medical record, imaging, labs, and seeing the patient which included explaining relevant diagnosis, providing patient education, discussing treatment options, in addition to documenting in the record. [facility] [address] [place] [address], [address] [place] [address] documented in this encounter Plan of Treatment Scheduled Referrals Name Type Priority Associated Diagnoses Order Schedule Ambulatory referral to Home Health Outpatient Referral Routine Acute pulmonary embolism with acute cor pulmonale, unspecified pulmonary embolism type (CMS/HCC V24, CMS/HCC V28) Elevated troponin Left atrial mass 1 Occurrences starting 05/01/2025 until 05/01/2026 documented as of this encounter Procedures Procedure Name Priority Date/Time Associated Diagnosis Comments ECG ANNOTATED 05/02/2025 POCT GLUCOSE BLOOD Routine 05/01/2025 11 :47 AM EDT POCT GLUCOSE BLOOD Routine 05/01/2025 8: 06 AM EDT HEPARIN ANTI XA Routine 05/01/2025 6:25 AM EDT COMPLETE BLOOD COUNT Routine 05/01/2025 6:25 AM EDT PHOSPHORUS Routine 05/01/2025 6:25 AM EDT MAGNESIUM Routine 05/01/2025 6:25 AM EDT BASIC METABOLIC PANEL Routine 05/01/2025 6:25 AM EDT POCT GLUCOSE BLOOD Routine 04/30/2025 7: 35 PM EDT POCT GLUCOSE BLOOD Routine 04/30/2025 4: 27 PM EDT POCT GLUCOSE BLOOD Routine 04/30/2025 3: 06 PM EDT POCT GLUCOSE BLOOD Routine 04/30/2025 11 :03 AM EDT POCT GLUCOSE BLOOD Routine 04/30/2025 7: 45 AM EDT HEPARIN ANTI XA Routine 04/30/2025 6:25 AM EDT COMPLETE BLOOD COUNT Routine 04/30/2025 6:25 AM EDT PHOSPHORUS Routine 04/30/2025 6:25 AM EDT MAGNESIUM Routine 04/30/2025 6:25 AM EDT AMMONIA Routine 04/30/2025 6:25 AM EDT BASIC METABOLIC PANEL Routine 04/30/2025 6:25 AM EDT MAGNESIUM Routine 04/29/2025 10:32 PM EDT BASIC METABOLIC PANEL Routine 04/29/2025 10:32 PM EDT POCT GLUCOSE BLOOD Routine 04/29/2025 7: 12 PM EDT POCT GLUCOSE BLOOD Routine 04/29/2025 4: 06 PM EDT HEPARIN ANTI XA STAT 04/29/2025 3:33 PM EDT POCT GLUCOSE BLOOD Routine 04/29/2025 12 :06 PM EDT TRANSTHORACIC ECHOCARDIOGRAM (TTE) COMPLETE W/ CONTRAST Routine 04/29/2025 11:58 AM EDT Acute pulmonary embolism with acute cor pulmonale, unspecified pulmonary embolism type (CMS/HCC V24, CMS/HCC V28) Elevated troponin POCT GLUCOSE BLOOD Routine 04/29/2025 7: 25 AM EDT TROPONIN I HIGH SENSITIVITY Routine 04/29/2025 6:56 AM EDT CBC WITH AUTO DIFFERENTIAL Routine 04/29/2025 6:56 AM EDT HEPARIN ANTI XA STAT 04/29/2025 6:56 AM EDT CBC AND DIFFERENTIAL Routine 04/29/2025 6:56 AM EDT BASIC METABOLIC PANEL Routine 04/29/2025 6:56 AM EDT HEPARIN ANTI XA STAT 04/29/2025 3:17 AM EDT POCT GLUCOSE BLOOD Routine 04/29/2025 2: 26 AM EDT URINALYSIS WITH REFLEX MICROSCOPIC AND CULTURE STAT 04/29/2025 1:13 AM EDT CORNELL URINE CULTURE TUBE STAT 04/29/2025 1:13 AM EDT DRUG ABUSE SCREEN 8A PANEL, URINE Routine 04/29/2025 1:13 AM EDT EXTRA TUBES Routine 04/29/2025 1:13 AM EDT YELLOW URINE NO ADDITIVE Routine 04/29/2025 1:13 AM EDT URINALYSIS WITH REFLEX MICROSCOPIC AND CULTURE STAT 04/29/2025 1:13 AM EDT CULTURE URINE STAT 04/29/2025 1:13 AM EDT TROPONIN I HIGH SENSITIVITY Routine 04/29/2025 12:56 AM EDT RESPIRATORY VIRUS PANEL MOLECULAR STUDY STAT 04/29/2025 12:08 AM EDT ECG ANNOTATED 04/29/2025 VAS US DUPLEX LOWER EXT VENOUS BILAT Routine 04/28/2025 11:33 PM EDT Acute pulmonary embolism with acute cor pulmonale, unspecified pulmonary embolism type (CMS/HCC V24, CMS/HCC V28) TROPONIN I HIGH SENSITIVITY STAT 04/28/2025 8:47 PM EDT ECG 12-LEAD STAT 04/28/2025 8:[address] ABDOMEN PELVIS W CONTRAST STAT 04/28/2025 8:[address] ANGIO CHEST WO AND/OR W CONTRAST STAT 04/28/2025 8:37 PM EDT Dyspnea, unspecified type THYROID STIMULATING HORMONE WITH REFLEX TO FREE T4 AND FREE T3 STAT 04/28/2025 7:17 PM EDT PROCALCITONIN STAT Add-on 04/28/2025 7:17 PM EDT AMMONIA STAT 04/28/2025 7:17 PM EDT ETHANOL STAT Add-on 04/28/2025 7:17 PM EDT TROPONIN I HIGH SENSITIVITY STAT 04/28/2025 7:11 PM EDT CBC WITH AUTO DIFFERENTIAL STAT 04/28/2025 7:11 PM EDT ACTIVATED PARTIAL THROMBOPLASTIN TIME STAT Add-on 04/28/2025 7:11 PM EDT PROTHROMBIN TIME WITH INR STAT 04/28/2025 7:11 PM EDT HEPARIN ANTI XA STAT Add-on 04/28/2025 7:11 PM EDT CBC AND DIFFERENTIAL STAT 04/28/2025 7:11 PM EDT B-TYPE NATRIURETIC PEPTIDE STAT 04/28/2025 7:11 PM EDT MAGNESIUM STAT 04/28/2025 7:11 PM EDT LIPASE STAT 04/28/2025 7:11 PM EDT COMPREHENSIVE METABOLIC PANEL STAT 04/28/2025 7:11 PM EDT documented in this encounter Results * ECG-Annotated (05/02/2025) us Provider Onbase MD ECG ORDERABLES Final Result * (ABNORMAL) POCT Glucose, blood (05/01/2025 11:47 AM EDT) Glucose POCT 151(H) 70 - 100 mg/dL 05/01/2025 11:48 AM EDT [facility] Blood Capillary blood specimen / Unknown 05/01/2025 11:47 AM EDT 05/01/2025 11:49 AM EDT us Alma Mon MD LAB POINT OF CARE TE ST DOCKED DEVICE UNSOLICITED RESULTS Final Result [facility] [address] [place] [address], [place] [phone] * (ABNORMAL) POCT Glucose, blood (05/01/2025 8:06 AM EDT) Glucose POCT 108(H) 70 - 100 mg/dL 05/01/2025 8:06 AM EDT [facility] Blood Capillary blood specimen / Unknown 05/01/2025 8:06 AM EDT 05/01/2025 8:07 AM EDT Alma Mon MD LAB POINT OF CARE TE ST DOCKED DEVICE UNSOLICITED RESULTS Final Result Performing Organization Address City/[facility]/ZIP Co de Phone Number [facility] [address] [place] [address], [place] [phone] * Anti-Xa - Every 6 Hours (05/01/2025 6:25 AM EDT) Heparin Anti-Xa 0.53 0.30 - 0.70 I Unit/mL LAB COAGULATION METHOD 05/01/2025 7:47 AM EDT [facility] Blood Venous blood specimen / Unknown Venipuncture / Unknown 05/01/2025 6:25 AM EDT 05/01/2025 7:05 AM EDT Narrative [facility] - 05/01/2025 7:47 AM EDT Therapeutic range listed is for Unfractionated Heparin. LMW Heparin therapeutic range: 0.50-1.20 IU/mL Shawn Hilton MD LAB BLOOD ORDERABLE S Final Result Performing Organization Address [facility] Co de Phone Number [facility] [address] [place] [address], [place] [phone] * Magnesium (05/01/2025 6:25 AM EDT) Magnesium 2.0 1.9 - 2.6 mg/dL LAB CHEMISTRY METHOD 05/01/2025 7:53 AM EDT [facility] Blood Venous blood specimen / Unknown Venipuncture / Unknown 05/01/2025 6:25 AM EDT 05/01/2025 7:05 AM EDT us Shawn Hilton MD LAB BLOOD ORDERABLE S Final Result [facility] [address] [place] [address], [place] [phone] * (ABNORMAL) Basic metabolic panel (05/01/2025 6:25 AM EDT) Sodium 137 133 - 145 mmol/L LAB CHEMISTRY METHOD 05/01/2025 7:53 AM [facility] Potassium 4.3 3.5 - 5.5 mmol/L LAB CHEMISTRY METHOD 05/01/2025 7:53 AM [facility] Chloride 103 96 - 110 mmol/L LAB CHEMISTRY METHOD 05/01/2025 7:53 AM [facility] CO2 28 21 - 32 mmol/L LAB CHEMISTRY METHOD 05/01/2025 7:53 AM [facility] Anion Gap 6 3 - 11 LAB CHEMISTRY METHOD 05/01/2025 7:53 AM [facility] Glucose 108(H) 70 - 100 mg/dL LAB CHEMISTRY METHOD 05/01/2025 7:53 AM [facility] BUN 32(H) 5 - 25 mg/dL LAB CHEMISTRY METHOD 05/01/2025 7:53 AM [facility] Creatinine 1.40(H) 0.70 - 1.30 mg/dL LAB CHEMISTRY METHOD 05/01/2025 7:53 AM [facility] eGFR 53(L) >=60 mL/min/1. 73m2 LAB CHEMISTRY METHOD 05/01/2025 7:53 AM [facility] Comment:Calculation based on the Chronic Kidney Disease Epidemiology Collaboration (CKD-EPI) equation refit without adjustment for race. BUN/Creatinine Ratio 22.9 LAB CHEMISTRY METHOD 05/01/2025 7:53 AM [facility] Calcium 8.5 8.5 - 10.5 mg/dL LAB CHEMISTRY METHOD 05/01/2025 7:53 AM [facility] Blood Venous blood specimen / Unknown Venipuncture / Unknown 05/01/2025 6:25 AM EDT 05/01/2025 7:05 AM EDT Shawn Hilton MD LAB BLOOD ORDERABLE S Final Result [facility] [address] [place] [address], * (ABNORMAL) Complete blood count (05/01/2025 6:25 AM EDT) [facility] WBC 12.4(H) 4.8 - 10.8 K/mcL LAB HEMETOLOGY METHOD 05/01/2025 9:[facility] RBC 4.80 4.50 - 5.50 M/mcL LAB HEMETOLOGY METHOD 05/01/2025 9:33 AM [facility] Hemoglobin 13.2(L) 13.5 - 17.5 g/dL LAB HEMETOLOGY METHOD 05/01/2025 9:33 AM [facility] Hematocrit 41.8(L) 42.0 - 54.0 % LAB HEMETOLOGY METHOD 05/01/2025 9:33 AM [facility] MCV 87.3 79.0 - 98.0 FL LAB HEMETOLOGY METHOD 05/01/2025 9:33 AM [facility] MCH 27.6 27.0 - 32.0 pcg LAB HEMETOLOGY METHOD 05/01/2025 9:33 AM [facility] MCHC 31.6(L) 32.0 - 37.0 g/dL LAB HEMETOLOGY METHOD 05/01/2025 9:33 AM [facility] RDW 17.5(H) 11.0 - 15.0 % LAB HEMETOLOGY METHOD 05/01/2025 9:33 AM [facility] Platelets 199 130 - 400 K/mcL LAB HEMETOLOGY METHOD 05/01/2025 9:33 AM EDT [facility] MPV 13.5(H) 7.0 - 11.0 FL LAB HEMETOLOGY METHOD 05/01/2025 9:33 AM EDT [facility] NRBC 0.0 <1.0 % LAB HEMETOLOGY METHOD 05/01/2025 9:33 AM EDT [facility] NRBC Absolute 0.00 <0.10 K/[facility] LAB HEMETOLOGY METHOD 05/01/2025 9:33 AM EDT [facility] Blood Venous blood specimen / Unknown Venipuncture / Unknown 05/01/2025 6:25 AM EDT 05/01/2025 7:05 AM EDT us Shawn Hilton MD LAB BLOOD ORDERABLE S Final Result Performing Organization Address City/[facility]/ZIP Co de Phone Number [facility] [address] [place] [address], [place] [phone] * Phosphorus (05/01/2025 6:25 AM EDT) [facility] Phosphorus 3.0 2.5 - 4.5 mg/dL LAB CHEMISTRY METHOD 05/01/2025 7:53 AM EDT [facility] Blood Venous blood specimen / Unknown Venipuncture / Unknown 05/01/2025 6:25 AM EDT 05/01/2025 7:05 AM EDT us Shawn Hilton MD LAB BLOOD ORDERABLE S Final Result [facility] [address] [place] [address], [place] [phone] * (ABNORMAL) POCT Glucose, blood (04/30/2025 7:35 PM EDT) [facility] Glucose POCT 109(H) 70 - 100 mg/dL 04/30/2025 7:36 PM EDT [facility] POCT Comment RN Notified 04/30/2025 7:36 PM EDT [facility] Blood Capillary blood specimen / Unknown 04/30/2025 7:35 PM EDT 04/30/2025 7:37 PM EDT us Shawn Hilton MD LAB POINT O F CARE TEST DOCKED DEVICE UNSOLICITED RESULTS Final Result [facility] [address] [place] [address], [place] [phone] * (ABNORMAL) POCT Glucose, blood (04/30/2025 4:27 PM EDT) Glucose POCT 180(H) 70 - 100 mg/dL 04/30/2025 4:29 PM EDT [facility] Blood Capillary blood specimen / Unknown 04/30/2025 4:27 PM EDT 04/30/2025 4:30 PM EDT us Shawn Hilton MD LAB POINT O F CARE TEST DOCKED DEVICE UNSOLICITED RESULTS Final Result [facility] [address] [place] [address], [place] [phone] * (ABNORMAL) POCT Glucose, blood (04/30/2025 3:06 PM EDT) Glucose POCT 177(H) 70 - 100 mg/dL 04/30/2025 3:06 PM EDT [facility] Blood Capillary blood specimen / Unknown 04/30/2025 3:06 PM EDT 04/30/2025 3:07 PM EDT us Shawn Hilton MD LAB POINT O F CARE TEST DOCKED DEVICE UNSOLICITED RESULTS Final Result Performing Organization Address City/[facility]/ZIP Co de Phone Number [facility] [address] [place] [address], [place] [phone] * (ABNORMAL) POCT Glucose, blood (04/30/2025 11:03 AM EDT) Glucose POCT 138(H) 70 - 100 mg/dL 04/30/2025 11:04 AM EDT [facility] Blood Capillary blood specimen / Unknown 04/30/2025 11:03 AM EDT 04/30/2025 11:05 AM EDT us Shawn Hilton MD LAB POINT O F CARE TEST DOCKED DEVICE UNSOLICITED RESULTS Final Result Performing Organization Address [facility] Co de Phone Number [facility] [address] [place] [address], [place] [phone] * (ABNORMAL) POCT Glucose, blood (04/30/2025 7:45 AM EDT) [facility] Signature Glucose POCT 105(H) 70 - 100 mg/dL 04/30/2025 7:46 AM EDT [facility] Blood Capillary blood specimen / Unknown 04/30/2025 7:45 AM EDT 04/30/2025 7:47 AM EDT us Shawn Hilton MD LAB POINT O F CARE TEST DOCKED DEVICE UNSOLICITED RESULTS Final Result Performing Organization Address [facility] Co de Phone Number [facility] [address] [place] [address], [place] [phone] * Anti-Xa - Every 6 Hours (04/30/2025 6:25 AM EDT) Heparin Anti-Xa 0.35 0.30 - 0.70 I Unit/mL LAB COAGULATION METHOD 04/30/2025 7:01 AM EDT [facility] Blood Venous blood specimen / Unknown Venipuncture / Unknown 04/30/2025 6:25 AM EDT 04/30/2025 6:44 AM EDT Narrative [facility] - 04/30/2025 7:01 AM EDT Therapeutic range listed is for Unfractionated Heparin. LMW Heparin therapeutic range: 0.50-1.20 IU/mL us Shawn Hilton MD LAB BLOOD ORDERABLE S Final Result Performing Organization Address City/[facility]/ZIP Co de Phone Number [facility] [address] [place] [address], [place] [phone] * Magnesium (04/30/2025 6:25 AM EDT) [facility] Magnesium 2.0 1.9 - 2.6 mg/dL LAB CHEMISTRY METHOD 04/30/2025 7:56 AM EDT [facility] Blood Venous blood specimen / Unknown Venipuncture / Unknown 04/30/2025 6:25 AM EDT 04/30/2025 6:43 AM EDT us Shawn Hilton MD LAB BLOOD ORDERABLE S Final Result [facility] [address] [place] [address], [place] [phone] * (ABNORMAL) Basic metabolic panel (04/30/2025 6:25 AM EDT) Pathologist [facility] Sodium 136 133 - 145 mmol/L LAB CHEMISTRY METHOD 04/30/2025 7:56 AM EDT [facility] Potassium 3.9 3.5 - 5.5 mmol/L LAB CHEMISTRY METHOD 04/30/2025 7:56 AM [facility] Chloride 103 96 - 110 mmol/L LAB CHEMISTRY METHOD 04/30/2025 7:56 AM [facility] CO2 23 21 - 32 mmol/L LAB CHEMISTRY METHOD 04/30/2025 7:56 AM [facility] Anion Gap 10 3 - 11 LAB CHEMISTRY METHOD 04/30/2025 7:56 AM [facility] Glucose 111(H) 70 - 100 mg/dL LAB CHEMISTRY METHOD 04/30/2025 7:56 AM [facility] BUN 30(H) 5 - 25 mg/dL LAB CHEMISTRY METHOD 04/30/2025 7:56 AM [facility] Creatinine 1.34(H) 0.70 - 1.30 mg/dL LAB CHEMISTRY METHOD 04/30/2025 7:56 AM [facility] eGFR 56(L) >=60 mL/min/1. 73m2 LAB CHEMISTRY METHOD 04/30/2025 7:56 AM [facility] Comment:Calculation based on the Chronic Kidney Disease Epidemiology Collaboration (CKD-EPI) equation refit without adjustment for race. BUN/Creatinine Ratio 22.4 LAB CHEMISTRY METHOD 04/30/2025 7:56 AM [facility] Calcium 8.5 8.5 - 10.5 mg/dL LAB CHEMISTRY METHOD 04/30/2025 7:56 AM [facility] Blood Venous blood specimen / Unknown Venipuncture / Unknown 04/30/2025 6:25 AM EDT 04/30/2025 6:43 AM EDT us Shawn Hilton MD LAB BLOOD ORDERABLE S Final Result [facility] [address] [place] [address], [place] [phone] * (ABNORMAL) Complete blood count (04/30/2025 6:25 AM EDT) [facility] Signature WBC 10.7 4.8 - 10.8 K/mcL LAB HEMETOLOGY METHOD 04/30/2025 7:09 AM [facility] RBC 4.40(L) 4.50 - 5.50 M/mcL LAB HEMETOLOGY METHOD 04/30/2025 7:09 AM [facility] Hemoglobin 12.0(L) 13.5 - 17.5 g/dL LAB HEMETOLOGY METHOD 04/30/2025 7:09 AM [facility] Hematocrit 38.0(L) 42.0 - 54.0 % LAB HEMETOLOGY METHOD 04/30/2025 7:09 AM [facility] MCV 87.0 79.0 - 98.0 FL LAB HEMETOLOGY METHOD 04/30/2025 7:09 AM [facility] MCH 27.5 27.0 - 32.0 pcg LAB HEMETOLOGY METHOD 04/30/2025 7:09 AM [facility] MCHC 31.6(L) 32.0 - 37.0 g/dL LAB HEMETOLOGY METHOD 04/30/2025 7:09 AM [facility] RDW 17.3(H) 11.0 - 15.0 % LAB HEMETOLOGY METHOD 04/30/2025 7:09 AM [facility] Platelets 170 130 - 400 K/mcL LAB HEMETOLOGY METHOD 04/30/2025 7:09 AM [facility] MPV 12.3(H) 7.0 - 11.0 FL LAB HEMETOLOGY METHOD 04/30/2025 7:09 AM [facility] NRBC 0.0 <1.0 % LAB HEMETOLOGY METHOD 04/30/2025 7:09 AM [facility] NRBC Absolute 0.00 <0.10 K/mcL LAB HEMETOLOGY METHOD 04/30/2025 7:09 AM EDT [facility] Blood Venous blood specimen / Unknown Venipuncture / Unknown 04/30/2025 6:25 AM EDT 04/30/2025 6:44 AM EDT us Shawn Hilton MD LAB BLOOD ORDERABLE S Final Result Performing Organization Address [facility] de Phone Number [facility] [address] [place] [address], [place] [phone] * Phosphorus (04/30/2025 6:25 AM EDT) Phosphorus 3.0 2.5 - 4.5 mg/dL LAB CHEMISTRY METHOD 04/30/2025 7:56 AM EDT [facility] Blood Venous blood specimen / Unknown Venipuncture / Unknown 04/30/2025 6:25 AM EDT 04/30/2025 6:43 AM EDT us Shawn Hilton MD LAB BLOOD ORDERABLE S Final Result Performing Organization Address [facility] de Phone Number [facility] [address] [place] [address], [place] [phone] * (ABNORMAL) Ammonia (04/30/2025 6:25 AM EDT) Ammonia 42(H) 11 - 35 mcmol/L LAB CHEMISTRY METHOD 04/30/2025 7:21 AM EDT [facility] Blood Venous blood specimen / Unknown Venipuncture / Unknown 04/30/2025 6:25 AM EDT 04/30/2025 6:42 AM EDT Lesley Rios NP LAB BLOOD ORDERABLES Fin al Result Performing Organization Address [facility]/ZIP Co de Phone Number [facility] [address] [place] [address], * (ABNORMAL) Basic metabolic panel (04/29/2025 10:32 PM EDT) Sodium 137 133 - 145 mmol/L LAB CHEMISTRY METHOD 04/29/2025 11:13 PM [facility] Potassium 4.1 3.5 - 5.5 mmol/L LAB CHEMISTRY METHOD 04/29/2025 11:13 PM [facility] Chloride 103 96 - 110 mmol/L LAB CHEMISTRY METHOD 04/29/2025 11:13 PM [facility] CO2 26 21 - 32 mmol/L LAB CHEMISTRY METHOD 04/29/2025 11:13 PM [facility] Anion Gap 8 3 - 11 LAB CHEMISTRY METHOD 04/29/2025 11:13 PM [facility] Glucose 122(H) 70 - 100 mg/dL LAB CHEMISTRY METHOD 04/29/2025 11:13 PM [facility] BUN 34(H) 5 - 25 mg/dL LAB CHEMISTRY METHOD 04/29/2025 11:13 PM [facility] Creatinine 1.67(H) 0.70 - 1.30 mg/dL LAB CHEMISTRY METHOD 04/29/2025 11:13 PM [facility] eGFR 43(L) >=60 mL/min/1. 73m2 LAB CHEMISTRY METHOD 04/29/2025 11:13 PM [facility] Comment:Calculation based on the Chronic Kidney Disease Epidemiology Collaboration (CKD-EPI) equation refit without adjustment for race. BUN/Creatinine Ratio 20.4 LAB CHEMISTRY METHOD 04/29/2025 11:13 PM [facility] Calcium 8.4(L) 8.5 - 10.5 mg/dL LAB CHEMISTRY METHOD 04/29/2025 11:13 PM [facility] Blood Venous blood specimen / Unknown Venipuncture / Unknown 04/29/2025 10:32 PM EDT 04/29/2025 10:36 PM EDT Johana YEAGER LAB BLOOD ORDERABLES Final Re sult Performing Organization Address [facility]/ZIP Co de Phone Number [facility] [address] [place] [address], [place] [phone] * Magnesium (04/29/2025 10:32 PM EDT) Magnesium 2.0 1.9 - 2.6 mg/dL LAB CHEMISTRY METHOD 04/29/2025 11:13 PM EDT [facility] Blood Venous blood specimen / Unknown Venipuncture / Unknown 04/29/2025 10:32 PM EDT 04/29/2025 10:36 PM EDT Johana YEAGER LAB BLOOD ORDERABLES Final Re sult Performing Organization Address [facility] de Phone Number [facility] [address] [place] [address], [place] [phone] * (ABNORMAL) POCT Glucose, blood (04/29/2025 7:12 PM EDT) Glucose POCT 117(H) 70 - 100 mg/dL 04/29/2025 7:35 PM EDT [facility] Blood Capillary blood specimen / Unknown 04/29/2025 7:12 PM EDT 04/29/2025 7:36 PM EDT Shawn Hilton MD LAB POINT O F CARE TEST DOCKED DEVICE UNSOLICITED RESULTS Final Result Performing Organization Address [facility]/ZIP Co de Phone Number [facility] [address] [place] [address], [place] [phone] * (ABNORMAL) POCT Glucose, blood (04/29/2025 4:06 PM EDT) Glucose POCT 157(H) 70 - 100 mg/dL 04/29/2025 4:08 PM EDT [facility] Blood Capillary blood specimen / Unknown 04/29/2025 4:06 PM EDT 04/29/2025 4:09 PM EDT Shawn Hilton MD LAB POINT O F CARE TEST DOCKED DEVICE UNSOLICITED RESULTS Final Result [facility] [address] [place] [address], [place] [phone] * Anti-Xa - Every 6 Hours (04/29/2025 3:33 PM EDT) [facility] Heparin Anti-Xa 0.41 0.30 - 0.70 I Unit/mL LAB COAGULATION METHOD 04/29/2025 3:48 PM EDT [facility] Blood Venous blood specimen / Unknown Venipuncture / Unknown 04/29/2025 3:33 PM EDT 04/29/2025 3:38 PM EDT Narrative [facility] - 04/29/2025 3:48 PM EDT Therapeutic range listed is for Unfractionated Heparin. LMW Heparin therapeutic range: 0.50-1.20 IU/mL Catalina Avina DO LAB BLOOD ORDERABLES Leni l Result [facility] [address] [place] [address], [place] [phone] * (ABNORMAL) POCT Glucose, blood (04/29/2025 12:06 PM EDT) Glucose POCT 149(H) 70 - 100 mg/dL 04/29/2025 12:07 PM EDT [facility] Blood Capillary blood specimen / Unknown 04/29/2025 12:06 PM EDT 04/29/2025 12:08 PM EDT Shawn Hilton MD LAB POINT O F CARE TEST DOCKED DEVICE UNSOLICITED RESULTS Final Result [facility] [address] [place] [address], [place] [phone] * (ABNORMAL) TRANSTHORACIC ECHOCARDIOGRAM (TTE) COMPLETE W/ CONTRAST (04/29/2025 11:58 AM EDT) BSA 2.09 m2 CV PACS LV EDV (A2C) 209 mL CV PACS LV EDV (A4C) 172 mL CV PACS LV Diastolic Volume (BP) 197(A) 62 - 150 mL CV PACS LV ESV (A4C) 144 mL CV PACS IVSD 1.9(A) 0.6 - 1.0 cm CV PACS LVIDD 5.9(A) 4.2 - 5.8 cm CV PACS LVIDS 5.9(A) 2.5 - 4.0 cm CV PACS LVOT Diameter 2.2 cm CV PACS LVOT Mean Grad 1 mmHg CV PACS LVOT Peak VTI 11.5 cm CV PACS LVOT Mean Robson 0.4 m/s CV PACS LVOT Peak Robson 0.7 m/s CV PACS LVOT Peak Gradient 2 mmHg CV PACS LVPWD 1.3(A) 0.6 - 1.0 cm CV PACS MV E' Tissue Velocity Lateral 7 cm/s CV PACS MV E' Tissue Velocity Septal 6 cm/s CV PACS Ejection Fraction (A4C) 16 % CV PACS LVOT Area 3.8 cm2 CV PACS LVOT Stroke Volume 44 mL CV PACS Left Atrium Minor [place] 7.2 cm CV PACS Left Atrium Major [place] 7.5 cm CV PACS LA Area Sys (A2C) 33 cm2 CV PACS LA Area Sys (A4C) 39 cm2 CV PACS LA Volume (BP) 144 mL CV PACS RA Area 29.1 cm2 CV PACS RA 2D Volume 101 mL CV PACS Aortic Sinus Valsalva 3.5 cm CV PACS Ascending Aorta 3.9 cm CV PACS E Wave Deceleration Time 187 119 - 242 ms CV PACS MV Peak E Robson 0.94 m/s CV PACS RV Diastolic Basal Dimension 4.3(A) 2.5 - 4.1 cm CV PACS RV S' 7 cm/s CV PACS RV Free Wall Longitudinal Strain -6 % CV PACS TR Peak Velocity 2.77 m/s CV PACS TR Peak Gradient 31 mmHg CV PACS LV ESV Index (A4C) 70 mL/m2 CV PACS LV EDV Index (A4C) 83 mL/m2 CV PACS E/E' Ratio Septal 16 CV PACS E/E' Ratio Averaged 15 CV PACS LVOT Stroke Index 21 mL/m2 CV PACS Relative Wall Thickness ratio 0.44 CV PACS FS 0 % CV PACS LV Mass 2D 457 g CV PACS Ascending Aorta Index 1.89 cm/m2 CV PACS LVOT flow 152 mL/s CV PACS RA 2D Volume Index 49 mL/m2 CV PACS LVIDD Index 2.86 cm/m2 CV PACS LVIDS Index 2.86 cm/m2 CV PACS E/E' Ratio Lateral 13 CV PACS LV Diastolic Volume Index (BP) 96 mL/m2 CV PACS LA Volume Index (BP) 70 mL/m2 CV PACS LV Mass Index 2D 222 g/m2 CV PACS LV EDV Index (A2C) 101 mL/m2 CV PACS Right Ventricular Peak Systolic Pressure 46 mmHg CV PACS Est. RA Pressure 15 mmHg CV PACS Anatomical Region Laterality Modality Ultrasound Narrative 04/29/2025 12:37 PM EDT ?Left??Ventricle: Left ventricle cavity is mildly dilated. There is asymmetric moderate hypertrophy with granular appearance. Severe global LV hypokinesis is present. Unable to assess diastolic function due to arrhythmia, likely abnormal. ?Right ventricle cavity is mildly enlarged. Right ventricular systolic function is severely reduced. ?Left atrium cavity is severely dilated. There is a mobile mass attached to the superior portion of the inferoseptum and inferior wall, probably a thrombus although a tumor cannot be excluded. ?Right atrium cavity is severely dilated. ?Mild mitral regurgitation ?There is moderate tricuspid regurgitation. Estimated RA pressure is 15 mmHg. The RVSP is estimated at 46 mmHg. ?Trivial pericardial effusion. ?Compared to previous study of 05/24/2022, there are multiple changes. Left Ventricle Left ventricle cavity is mildly dilated. There is asymmetric moderate hypertrophy with granular appearance. Systolic function is severely decreased with an ejection fraction of 20-25%. Severe global LV hypokinesis is present. Unable to assess diastolic function due to arrhythmia, likely abnormal. Right Ventricle Right ventricle cavity is mildly dilated. Systolic function is severely reduced. Left Atrium Left atrium cavity is severely dilated. There is a mobile mass attached to the superior portion of the inferoseptum and inferior wall, probably a thrombus although a tumor cannot be excluded. Right Atrium Right atrium cavity is severely dilated. IVC/SVC Inferior vena cava is dilated. Mitral Valve The leaflets are mildly thickened. There is mild annular calcification. There is mild regurgitation. There is no evidence of mitral valve stenosis. Tricuspid Valve The leaflets exhibit normal excursion. There is moderate regurgitation. There is no evidence of tricuspid valve stenosis. Estimated RA pressure is 15 mmHg. The RVSP is estimated at 46 mmHg. Aortic Valve The aortic valve is trileaflet. The leaflets are mildly thickened. There is no regurgitation or stenosis. Pulmonic Valve Visualized portions of the pulmonic valve appear normal. There is trace pulmonic valve regurgitation. There is no evidence of pulmonic valve stenosis. Ascending Aorta The aorta appears normal in size. Pericardium Pericardium appears normal. There is a trivial pericardial effusion. Study Details Overall the study quality was adequate. Definity contrast was given to enhance imaging. Ambrose Amador MD CV ECHO PROCEDURES Final Re sult * (ABNORMAL) POCT Glucose, blood (04/29/2025 7:25 AM EDT) Glucose POCT 136(H) 70 - 100 mg/dL 04/29/2025 7:25 AM EDT [facility] Blood Capillary blood specimen / Unknown 04/29/2025 7:25 AM EDT 04/29/2025 7:27 AM EDT Shawn Hilton MD LAB POINT O F CARE TEST DOCKED DEVICE UNSOLICITED RESULTS Final Result [facility] [address] [place] [address], [place] [phone] * Anti-Xa - Every 6 Hours (04/29/2025 6:56 AM EDT) [facility] Heparin Anti-Xa 0.46 0.30 - 0.70 I Unit/mL LAB COAGULATION METHOD 04/29/2025 7:50 AM EDT [facility] Blood Venous blood specimen / Unknown Venipuncture / Unknown 04/29/2025 6:56 AM EDT 04/29/2025 7:18 AM EDT Narrative [facility] - 04/29/2025 7:50 AM EDT Therapeutic range listed is for Unfractionated Heparin. LMW Heparin therapeutic range: 0.50-1.20 IU/mL Catalina Avina DO LAB BLOOD ORDERABLES Leni l Result [facility] [address] [place] [address], [place] [phone] * (ABNORMAL) CBC auto differential (04/29/2025 6:56 AM EDT) [facility] WBC 10.5 4.8 - 10.8 K/mcL LAB HEMETOLOGY METHOD 04/29/2025 7:33 AM EDT [facility] RBC 4.40(L) 4.50 - 5.50 M/mcL LAB HEMETOLOGY METHOD 04/29/2025 7:33 AM EDT [facility] Hemoglobin 12.4(L) 13.5 - 17.5 g/dL LAB HEMETOLOGY METHOD 04/29/2025 7:33 AM EDT [facility] Hematocrit 38.1(L) 42.0 - 54.0 % LAB HEMETOLOGY METHOD 04/29/2025 7:33 AM [facility] MCV 86.2 79.0 - 98.0 FL LAB HEMETOLOGY METHOD 04/29/2025 7:33 AM [facility] MCH 28.1 27.0 - 32.0 pcg LAB HEMETOLOGY METHOD 04/29/2025 7:33 AM [facility] MCHC 32.5 32.0 - 37.0 g/dL LAB HEMETOLOGY METHOD 04/29/2025 7:33 AM [facility] RDW 17.1(H) 11.0 - 15.0 % LAB HEMETOLOGY METHOD 04/29/2025 7:33 AM [facility] Platelets 173 130 - 400 K/mcL LAB HEMETOLOGY METHOD 04/29/2025 7:33 AM [facility] MPV 12.8(H) 7.0 - 11.0 FL LAB HEMETOLOGY METHOD 04/29/2025 7:33 AM [facility] NRBC 0.0 <1.0 % LAB HEMETOLOGY METHOD 04/29/2025 7:33 AM [facility] NRBC Absolute 0.00 <0.10 K/mcL LAB HEMETOLOGY METHOD 04/29/2025 7:33 AM [facility] Neutrophils Relative 78.1 % LAB HEMETOLOGY METHOD 04/29/2025 7:33 AM [facility] Lymphocytes Relative 8.1 % LAB HEMETOLOGY METHOD 04/29/2025 7:33 AM [facility] Monocytes Relative 11.5 % LAB HEMETOLOGY METHOD 04/29/2025 7:33 AM [facility] Eosinophils Relative 1.4 % LAB HEMETOLOGY METHOD 04/29/2025 7:33 AM [facility] Basophils Relative 0.4 % LAB HEMETOLOGY METHOD 04/29/2025 7:33 AM EDT [facility] Immature Granulocytes Relative 0.5 % LAB HEMETOLOGY METHOD 04/29/2025 7:33 AM EDT [facility] Neutrophils Absolute 8.22(H) 1.50 - 7.00 K/mcL LAB HEMETOLOGY METHOD 04/29/2025 7:33 AM EDT [facility] Lymphocytes Absolute 0.85(L) 1.00 - 5.00 K/mcL LAB HEMETOLOGY METHOD 04/29/2025 7:33 AM EDT [facility] Monocytes Absolute 1.21(H) 0.20 - 1.00 K/mcL LAB HEMETOLOGY METHOD 04/29/2025 7:33 AM EDT [facility] Eosinophils Absolute 0.15 0.00 - 0.50 K/mcL LAB HEMETOLOGY METHOD 04/29/2025 7:33 AM EDT [facility] Basophils Absolute 0.04 0.00 - 0.20 K/mcL LAB HEMETOLOGY METHOD 04/29/2025 7:33 AM EDT [facility] Immature Granulocytes Absolute 0.05(H) 0.00 - 0.03 K/mcL LAB HEMETOLOGY METHOD 04/29/2025 7:33 AM EDT [facility] Blood Venous blood specimen / Unknown Venipuncture / Unknown 04/29/2025 6:56 AM EDT 04/29/2025 7:18 AM EDT us Ambrose Amador MD LAB BLOOD ORDERABLES Final Result [facility] [address] [place] [address], * (ABNORMAL) Troponin I high sensitivity (04/29/2025 6:56 AM EDT) High Sensitivity Troponin I 5,178(HH) <=79 ng/L LAB CHEMISTRY METHOD 04/29/2025 8:21 AM EDT [facility] Blood Venous blood specimen / Unknown Venipuncture / Unknown 04/29/2025 6:56 AM EDT 04/29/2025 7:18 AM EDT Narrative [facility] - 04/29/2025 8:21 AM EDT High levels of biotin in samples may falsely decrease hsTroponin values. ??Use caution when interpreting hsTroponin results in patients taking biotin who exhibit renal impairment (eGFR <60) or in patients taking more than 20 mg/day of biotin. Ambrose Amador MD LAB BLOOD ORDERABLES Final Result [facility] [address] [place] [address], * (ABNORMAL) Basic metabolic panel (04/29/2025 6:56 AM EDT) Sodium 136 133 - 145 mmol/L LAB CHEMISTRY METHOD 04/29/2025 8:50 AM [facility] Potassium 4.4 3.5 - 5.5 mmol/L LAB CHEMISTRY METHOD 04/29/2025 8:50 AM [facility] Chloride 104 96 - 110 mmol/L LAB CHEMISTRY METHOD 04/29/2025 8:50 AM [facility] CO2 25 21 - 32 mmol/L LAB CHEMISTRY METHOD 04/29/2025 8:50 AM [facility] Anion Gap 7 3 - 11 LAB CHEMISTRY METHOD 04/29/2025 8:50 AM [facility] Glucose 142(H) 70 - 100 mg/dL LAB CHEMISTRY METHOD 04/29/2025 8:50 AM [facility] BUN 35(H) 5 - 25 mg/dL LAB CHEMISTRY METHOD 04/29/2025 8:50 AM EDT [facility] Creatinine 1.70(H) 0.70 - 1.30 mg/dL LAB CHEMISTRY METHOD 04/29/2025 8:50 AM EDT [facility] eGFR 42(L) >=60 mL/min/1. 73m2 LAB CHEMISTRY METHOD 04/29/2025 8:50 AM EDT [facility] Comment:Calculation based on the Chronic Kidney Disease Epidemiology Collaboration (CKD-EPI) equation refit without adjustment for race. BUN/Creatinine Ratio 20.6 LAB CHEMISTRY METHOD 04/29/2025 8:50 AM EDT [facility] Calcium 8.7 8.5 - 10.5 mg/dL LAB CHEMISTRY METHOD 04/29/2025 8:50 AM EDT [facility] Blood Venous blood specimen / Unknown Venipuncture / Unknown 04/29/2025 6:56 AM EDT 04/29/2025 7:18 AM EDT Ambrose Amador MD LAB BLOOD ORDERABLES Final Result [facility] [address] [place] [address], * (ABNORMAL) Anti-Xa - Every 6 Hours (04/29/2025 3:17 AM EDT) Heparin Anti-Xa 0.72(H) 0.30 - 0.70 I Unit/mL LAB COAGULATION METHOD 04/29/2025 3:41 AM EDT [facility] Blood Venous blood specimen / Unknown Venipuncture / Unknown 04/29/2025 3:17 AM EDT 04/29/2025 3:29 AM EDT Narrative [facility] - 04/29/2025 3:41 AM EDT Therapeutic range listed is for Unfractionated Heparin. LMW Heparin therapeutic range: 0.50-1.20 IU/mL us Catalina Alexander Sachin Fabrice DO LAB BLOOD ORDERABLES Leni l Result Performing Organization Address [facility]/ZIP Co de Phone Number [facility] [address] [place] [address], * (ABNORMAL) POCT Glucose, blood (04/29/2025 2:26 AM EDT) Glucose POCT 169(H) 70 - 100 mg/dL 04/29/2025 2:26 AM EDT [facility] Blood Capillary blood specimen / Unknown 04/29/2025 2:26 AM EDT 04/29/2025 2:27 AM EDT Ambrose Amador MD LAB POINT OF CARE T EST DOCKED DEVICE UNSOLICITED RESULTS Final Result Performing Organization Address [facility] Co de Phone Number [facility] [address] [place] [address], * Culture urine (04/29/2025 1:13 AM EDT) Culture, Urine 50,000-99,000 CFU/mL Mixed urogenital adriel, no uropathogens present. Suggest repeat specimen if clinically indicated. 04/30/2025 10:47 AM EDT [facility] Urine Urine specimen obtained by clean catch procedure / Unknown Non-blood Collection / Unknown 04/29/2025 1:13 AM EDT 04/29/2025 2:41 AM EDT Lesley Rios NP LAB MICROBIOLOGY - GENER AL ORDERABLES Final Result Performing Organization Address City/[facility]/ZIP Co de Phone Number [facility] [address] [place] [address], [place] [phone] * Yellow urine no additive (04/29/2025 1:13 AM EDT) Extra Tube Hold for add-ons. 04/29/2025 4:01 AM EDT [facility] Comment:Auto resulted. Urine Urine specimen obtained by clean catch procedure / Unknown 04/29/2025 1:13 AM EDT 04/29/2025 2:25 AM EDT Ambrose Amador MD LAB URINE ORDERABLES Final Result Performing Organization Address [facility] Co de Phone Number [facility] [address] [place] [address], [place] [phone] * Cornell urine culture tube (04/29/2025 1:13 AM EDT) Pathologist [facility] Extra Tube Hold for add-ons. 04/29/2025 4:01 AM EDT [facility] Comment:Auto resulted. Urine Urine specimen obtained by clean catch procedure / Unknown Non-blood Collection / Unknown 04/29/2025 1:13 AM EDT 04/29/2025 2:24 AM EDT Lesley Rios NP LAB URINE ORDERABLES Fin al Result Performing Organization Address [facility] de Phone Number [facility] [address] [place] [address], [place] [phone] * (ABNORMAL) Urinalysis with reflex microscopic and culture (04/29/2025 1:13 AM EDT) Pathologist [facility] Specific [place] Urine 1.038(H) 1.003 - 1.030 LAB URINALYSIS - AUTOMATED METHOD 04/29/2025 2:41 AM EDT [facility] pH, Urine 5.5 5.0 - 8.0 pH LAB URINALYSIS - AUTOMATED METHOD 04/29/2025 2:41 AM EDT [facility] Leukocytes, Urine Trace(A) Negative LAB URINALYSIS - AUTOMATED METHOD 04/29/2025 2:41 AM EDT [facility] Nitrite, Urine Negative Negative LAB URINALYSIS - AUTOMATED METHOD 04/29/2025 2:41 AM [facility] Protein, Urine Trace <=Trace mg/dL LAB URINALYSIS - AUTOMATED METHOD 04/29/2025 2:41 AM [facility] Glucose, Urine Negative Negative mg/dL LAB URINALYSIS - AUTOMATED METHOD 04/29/2025 2:41 AM [facility] Ketones, Urine Trace(A) Negative mg/dL LAB URINALYSIS - AUTOMATED METHOD 04/29/2025 2:41 AM [facility] Urobilinogen, Urine 1.0 0.2 - 1.0 mg/dL LAB URINALYSIS - AUTOMATED METHOD 04/29/2025 2:41 AM [facility] Bilirubin, Urine Negative Negative LAB URINALYSIS - AUTOMATED METHOD 04/29/2025 2:41 AM [facility] Blood, Urine Negative Negative LAB URINALYSIS - AUTOMATED METHOD 04/29/2025 2:41 AM [facility] RBC, Urine 6.8(H) 0 - 4 /HPF LAB URINALYSIS - AUTOMATED METHOD 04/29/2025 2:41 AM [facility] WBC, Urine 3.3 0 - 4 /HPF LAB URINALYSIS - AUTOMATED METHOD 04/29/2025 2:41 AM [facility] Squamous Epithelial, Urine 12 0 - 60 /LPF LAB URINALYSIS - AUTOMATED METHOD 04/29/2025 2:41 AM [facility] Bacteria, Urine Negative Negative /HPF LAB URINALYSIS - AUTOMATED METHOD 04/29/2025 2:41 AM [facility] Hyaline Casts, Urine 3.2(H) 0 - 3 /LPF LAB URINALYSIS - AUTOMATED METHOD 04/29/2025 2:41 AM [facility] Urine Urine specimen obtained by clean catch procedure / Unknown Non-blood Collection / Unknown 04/29/2025 1:13 AM EDT 04/29/2025 2:24 AM EDT Lesley Rios NP LAB URINE ORDERABLES Fin al Result [facility] [address] [place] [address], * Drug abuse screen 8a panel, urine (04/29/2025 1:13 AM EDT) [facility] Amphetamine Screen, Ur Negative Negative LAB CHEMISTRY METHOD 04/29/2025 2:57 AM EDT [facility] Comment:Certain OTC medicati ons containing ephedrine, phenylephrine, pseudoephedrine and phenylpropanolamine can cause false positive results. Barbiturate Screen, Ur Negative Negative LAB CHEMISTRY METHOD 04/29/2025 2:57 AM EDT [facility] Benzodiazepine Screen, Ur Negative Negative LAB CHEMISTRY METHOD 04/29/2025 2:57 AM EDT [facility] Cocaine Screen, Ur Negative Negative LAB CHEMISTRY METHOD 04/29/2025 2:57 AM EDT [facility] Opiate Screen, Ur Negative Negative LAB CHEMISTRY METHOD 04/29/2025 2:57 AM T [facility] Cannabinoid (THC) Screen, Ur Negative Negative LAB CHEMISTRY METHOD 04/29/2025 2:57 AM EDT [facility] Comment:Specimens from patie nts taking pantoprazole sodium (Protonix) have been shown to produce false positive results. Oxycodone Screen, Ur Negative Negative LAB CHEMISTRY METHOD 04/29/2025 2:57 AM EDT [facility] Fentanyl, Ur Negative Negative LAB CHEMISTRY METHOD 04/29/2025 2:57 AM T [facility] Urine Urine specimen obtained by clean catch procedure / Unknown Non-blood Collection / Unknown 04/29/2025 1:13 AM EDT 04/29/2025 2:24 AM EDT Narrative [facility] - 04/29/2025 2:57 AM EDT Assay cutoffs: Amphetamines ? 1000 ng/mL Barbiturates ?200 ng/mL Benzodiazepines ?? 200 ng/mL Cocaine ? 300 ng/mL Fentanyl ?1 ng/mL Opiates ? 300 ng/mL Oxycodone ? 100 ng/mL THC ?50 ng/mL Semi-quantitative assay for screening purposes only. Unconfirmed screening result should not be used for non-medical purposes. *ALTERNATE METHOD CONFIRMATION DONE UPON REQUEST ONLY* Lesley Rios NP LAB URINE ORDERABLES Fin al Result Performing Organization Address [facility] de Phone Number [facility] [address] [place] [address], * (ABNORMAL) Troponin I high sensitivity (04/29/2025 12:56 AM EDT) [facility] High Sensitivity Troponin I 5,937(HH) <=79 ng/L LAB CHEMISTRY METHOD 04/29/2025 2:12 AM EDT [facility] Blood Venous blood specimen / Unknown Venipuncture / Unknown 04/29/2025 12:56 AM EDT 04/29/2025 1:15 AM EDT Narrative [facility] - 04/29/2025 2:12 AM EDT High levels of biotin in samples may falsely decrease hsTroponin values. ??Use caution when interpreting hsTroponin results in patients taking biotin who exhibit renal impairment (eGFR <60) or in patients taking more than 20 mg/day of biotin. Lesley Rios NP LAB BLOOD ORDERABLES Fin al Result Performing Organization Address [facility]/ZIP Co de Phone Number [facility] [address] [place] [address], * Respiratory virus panel molecular study (04/29/2025 12:08 AM EDT) Adenovirus Detection by PCR Not Detected Not Detected LAB MICROBIOLOGY METHOD 04/29/2025 1:48 AM EDT [facility] Influenza A PCR Not Detected Not Detected LAB MICROBIOLOGY METHOD 04/29/2025 1:48 AM EDT [facility] Influenza B PCR Not Detected Not Detected LAB MICROBIOLOGY METHOD 04/29/2025 1:48 AM EDT [facility] Coronavirus 229E Not Detected Not Detected LAB MICROBIOLOGY METHOD 04/29/2025 1:48 AM EDT [facility] Coronavirus HKU1 Not Detected Not Detected LAB MICROBIOLOGY METHOD 04/29/2025 1:48 AM EDT [facility] Coronavirus OC43 Not Detected Not Detected LAB MICROBIOLOGY METHOD 04/29/2025 1:48 AM EDT [facility] Coronavirus NL63 Not Detected Not Detected LAB MICROBIOLOGY METHOD 04/29/2025 1:48 AM EDT [facility] Parainfluenza Virus 1 Not Detected Not Detected LAB MICROBIOLOGY METHOD 04/29/2025 1:48 AM EDT [facility] Parainfluenza Virus 2 Not Detected Not Detected LAB MICROBIOLOGY METHOD 04/29/2025 1:48 AM EDT [facility] Parainfluenza Virus 3 Not Detected Not Detected LAB MICROBIOLOGY METHOD 04/29/2025 1:48 AM EDT [facility] Parainfluenza Virus 4 Not Detected Not Detected LAB MICROBIOLOGY METHOD 04/29/2025 1:48 AM EDT [facility] RSV PCR Not Detected Not Detected LAB MICROBIOLOGY METHOD 04/29/2025 1:48 AM EDT [facility] Human Metapneumovirus A and B Not Detected Not Detected LAB MICROBIOLOGY METHOD 04/29/2025 1:48 AM EDT [facility] Rhinovirus/Entero virus Not Detected Not Detected LAB MICROBIOLOGY METHOD 04/29/2025 1:48 AM EDT [facility] Bordetella pertussis Not Detected Not Detected LAB MICROBIOLOGY METHOD 04/29/2025 1:48 AM EDT [facility] Bordetella parapertussis Not Detected Not Detected LAB MICROBIOLOGY METHOD 04/29/2025 1:48 AM EDT [facility] Mycoplasma pneumo by PCR Not Detected Not Detected LAB MICROBIOLOGY METHOD 04/29/2025 1:48 AM EDT [facility] Chlamydia pneumoniae Not Detected Not Detected LAB MICROBIOLOGY METHOD 04/29/2025 1:48 AM EDT [facility] SARS COV-2 Not Detected Not Detected LAB MICROBIOLOGY METHOD 04/29/2025 1:48 AM EDT [facility] Swab Both anterior nares / Unknown Non-blood Collection / Unknown 04/29/2025 12:08 AM EDT 04/29/2025 12:57 AM EDT Narrative [facility] - 04/29/2025 1:48 AM EDT Testing was performed using the [employer] Respiratory Pathogen PCR Assay. All results must be correlated with the clinical findings. Results should not be used as the sole basis for diagnosis. False Negative results may occur from the presence of sequence variants in the region targeted by the assay or the presence of inhibitors. Results may be affected by concurrent antiviral/antimicrobial therapy or levels of organisms that are below the limit of detection. Lesley Rios NP LAB MICROBIOLOGY - GENER AL ORDERABLES Final Result [facility] [address] [place] [address], * ECG-Annotated (04/29/2025) us Provider Onbase ECG ORDERABLES Final Result * Vascular US duplex lower extremity venous bilateral (04/28/2025 11:33 PM EDT) Anatomical Region Laterality Modality Vascular, Abdomen Ultrasound 04/29/2025 1:07 AM EDT Addenda Addendum by Jovany Jeffery MD on 04/29/2025 1:13 AM EDT ADDENDUM: This report was discussed with Palak Lopez RN on April 29, 2025 01:12:00 EDT. This document has been electronically signed by: Karla Elliott on 04/29/2025 01:13:10 Impressions 04/29/2025 1:07 AM EDT 1. Acute occlusive left peroneal and posterior tibial vein deep vein thrombosis. 2. No deep vein thrombosis in the right lower extremity. This document has been electronically signed by: Jovany Jeffery MD on 04/29/2025 01:07:09 Narrative 04/29/2025 1:07 AM EDT INDICATION: edema Venous duplex ultrasound bilateral lower extremity Comparison: None Findings: Hypoechoic occlusive thrombus within the left peroneal and posterior tibial veins. Remaining deep veins in both lower extremities are patent with flow and compressibility. No popliteal cysts. Procedure Note Jovany Jeffery MD - 04/29/2025 INDICATION: edema Venous duplex ultrasound bilateral lower extremity Comparison: None Findings: Hypoechoic occlusive thrombus within the left peroneal and posterior tibial veins. Remaining deep veins in both lower extremities are patent with flow and compressibility. No popliteal cysts. IMPRESSION: 1. Acute occlusive left peroneal and posterior tibial vein deep vein thrombosis. 2. No deep vein thrombosis in the right lower extremity. This document has been electronically signed by: Jovany Bellamy MD on 04/29/2025 01:07:09 Ambrose Amador MD CV VASCULAR PROCEDURES Edit ed Result - Final * (ABNORMAL) Troponin I high sensitivity (04/28/2025 8:47 PM EDT) High Sensitivity Troponin I 5,333(HH) <=79 ng/L LAB CHEMISTRY METHOD 04/28/2025 10:22 PM EDT [facility]) [facility] Blood Venous blood specimen / Unknown Venipuncture / Unknown 04/28/2025 8:47 PM EDT 04/28/2025 9:27 PM EDT Narrative [facility] - 04/28/2025 10:22 PM EDT High levels of biotin in samples may falsely decrease hsTroponin values. ??Use caution when interpreting hsTroponin results in patients taking biotin who exhibit renal impairment (eGFR <60) or in patients taking more than 20 mg/day of biotin. us Catalina Avina DO LAB BLOOD ORDERABLES Leni l Result Performing Organization Address City/[facility]/ZIP Co de Phone Number [facility] [address] [place] [address], [place] [phone] * ECG 12 lead (04/28/2025 8:41 PM EDT) Ventricular Rate ECG 110 BPM GEMUSE QRS Duration 104 ms GEMUSE Q-T Interval 378 ms GEMUSE QTc 511 ms GEMUSE R [place] -42 degrees GEMUSE T [place] 175 degrees GEMUSE ECG Interpretation Atrial fibrillation with rapid ventricular response Left axis deviation Minimal voltage criteria for LVH, may be normal variant ( Lefty product ) ST and T wave abnormality, consider lateral ischemia Prolonged QT Abnormal ECG When compared with ECG of 12-DEC-2024 15:49, No significant change was found Confirmed by Reagan VINSON YUFENG ([id number]) on 04/29/2025 5:34:41 PM GEMUSE 04/28/2025 8:41 PM EDT 04/29/2025 5:34 PM EDT us Catalina Avina DO ECG ORDERABLES Final Res ult Performing Organization Address [facility]/ZIP Co de Phone Number [facility] * CT Abdomen Pelvis w Contrast (04/28/2025 8:37 PM EDT) Anatomical Region Laterality Modality Body Computed Tomogra phy 04/28/2025 9:40 PM EDT Impressions 04/28/2025 9:40 PM EDT Hypodense lesion in the area of the pancreatic head likely represents the known pancreatic cancer. Multiple hypodense lesions of the liver are concerning for metastasis. Multiple metastatic peripancreatic and periportal lymph nodes. Small pericardial effusion. Heterogeneous enhancement of the pericardium. Metastasis can not be excluded. Small ascites. Splenic infarction. Additional findings as above. This document has been electronically signed by: Adriano Vinson MD on 04/28/2025 21:40:09 Narrative 04/28/2025 9:40 PM EDT INDICATION: pancreatic ca worsening abd pain CT abdomen and pelvis with contrast Comparison: None Findings: Small pericardial effusion. Heterogeneous enhancement within the pericardium series 5, image 5. There are multiple hypodense lesions of the liver measuring 4.5 x 5 cm axial image 25. No intrahepatic or extrahepatic ductal dilatation is seen. No portal venous thrombosis. No calcified gallstones in the gallbladder. No adrenal nodule. Splenic infarction. 1.1 x 1.2 cm hypodense lesion in the area of pancreatic head series 5, image 63. No suspicious focal lesion of the kidneys. No hydronephrosis. Stone in the left renal pelvis. The abdominal aorta demonstrates no evidence of aneurysmal dilatation or dissection. The colon is normal in appearance and without wall thickening or inflammatory change. Colonic diverticulosis. No evidence of bowel obstruction. Appendix is normal. The pelvic organs are within normal limits. Small ascites. There are multiple enlarged periportal and peripancreatic lymph nodes: 1 x 1.3 cm peripancreatic lymph node axial image 66. There are no osseous or soft tissue abnormalities. Procedure Note Adriano Vinson MD - 04/28/2025 INDICATION: pancreatic ca worsening abd pain CT abdomen and pelvis with contrast Comparison: None Findings: Small pericardial effusion. Heterogeneous enhancement within the pericardium series 5, image 5. There are multiple hypodense lesions of the liver measuring 4.5 x 5 cm axial image 25. No intrahepatic or extrahepatic ductal dilatation isseen. No portal venous thrombosis. No calcified gallstones in the gallbladder. No adrenal nodule. Splenic infarction. 1.1 x 1.2 cm hypodense lesion in the area of pancreatic head series 5, image 63. No suspicious focal lesion of the kidneys. No hydronephrosis. Stone inthe left renal pelvis. The abdominal aorta demonstrates no evidence of aneurysmal dilatation or dissection. The colon is normal in appearance and without wall thickening or inflammatory change. Colonic diverticulosis. No evidence of bowel obstruction. Appendix is normal. The pelvic organs are within normal limits. Small ascites. There are multiple enlarged periportal and peripancreatic lymph nodes: 1 x 1.3 cm peripancreatic lymph node axial image 66. There are no osseous or soft tissue abnormalities. IMPRESSION: Hypodense lesion in the area of the pancreatic head likely representsthe known pancreatic cancer. Multiple hypodense lesions of the liver are concerning for metastasis. Multiple metastatic peripancreatic and periportal lymph nodes. Small pericardial effusion. Heterogeneous enhancement of thepericardium. Metastasis can not be excluded. Small ascites. Splenic infarction. Additional findings as above. This document has been electronically signed by: Adriano Vinson MD on 04/28/2025 21:40:09 us [facility] Benjamin Avina DO IMG CT PROCEDURES Final R esult * CT Angio Chest wo and/or w Contrast (04/28/2025 8:37 PM EDT) Anatomical Region Laterality Modality Body Computed Tomogra phy 04/28/2025 9:23 PM EDT Addenda Addendum by Adriano Vinson MD on 04/28/2025 9:28 PM EDT ADDENDUM: This report was discussed with Dr. Avina on April 28, 2025 21:28:00 EDT. This document has been electronically signed by: Alexus Segura on 04/28/2025 21:28:13 Impressions 04/28/2025 9:23 PM EDT Acute pulmonary embolism of the right upper and middle lobe pulmonary arteries. Numerous bilateral pulmonary nodules, suspicious for pulmonary metastases. Clinical correlation is recommended. Possible contrast filling defect in the left atrium. Correlation with echocardiogram findings as indicated. This document has been electronically signed by: Adriano Vinson MD on 04/28/2025 21:23:46 Narrative 04/28/2025 9:23 PM EDT INDICATION: PE suspected, high prob CT angiography chest with contrast. 3D Postprocessing. Comparison: None Findings: Heart is enlarged. Possible contrast filling defect in the left atrium series 2, image 349. The thoracic aorta is normal caliber. Contrast filling defects in the right upper and middle lobe lobar and segmental pulmonary arteries. There are subcentimeter mediastinal lymph nodes. There are numerous bilateral pulmonary nodules: 5.7 mm in the right middle lobe series 4, image 37. The bones are intact. Procedure Note Adriano Vinson MD - 04/28/2025 INDICATION: PE suspected, high prob CT angiography chest with contrast. 3D Postprocessing. Comparison: None Findings: Heart is enlarged. Possible contrast filling defect in the left atrium series 2, image 349. The thoracic aorta is normal caliber. Contrast filling defects in the right upper and middle lobe lobar and segmental pulmonary arteries. There are subcentimeter mediastinal lymph nodes. There are numerous bilateral pulmonary nodules: 5.7 mm in the rightmiddle lobe series 4, image 37. The bones are intact. IMPRESSION: Acute pulmonary embolism of the right upper and middle lobe pulmonary arteries. Numerous bilateral pulmonary nodules, suspicious for pulmonarymetastases. Clinical correlation is recommended. Possible contrast filling defect in the left atrium. Correlation with echocardiogram findings as indicated. This document has been electronically signed by: Adriano Vinson MD on 04/28/2025 21:23:46 [facility] PROCEDURES Edited Result - Final * (ABNORMAL) Procalcitonin (04/28/2025 7:17 PM EDT) Procalcitonin 2.45(H) <=0.16 ng/mL LAB CHEMISTRY METHOD 04/29/2025 8:57 AM EDT [facility] Blood Venous blood specimen / Unknown Venipuncture / Unknown 04/28/2025 7:17 PM EDT 04/28/2025 7:26 PM EDT Narrative [facility] - 04/29/2025 8:57 AM EDT Procalcitonin > 2.00 ng/ml: Procalcitonin Levels above 2.00 ng/ml, on the first day of ICU admission represent a high risk for progression to severe sepsis and/or septic shock. Procalcitonin < 0.50 ng/ml: Procalcitonin levels below 0.50 ng/ml on the first day of ICU admission represent a low risk for progression to severe sepsis and/or septic shock. Concentrations <0.5 ng/mL do not exclude an infection, on account of local ized infections (without systemic signs) which can be associated with such low concentrations, or a systemic infection in its initial stages (<6 hours). Furthermore, increased procalcitonin can occur without infection. PCT concentrations between 0.5 and 2.0 ng/mL should be interpreted taking into account the patient's history. It is recommended to retest PCT within 6-24 hours if any concentrations <2.0 ng/mL are obtained. Lesley Rios NP LAB BLOOD ORDERABLES Fin al Result Performing Organization Address [facility] Co de Phone Number [facility] [address] [place] [address], * Ethanol (04/28/2025 7:17 PM EDT) Ethanol Level 4 0 - 10 mg/dL LAB CHEMISTRY METHOD 04/29/2025 12:12 AM EDT [facility] Blood Venous blood specimen / Unknown Venipuncture / Unknown 04/28/2025 7:17 PM EDT 04/28/2025 7:26 PM EDT Lesley Rios CUSTOMER [employer]PERATIONS REPRESENTATIVE LAB BLOOD ORDERABLES Fin al Result Performing Organization Address [facility] Co de Phone Number [facility] [address] [place] [address], [place] [phone] * Thyroid stimulating hormone with reflex to free t4 and free t3 (TSH Reflex) (04/28/2025 7:17 PM EDT) TSH 3.29 0.40 - 4.00 mcIU/mL LAB CHEMISTRY METHOD 04/28/2025 8:10 PM EDT [facility] Blood Venous blood specimen / Unknown Venipuncture / Unknown 04/28/2025 7:17 PM EDT 04/28/2025 7:26 PM EDT [facility] Benjamin Avina LAB BLOOD ORDERABLES Leni l Result Performing Organization Address [facility]/ZIP Co de Phone Number [facility] [address] [place] [address], [place] [phone] * (ABNORMAL) Ammonia (04/28/2025 7:17 PM EDT) Ammonia 86(H) 11 - 35 mcmol/L LAB CHEMISTRY METHOD 04/28/2025 9:27 PM EDT [facility] Blood Venous blood specimen / Unknown Venipuncture / Unknown 04/28/2025 7:17 PM EDT 04/28/2025 7:26 PM EDT [facility] Sachin Avina LAB BLOOD ORDERABLES Leni l Result Performing Organization Address [facility] de Phone Number [facility] [address] [place] [address], [place] [phone] * Activated Partial Thromboplastin Time - STAT (04/28/2025 7:11 PM EDT) aPTT 33.0 24.1 - 39.3 sec LAB COAGULATION METHOD 04/28/2025 9:13 PM EDT [facility] Blood Venous blood specimen / Unknown Venipuncture / Unknown 04/28/2025 7:11 PM EDT 04/28/2025 7:27 PM EDT [facility] Sachin [facility] LAB BLOOD ORDERABLES Leni l Result Performing Organization Address [facility]/ZIP Co de Phone Number [facility] [address] [place] [address], [place] [phone] * (ABNORMAL) Anti-Xa - STAT (04/28/2025 7:11 PM EDT) [facility] Heparin Anti-Xa <0.04(L) 0.30 - 0.70 I Unit/mL LAB COAGULATION METHOD 04/28/2025 9:15 PM EDT [facility] Blood Venous blood specimen / Unknown Venipuncture / Unknown 04/28/2025 7:11 PM EDT 04/28/2025 7:27 PM EDT Narrative [facility] - 04/28/2025 9:15 PM EDT Therapeutic range listed is for Unfractionated Heparin. LMW Heparin therapeutic range: 0.50-1.20 IU/mL us Arnold Benjamin Sachin Fabrice DO LAB BLOOD ORDERABLES Leni l Result Performing Organization Address [facility]/ZIP Co de Phone Number [facility] [address] [place] [address], [place] [phone] * (ABNORMAL) Protime-INR (04/28/2025 7:11 PM EDT) [facility] Protime 14.9(H) 10.6 - 13.9 sec LAB COAGULATION METHOD 04/28/2025 7:35 PM EDT [facility] INR 1.2 LAB COAGULATION METHOD 04/28/2025 7:35 PM EDT [facility] Blood Venous blood specimen / Unknown Venipuncture / Unknown 04/28/2025 7:11 PM EDT 04/28/2025 7:27 PM EDT Catalina Avina DO LAB BLOOD ORDERABLES Leni l Result [facility] [address] [place] [address], [place] [phone] * (ABNORMAL) CBC auto differential (04/28/2025 7:11 PM EDT) [facility] WBC 11.1(H) 4.8 - 10.8 K/mcL LAB HEMETOLOGY METHOD [facility]/28[facility]2025 [facility] RBC 4.60 4.50 - 5.50 M/mcL LAB HEMETOLOGY METHOD 04/28/2025 7:34 PM [facility] Hemoglobin 12.6(L) 13.5 - 17.5 g/dL LAB HEMETOLOGY METHOD 04/28/2025 7:34 PM [facility] Hematocrit 40.4(L) 42.0 - 54.0 % LAB HEMETOLOGY METHOD 04/28/2025 7:34 PM [facility] MCV 88.0 79.0 - 98.0 FL LAB HEMETOLOGY METHOD 04/28/2025 7:34 PM [facility] MCH 27.5 27.0 - 32.0 pcg LAB HEMETOLOGY METHOD 04/28/2025 7:34 PM [facility] MCHC 31.2(L) 32.0 - 37.0 g/dL LAB HEMETOLOGY METHOD 04/28/2025 7:34 PM [facility] RDW 17.0(H) 11.0 - 15.0 % LAB HEMETOLOGY METHOD 04/28/2025 7:34 PM [facility] Platelets 203 130 - 400 K/[facility] LAB HEMETOLOGY METHOD 04/28/2025 7:34 PM [facility] MPV 12.5(H) 7.0 - 11.0 FL LAB HEMETOLOGY METHOD 04/28/2025 7:34 [facility] NRBC 0.0 <1.0 % LAB HEMETOLOGY METHOD 04/28/2025 7:34 PM [facility] NRBC Absolute 0.00 <0.10 K/[facility] LAB HEMETOLOGY METHOD 04/28/2025 7:34 PM T [facility] Neutrophils Relative 80.4 % LAB HEMETOLOGY METHOD 04/28/2025 7:34 PM [facility] Lymphocytes Relative 7.4 % LAB HEMETOLOGY METHOD 04/28/2025 7:34 PM [facility] Monocytes Relative 10.2 % LAB HEMETOLOGY METHOD 04/28/2025 7:34 PM [facility] Eosinophils Relative 1.1 % LAB HEMETOLOGY METHOD 04/28/2025 7:34 PM [facility] Basophils Relative 0.4 % LAB HEMETOLOGY METHOD 04/28/2025 7:34 PM [facility] Immature Granulocytes Relative 0.5 % LAB HEMETOLOGY METHOD 04/28/2025 7:34 PM [facility] Neutrophils Absolute 8.93(H) 1.50 - 7.00 K/mcL LAB HEMETOLOGY METHOD 04/28/2025 7:34 PM [facility] Lymphocytes Absolute 0.82(L) 1.00 - 5.00 K/mcL LAB HEMETOLOGY METHOD 04/28/2025 7:34 PM [facility] Monocytes Absolute 1.13(H) 0.20 - 1.00 K/mcL LAB HEMETOLOGY METHOD 04/28/2025 7:34 PM [facility] Eosinophils Absolute 0.12 0.00 - 0.50 K/mcL LAB HEMETOLOGY METHOD 04/28/2025 7:34 PM [facility] Basophils Absolute 0.04 0.00 - 0.20 K/mcL LAB HEMETOLOGY METHOD 04/28/2025 7:34 PM [facility] Immature Granulocytes Absolute 0.05(H) 0.00 - 0.03 K/mcL LAB HEMETOLOGY METHOD 04/28/2025 7:34 PM EDT [facility] Blood Venous blood specimen / Unknown Venipuncture / Unknown 04/28/2025 7:11 PM EDT 04/28/2025 7:27 PM EDT us Catalina Avina LAB BLOOD ORDERABLES Leni l Result Performing Organization Address [facility]/ZIP Co de Phone Number [facility] [address] [place] [address], [place] [phone] * (ABNORMAL) B-type natriuretic peptide (04/28/2025 7:11 PM EDT) BNP 2,653(H) <=100 pcg/mL LAB CHEMISTRY METHOD 04/28/2025 8:32 PM EDT [facility] Blood Venous blood specimen / Unknown Venipuncture / Unknown 04/28/2025 7:11 PM EDT 04/28/2025 7:27 PM EDT Catalina Avina LAB BLOOD ORDERABLES Leni l Result Performing Organization Address [facility] Co de Phone Number [facility] [address] [place] [address], [place] [phone] * Magnesium (04/28/2025 7:11 PM EDT) Magnesium 2.1 1.9 - 2.6 mg/dL LAB CHEMISTRY METHOD 04/28/2025 8:02 PM EDT [facility] Blood Venous blood specimen / Unknown Venipuncture / Unknown 04/28/2025 7:11 PM EDT 04/28/2025 7:27 PM EDT us Catalina Avina LAB BLOOD ORDERABLES Leni l Result Performing Organization Address City/[facility]/ZIP Co de Phone Number [facility] [address] [place] [address], [place] [phone] * Lipase (04/28/2025 7:11 PM EDT) Pathologist [facility] Lipase 60 13 - 75 unit/L LAB CHEMISTRY METHOD 04/28/2025 8:02 PM [facility] Blood Venous blood specimen / Unknown Venipuncture / Unknown 04/28/2025 7:11 PM EDT 04/28/2025 7:27 PM EDT Catalina Avina DO LAB BLOOD ORDERABLES Leni l Result [facility] [address] [place] [address], [place] [phone] * (ABNORMAL) Comprehensive metabolic panel (04/28/2025 7:11 PM EDT) [facility] Sodium 139 133 - 145 mmol/L LAB CHEMISTRY METHOD 04/28/2025 8:12 PM [facility] Potassium 5.0 3.5 - 5.5 mmol/L LAB CHEMISTRY METHOD 04/28/2025 8:12 PM [facility] Chloride 105 96 - 110 mmol/L LAB CHEMISTRY METHOD 04/28/2025 8:12 PM [facility] CO2 27 21 - 32 mmol/L LAB CHEMISTRY METHOD 04/28/2025 8:12 PM [facility] Anion Gap 7 3 - 11 LAB CHEMISTRY METHOD 04/28/2025 8:12 PM [facility] Glucose 127(H) 70 - 100 mg/dL LAB CHEMISTRY METHOD 04/28/2025 8:12 PM [facility] BUN 30(H) 5 - 25 mg/dL LAB CHEMISTRY METHOD 04/28/2025 8:12 PM [facility] Creatinine 1.80(H) 0.70 - 1.30 mg/dL LAB CHEMISTRY METHOD 04/28/2025 8:12 PM [facility] eGFR 39(L) >=60 mL/min/1. 73m2 LAB CHEMISTRY METHOD 04/28/2025 8:12 PM [facility] Comment:Calculation based on the Chronic Kidney Disease Epidemiology Collaboration (CKD-EPI) equation refit without adjustment for race. BUN/Creatinine Ratio 16.7 LAB CHEMISTRY METHOD 04/28/2025 8:12 PM [facility] Calcium 8.7 8.5 - 10.5 mg/dL LAB CHEMISTRY METHOD 04/28/2025 8:12 PM [facility] AST (SGOT) 29 10 - 42 unit/L LAB CHEMISTRY METHOD 04/28/2025 8:12 PM [facility] ALT (SGPT) 18 10 - 60 unit/L LAB CHEMISTRY METHOD 04/28/2025 8:12 PM [facility] Alkaline Phosphatase 402(H) 42 - 121 unit/L LAB CHEMISTRY METHOD 04/28/2025 8:12 PM [facility] Total Protein 6.7 6.0 - 8.0 g/dL LAB CHEMISTRY METHOD 04/28/2025 8:12 PM [facility] Albumin 2.3(L) 3.2 - 5.0 g/dL LAB CHEMISTRY METHOD 04/28/2025 8:12 PM [facility] Total Bilirubin 1.0 0.0 - 1.4 mg/dL LAB CHEMISTRY METHOD 04/28/2025 8:12 PM [facility] Blood Venous blood specimen / Unknown Venipuncture / Unknown 04/28/2025 7:11 PM EDT 04/28/2025 7:27 PM EDT us Catalina Avina DO LAB BLOOD ORDERABLES Leni l Result [facility] [address] [place] [address], [place] [phone] * (ABNORMAL) Troponin I high sensitivity (04/28/2025 7:11 PM EDT) High Sensitivity Troponin I 5,865(HH) <=79 ng/L LAB CHEMISTRY METHOD 04/28/2025 8:43 PM EDT [facility] Blood Venous blood specimen / Unknown Venipuncture / Unknown 04/28/2025 7:11 PM EDT 04/28/2025 7:27 PM EDT Narrative [facility] - 04/28/2025 8:43 PM EDT High levels of biotin in samples may falsely decrease hsTroponin values. ??Use caution when interpreting hsTroponin results in patients taking biotin who exhibit renal impairment (eGFR <60) or in patients taking more than 20 mg/day of biotin. Catalina Avina DO LAB BLOOD ORDERABLES Leni victor hugo Result [facility] [address] [place] [address], documented in this encounter Visit Diagnoses Diagnosis Acute pulmonary embolism ([facility] V24, [facility] V28)- Primary Dyspnea, unspecified type Other acute pulmonary embolism, unspecified whether acute cor pulmonale present ([facility] V24, [facility] V28) NSTEMI (non-ST elevated myocardial infarction) ([facility] V24, [facility] V28) Acute myocardial infarction, subendocardial infarction, episode of care unspecified Pancreatic adenocarcinoma ([facility] V24, [facility] V28) Malignant neoplasm of pancreas, part unspecified Acute pulmonary embolism with acute cor pulmonale, unspecified pulmonary embolism type ([facility] V24, [facility] V28) Elevated troponin Other abnormal blood chemistry Left atrial mass Left atrial mass A-fib ([facility] V24, [facility] V28) Atrial fibrillation Type 2 acute myocardial infarction ([facility] V24, [facility] V28) Chronic HFrEF (heart failure with reduced ejection fraction) ([facility] V24, [facility] V28) documented in this encounter Admitting Diagnoses Diagnosis Acute pulmonary embolism ([facility] V24, [facility] V28) documented in this encounter Administered Medications Inactive Administered Medications - up to 3 most recent administrations Medication Order MAR Action Action Date Dose Rate Site acetaminophen (TYLENOL) tablet 650 mg 650 mg, oral, Every 4 hours PRN, mild pain, headaches, fever - temperature GREATER than 38 C (100.4 F), Starting on Sat04/28/25 at 2235 Given 04/30/2025 10:25 PM EDT 650 mg Given 04/30/2025 6:33 PM EDT 650 mg Given 04/30/2025 10:58 AM EDT 650 mg albuterol 2.5 mg /3 mL (0.083 %) nebulizer solution 2.5 mg 2.5 mg, nebulization, Every 4 hours PRN, wheezing, shortness of breath, Starting on Sat04/29/25 at 0125 Given 04/29/2025 3:53 AM EDT 2.5 mg apixaban (ELIQUIS) tablet 5 mg 5 mg, oral, 2 times daily, First dose on Sat04/30/25 at 2130, Indication: VTE/PE Treatment Given 05/01/2025 8:47 AM EDT 5 mg Given 04/30/2025 8:45 PM EDT 5 mg aspirin EC tablet 81 mg 81 mg, oral, Daily, First dose on Sat04/29/25 at 1330, Do not crush, chew, or split. Given 05/01/2025 8:48 AM EDT 81 mg Given 04/30/2025 9:03 AM EDT 81 mg Given 04/29/2025 1:43 PM EDT 81 mg atorvastatin (LIPITOR) tablet 80 mg 80 mg, oral, Daily, First dose on Sat04/29/25 at 0900 Given 05/01/2025 8:47 AM EDT 80 mg Given 04/30/2025 9:03 AM EDT 80 mg Given 04/29/2025 9:31 AM EDT 80 mg dextrose (D50W) 50% injection 12.5 g 12.5 g, intravenous, Every 15 min PRN, low blood sugar, moderate hypoglycemia *Patient is Unconscious, NPO, unable to swallow: BG 54 - 69 mg/dl*, Starting on Sat04/29/25 at 0144 dextrose (D50W) 50% injection 25 g 25 g, intravenous, Every 15 min PRN, low blood sugar, severe hypoglycemia *Patient is Unconscious, NPO, unable to swallow: BG LESS than 54 mg/dL*, Starting on Yolanda 04/29/25 at 0144 dextrose 15 gram/60 mL oral solution 15 g 15 g, oral, Every 15 min PRN, low blood sugar, hypoglycemia *Patient conscious AND able to drink and swallow safely*, Starting on Yolanad 04/29/25 at 0144 dextrose 15 gram/60 mL oral solution 30 g 30 g, oral, Every 15 min PRN, low blood sugar, hypoglycemia *Patient conscious AND able to drink and swallow safely*, Starting on Yolanda 04/29/25 at 0144 furosemide (LASIX) injection 20 mg 20 mg, intravenous, Once, On Sat04/28/25 at 2041, For 1 dose Given 04/28/2025 9:17 PM EDT 20 mg furosemide (LASIX) injection 20 mg 20 mg, intravenous, BID Diuretic, First dose on Yolanda 04/29/25 at 0900 Given 04/29/2025 9:31 AM EDT 20 mg furosemide (LASIX) tablet 20 mg 20 mg, oral, BID Diuretic, First dose on Sat04/30/25 at 0900 Given 05/01/2025 8:47 AM EDT 20 mg Given 04/30/2025 4:30 PM EDT 20 mg Given 04/30/2025 9:03 AM EDT 20 mg Glucagon HCl (rDNA) injection 1 mg 1 mg, intramuscular, Once as needed, low blood sugar, severe hypoglycemia, Starting on Yolanda 04/29/25 at 0144, For 1 dose heparin (UFH) bolus from infusion 3,150 Units 3,150 Units, intravenous, Once, On Sat04/28/25 at 2133, For 1 dose, *Initial bolus for patients LESS than 100 kg* *Maximum dose 8000 units* Bolus from infusion. Suggested bolus infusion time is over 10 minutes., Indication: Treatment of Venous Thromboembolism (i.e. VTE,PE) Bolus from Bag 04/28/2025 9:46 PM EDT 3,150 Units heparin (UFH) bolus from infusion 3,850 Units 3,850 Units (44 Units/kg ? 87.5 kg), intravenous, Once, On Sat04/28/25 at 2050, For 1 dose, *Initial bolus for patients GREATER than 87 kg and LESS than OR equal to 95.2 kg* Bolus from infusion. Suggested bolus infusion time is over 10 minutes., Indication: Treatment of Cardiac / ACS Bolus from Bag 04/28/2025 9:24 PM EDT 3,850 Units heparin infusion 100 units/mL in D5W 11 Units/kg/hr ? 87.5 kg (9.625 mL/hr, rounded to 9.6 mL/hr), intravenous, Continuous, Starting on Sat04/28/25 at 2050 New Bag 04/28/2025 9:20 PM EDT 11 Units/kg/hr 9.6 mL/hr heparin infusion 100 units/mL in D5W 18 Units/kg/hr ? 87.5 kg (15.75 mL/hr, rounded to 15.8 mL/hr), intravenous, Continuous, Starting on Sat04/28/25 at 2132, For 2 days New Bag 04/30/2025 6:36 PM EDT 17 Units/kg/hr 14.9 mL/hr New Bag 04/30/2025 1:28 AM EDT 17 Units/kg/hr 14.9 mL/h r New Bag 04/29/2025 9:45 AM EDT 17 Units/kg/hr 14.9 mL/h r HYDROmorphone (PF) injection 0.5 mg 0.5 mg, intravenous, Once, On Sat04/28/25 at 1856, For 1 dose Given 04/28/2025 7:21 PM EDT 0.5 mg insulin lispro injection 1-6 Units 1-6 Units, subcutaneous, 4 times daily before meals and nightly, First dose on Sat04/29/25 at 0300, Indication: Total Daily Dose (TDD) LESS than 40 units Correction Scale: Low Dose Administer with meal and/or mealtime dose of insulin to correct high blood glucose If mealtime insulin dose not given (e.g. patient NPO or not eating), still administer correction factor for high blood glucose Given 05/01/2025 12:57 PM EDT 1 Units Left Upper Arm (Back ) Given 04/30/2025 4:36 PM EDT 1 Units Ot her Given 04/29/2025 4:48 PM EDT 1 Units Ri ght Upper Arm (Back) iopamidoL (ISOVUE-370) 370 mg iodine /mL (76 %) injection 90 mL 90 mL, intravenous, Once in imaging, Starting on Sat04/28/25 at 2025, For 1 dose Given 04/28/2025 8:26 PM EDT 90 mL ipratropium-albuteroL (DUONEB) 0.5-2.5 mg/3 mL nebulizer solution 3 mL 3 mL, nebulization, Once, On Sat04/28/25 at 1855, For 1 dose Given 04/28/2025 7:18 PM EDT 3 mL ipratropium-albuteroL (DUONEB) 0.5-2.5 mg/3 mL nebulizer solution 3 mL 3 mL, nebulization, 3 times daily, First dose on Sat04/29/25 at 0800 Given 05/01/2025 1:14 PM EDT 3 mL Given 05/01/2025 8:02 AM EDT 3 mL Given 04/30/2025 9:42 PM EDT 3 mL lactulose (CHRONULAC) solution 20 g 20 g, oral, 3 times daily, First dose on Sat04/29/25 at 0015 Given 05/01/2025 8:48 AM EDT 20 g Given 04/30/2025 8:46 PM EDT 20 g Given 04/29/2025 9:40 PM EDT 20 g metoprolol succinate (TOPROL-XL) 24 Hour tablet 150 mg 150 mg, oral, Daily, First dose on Sat04/29/25 at 0900, Do not crush or chew. Given 05/01/2025 8:48 AM EDT 150 m g Given 04/30/2025 6:55 AM EDT 150 mg Given 04/29/2025 9:31 AM EDT 150 mg metoprolol tartrate (LOPRESSOR) injection 5 mg 5 mg, intravenous, Every 6 hours PRN, high blood pressure, For sustained HR>130, Starting on 05/01/25 at 0917, For IV Push - Administer undiluted over 2 minutes perflutren lipid microsphere (DEFINITY) 1.3 mL in sodium chloride 0.9% 8.7 mL injection 10 mL, intravenous, Administer over 10 Minutes, Once in imaging, Starting on Sat04/29/25 at 1159, For 1 dose, CV Medication Orders Given 04/29/2025 11:59 AM EDT 3 mL prochlorperazine (COMPAZINE) injection 10 mg 10 mg, intravenous, Every 6 hours PRN, nausea, vomiting, Starting on Sat04/28/25 at 2235, 2nd Line Option: -ONLY give IV if patient is unable to take orally. -Give IM if patient does not have IV Access -If inadequate response within 30 minutes, proceed to next-line agent or contact provider if no further options ordered. prochlorperazine (COMPAZINE) suppository 25 mg 25 mg, rectal, Every 12 hours PRN, nausea, vomiting, Starting on Sat04/28/25 at 2235, 2nd Line Option: -ONLY give AL if patient is unable to take orally and cannot receive IV/IM. -If inadequate response within 30 minutes, proceed to next-line agent or contact provider if no further options ordered. prochlorperazine (COMPAZINE) tablet 10 mg 10 mg, oral, Every 6 hours PRN, nausea, vomiting, Starting on Sat04/28/25 at 2235, 2nd Line Option: -Give IV or IM if patient is unable to take orally. -If inadequate response within 30 minutes, proceed to next-line agent or contact provider if no further options ordered. sacubitriL-valsartan (ENTRESTO) 24-26 mg per tablet 1 tablet 1 tablet, oral, 2 times daily, First dose on Yolanda 04/29/25 at 0300, Contraindicated in combination with SHIRA inhibitors. Ensure a minimum of 36 hours between any SHIRA inhibitor dose and sacubitril-valsartan. Given 05/01/2025 8:47 AM EDT 1 t ablet Given 04/30/2025 8:45 PM EDT 1 tablet Given 04/30/2025 9:03 AM EDT 1 tablet sodium chloride 0.9 % flush 10 mL 10 mL, intravenous, Once, On Sat04/28/25 at 2026, For 1 dose Given 04/28/2025 8:26 PM EDT 10 mL sodium chloride 0.9 % flush 10 mL 10 mL, intravenous, 2 times daily, First dose on Sat04/28/25 at 2237 Given 05/01/2025 8:47 AM EDT 10 mL Given 04/30/2025 8:46 PM EDT 10 mL Given 04/30/2025 9:06 AM EDT 10 mL sodium chloride 0.9 % flush 10 mL 10 mL, intravenous, As needed, line care, Starting on Sat04/28/25 at 2235 trimethobenzamide (TIGAN) injection 200 mg 200 mg, intramuscular, Every 6 hours PRN, nausea, Starting on Sat04/28/25 at 2335 documented in this encounter Discontinued Medications Medication Sig Discontinue Reason Start Date End Da te metoprolol succinate (TOPROL-XL) 50 mg 24 hr tablet TAKE 1 TABLET BY MOUTH DAILY 11/04/2024 04/29/2025 predniSONE (DELTASONE) 50 mg tablet Take 1 tablet (50 mg total) by mouth 1 (one) time each day. See instructions. 12/12/2024 04/29/2025 albuterol HFA (PROAIR HFA ; PROVENTIL HFA ; VENTOLIN HFA) 90 mcg/actuation inhaler 1 (one) time each day. 09/09/2015 albuterol 2.5 mg /3 mL (0.083 %) nebulizer solution Take 3 mL (2.5 mg total) by nebulization every 6 (six) hours if needed for wheezing. 12/12/2024 05/01/2025 lisinopril (PRINIVIL,ZESTRIL) 40 mg tablet Take 40 mg by mouth daily. Stop Taking at Discharge 05/01/2025 apixaban (Eliquis) 5 mg tablet TAKE 1 TABLET BY MOUTH TWICE DAILY Stop Taking at Discharge 11/04/2024 05/01/2025 NIFEdipine CC (ADALAT CC) 60 mg 24 hr tablet TAKE 1 TABLET BY MOUTH DAILY Stop Taking at Discharge 04/02/2025 05/01/2025 documented as of this encounter Historical Medications * This list may reflect changes made after this encounter. aspirin 81 mg EC tablet Take 1 tablet (81 mg total) by mouth 1 (one) time each day. 01/30/2019 metoprolol succinate (TOPROL-XL) 50 mg 24 hr tablet Take 3 tablets (150 mg total) by mouth 1 (one) time each day. 04/08/2025 Entresto 24-26 mg per tablet Take 1 tablet by mouth 2 (two) times a day. 04/08/2025 added in this encounter Active and Recently Administered Medications Times are shown in EDT. Scheduled Medication Order 04/29/2025 04/30/2025 05/01/2025 apixaban (ELIQUIS) tablet 5 mg 5 mg, oral, 2 times daily, First dose on Sat04/30/25 at 2130, Indication: VTE/PE Treatment 2044 (Given - Provider: Adrienne Sy RN) 0847 (Given - Provider: Crissy Greene, RN) aspirin EC tablet 81 mg 81 mg, oral, Daily, First dose on Yolanda 04/29/25 at 1330, Do not crush, chew, or split. 1343 (Given - Provider: Gia Batista RN) 0903 (Given - Provider: So Richards RN) 0848 (Given - Provider: Cirssy Greene, RN) atorvastatin (LIPITOR) tablet 80 mg 80 mg, oral, Daily, First dose on Yolanda 04/29/25 at 0900 0931 (Given - Provider: Gia Batista RN) 0903 (Given - Provider: So Richards RN) 0847 (Given - Provider: Crissy Greene, SEBASTIÁN) dapagliflozin propanediol (FARXIGA) tablet 10 mg 10 mg, oral, Daily, First dose on Yolanda 04/29/25 at 0900, Was patient receiving dapagliflozin prior to admission for the treatment of HEART FAILURE? (See order restrictions above): Yes, On hold since Sat04/29/2025 at 0319 until manually unheld 031 (Held by provider - Provider: SHOBHA Ashley - Reason: Other - Comment: Dose can not be confirmed. 5 mg vs 10 mg. Hold at this time)0900 (Not Given - Provider: Gia Batista RN - Reason: See Provider Order) 0900 (Hold - Provider: Xochilt Bashir RN - Reason: See Provider Order) 0900 (Hold - Provider: Crissy Greene RN - Reason: Other - Comment: held by provider)1706 (Unheld by provider - Provider: Automatic Discharge Provider) furosemide (LASIX) injection 20 mg (CANCELED) 20 mg, intravenous, BID Diuretic, First dose on Yolanda 04/29/25 at 0900 0931 (Given - Provider: Gia Batista RN) furosemide (LASIX) tablet 20 mg 20 mg, oral, BID Diuretic, First dose on Sat04/30/25 at 0900 0903 (Given - Provider: So Richards RN)1630 (Given - Provider: So Richards RN) 0847 (Given - Provider: Crissy Greene RN)1700 (Canceled Entry - Provider: Automatic Discharge Provider - Comment: Automatically canceled at discontinue of medication order) insulin lispro injection 1-6 Units 1-6 Units, subcutaneous, 4 times daily before meals and nightly, First dose on Sat04/29/25 at 0300, Indication: Total Daily Dose (TDD) LESS than 40 units Correction Scale: Low Dose Administer with meal and/or mealtime dose of insulin to correct high blood glucose If mealtime insulin dose not given (e.g. patient NPO or not eating), still administer correction factor for high blood glucose 0307 (Given - Provider: Adrienne Sy RN)0757 (Not Given - Provider: Gia Batista RN - Reason: Order parameters not met)1207 (Not Given - Provider: Gia Batista RN - Reason: Order parameters not met)1648 (Given - Provider: Gia Batista RN)2132 (Not Given - Provider: Ko Alejo RN - Reason: Order parameters not met) 0906 (Not Given - Provider: So Richards RN - Reason: Order parameters not met)1248 (Not Given - Provider: So Richards RN - Reason: Order parameters not met)1636 (Given - Provider: So Richards RN)2045 (Not Given - Provider: Adrienne Sy RN - Reason: Order parameters not met - Comment: 103) 0848 (Not Given - Provider: Crissy Greene RN - Reason: Order parameters not met - Comment: Sugar [phone] (Given - Provider: Crissy Greene RN)1630 (Canceled Entry - Provider: Automatic Discharge Provider - Comment: Automatically canceled at discontinue of medication order) ipratropium-albuteroL (DUONEB) 0.5-2.5 mg/3 mL nebulizer solution 3 mL 3 mL, nebulization, 3 times daily, First dose on Sat04/29/25 at 0800 0737 (Given - Provider: Christi Park, GATE TENDER)1323 (Given - Provider: Christi Park GATE TENDER)2111 (Given - Provider: Asia Good RRT) 0755 (Given - Provider: Ruth Bey RRT)1337 (Given - Provider: Ruth Bey, CHANTEL)2142 (Given - Provider: Asia Good, GATE TENDER) 0802 (Given - Provider: Bella Richards, CHANTEL)1314 (Given - Provider: Bella Richards RRT) lactulose (CHRONULAC) solution 20 g 20 g, oral, 3 times daily, First dose on Yolanda 04/29/25 at 0015 0124 (Given - Provider: Adrienne Sy RN)0931 (Given - Provider: Gia Batista RN)1344 (Given - Provider: Gia Batista, RN)2140 (Given - Provider: Ko Alejo, RN) 0905 (Not Given - Provider: So Richards RN - Reason: Patient/Resident/Ag ent refused - education provided )1338 (Not Given - Provider: So Richards RN - Reason: Patient/Resident/Ag ent refused - education provided - Comment: pt was educated on the importance of taking the medication)2046 (Given - Provider: Adrienne Sy RN) 0848 (Given - Provider: Crissy Greene, SEBASTIÁN)1400 (Canceled Entry - Provider: Automatic Discharge Provider - Comment: Automatically canceled at discontinue of medication order) metoprolol succinate (TOPROL-XL) 24 Hour tablet 150 mg 150 mg, oral, Daily, First dose on Yolanda 04/29/25 at 0900, Do not crush or chew. 0931 (Given - Provider: Gia Batista, RN) 0655 (Given - Provider: Ko Alejo, SEBASTIÁN - Comment: given early per LORETA) 0848 (Given - Provider: Crissy Greene, SEBASTIÁN) perflutren lipid microsphere (DEFINITY) 1.3 mL in sodium chloride 0.9% 8.7 mL injection (COMPLETED) 10 mL, intravenous, Administer over 10 Minutes, Once in imaging, Starting on Yolanda 04/29/25 at 1159, For 1 dose, CV Medication Orders 1159 (Given - Provider: Roshni Contreras) sacubitriL-valsartan (ENTRESTO) 24-26 mg per tablet 1 tablet 1 tablet, oral, 2 times daily, First dose on Sat04/29/25 at 0300, Contraindicated in combination with SHIRA inhibitors. Ensure a minimum of 36 hours between any SHIRA inhibitor dose and sacubitril-valsartan. 0308 (Given - Provider: Adrienne Sy, RN)2140 (Given - Provider: Ko Alejo RN) 0903 (Given - Provider: So Richards RN)204 (Given - Provider: Adrienne Sy, RN) 0847 (Given - Provider: Crissy Greene, RN) sodium chloride 0.9 % flush 10 mL(Linked Group 1) 10 mL, intravenous, 2 times daily, First dose on Sat04/28/25 at 2237 0055 (Canceled Entry - Provider: Adrienne Sy RN)1214 (Given - Provider: Gia Batista, RN)214 (Given - Provider: Ko Alejo RN) 0906 (Given - Provider: So Richards RN)2045 (Given - Provider: Adrienne Sy, SEBASTIÁN) 0847 (Given - Provider: Crissy Greene, RN) Continuous Medication Order 04/29/2025 04/30/2025 05/01/2025 heparin infusion 100 units/mL in D5W () 18 Units/kg/hr ? 87.5 kg (15.75 mL/hr, rounded to 15.8 mL/hr), intravenous, Continuous, Starting on Sat04/28/25 at 2133, For 2 days 0351 (New Bag - Provider: uRsty Solis RN)0945 (New Bag - Provider: Gia Batista RN)1933 (Handoff - Provider: Ko Alejo, SEBASTIÁN) 0128 (New Bag - Provider: Ko Alejo, SEBASTIÁN)0718 (Handoff - Provider: Xochilt Bashir, RN)1836 (New Bag - Provider: Xochilt Bashir, RN)1918 (Handoff - Provider: Adrienne Sy, SEBASTIÁN)204 (Stopped - Provider: Adrienne Sy RN) PRN Medication Order 04/29/2025 04/30/2025 05/01/2025 acetaminophen (TYLENOL) tablet 650 mg 650 mg, oral, Every 4 hours PRN, mild pain, headaches, fever - temperature GREATER than 38 C (100.4 F), Starting on Sat04/28/25 at 2235 1211 (Given - Provider: Gia Batista, RN)1801 (Given - Provider: Gia Batista, RN) 0100 (Given - Provider: Ko Alejo, RN)0640 (Given - Provider: Ko Alejo RN)1058 (Given - Provider: So Richards RN)1833 (Given - Provider: Xochilt Bashir, RN)2225 (Given - Provider: Adrienne Sy, SEBASTIÁN) albuterol 2.5 mg /3 mL (0.083 %) nebulizer solution 2.5 mg 2.5 mg, nebulization, Every 4 hours PRN, wheezing, shortness of breath, Starting on Sat04/29/25 at 0125 0353 (Given - Provider: Kitty Paredes, CHANTEL) dextrose (D50W) 50% injection 12.5 g 12.5 g, intravenous, Every 15 min PRN, low blood sugar, moderate hypoglycemia *Patient is Unconscious, NPO, unable to swallow: BG 54 - 69 mg/dl*, Starting on Sat04/29/25 at 0144 dextrose (D50W) 50% injection 25 g 25 g, intravenous, Every 15 min PRN, low blood sugar, severe hypoglycemia *Patient is Unconscious, NPO, unable to swallow: BG LESS than 54 mg/dL*, Starting on Sat04/29/25 at 0144 dextrose 15 gram/60 mL oral solution 15 g 15 g, oral, Every 15 min PRN, low blood sugar, hypoglycemia *Patient conscious AND able to drink and swallow safely*, Starting on Sat04/29/25 at 0144 dextrose 15 gram/60 mL oral solution 30 g 30 g, oral, Every 15 min PRN, low blood sugar, hypoglycemia *Patient conscious AND able to drink and swallow safely*, Starting on Sat04/29/25 at 0144 Glucagon HCl (rDNA) injection 1 mg 1 mg, intramuscular, Once as needed, low blood sugar, severe hypoglycemia, Starting on Sat04/29/25 at 0144, For 1 dose metoprolol tartrate (LOPRESSOR) injection 5 mg 5 mg, intravenous, Every 6 hours PRN, high blood pressure, For sustained HR>130, Starting on Sat05/01/25 at 0917, For IV Push - Administer undiluted over 2 minutes prochlorperazine (COMPAZINE) injection 10 mg(Linked Group 2) 10 mg, intravenous, Every 6 hours PRN, nausea, vomiting, Starting on Sat04/28/25 at 2235, 2nd Line Option: -ONLY give IV if patient is unable to take orally. -Give IM if patient does not have IV Access -If inadequate response within 30 minutes, proceed to next-line agent or contact provider if no further options ordered. prochlorperazine (COMPAZINE) suppository 25 mg(Linked Group 2) 25 mg, rectal, Every 12 hours PRN, nausea, vomiting, Starting on Sat04/28/25 at 2235, 2nd Line Option: -ONLY give AL if patient is unable to take orally and cannot receive IV/IM. -If inadequate response within 30 minutes, proceed to next-line agent or contact provider if no further options ordered. prochlorperazine (COMPAZINE) tablet 10 mg(Linked Group 2) 10 mg, oral, Every 6 hours PRN, nausea, vomiting, Starting on Sat04/28/25 at 2235, 2nd Line Option: -Give IV or IM if patient is unable to take orally. -If inadequate response within 30 minutes, proceed to next-line agent or contact provider if no further options ordered. sodium chloride 0.9 % flush 10 mL(Linked Group 1) 10 mL, intravenous, As needed, line care, Starting on Sat04/28/25 at 2235 trimethobenzamide (TIGAN) injection 200 mg 200 mg, intramuscular, Every 6 hours PRN, nausea, Starting on Sat04/28/25 at 2335 Linked Groups Order Group 1: Insert peripheral IV (CANCELED) STAT, Once, On Sat04/28/25 at 2236, For 1 occurrence And Maintain IV access (CANCELED) Until discontinued, Starting on Sat04/28/25 at 2236, Until Specified And Saline lock IV (CANCELED) Routine, Once, On Sat04/28/25 at 2236, For 1 occurrence And sodium chloride 0.9 % flush 10 mLJump to med 10 mL, intravenous, 2 times daily, First dose on Sat04/28/25 at 2237 And sodium chloride 0.9 % flush 10 mLJump to med 10 mL, intravenous, As needed, line care, Starting on Sat04/28/25 at 2235 Group 2: prochlorperazine (COMPAZINE) tablet 10 mgJump to med 10 mg, oral, Every 6 hours PRN, nausea, vomiting, Starting on Sat04/28/25 at 223, 2nd Line Option: -Give IV or IM if patient is unable to take orally. -If inadequate response within 30 minutes, proceed to next-line agent or contact provider if no further options ordered. Or prochlorperazine (COMPAZINE) injection 10 mgJump to med 10 mg, intravenous, Every 6 hours PRN, nausea, vomiting, Starting on Sat04/28/25 at 223, 2nd Line Option: -ONLY give IV if patient is unable to take orally. -Give IM if patient does not have IV Access -If inadequate response within 30 minutes, proceed to next-line agent or contact provider if no further options ordered. Or prochlorperazine (COMPAZINE) suppository 25 mgJump to med 25 mg, rectal, Every 12 hours PRN, nausea, vomiting, Starting on Sat04/28/25 at 223, 2nd Line Option: -ONLY give AL if patient is unable to take orally and cannot receive IV/IM. -If inadequate response within 30 minutes, proceed to next-line agent or contact provider if no further options ordered. documented in this encounter Orders Medications Ordered That Nahid ht Not Have Been Administered Count Last Ordered Date First Ordered Date metoprolol tartrate (LOPRESS OR) injection 5 mg 1 05/01/2025 dapagliflozin propanediol (F ARXIGA) tablet 10 mg 1 04/29/2025 dextrose (D50W) 50% injection 12.5 g 04/02 dextrose (D50W) 50% injection 25 g 2024 dextrose 15 gram/60 mL oral solution 15 g 04/29/2025 dextrose 15 gram/60 mL oral solution 30 g 04/29/2025 furosemide (LASIX) injection 20 mg 2024 Glucagon HCl (rDNA) injection 1 mg 2024 heparin (UFH) bolus from inf usion 2,625 Units 04/28/2025 heparin (UFH) bolus from inf usion 3,500 Units 2 04/28/2025 heparin (UFH) bolus from inf usion 5,250 Units 1 04/28/2025 heparin (UFH) bolus from inf usion 7,000 Units 2 04/28/2025 ondansetron (PF) (ZOFRAN) injection 4 mg 1 04/28/2025 ondansetron ODT (ZOFRAN-ODT) disintegrating tablet 4 mg 1 04/28/2025 prochlorperazine (COMPAZINE) injection 10 mg 1 04/28/2025 prochlorperazine (COMPAZINE) suppository 25 mg 1 04/28/2025 prochlorperazine (COMPAZINE) tablet 10 mg 1 04/28/2025 sodium chloride 0.9 % flush 10 mL 1 025 trimethobenzamide (TIGAN) injection 200 mg 1 04/28/2025 Lab Orders Without Results Count Last Ordered D ate First Ordered Date POCT GLUCOSE, BLOOD 10 05/01/2025 04/29/20 EKG Orders Without Results Count Last Ordered D ate First Ordered Date ECG 12-LEAD 1 04/28/2025 Consult Count Last Ordered Date First Orde red Date IP CONSULT TO CARDIOLOGY 1 04/29/2025 IV Count Last Ordered Date First Orde red Date SALINE LOCK IV 1 04/28/2025 Admission Count Last Ordered Date First Orde red Date ADMIT TO INPATIENT 1 04/28/2025 Transfer Count Last Ordered Date First Orde red Date ED TO FLOOR BED REQUEST 1 04/28/2025 Discharge Count Last Ordered Date First Orde red Date DISCHARGE PATIENT 1 05/01/2025 CORE MEASURES Count Last Ordered Date First Ord ered Date REASON FOR NO VTE PROPHYLAXI S - HOSPITAL ADMISSION - MEDICATIONS 1 04/28/2025 documented in this encounter Additional Health Concerns Infection Onset Date Last Indicated Resolved Time Respiratory Rule-Out 04/28/2025 04/29/2025 025 1:48 AM EDT documented as of this encounter Care Teams 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
== END 2025-05-05 16:04 | disposition home or self-care (01) ==
LOC: HO.HCS 15:27
PROVIDERS: Visit Provider Internal Medicine Cardiovascular Disease
DX: C25.9 Malignant neoplasm of pancreas, unspecified (principal); I48.91 Unspecified atrial fibrillation; I42.9 Cardiomyopathy, unspecified
CPT/HCPCS: 93010; 99215

== ENCOUNTER → 2025-05-05 15:27 | Outpatient (BNVA) | payer OTHER, SELFPAY | PROVIDERS: Visit Provider Internal Medicine Cardiovascular Disease ==

== ENCOUNTER 2025-05-05 15:57 | Inpatient (IN) | payer OTHER, SELFPAY ==
--- NOTE | ~2025-05-05 | NM_ITS ---
EXAMINATION: NM LUNG PERFUSION HISTORY: r/o PE. TECHNIQUE: A pulmonary perfusion scan was performed following the intravenous administration of 4.0 mCi technetium 99m-MAA. Images were obtained in multiple projections. COMPARISON: Correlation is made with PA and lateral views of the chest dated 05/05/2025. FINDINGS: There are nonsegmental perfusion defects corresponding to cardiomegaly and the patient's arms which were by his side during the examination. No segmental or large subsegmental perfusion defects are identified. Findings are consistent with a very low probability for pulmonary emboli. NM/NM pul perfusion IMPRESSION: Very low probability for pulmonary emboli. Electronically signed by: Kei Emmanuel MD 05/06/2025 11:07 AM EDT
--- NOTE | ~2025-05-05 | XR_ITS ---
CLINICAL HISTORY: SOB 2 view chest x-ray Comparison: Chest x-ray from 03/12/2025 Findings: Pulmonary opacities are mild and nonspecific. Differential considerations include pulmonary edema and pneumonitis given interstitial predominance. Small pleural effusions and/or pleural thickening is suggested. No pneumothorax. These are superimposed on chronic lung disease with combination of emphysematous changes and fibrosis. Mild cardiomegaly redemonstrated without significant change of the imaged mediastinum. Degenerative changes again include imaged right AC joint, right shoulder, and spine. IMPRESSION: Mild pulmonary opacities are nonspecific and may reflect mild edema or pneumonitis. This document has been electronically signed by: Ian Pickens MD on 05/05/2025 21:58:30
--- NOTE | 2025-05-05 16:00 | ECG_ITS ---
Test Reason : AFIB Blood Pressure : */* mmHG Vent. Rate : 131 BPM Atrial Rate : * BPM P-R Int : * ms QRS Dur : 112 ms QT Int : 304 ms P-R-T Axes : * -27 173 degrees QTcB Int : 448 ms Atrial fibrillation with rapid ventricular response Minimal voltage criteria for LVH, may be normal variant ( Lefty product ) ST & T wave abnormality, consider lateral ischemia Abnormal ECG When compared with ECG of 02-Apr-2025 12:41, No significant change was found Referred By: Geneva Bruce Electronically Signed By: SHERRELL MALIK
[2025-05-05 16:26] VITALS: BP 129/84; PULSE 132; RESP 26; TEMP 36.1; O2SAT 97; BMI 27.0
--- NOTE | 2025-05-05 16:33 | ED_ITS ---
HPI - General Adult General Chief complaint: Arrhythmia/Palpitations Stated complaint: AFIB Time Seen by Provider: 05/05/25 16:32 History of Present Illness ED Provider: Veronica SOTELO narrative: The patient is a 74-year-old male with a history of metastatic pancreatic cancer. Apparently he has not a candidate for any ongoing treatment. Additionally he had a significant NSTEMI 1 month ago. He was treated at [facility]. Apparently he has a very poor EF has a consequence of his NSTEMI. He was also found to have atrial fibrillation and was discharged from [facility] on metoprolol and apixaban. He has subsequently followed up with Dr. Almeida and was told he has not yet candidate for treatment for his metastatic pancreatic cancer. Today he had follow up appointment with the cardiology office and saw Dr. Shaffer. At the cardiology office the patient was found to be in atrial fibrillation with a rapid ventricular response rate with a heart rate in the 140s. The patient apparently looked unwell and sweaty and was advised to come to the emergency room for further care and rate control. Dr. Shafferis recommending digoxin. The patient is complaining of abdominal pain that has been bothering him for several weeks. Related Data Home Medications ?Medication ?Instructions ?Recorded ?Confirmed acetaminophen 325 mg tablet 650 mg PO Q6H PRN Pain 03/12/25 05/05/25 albuterol sulfate 2.5 mg/3 mL 2.5 mg continuous nebulization Q4H 03/12/25 05/05/25 (0.083 %) solution for nebulization PRN SOB apixaban 5 mg tablet (Eliquis) 5 mg PO BID 03/12/25 05/05/25 metoprolol succinate 50 mg 150 mg PO DAILY 03/12/25 05/05/25 tablet,extended release 24 hr dapagliflozin propanediol 5 mg 10 mg PO DAILY 04/20/25 05/05/25 tablet ezetimibe 10 mg tablet 10 mg PO DAILY PRN HIGH CHOLESTROL 04/20/25 05/05/25 sacubitril 24 mg-valsartan 26 mg 1 tab PO BID 04/20/25 05/05/25 tablet (Entresto) sitagliptin phosphate 50 1 tab PO BID PRN HIGH BLOOD SUGAR 04/20/25 05/05/25 mg-metformin 1,000 mg tablet (Janumet) albuterol sulfate 90 mcg/actuation 2 puff inhalation Q6H PRN wheezing 05/05/25 05/05/25 aerosol inhaler furosemide 20 mg tablet 20 mg PO DAILY 05/05/25 05/05/25 metformin 500 mg tablet 500 mg PO BID Hypertension 05/05/25 05/05/25 Allergies Allergy/AdvReac Type Severity Reaction Status Date / Time No Known Allergies Allergy Verified 05/05/25 16:29 Review of Systems 2 Review of Systems: Yes all other systems are reviewed and are negative [facility] Past Medical History Medical History Pancreatic lesion COPD (chronic obstructive pulmonary disease) HTN (hypertension) Type 2 diabetes mellitus without complications Persistent atrial fibrillation Metastatic cancer Family History Family History Daughter Ovarian cancer Social History Social History Household Members: Spouse Housing: Apartment Are you a primary nurse behavioral health care to a significant other at home: No Do you presently have visiting nurse or other home services: Yes Unable to assess alcohol history related to: Unknown Patient Tobacco Use Status: Former Tobacco user Tobacco use type: Cigarette Cigarette Packs Per Day: 1 e-Cigarette/Vaping Use: Never Used Second Hand Smoke Exposure: No Advance Directives Date on File: 03/17/25 service: No Current occupational status: retired Physical Exam ED Vital Signs: Vital Signs - 24 hr 05/05/25 16:26 05/05/25 16:54 05/05/25 18:50 Temperature 96.9 F 97.7 F Pulse Rate 132 H 119 H 111 H Respiratory Rate 26 H 21 H 27 H Blood Pressure 129/84 117/79 134/78 Pulse Oximetry 97 98 99 Oxygen Delivery Method Room Air Room Air Room Air BMI result Body Mass Index 27.0 Const Other: The patient is awake, alert, pleasant, cooperative. He seems somewhat apprehensive but not in acute distress. HENMT Other: Face is symmetrical, mucous membranes moist. Eyes General: appearance normal, both eyes and all related structures Neck Neck: Yes no JVD Resp Effort & Inspection: normal respiratory effort Auscultation: clear to auscultation bilaterally Cardio Other: The patient was tachycardic with a an irregular rate and rhythm GI Other: The patient has a protuberant abdomen which is mildly diffusely tender. No rebound or guarding. Skin Other: Skin is dry and unremarkable. Neuro Other: The patient is awake and alert. He seems to have a somewhat anxious affect. Cranial nerves seem grossly intact. He seems somewhat deconditioned but seems to have symmetrical strength. Extrem Other: Some lower extremity edema Medications Administered Generic Name Dose Route Start Last Admin Trade Name Freq PRN Reason Stop Dose Admin Apixaban 5 mg 05/05/25 21:35 05/05/25 22:03 Apixaban 5 Mg Tablet PO 5 mg BID DARRELL Administration Sodium Chloride 3 ml 05/06/25 00:00 05/06/25 00:54 0.9 % Sodium Chloride Flush 3 Ml Syringe IVFLUSH Not Given QSHIFT DARRELL Discontinued Medications Generic Name Dose Route Start Last Admin Trade Name Freq PRN Reason Stop Dose Admin Digoxin 0.25 mg 05/05/25 17:47 05/05/25 18:10 Digoxin 0.5 Mg/2 Ml Ampul IVPUSH 05/05/25 17:48 0.25 mg ONCE ONE Administration Protocol Metoprolol Tartrate 5 mg 05/05/25 16:33 05/05/25 16:57 Metoprolol Tartrate 5 Mg/5 Ml Vial IVPUSH 05/05/25 16:34 5 mg ONCE ONE Administration Protocol Metoprolol Tartrate 5 mg 05/06/25 02:39 05/06/25 02:55 Metoprolol Tartrate 5 Mg/5 Ml Vial IVPUSH 05/06/25 02:40 5 mg ONCE ONE Administration Protocol Morphine Sulfate 4 mg 05/05/25 18:15 05/05/25 18:27 Morphine Sulfate 4 Mg/Ml Cartridge IVPUSH 05/05/25 18:16 4 mg ONCE ONE Administration Protocol Morphine Sulfate 4 mg 05/05/25 18:20 05/05/25 18:27 Morphine Sulfate 4 Mg/Ml Cartridge IVPUSH 05/05/25 18:21 Not Given ONCE ONE Protocol Medical Decision Making Medical Decision Making MDM Narrative: The patient is a 74-year-old male with a history of atrial fibrillation who was sent to the emergency room from the cardiology office. The patient had gone to Cardiology today for a follow up appointment for a recent NSTEMI and atrial fibrillation. At the cardiology office the patient looked unwell with a heart rate in the 140s. The patient has an ejection fraction of 10-15% following an NSTEMI last month. Dr. Shaffer is therefore recommending digoxin for rate control. EKG shows some ST segment depression but I think this may be rate related. The patient's troponins are elevated but the patient has no wish for any further intervention other than treatment available at [facility]. The patient will therefore be admitted to the hospitalist service. While in the emergency room the patient was given 5 mg of metoprolol which she seemed to tolerate. He will also given 250 mcg of IV digoxin. The patient is on apixaban. At this point, given that he apparently is not a candidate for treatment of his metastatic pancreatic cancer, I think his care is primarily palliative. Lab Data 05/05/25 16:59 05/05/25 16:59 Labs: Lab Results 05/05/25 05/05/25 05/05/25 Range/Units 16:59 19:59 20:03 WBC 11.7 H (4.8-10.8) X10*3/uL RBC 4.47 L (4.60-5.80) X10*6/uL Hgb 12.5 L (14.0-18.0) g/dl Hct 38.0 L (42.0-52.0) % MCV 85.0 (80.0-98.0) fL MCH 28.0 (27.0-33.0) pg MCHC 32.9 (31.0-36.0) g/dl RDW 17.8 H (11.0-16.0) % Plt Count 196 D (160-400) X10*3/uL MPV 12.6 H (9.4-12.4) fL Immature Gran % (Auto) 0.4 (0.0-0.4) % Neut % (Auto) 82.2 H (45-73) % Lymph % (Auto) 5.6 L (20-40) % [place] % (Auto) 10.9 (2-11) % Eos % (Auto) 0.6 (0-4) % Baso % (Auto) 0.3 (0-2) % Lymph # (Auto) 0.7 L (1.2-4.9) X10*3/uL [place] # (Auto) 1.3 H (0.1-1.2) X10*3/uL Eos # (Auto) 0.1 (0.0-0.4) X10*3/uL Baso # (Auto) 0.0 (0.0-0.2) X10*3/uL Abs Immat Gran (auto) 0.05 H (0.00-0.03) X10*3/uL Absolute Neuts (auto) 9.6 H (2.0-8.3) x10*3/uL Absolute Nucleated RBC 0.000 (0.0-0.012) X10*3/uL Nucleated RBC % (auto) 0.0 (0.0-0.2) /100WBC Sodium 141 (135-145) mmol/L Potassium 5.2 H D (3.3-5.1) mmol/L Chloride 104 (96-108) mmol/L Carbon Dioxide 27 (22-29) mmol/L Anion Gap 15 (12-20) BUN 31 H (9-16) mg/dL Creatinine 1.43 H (0.5-1.4) mg/dL Estim Creat Clear Calc 46.7 Estimated GFR 48 Random Glucose 126 H (60-115) mg/dL Calcium 9.0 (8.4-10.2) mg/dL Magnesium 2.1 (1.6-2.6) mg/dL Total Bilirubin 0.9 (0.0-1.0) mg/dL AST 38 H (5-37) U/L ALT 14 (0-40) U/L Alkaline Phosphatase 438 H (39-117) U/L Troponin I High Sens 5390.2 H* D 6314.7 H* (<3.5-35.0) ng/L Total Protein 6.9 (6.5-8.0) g/dL Albumin 2.7 L (3.5-5.0) g/dL Urine Color Dark Yellow Urine Appearance Cloudy Urine pH 5.0 (5.0-9.0) Ur Specific [place] 1.020 (1.005-1.025) Urine Protein 30 (1+) H (Neg-Trace) mg/dL Urine Glucose (UA) Negative (Negative) mg/dL Urine Ketones Trace (Negative) mg/dL Urine Blood Negative (Negative) Urine Nitrite Negative (Negative) Ur Leukocyte Esterase Small (1+) H (Negative) Urine RBC 0-2 (0-2) /HPF Urine WBC 6-10 H (0-5) /HPF Ur Squamous Epith Cells 0-2 (0-2) /HPF Calcium Oxalate Crystal Present Other Crystals Present Urine Bacteria None Seen (None Seen) Hyaline Casts 11-20 (0-2) /LPF Granular Casts Present Discharge Plan Discharge Clinical Impression: Atrial fibrillation with rapid ventricular response, Pancreatic cancer Patient Disposition: Admitted As Inpatient Interventions: Admission Worksheet (ED) Last Done: 05/06/25 00:49 Discharge Date/Time: 05/06/25 02:22
[2025-05-05 16:54] VITALS: BP 117/79; PULSE 119; RESP 21; TEMP 36.5; O2SAT 98
[2025-05-05] MEDS: Metoprolol Tartrate 5 MG/5 ML VIAL IVPUSH (16:57)
[2025-05-05 17:04] LABS: MANUAL DIFF FLAG NO
[2025-05-05 17:09] LABS: Basophils Percent Auto 0.3 % (0-2); Eosinophils Absolute Auto 0.1 X10*3/uL (0.0-0.4); Eosinophils Percent Auto 0.6 % (0-4); Hemoglobin 12.5 g/dl (14.0-18.0); Imm Gran Abs Auto 0.05 X10*3/uL (0.00-0.03); Imm Gran Pct Auto 0.4 % (0.0-0.4); Lymphocytes Absolute Auto 0.7 X10*3/uL (1.2-4.9); Lymphocytes Percent Auto 5.6 % (20-40); Mean Corpuscular HGB Conc 32.9 g/dl (31.0-36.0); Mean Platelet Volume 12.6 fL (9.4-12.4); Monocytes Absolute Auto 1.3 X10*3/uL (0.1-1.2); Monocytes Percent Auto 10.9 % (2-11); Neutrophils Absolute Auto 9.6 x10*3/uL (2.0-8.3); Neutrophils Percent Auto 82.2 % (45-73); Platelet Count 196 X10*3/uL (160-400); Red Blood Count 4.47 X10*6/uL (4.60-5.80); Red Cell Distribution Width 17.8 % (11.0-16.0); White Blood Count 11.7 X10*3/uL (4.8-10.8)
[2025-05-05 17:28] LABS: Alanine Aminotransferase 14 U/L (0-40); Albumin Level 2.7 g/dL (3.5-5.0); Alkaline Phosphatase 438 U/L (39-117); Anion Gap 15 (12-20); Aspartate Amino Transferase 38 U/L (5-37); Bilirubin Total 0.9 mg/dL (0.0-1.0); Blood Urea Nitrogen 31 mg/dL (9-16); Carbon Dioxide 27 mmol/L (22-29); Chloride 104 mmol/L (96-108); Creatinine Clr Calc Pharmacy 46.7; Estimated Glomerular Filt Rate 48; Glucose Random 126 mg/dL (60-115); Magnesium 2.1 mg/dL (1.6-2.6); Potassium 5.2 mmol/L (3.3-5.1); Sodium 141 mmol/L (135-145); Total Protein 6.9 g/dL (6.5-8.0)
[2025-05-05 17:49] LABS: Troponin-I High Sensitivity 5390.2 ng/L (<3.5-35.0)
[2025-05-05] MEDS: Digoxin 0.5 MG/2 ML AMPUL 0.25 MG IVPUSH (18:10)
[2025-05-05] MEDS: Morphine Sulfate 4 MG/ML CARTRIDGE IVPUSH (18:27)
[2025-05-05 18:50] VITALS: BP 134/78; PULSE 111; RESP 27; O2SAT 99
--- NOTE | 2025-05-05 20:04 | PC.NURSE ---
repeat Trop obtained as ordered, UA collected, patient continues to rest comfortably on stretcher, reports an improvement with pain, VSS, respirations even and unlabored, NAD, awaiting admission
[2025-05-05 20:09] LABS: Appearance Urine Cloudy; Color Urine Dark Yellow; Glucose Urine UA Negative (Negative); Leukocyte Esterase Urine Small (1+) (Negative); Nitrite Urine Negative (Negative); UMIC TRIGGER UA YES; Urine Blood Negative (Negative); Urine Ketones Trace mg/dL (Negative); Urine Protein 30 (1+) mg/dL (Neg-Trace)
[2025-05-05 20:24] LABS: Bacteria Urine None Seen (None Seen); Calcium Oxalate Crystals Urine Present; Granular Casts Urine Present; Other Crystals Urine Present; RBC Urine 0-2 /HPF (0-2); Squamous Epithelial Cell Urine 0-2 /HPF (0-2)
[2025-05-05 20:52] LABS: Troponin-I High Sensitivity 6314.7 ng/L (<3.5-35.0)
--- NOTE | 2025-05-05 20:53 | PC.NURSE ---
repeat Trop 6,314.7, made aware
--- NOTE | 2025-05-05 21:12 | PHA.MEDREC ---
Addendum entered by Елена Dudley [facility] 05/05/25 22:03: I had [place] follow-up with patient's metfromin and Antt. Patient's spouse bow reporting patient is taking metformin BID and Janument PRN hyperglycemia. Medication list updated. Original Note: Pharmacy Consult ? Medication Reconciliation Pharmacy has completed the medication reconciliation. Spoke with pt at bedside who confirmed pt medications. The confirmed the pt just started the Entresto and stopped taking the Nifedipine, Atorvastain and Lisinopril per the Dr chu the medications interacted with that med. The confirmed the pt still takes Ezetimibe prn to lower high cholesterol, Metformin prn for hypertension, and Janument 1 tab BID and filling them at [facility] on [facility] in [place]; we have no recent claims for those medications. I called [facility] and they confirmed the Ezetimibe and Metformin have not been filled since 07/2024 and Janument has not been filled since 2022.
--- NOTE | 2025-05-05 21:37 | PM.IMHP ---
History of Present Illness Date of Service: 05/05/25 Attending physician on admission: Tavon Nielson Chief Complaint: a fib with RVR Patient is a 74-year-old male with a past medical history significant for type 2 diabetes, stage I COPD, hypertension, persistent AFib, and metastatic pancreatic cancer, who presented to the ED after being sent by Dr. Shaffer for AFib with RVR found during his office visit today. His rate was in the 140s and he was sent to the ED for digoxin. It is noted that he had 3 doses of 0.25mg digoxin, timing is unknown. His most recent echo in March of this year showed a EF of 15-20%. The patient is reporting chronic shortness of breath, worse recently requiring him to use his albuterol inhaler and nebulizer cumulatively about 6- 8 times a day. He denies any wheezing or orthopnea. No chest pain, nausea, vomiting, abdominal pain, urinary symptoms including frequency, urgency or dysuria. Review of Systems Constitutional: Constitutional: Denies body ache(s), Denies chills, Denies fatigue, Denies fever(s) and Denies headache(s) Eyes: Eyes: Denies change in vision and Denies photophobia ENT: Denies headache(s), Denies nasal congestion, Denies nasal discharge and Denies sore throat Cardiovascular: Cardiovascular: Denies chest pain, Reports rapid heart rate, Denies leg edema, Denies lightheadedness and Reports dyspnea Respiratory: Respiratory: Denies chest congestion, Denies cough, Reports dyspnea and Denies wheezing Gastrointestinal: Gastrointestinal: Denies abdominal pain, Denies diarrhea, Denies nausea and Denies vomiting Genitourinary: Genitourinary: Denies dysuria, Denies urinary frequency and Denies urinary urgency Musculoskeletal: Musculoskeletal: Denies back pain Integumentary/Breasts: Skin/Breast: Denies rash Neurologic: Denies confusion and Denies headache(s) Psychiatric: Psychiatric: Denies confusion Endocrine: Endocrine: Denies fatigue Hematologic/Lymphatic: Hematologic/Lymphatic: Denies easy bleeding and Denies easy bruising Allergic/Immunologic: Allergic/Immunologic: Denies wheezing [facility] Medical History Pancreatic lesion COPD (chronic obstructive pulmonary disease) HTN (hypertension) Type 2 diabetes mellitus without complications Persistent atrial fibrillation Metastatic cancer Family History Daughter Ovarian cancer Social History Household Members: Spouse Housing: Apartment Are you a primary hospice care sales consultant to a significant other at home: No Do you presently have visiting nurse or other home services: Yes Unable to assess alcohol history related to: Unknown Patient Tobacco Use Status: Former Tobacco user Tobacco use type: Cigarette Cigarette Packs Per Day: 1 e-Cigarette/Vaping Use: Never Used Second Hand Smoke Exposure: No Advance Directives Date on File: 03/17/25 service: No Current occupational status: retired Narrative: No smoking, alcohol or drug use Meds Allergies Allergy/AdvReac Type Severity Reaction Status Date / Time No Known Allergies Allergy Verified 05/05/25 16:29 Active Medications: Current Medications Acetaminophen (Acetaminophen 325 Mg Tablet) 650 mg PO Q6H PRN PRN Reason: Pain, Mild 1-3,fever,headache Apixaban (Apixaban 5 Mg Tablet) 5 mg PO BID DARRELL Calcium Carbonate (Calcium Carbonate 750 Mg Tab.Chew) 750 mg PO Q4H PRN PRN Reason: Heartburn Levalbuterol HCl 1.25 mg/ (Ipratropium [place] 0.5 mg) 0 mg INHALE Q4H PRN PRN Reason: Shortness of Breath/Wheezing Dextrose (Dextrose 50 % 25 Gm/50 Ml Syringe) 25 gm IVPUSH Q15M PRN; Protocol PRN Reason: per Hypoglycemia Standing Ord. Glucose (Glucose Gel 15 Gm Gel..Gram.) 15 gm PO Q15M PRN; Protocol PRN Reason: per Hypoglycemia Standing Ord. Insulin Human Lispro (Insulin Lispro 100 Unit/Ml 3 Ml Vial) 0 unit SUBCUT QIDACHS [facility]; Protocol Magnesium Hydroxide (Milk Of Magnesia 30 Ml Oral.Susp) 30 ml PO DAILY PRN PRN Reason: Constipation Melatonin (Melatonin 3 Mg Tablet) 6 mg PO BEDTIME PRN PRN Reason: Insomnia Morphine Sulfate (Morphine Sulfate 4 Mg/Ml Cartridge) 2 mg IVPUSH Q4H PRN; Protocol PRN Reason: Pain, Severe (Pain Scale 7-10) Ondansetron HCl (Ondansetron Hcl 4 Mg/2 Ml Vial) 4 mg IVPUSH Q8H PRN PRN Reason: Nausea and Vomiting Oxycodone HCl (Oxycodone Hcl Immed Release 5 Mg Tablet) 5 mg PO Q6H PRN PRN Reason: Pain, Moderate(Pain Scale 4-6) Sodium Chloride (0.9 % Sodium Chloride Flush 3 Ml Syringe) 3 ml IVFLUSH QSHIFT [facility] Home Medications ?Medication ?Instructions ?Recorded ?Confirmed ?Last Taken ?Type acetaminophen 325 mg tablet 650 mg PO Q6H PRN Pain 03/12/25 05/05/25 Unknown History albuterol sulfate 2.5 mg/3 mL 2.5 mg continuous nebulization Q4H 03/12/25 05/05/25 Unknown History (0.083 %) solution for nebulization PRN SOB apixaban 5 mg tablet (Eliquis) 5 mg PO BID 03/12/25 05/05/25 05/05/25 History metoprolol succinate 50 mg 150 mg PO DAILY 03/12/25 05/05/25 05/05/25 History tablet,extended release 24 hr dapagliflozin propanediol 5 mg 10 mg PO DAILY 04/20/25 05/05/25 05/05/25 History tablet ezetimibe 10 mg tablet 10 mg PO DAILY PRN HIGH CHOLESTROL 04/20/25 05/05/25 Unknown History sacubitril 24 mg-valsartan 26 mg 1 tab PO BID 04/20/25 05/05/25 05/05/25 History tablet (Entresto) sitagliptin phosphate 50 1 tab PO BID PRN HIGH BLOOD SUGAR 04/20/25 05/05/25 Unknown History mg-metformin 1,000 mg tablet (Janumet) albuterol sulfate 90 mcg/actuation 2 puff inhalation Q6H PRN wheezing 05/05/25 05/05/25 Unknown History aerosol inhaler furosemide 20 mg tablet 20 mg PO DAILY 05/05/25 05/05/25 05/05/25 History metformin 500 mg tablet 500 mg PO BID Hypertension 05/05/25 05/05/25 Unknown History Physical Exam Vital Signs and Narrative: Vital Signs: Last Vital Signs Temp 97.7 F 05/05/25 16:54 Pulse 111 H 05/05/25 18:50 Resp 27 H 05/05/25 18:50 BP 134/78 05/05/25 18:50 Pulse Ox 99 05/05/25 18:50 O2 Del Method Room Air 05/05/25 18:50 BMI result Body Mass Index 27.0 General: AOx3, no acute distress. seen with bedside. Resp: Diminished throughout, difficult to auscultate. No wheezing or rhonchi CVS: Irregularly irregular, tachycardic GI: +BS, NT, distended Skin: Warm, dry Neuro: Cranial nerves II-XII grossly intact bilaterally. Motor grossly intact bilaterally Extremities: No lower extremity edema Psych: Appropriate affect Const: General: No confusion Orientation/consciousness: No confusion Eyes: Direct Ophthalmoscopy: No photophobia Neuro: General: No confusion Results Labs 05/05/25 16:59 05/05/25 16:59 Labs: Laboratory Results - last 24 hr 05/05/25 05/05/25 05/05/25 16:59 19:59 20:03 MCV 85.0 MCH 28.0 MCHC 32.9 RDW 17.8 H Plt Count 196 D MPV 12.6 H Immature Gran % (Auto) 0.4 Neut % (Auto) 82.2 H Lymph % (Auto) 5.6 L [place] % (Auto) 10.9 Eos % (Auto) 0.6 Baso % (Auto) 0.3 Lymph # (Auto) 0.7 L [place] # (Auto) 1.3 H Eos # (Auto) 0.1 Baso # (Auto) 0.0 Abs Immat Gran (auto) 0.05 H Absolute Neuts (auto) 9.6 H Absolute Nucleated RBC 0.000 Nucleated RBC % (auto) 0.0 Anion Gap 15 Estim Creat Clear Calc 46.7 Estimated GFR 48 Random Glucose 126 H Calcium 9.0 Magnesium 2.1 Total Bilirubin 0.9 AST 38 H ALT 14 Alkaline Phosphatase 438 H Troponin I High Sens 5390.2 H* D 6314.7 H* Total Protein 6.9 Albumin 2.7 L Urine Color Dark Yellow Urine Appearance Cloudy Urine pH 5.0 Ur Specific [place] 1.020 Urine Protein 30 (1+) H Urine Glucose (UA) Negative Urine Ketones Trace Urine Blood Negative Urine Nitrite Negative Ur Leukocyte Esterase Small (1+) H Urine RBC 0-2 Urine WBC 6-10 H Ur Squamous Epith Cells 0-2 Calcium Oxalate Crystal Present Other Crystals Present Urine Bacteria None Seen Hyaline Casts 11-20 Granular Casts Present Assessment and Plan (1) Atrial fibrillation with rapid ventricular response: Status: Acute (2) Acute exacerbation of CHF (congestive heart failure): Status: Acute (3) RUTH (acute kidney injury): Status: Acute Plan Patient is a 74-year-old male with a past medical history significant for type 2 diabetes, stage I COPD, hypertension, persistent AFib, and metastatic pancreatic cancer, who presented to the ED after being sent by Dr. Shaffer for AFib with RVR found during his office visit today. AFib with RVR - patient has been using a significant amount of albuterol due to shortness of breath - patient sent to ED due to rate of 140 to receive digoxin - patient given metoprolol 5 mg and digoxin 0.25 mg in ED - frequency of digoxin prior to arrival is unknown, therefore we will hold on further doses due to risk of asystole - if heart rate greater than 120 persistently will give metoprolol - EKG with AFib with RVR rate of 131, non-ischemic - WBC 11.7, likely reactive - recent echo with EF of 15-20% - trop 5390, 6314 on repeat, likely demand due to a fib. recent NSTEMI with trop of >93554. repeat trop in AM. pt not having chest pain. - patient already on Eliquis 5mg BID, continue - check digoxin level in AM - PE unlikely as pt is on eliquis. not hypoxic. - cardiology consult - monitor on tele acute exacerbation of HFrEF, mild - CXR with mild pulmonary opacities are nonspecific and may reflect mild edema or pneumonitis - BNP 2804 - hold on IV lasix for now due to RUTH - cardiology consult as above pseudohyperkalemia - potassium 5.2, slight hemolysis - recheck BMP tomorrow RUTH - creatinine 1.43 - hold on IV fluids due to CHF exacebation T2DM - sliding scale insulin - diabetic diet - hold PO DM meds stage 1 COPD, no acute exacerbation - no wheezing on exam or improvement with albuterol - levalbuterol/ipratropium Q4H PRN for SOB/wheezing HTN - hold BP meds for now, resume when appropriate, BP controlled currently metastatic pancreatic cancer - followed by Dr Almeida full code VTE prophy: eliquis Patient with AFib with RVR complicated by acute CHF exacerbation, requiring admission for at least 2 midnight stay for cardiac monitoring, rate control, IV diuresis and cardiology consultation. Quality Stroke Does the patient have a stroke diagnosis?: No VTE Prior VTE?: No VTE Risk Level:: Medical - moderate - high VTE Device Contraindication: Treatment Not Indicated VTE Drug Contraindication: N/A - Med Ordered
[2025-05-05 21:49] LABS: Glucose, Whole Blood 92 mg/dL (60-115)
[2025-05-05 21:59] VITALS: BP 135/95; PULSE 104; RESP 18; O2SAT 96
[2025-05-05] MEDS: Apixaban 5 MG TABLET PO (22:03)
[2025-05-05 22:19] LABS: B Type Natriuretic Peptide 2804 pg/mL (<100)
[2025-05-05 22:33] LABS: TSH reflex Free T4 4.84 uIU/mL (0.32-4.0)
[2025-05-05 23:37] VITALS: BP 138/96; PULSE 127; RESP 27; TEMP 36.8; O2SAT 96
--- NOTE | 2025-05-06 | ECG_ITS ---
Test Reason : chest pain Blood Pressure : */* mmHG Vent. Rate : 122 BPM Atrial Rate : * BPM P-R Int : * ms QRS Dur : 112 ms QT Int : 302 ms P-R-T Axes : * -14 169 degrees QTcB Int : 430 ms Atrial fibrillation with rapid ventricular response with premature ventricular or aberrantly conducted complexes Minimal voltage criteria for LVH, may be normal variant ( Duncan product ) Nonspecific ST and T wave abnormality Abnormal ECG When compared with ECG of 05-May-2025 16:27, No significant change was found Referred By: Ailyn García Electronically Signed By: SHERRELL MALIK
--- NOTE | 2025-05-06 01:35 | PC.NURSE ---
[place] [facility] [id number] [place]
[2025-05-06 01:50] VITALS: BMI 27.8
[2025-05-06] MEDS: Metoprolol Tartrate 5 MG/5 ML VIAL IVPUSH ×2 (02:55→05:36)
[2025-05-06 03:44] VITALS: BP 135/100; PULSE 121; RESP 20; O2SAT 93
--- NOTE | 2025-05-06 05:23 | PM.EVENT ---
Event Note Date of Service: 05/06/25 Event Note: rate continues to be elevated in the 130s. no reporting 5/10 chest pain. morning labs pending including trop and dig level. add EKG and VQ scan to r/o PE although on eliqus so unlikely. give another metoprolol 5mg IV. discussed with Dr Nielson Time Spent With Patient Time: Total time managing care of this patient today ____ minutes.
[2025-05-06 06:21] LABS: Basophils Absolute Auto 0.1 X10*3/uL (0.0-0.2); Basophils Percent Auto 0.3 % (0-2); Eosinophils Absolute Auto 0.1 X10*3/uL (0.0-0.4); Eosinophils Percent Auto 0.6 % (0-4); Hematocrit 40.4 % (42.0-52.0); Hemoglobin 13.4 g/dl (14.0-18.0); Imm Gran Abs Auto 0.08 X10*3/uL (0.00-0.03); Imm Gran Pct Auto 0.5 % (0.0-0.4); Lymphocytes Absolute Auto 0.8 X10*3/uL (1.2-4.9); Lymphocytes Percent Auto 5.6 % (20-40); MANUAL DIFF FLAG SCAN; Mean Corpuscular HGB Conc 33.2 g/dl (31.0-36.0); Mean Corpuscular Hemoglobin 27.8 pg (27.0-33.0); Mean Corpuscular Volume 83.8 fL (80.0-98.0); Mean Platelet Volume 12.9 fL (9.4-12.4); Monocytes Absolute Auto 1.5 X10*3/uL (0.1-1.2); Monocytes Percent Auto 10.4 % (2-11); Neutrophils Absolute Auto 12.2 x10*3/uL (2.0-8.3); Neutrophils Percent Auto 82.6 % (45-73); Platelet Count 213 X10*3/uL (160-400); Red Blood Count 4.82 X10*6/uL (4.60-5.80); SCAN SMEAR FLAG 1; White Blood Count 14.7 X10*3/uL (4.8-10.8)
[2025-05-06 06:23] LABS: Digoxin 0.3 ng/mL (0.8-2.0)
[2025-05-06 06:25] LABS: Anion Gap 13 (12-20); Blood Urea Nitrogen 30 mg/dL (9-16); Calcium 9.2 mg/dL (8.4-10.2); Carbon Dioxide 24 mmol/L (22-29); Chloride 104 mmol/L (96-108); Estimated Glomerular Filt Rate 50; Glucose Random 105 mg/dL (60-115); Potassium 5.3 mmol/L (3.3-5.1); Sodium 136 mmol/L (135-145)
[2025-05-06 06:44] LABS: SLIDE REVIEW VERIFIED
[2025-05-06 07:19] VITALS: BP 135/86; PULSE 88; RESP 18; TEMP 36.7; O2SAT 96
[2025-05-06 07:27] LABS: Troponin-I High Sensitivity 5389.7 ng/L (<3.5-35.0)
[2025-05-06 07:28] LABS: Glucose, Whole Blood 100 mg/dL (60-115)
[2025-05-06] MEDS: Ezetimibe 10 MG TABLET PO (07:54)
[2025-05-06] MEDS: Sacubitril/Valsartan 24/26 1 TAB TABLET PO (07:54)
[2025-05-06] MEDS: Metoprolol Succinate ER 50 MG TAB.ER.24H 150 MG PO (07:54)
[2025-05-06] MEDS: Apixaban 5 MG TABLET PO ×2 (07:54→21:43)
[2025-05-06] MEDS: Empagliflozin 10 MG TABLET PO (07:55)
[2025-05-06] MEDS: 0.9 % Sodium Chloride Flush 3 ML SYRINGE IVFLUSH ×2 (08:58→16:11)
[2025-05-06 10:57] VITALS: BP 128/80; PULSE 81; RESP 18; TEMP 36.4; O2SAT 98
--- NOTE | 2025-05-06 11:20 | PM.CNCAR ---
History of Present Illness History of Present Illness Date of Service: 05/06/25 Chief complaint: A fib with RVR Narrative: This is a cardiology consultation regarding atrial fibrillation rapid ventricular response. Patient was seen by in clinic yesterday. According to his note, he had recently come to [facility] with atrial fibrillation and lateral T-wave changes and abdominal pain. CT scan had shown pancreatic mass confirmed his pancreatic cancer. Then there was an admission with elevated troponin levels and he was transferred to [facility] and medically managed for NSTEMI but the LVEF was only 10-15%. Then again readmitted to [facility] where there was a question of left atrial mass. He was seen in the clinic yesterday and was found to be in rapid rate and hence sent to the emergency room. Patient himself states he feels well and he has got no complaints like chest pains or palpitations or in fact anything cardiac sounding. Review of Systems Review of Systems: Yes all other systems are reviewed and are negative Constitutional: Constitutional: Reports as per HPI and Reports no additional constitutional complaints Eyes: Eyes: Reports as per HPI and Denies no additional eye complaints ENT: Denies system reviewed and no additional complaints, except as documented and Reports as per HPI Cardiovascular: Cardiovascular: Reports as per HPI, Reports no additional cardiovascular complaints, Denies acrocyanosis, Denies cool extremities, Denies chest pain, Denies leg edema, Denies lightheadedness, Denies palpitations and Denies dyspnea Respiratory: Respiratory: Reports as per HPI, Denies no additional respiratory complaints and Denies dyspnea Gastrointestinal: Gastrointestinal: Reports as per HPI and Denies no additional gastrointestinal complaints Genitourinary: Genitourinary: Reports no additional male genitourinary complaints and Reports as per HPI Musculoskeletal: Musculoskeletal: Reports no additional musculoskeletal complaints and Reports as per HPI Integumentary/Breasts: Skin/Breast: Reports system reviewed and no additional complaints, except as docu Neurologic: Reports system reviewed and no additional complaints, except as documented and Reports as per HPI Psychiatric: Psychiatric: Reports no additional psychiatric complaints and Reports as per HPI Endocrine: Endocrine: Reports no additional endocrine complaints, Reports as per HPI and Denies palpitations Hematologic/Lymphatic: Hematologic/Lymphatic: Reports no additional hematologic/lymphatic complaints and Reports as per HPI Allergic/Immunologic: Allergic/Immunologic: Reports no additional allergic/immunologic complaints and Reports as per HPI [facility] Past Medical History Medical History Pancreatic lesion COPD (chronic obstructive pulmonary disease) HTN (hypertension) Type 2 diabetes mellitus without complications Persistent atrial fibrillation Metastatic cancer Family History Family History Daughter Ovarian cancer Social History Social History Household Members: Spouse Housing: Apartment Are you a primary senior resident care director to a significant other at home: No Do you presently have visiting nurse or other home services: Yes Unable to assess alcohol history related to: Unknown Patient Tobacco Use Status: Former Tobacco user Tobacco use type: Cigarette Cigarette Packs Per Day: 1 e-Cigarette/Vaping Use: Never Used Second Hand Smoke Exposure: No Advance Directives Date on File: 03/17/25 service: No Current occupational status: retired [employer] Allergies Allergy/AdvReac Type Severity Reaction Status Date / Time No Known Allergies Allergy Verified 05/05/25 16:29 Active Medications: Current Medications Acetaminophen (Acetaminophen 325 Mg Tablet) 650 mg PO Q6H PRN PRN Reason: Pain, Mild 1-3,fever,headache Albuterol Sulfate (Albuterol Sulfate 90 Mcg 8 Gm Inhaler) 2 puff INHALE Q6H PRN PRN Reason: wheezing Apixaban (Apixaban 5 Mg Tablet) 5 mg PO BID [facility] Last Admin: 05/06/25 07:54 Dose: 5 mg Calcium Carbonate (Calcium Carbonate 750 Mg Tab.Chew) 750 mg PO Q4H PRN PRN Reason: Heartburn Levalbuterol HCl 1.25 mg/ (Ipratropium [place] 0.5 mg) 0 mg INHALE Q4H PRN PRN Reason: Shortness of Breath/Wheezing Dextrose (Dextrose 50 % 25 Gm/50 Ml Syringe) 25 gm IVPUSH Q15M PRN; Protocol PRN Reason: per Hypoglycemia Standing Ord. Ezetimibe (Ezetimibe 10 Mg Tablet) 10 mg PO DAILY [facility] Last Admin: 05/06/25 07:54 Dose: 10 mg Empagliflozin (Empagliflozin 10 Mg Tablet) 10 mg PO DAILY [facility] Last Admin: 05/06/25 07:55 Dose: 10 mg Glucose (Glucose Gel 15 Gm Gel..Gram.) 15 gm PO Q15M PRN; Protocol PRN Reason: per Hypoglycemia Standing Ord. Insulin Human Lispro (Insulin Lispro 100 Unit/Ml 3 Ml Vial) 0 unit SUBCUT QIDACHS [facility]; Protocol Last Admin: 05/06/25 07:41 Dose: Not Given Magnesium Hydroxide (Milk Of Magnesia 30 Ml Oral.Susp) 30 ml PO DAILY PRN PRN Reason: Constipation Melatonin (Melatonin 3 Mg Tablet) 6 mg PO BEDTIME PRN PRN Reason: Insomnia Metoprolol Succinate (Metoprolol Succinate Er 50 Mg Tab.Er.24h) 150 mg PO DAILY [facility]; Protocol Last Admin: 05/06/25 07:54 Dose: 150 mg Morphine Sulfate (Morphine Sulfate 4 Mg/Ml Cartridge) 2 mg IVPUSH Q4H PRN; Protocol PRN Reason: Pain, Severe (Pain Scale 7-10) Ondansetron HCl (Ondansetron Hcl 4 Mg/2 Ml Vial) 4 mg IVPUSH Q8H PRN PRN Reason: Nausea and Vomiting Oxycodone HCl (Oxycodone Hcl Immed Release 5 Mg Tablet) 5 mg PO Q6H PRN PRN Reason: Pain, Moderate(Pain Scale 4-6) Sacubitril/Valsartan (Sacubitril/Valsartan 1 Tab Tablet) 1 tab PO BID [facility]; Protocol Last Admin: 05/06/25 07:54 Dose: 1 tab Sodium Chloride (0.9 % Sodium Chloride Flush 3 Ml Syringe) [facility] Last Admin: 05/06/25 08:58 Dose: 3 ml Home Medications ?Medication ?Instructions ?Recorded ?Confirmed ?Last Taken ?Type acetaminophen 325 mg tablet 650 mg PO Q6H PRN Pain 03/12/25 05/05/25 Unknown History albuterol sulfate 2.5 mg/3 mL 2.5 mg continuous nebulization Q4H 03/12/25 05/05/25 Unknown History (0.083 %) solution for nebulization PRN SOB apixaban 5 mg tablet (Eliquis) 5 mg PO BID 03/12/25 05/05/25 05/05/25 History metoprolol succinate 50 mg 150 mg PO DAILY 03/12/25 05/05/25 05/05/25 History tablet,extended release 24 hr dapagliflozin propanediol 5 mg 10 mg PO DAILY 04/20/25 05/05/25 05/05/25 History tablet ezetimibe 10 mg tablet 10 mg PO DAILY PRN HIGH CHOLESTROL 04/20/25 05/05/25 Unknown History sacubitril 24 mg-valsartan 26 mg 1 tab PO BID 04/20/25 05/05/25 05/05/25 History tablet (Entresto) sitagliptin phosphate 50 1 tab PO BID PRN HIGH BLOOD SUGAR 04/20/25 05/05/25 Unknown History mg-metformin 1,000 mg tablet (Janumet) albuterol sulfate 90 mcg/actuation 2 puff inhalation Q6H PRN wheezing 05/05/25 05/05/25 Unknown History aerosol inhaler furosemide 20 mg tablet 20 mg PO DAILY 05/05/25 05/05/25 05/05/25 History metformin 500 mg tablet 500 mg PO BID Hypertension 05/05/25 05/05/25 Unknown History Physical Exam Vital Signs: Vital Signs: Last Vital Signs Temp 97.6 F 05/06/25 10:57 Pulse 81 05/06/25 10:57 Resp 18 05/06/25 10:57 BP 128/80 05/06/25 10:57 Pulse Ox 98 05/06/25 10:57 O2 Del Method Room Air 05/06/25 10:57 BMI result Body Mass Index 27.8 Const: General: comfortable and no acute distress Orientation/consciousness: patient oriented x3 HEENT: Other: Unremarkable Head: Yes normal to inspection Neck: Neck: Yes normal visual inspection Chest: Chest palpation & inspection: normal inspection of the chest Resp: Auscultation: clear to auscultation bilaterally Cardio: Palpation: normal PMI Heart sounds: S1 normal heart sound present, S2 normal heart sound present, no gallops, no murmurs and no rubs GI: Palpation (GI): Soft to palpation Back/Spine/Pelvis: Other: unremarkable Skin: General skin exam: no rashes or lesions noted Neuro: General: patient oriented x3 Extrem: General: Yes normal to inspection Psych: Mental Status: mental status grossly normal Objective Labs and Meds 05/06/25 05:57 05/06/25 05:57 Lab results: Laboratory Results - last 24 hr 05/05/25 05/05/25 05/05/25 16:59 19:59 20:03 WBC 11.7 H RBC 4.47 L Hgb 12.5 L Hct 38.0 L MCV 85.0 MCH 28.0 MCHC 32.9 RDW 17.8 H Plt Count 196 D MPV 12.6 H Immature Gran % (Auto) 0.4 Neut % (Auto) 82.2 H Lymph % (Auto) 5.6 L [place] % (Auto) 10.9 Eos % (Auto) 0.6 Baso % (Auto) 0.3 Lymph # (Auto) 0.7 L [place] # (Auto) 1.3 H Eos # (Auto) 0.1 Baso # (Auto) 0.0 Abs Immat Gran (auto) 0.05 H Absolute Neuts (auto) 9.6 H Absolute Nucleated RBC 0.000 Nucleated RBC % (auto) 0.0 Smear Tech's Comments Sodium 141 Potassium 5.2 H D Chloride 104 Carbon Dioxide 27 Anion Gap 15 BUN 31 H Creatinine 1.43 H Estim Creat Clear Calc 46.7 Estimated GFR 48 POC Glucose Random Glucose 126 H Calcium 9.0 Magnesium 2.1 Total Bilirubin 0.9 AST 38 H ALT 14 Alkaline Phosphatase 438 H Troponin I High Sens 5390.2 H* D 6314.7 H* B-Natriuretic Peptide Total Protein 6.9 Albumin 2.7 L TSH Free T4 Urine Color Dark Yellow Urine Appearance Cloudy Urine pH 5.0 Ur Specific [place] 1.020 Urine Protein 30 (1+) H Urine Glucose (UA) Negative Urine Ketones Trace Urine Blood Negative Urine Nitrite Negative Ur Leukocyte Esterase Small (1+) H Urine RBC 0-2 Urine WBC 6-10 H Ur Squamous Epith Cells 0-2 Calcium Oxalate Crystal Present Other Crystals Present Urine Bacteria None Seen Hyaline Casts 11-20 Granular Casts Present Digoxin 05/05/25 05/05/25 05/06/25 21:45 21:55 05:57 WBC 14.7 H RBC 4.82 Hgb 13.4 L Hct 40.4 L MCV 83.8 MCH 27.8 MCHC 33.2 RDW 18.0 H Plt Count 213 MPV 12.9 H Immature Gran % (Auto) 0.5 H Neut % (Auto) 82.6 H Lymph % (Auto) 5.6 L [place] % (Auto) 10.4 Eos % (Auto) 0.6 Baso % (Auto) 0.3 Lymph # (Auto) 0.8 L [place] # (Auto) 1.5 H Eos # (Auto) 0.1 Baso # (Auto) 0.1 Abs Immat Gran (auto) 0.08 H Absolute Neuts (auto) 12.2 H Absolute Nucleated RBC 0.000 Nucleated RBC % (auto) 0.0 Smear Tech's Comments VERIFIED Sodium 136 Potassium 5.3 H Chloride 104 Carbon Dioxide 24 Anion Gap 13 BUN 30 H Creatinine 1.39 Estim Creat Clear Calc 52.0 Estimated GFR 50 POC Glucose 92 Random Glucose 105 Calcium 9.2 Magnesium 2.0 Total Bilirubin AST ALT Alkaline Phosphatase Troponin I High Sens 5389.7 H* B-Natriuretic Peptide 2804 H Total Protein Albumin TSH 4.84 H Free T4 0.90 Urine Color Urine Appearance Urine pH Ur Specific [place] Urine Protein Urine Glucose (UA) Urine Ketones Urine Blood Urine Nitrite Ur Leukocyte Esterase Urine RBC Urine WBC Ur Squamous Epith Cells Calcium Oxalate Crystal Other Crystals Urine Bacteria Hyaline Casts Granular Casts Digoxin 0.3 L 05/06/25 07:21 WBC RBC Hgb Hct MCV MCH MCHC RDW Plt Count MPV Immature Gran % (Auto) Neut % (Auto) Lymph % (Auto) [place] % (Auto) Eos % (Auto) Baso % (Auto) Lymph # (Auto) [place] # (Auto) Eos # (Auto) Baso # (Auto) Abs Immat Gran (auto) Absolute Neuts (auto) Absolute Nucleated RBC Nucleated RBC % (auto) Smear Tech's Comments Sodium Potassium Chloride Carbon Dioxide Anion Gap BUN Creatinine Estim Creat Clear Calc Estimated GFR POC Glucose 100 Random Glucose Calcium Magnesium Total Bilirubin AST ALT Alkaline Phosphatase Troponin I High Sens B-Natriuretic Peptide Total Protein Albumin TSH Free T4 Urine Color Urine Appearance Urine pH Ur Specific [place] Urine Protein Urine Glucose (UA) Urine Ketones Urine Blood Urine Nitrite Ur Leukocyte Esterase Urine RBC Urine WBC Ur Squamous Epith Cells Calcium Oxalate Crystal Other Crystals Urine Bacteria Hyaline Casts Granular Casts Digoxin ECG Interpretation: EKG yesterday showed atrial fibrillation rate of 131/Min. In the repeat EKG, 122/Min. Seems better controlled now. Imaging Radiologist's impression: Impressions Pulmonary Perfusion Imaging 05/06/25 09:00 IMPRESSION: Very low probability for pulmonary emboli. Electronically signed by: Kei Emmanuel MD 05/06/2025 11:07 AM EDT Assessment and Plan (1) Atrial fibrillation with rapid ventricular response: Status: Acute (2) Cardiomyopathy: Status: Acute (3) Pancreatic cancer: Status: Acute Plan For rate control of atrial fibrillation, he is on metoprolol XL 150 mg daily. Add digoxin load followed by maintenance. This was discussed with emergency room physician yesterday. Anticoagulation. For the cardiomyopathy itself, he is on metoprolol XL/Entresto/Jardiance. He is not appearing to be in any active heart failure. Elevated troponin but overall trend is down compared to the level from a month ago. No specific implications from that. With regard to the pancreatic mass, per Hematology. Overall, guarded prognosis. Discussed with at the bedside. Procedures Date of Service Date of Service: 05/06/25
--- NOTE | 2025-05-06 11:23 | P.CNHO_ITS ---
Subjective - Subjective Chief complaint: Weakness Patient: known to practice within the last 3 years Consult date: 05/06/25 Primary Care Provider: Alina Almeida MD [facility] Supervisor Utilized?: No - Urdu Speaking HPI - Consult Narrative Reason for consult: Metastatic pancreatic cancer Narrative: Prakash Díaz is a 74 year old male who was diagnosed with metastatic pancreatic cancer in March 2025. Is currently admitted because of uncontrolled atrial fibrillation. He feels weak and tired. He was recommended palliative chemotherapy but his refused to bring him for any appointment saying that he has become very weak and will not be able to tolerate treatment. He presented to his sales and training specialist's office yesterday and was found to be in rapid AFib. His heart rate was in the 140s and he was therefore sent to the emergency department. Review of Systems - Neurologic Denies confusion, Denies headache(s) Oncology Screenings - ECOG Performance Status ECOG Performance Status: 2 [facility] Medical History: Medical History (Last Reviewed 05/06/25 @ 02:04 by Latisha Laguna RN) COPD (chronic obstructive pulmonary disease) HTN (hypertension) Metastatic cancer Pancreatic lesion Persistent atrial fibrillation Type 2 diabetes mellitus without complications Family History: Family History (Last Reviewed 05/05/25 @ 15:36 by Aviva Alonzo CMA) Daughter Ovarian cancer Social History: Social History (Last Reviewed 05/05/25 @ 15:36 by Aviva Alonzo CMA) Living Situation History: Household Members: Spouse Housing: Apartment Are you a primary childcare teacher to a significant other at home: No Do you presently have visiting nurse or other home services: Yes Alcohol History: Unable to assess alcohol history related to: Unknown Tobacco History: Patient Tobacco Use Status: Former Tobacco user Tobacco use type: Cigarette Cigarette Packs Per Day: 1 e-Cigarette/Vaping Use: Never Used Second Hand Smoke Exposure: No Advance Directives: Advance Directives Date on File: 03/17/25 Occupation Assessmet: service: No Current occupational status: retired Home Medications and Allergies Current Medications: Current Medications Acetaminophen (Acetaminophen 325 Mg Tablet) 650 mg PO Q6H PRN PRN Reason: Pain, Mild 1-3,fever,headache Albuterol Sulfate (Albuterol Sulfate 90 Mcg 8 Gm Inhaler) 2 puff INHALE Q6H PRN PRN Reason: wheezing Apixaban (Apixaban 5 Mg Tablet) 5 mg PO BID [facility] Last Admin: 05/06/25 07:54 Dose: 5 mg Calcium Carbonate (Calcium Carbonate 750 Mg Tab.Chew) 750 mg PO Q4H PRN PRN Reason: Heartburn Levalbuterol HCl 1.25 mg/ (Ipratropium [place] 0.5 mg) 0 mg INHALE Q4H PRN PRN Reason: Shortness of Breath/Wheezing Dextrose (Dextrose 50 % 25 Gm/50 Ml Syringe) 25 gm IVPUSH Q15M PRN; Protocol PRN Reason: per Hypoglycemia Standing Ord. Ezetimibe (Ezetimibe 10 Mg Tablet) 10 mg PO DAILY [facility] Last Admin: 05/06/25 07:54 Dose: 10 mg Empagliflozin (Empagliflozin 10 Mg Tablet) 10 mg PO DAILY [facility] Last Admin: 05/06/25 07:55 Dose: 10 mg Glucose (Glucose Gel 15 Gm Gel..Gram.) 15 gm PO Q15M PRN; Protocol PRN Reason: per Hypoglycemia Standing Ord. Insulin Human Lispro (Insulin Lispro 100 Unit/Ml 3 Ml Vial) 0 unit SUBCUT QIDACHS [facility]; Protocol Last Admin: 05/06/25 07:41 Dose: Not Given Magnesium Hydroxide (Milk Of Magnesia 30 Ml Oral.Susp) 30 ml PO DAILY PRN PRN Reason: Constipation Melatonin (Melatonin 3 Mg Tablet) 6 mg PO BEDTIME PRN PRN Reason: Insomnia Metoprolol Succinate (Metoprolol Succinate Er 50 Mg Tab.Er.24h) 150 mg PO DAILY [facility]; Protocol Last Admin: 05/06/25 07:54 Dose: 150 mg Morphine Sulfate (Morphine Sulfate 4 Mg/Ml Cartridge) 2 mg IVPUSH Q4H PRN; Protocol PRN Reason: Pain, Severe (Pain Scale 7-10) Ondansetron HCl (Ondansetron Hcl 4 Mg/2 Ml Vial) 4 mg IVPUSH Q8H PRN PRN Reason: Nausea and Vomiting Oxycodone HCl (Oxycodone Hcl Immed Release 5 Mg Tablet) 5 mg PO Q6H PRN PRN Reason: Pain, Moderate(Pain Scale 4-6) Sacubitril/Valsartan (Sacubitril/Valsartan 1 Tab Tablet) 1 tab PO BID [facility]; Protocol Last Admin: 05/06/25 07:54 Dose: 1 tab Sodium Chloride (0.9 % Sodium Chloride Flush 3 Ml Syringe) 3 ml IVFLUSH QSHIFT [facility] Last Admin: 05/06/25 08:58 Dose: 3 ml Home Medications ?Medication ?Instructions ?Recorded ?Confirmed ?Type acetaminophen 325 mg tablet 650 mg PO Q6H PRN Pain 03/12/25 05/05/25 History albuterol sulfate 2.5 mg/3 mL 2.5 mg continuous nebulization Q4H 03/12/25 05/05/25 History (0.083 %) solution for nebulization PRN SOB apixaban 5 mg tablet (Eliquis) 5 mg PO BID 03/12/25 05/05/25 History metoprolol succinate 50 mg 150 mg PO DAILY 03/12/25 05/05/25 History tablet,extended release 24 hr dapagliflozin propanediol 5 mg 10 mg PO DAILY 04/20/25 05/05/25 History tablet ezetimibe 10 mg tablet 10 mg PO DAILY PRN HIGH CHOLESTROL 04/20/25 05/05/25 History sacubitril 24 mg-valsartan 26 mg 1 tab PO BID 04/20/25 05/05/25 History tablet (Entresto) sitagliptin phosphate 50 1 tab PO BID PRN HIGH BLOOD SUGAR 04/20/25 05/05/25 History mg-metformin 1,000 mg tablet (Janumet) albuterol sulfate 90 mcg/actuation 2 puff inhalation Q6H PRN wheezing 05/05/25 05/05/25 History aerosol inhaler furosemide 20 mg tablet 20 mg PO DAILY 05/05/25 05/05/25 History metformin 500 mg tablet 500 mg PO BID Hypertension 05/05/25 05/05/25 History Allergies Allergy/AdvReac Type Severity Reaction Status Date / Time No Known Allergies Allergy Verified 05/05/25 16:29 Physical Exam Vital signs: Vital Signs Temp 97.6 F 05/06/25 10:57 Pulse 81 05/06/25 10:57 Resp 18 05/06/25 10:57 BP 128/80 05/06/25 10:57 Pulse Ox 98 05/06/25 10:57 O2 Del Method Room Air 05/06/25 10:57 Intake & Output 05/05/25 05/06/25 05/06/25 18:59 06:59 18:59 Other: Number of Unmeasured Voids 1 Last Bowel Movement 05/05/25 Weight 85.3 kg 88 kg [place] Weight in Grams 96077 Weight 88 kg - Constitutional Present: no acute distress, chronically ill appearing - Routine HEENT Exam Eye: Present: EOMI - Routine Neck Exam Absent: lymphadenopathy - Routine Respiratory Exam Absent: accessory muscle use - Routine Cardiovascular Exam Cardiovascular: Present: S1, S2, tachycardia - Routine Abdominal Exam Present: soft Hem/Onc Consult Result - Labs CBC & Chem 7: 05/06/25 05:57 05/06/25 05:57 Labs: Short CBC 05/05/25 05/06/25 Range/Units 16:59 05:57 WBC 11.7 H 14.7 H (4.8-10.8) X10*3/uL Hgb 12.5 L 13.4 L (14.0-18.0) g/dl Hct 38.0 L 40.4 L (42.0-52.0) % Plt Count 196 D 213 (160-400) X10*3/uL BMP 05/05/25 05/06/25 16:59 05:57 Sodium 141 136 Potassium 5.2 H D 5.3 H Chloride 104 104 Carbon Dioxide 27 24 BUN 31 H 30 H Creatinine 1.43 H 1.39 Calcium 9.0 9.2 Liver Function 05/05/25 Range/Units 16:59 Total Bilirubin 0.9 (0.0-1.0) mg/dL AST 38 H (5-37) U/L ALT 14 (0-40) U/L Alkaline Phosphatase 438 H (39-117) U/L Albumin 2.7 L (3.5-5.0) g/dL Urine 05/05/25 Range/Units 20:03 Urine Color Dark Yellow Urine Appearance Cloudy Urine pH 5.0 (5.0-9.0) Ur Specific [place] 1.020 (1.005-1.025) Urine Protein 30 (1+) H (Neg-Trace) mg/dL Urine Glucose (UA) Negative (Negative) mg/dL Assessment and Plan Patient Active problem list reviewed?: Yes (1) Pancreatic cancer Status: Acute Assessment and plan: 1. This is a 74-year-old male with metastatic pancreatic cancer. He underwent biopsy of liver lesion on 03/23/2025 which showed adenocarcinoma, moderate to poorly differentiated. CT abdomen/pelvis without IV contrast performed 03/12/2025 shows a 2 cm poorly defined lesion in the pancreatic head, 1.6 cm necrotic lymph node, multiple borderline enlarged periportal and peripancreatic lymph nodes, enlarged spleen measuring 14.1 cm, diffuse fatty infiltration of the liver with multiple hypoattenuated hepatic lesions consistent with hepatic metastasis. There is suspicion of tumoral invasion in the proximal celiac artery and proximal SMA. CA 19 [address] [place] [address] U/mL This is consistent with metastatic pancreatic cancer. Blood work fortunately is normal with only mild elevation in alkaline phosphatase level. His performance status is borderline. He is not be a candidate for FOLFIRINOX. He was recommended gemcitabine with Abraxane. Genetic testing was performed. 2. NSTEMI with cardiomyopathy and EF of 15-20%. He was admitted to [facility] 1st week of April. He is on a number of new cardiac medications including Lasix, Entresto, baby aspirin and Eliquis. He is currently admitted to the hospital for rapid atrial fibrillation. The patient missed last few appointments at oncology. As per his they do not want to receive any systemic therapy/chemotherapy. She is requesting palliative/hospice care. - Time Spent With Patient Time Spent with Patient (in minutes): 15
[2025-05-06 11:41] LABS: Glucose, Whole Blood 123 mg/dL (60-115)
--- NOTE | 2025-05-06 11:56 | HO.PM.IMPN ---
Subjective Subjective Date of Service: 05/06/25 Interval History: converted to NSR this AM a little short of breath Review of Systems Review of Systems: Yes all other systems are reviewed and are negative Physical Exam Vital Signs: Vital Signs: Last Vital Signs Temp 97.6 F 05/06/25 10:57 Pulse 81 05/06/25 10:57 Resp 18 05/06/25 10:57 BP 128/80 05/06/25 10:57 Pulse Ox 98 05/06/25 10:57 O2 Del Method Room Air 05/06/25 10:57 BMI result Body Mass Index 27.8 Gen: in no acute distress HEENT: sclera anicteric, moist mucus membranes Neck: supple Lungs: diminished Heart: regular rate and rhythm, no murmurs Abd: soft, non-tender, non-distended Ext: no edema Skin: warm/well-perfused Neuro: alert and oriented x3, no focal findings Psych: appropriate affect Objective Data Active Medications Acetaminophen (Acetaminophen 325 Mg Tablet) 650 mg PO Q6H PRN PRN Reason: Pain, Mild 1-3,fever,headache Albuterol Sulfate (Albuterol Sulfate 90 Mcg 8 Gm Inhaler) 2 puff INHALE Q6H PRN PRN Reason: wheezing Apixaban (Apixaban 5 Mg Tablet) 5 mg PO BID [facility] Last Admin: 05/06/25 07:54 Dose: 5 mg Documented By: PUJA Calcium Carbonate (Calcium Carbonate 750 Mg Tab.Chew) 750 mg PO Q4H PRN PRN Reason: Heartburn Levalbuterol HCl 1.25 mg/ (Ipratropium [place] 0.5 mg) 0 mg INHALE Q4H PRN PRN Reason: Shortness of Breath/Wheezing Dextrose (Dextrose 50 % 25 Gm/50 Ml Syringe) 25 gm IVPUSH Q15M PRN; Protocol PRN Reason: per Hypoglycemia Standing Ord. Digoxin (Digoxin 0.5 Mg/2 Ml Ampul) 0.25 mg IVPUSH Q6H [facility]; Protocol Stop: 05/06/25 18:01 Ezetimibe (Ezetimibe 10 Mg Tablet) 10 mg PO DAILY [facility] Last Admin: 05/06/25 07:54 Dose: 10 mg Documented By: PUJA Empagliflozin (Empagliflozin 10 Mg Tablet) 10 mg PO DAILY [facility] Last Admin: 05/06/25 07:55 Dose: 10 mg Documented By: PUJA Glucose (Glucose Gel 15 Gm Gel..Gram.) 15 gm PO Q15M PRN; Protocol PRN Reason: per Hypoglycemia Standing Ord. Insulin Human Lispro (Insulin Lispro 100 Unit/Ml 3 Ml Vial) 0 unit SUBCUT QIDACHS [facility]; Protocol Last Admin: 05/06/25 07:41 Dose: Not Given Documented By: PUJA Non-Admin Reason: No Insulin Coverage Magnesium Hydroxide (Milk Of Magnesia 30 Ml Oral.Susp) 30 ml PO DAILY PRN PRN Reason: Constipation Melatonin (Melatonin 3 Mg Tablet) 6 mg PO BEDTIME PRN PRN Reason: Insomnia Metoprolol Succinate (Metoprolol Succinate Er 50 Mg Tab.Er.24h) 150 mg PO DAILY [facility]; Protocol Last Admin: 05/06/25 07:54 Dose: 150 mg Documented By: PUJA Morphine Sulfate (Morphine Sulfate 4 Mg/Ml Cartridge) 2 mg IVPUSH Q4H PRN; Protocol PRN Reason: Pain, Severe (Pain Scale 7-10) Ondansetron HCl (Ondansetron Hcl 4 Mg/2 Ml Vial) 4 mg IVPUSH Q8H PRN PRN Reason: Nausea and Vomiting Oxycodone HCl (Oxycodone Hcl Immed Release 5 Mg Tablet) 5 mg PO Q6H PRN PRN Reason: Pain, Moderate(Pain Scale 4-6) Sacubitril/Valsartan (Sacubitril/Valsartan 1 Tab Tablet) 1 tab PO BID [facility]; Protocol Last Admin: 05/06/25 07:54 Dose: 1 tab Documented By: PUJA Sodium Chloride (0.9 % Sodium Chloride Flush 3 Ml Syringe) 3 ml IVFLUSH QSHIFT [facility] Last Admin: 05/06/25 08:58 Dose: 3 ml Documented By: PUJA Labs 05/06/25 05:57 05/06/25 05:57 Labs: Laboratory Results - last 24 hr 05/05/25 05/05/25 05/05/25 16:59 19:59 20:03 MCV 85.0 MCH 28.0 MCHC 32.9 RDW 17.8 H Plt Count 196 D MPV 12.6 H Immature Gran % (Auto) 0.4 Neut % (Auto) 82.2 H Lymph % (Auto) 5.6 L [place] % (Auto) 10.9 Eos % (Auto) 0.6 Baso % (Auto) 0.3 Lymph # (Auto) 0.7 L [place] # (Auto) 1.3 H Eos # (Auto) 0.1 Baso # (Auto) 0.0 Abs Immat Gran (auto) 0.05 H Absolute Neuts (auto) 9.6 H Absolute Nucleated RBC 0.000 Nucleated RBC % (auto) 0.0 Smear Tech's Comments Anion Gap 15 Estim Creat Clear Calc 46.7 Estimated GFR 48 POC Glucose Random Glucose 126 H Calcium 9.0 Magnesium 2.1 Total Bilirubin 0.9 AST 38 H ALT 14 Alkaline Phosphatase 438 H Troponin I High Sens 5390.2 H* D 6314.7 H* B-Natriuretic Peptide Total Protein 6.9 Albumin 2.7 L TSH Free T4 Urine Color Dark Yellow Urine Appearance Cloudy Urine pH 5.0 Ur Specific [place] 1.020 Urine Protein 30 (1+) H Urine Glucose (UA) Negative Urine Ketones Trace Urine Blood Negative Urine Nitrite Negative Ur Leukocyte Esterase Small (1+) H Urine RBC 0-2 Urine WBC 6-10 H Ur Squamous Epith Cells 0-2 Calcium Oxalate Crystal Present Other Crystals Present Urine Bacteria None Seen Hyaline Casts 11-20 Granular Casts Present Digoxin 05/05/25 05/05/25 05/06/25 21:45 21:55 05:57 MCV 83.8 MCH 27.8 MCHC 33.2 RDW 18.0 H Plt Count 213 MPV 12.9 H Immature Gran % (Auto) 0.5 H Neut % (Auto) 82.6 H Lymph % (Auto) 5.6 L [place] % (Auto) 10.4 Eos % (Auto) 0.6 Baso % (Auto) 0.3 Lymph # (Auto) 0.8 L [place] # (Auto) 1.5 H Eos # (Auto) 0.1 Baso # (Auto) 0.1 Abs Immat Gran (auto) 0.08 H Absolute Neuts (auto) 12.2 H Absolute Nucleated RBC 0.000 Nucleated RBC % (auto) 0.0 Smear Tech's Comments VERIFIED Anion Gap 13 Estim Creat Clear Calc 52.0 Estimated GFR 50 POC Glucose 92 Random Glucose 105 Calcium 9.2 Magnesium 2.0 Total Bilirubin AST ALT Alkaline Phosphatase Troponin I High Sens 5389.7 H* B-Natriuretic Peptide 2804 H Total Protein Albumin TSH 4.84 H Free T4 0.90 Urine Color Urine Appearance Urine pH Ur Specific [place] Urine Protein Urine Glucose (UA) Urine Ketones Urine Blood Urine Nitrite Ur Leukocyte Esterase Urine RBC Urine WBC Ur Squamous Epith Cells Calcium Oxalate Crystal Other Crystals Urine Bacteria Hyaline Casts Granular Casts Digoxin 0.3 L 05/06/25 05/06/25 07:21 11:34 MCV MCH MCHC RDW Plt Count MPV Immature Gran % (Auto) Neut % (Auto) Lymph % (Auto) [place] % (Auto) Eos % (Auto) Baso % (Auto) Lymph # (Auto) [place] # (Auto) Eos # (Auto) Baso # (Auto) Abs Immat Gran (auto) Absolute Neuts (auto) Absolute Nucleated RBC Nucleated RBC % (auto) Smear Tech's Comments Anion Gap Estim Creat Clear Calc Estimated GFR POC Glucose 100 123 H Random Glucose Calcium Magnesium Total Bilirubin AST ALT Alkaline Phosphatase Troponin I High Sens B-Natriuretic Peptide Total Protein Albumin TSH Free T4 Urine Color Urine Appearance Urine pH Ur Specific [place] Urine Protein Urine Glucose (UA) Urine Ketones Urine Blood Urine Nitrite Ur Leukocyte Esterase Urine RBC Urine WBC Ur Squamous Epith Cells Calcium Oxalate Crystal Other Crystals Urine Bacteria Hyaline Casts Granular Casts Digoxin Assessment and Plan (1) Atrial fibrillation with rapid ventricular response: Status: Acute Plan d2 for 74yo M with metastatic pancreatic CA, chronic HFrEF, DM2, COPD, HTN, and AF sent in by humidifier attendant for RVR. AF/RVR - Cardiology consulted, continue metoprolol succinate, digoxin load/maintenance, change albuterol to levalbuterol - apixaban for CVA prevention acute/chronic HFrEF - give 1 dose of IV furosemide, monitor lytes/BNP/I+O/weight - continue metoprolol succinate + Entresto hyperK, mild - recheck tomorrow after IV furosemide DM2 - correction-dose lispro, DM diet, empagliflozin COPD without acute exacerbation - change albuterol to levalbuterol HLD - ezetimibe HTN - metoprolol succinate + Entresto metastatic pancreatic cancer - followed by Dr Almeida VTE ppx - apixaban dispo - likely home in next 1-2d In my clinical judgment, the patient requires continued inpatient hospitalization for the following reasons: rate control, IV diuresis Total time managing care of this patient today: 45 minutes. Quality Stroke Does the patient have a stroke diagnosis?: No VTE Prior VTE?: No VTE Risk Level:: Medical - moderate - high VTE Device Contraindication: Treatment Not Indicated VTE Drug Contraindication: N/A - Med Ordered
--- NOTE | 2025-05-06 12:05 | MHC.CM.PN ---
IMM 05/06/25 PANCREATIC CA W METS LIVES WITH HCP ON FILE REQUIRES ASSIST ADLS [facility] FIXED CAPITAL CLERK IN PLACE PER DME CANE, WALKER, TUB BENCH + WC NO PCP, [facility] [place] [facility] PROVIDED HAS PAPERWORK FOR HOME HEALTH SERVICES, BUT IT NEEDS A PCP SIGNATURE. DR ARREDONDO, THE PT'S ONCOLOGIST DECLINED TO SIGN. [facility] CAPITAL CLERK SERVICES. PT'S WILL PROVIDE TRANSPORTATION HOME AT [place].
[2025-05-06] MEDS: Furosemide 20 MG/2 ML VIAL IVPUSH (13:16)
[2025-05-06] MEDS: Digoxin 0.5 MG/2 ML AMPUL 0.25 MG IVPUSH ×2 (13:16→18:15)
[2025-05-06 14:58] VITALS: BP 113/73; PULSE 105; RESP 18; TEMP 36.4; O2SAT 96
[2025-05-06 16:24] LABS: Glucose, Whole Blood 112 mg/dL (60-115)
[2025-05-06 19:06] VITALS: BP 100/79; PULSE 92; RESP 18; TEMP 36.2; O2SAT 98
[2025-05-06 20:54] LABS: Glucose, Whole Blood 103 mg/dL (60-115)
[2025-05-06] MEDS: oxyCODONE HCl Immed Release 5 MG TABLET PO (21:42)
[2025-05-06 23:40] VITALS: BP 136/76; PULSE 61; RESP 18; TEMP 36.1; O2SAT 94
[2025-05-07] VITALS (8 sets, daily range): BP systolic 95–137; BP diastolic 53–81; PULSE 70–98; RESP 16–19; TEMP 36.2–36.6; O2SAT 96–98
[2025-05-07] MEDS: 0.9 % Sodium Chloride Flush 3 ML SYRINGE IVFLUSH ×4 (01:16→22:42)
[2025-05-07] MEDS: levalbuterol HCL 1.25 MG/3 ML VIAL.NEB INHALE (03:07)
[2025-05-07 06:52] LABS: Basophils Absolute Auto 0.1 X10*3/uL (0.0-0.2); Basophils Percent Auto 0.5 % (0-2); Eosinophils Absolute Auto 0.2 X10*3/uL (0.0-0.4); Hematocrit 46.4 % (42.0-52.0); Hemoglobin 14.9 g/dl (14.0-18.0); Imm Gran Abs Auto 0.08 X10*3/uL (0.00-0.03); Imm Gran Pct Auto 0.5 % (0.0-0.4); Lymphocytes Absolute Auto 1.1 X10*3/uL (1.2-4.9); Lymphocytes Percent Auto 7.1 % (20-40); MANUAL DIFF FLAG SCAN; Mean Corpuscular HGB Conc 32.1 g/dl (31.0-36.0); Mean Corpuscular Hemoglobin 27.6 pg (27.0-33.0); Mean Corpuscular Volume 85.9 fL (80.0-98.0); Mean Platelet Volume 12.2 fL (9.4-12.4); Monocytes Absolute Auto 1.6 X10*3/uL (0.1-1.2); Monocytes Percent Auto 9.9 % (2-11); Neutrophils Absolute Auto 13.1 x10*3/uL (2.0-8.3); Platelet Count 216 X10*3/uL (160-400); Red Cell Distribution Width 18.9 % (11.0-16.0); SCAN SMEAR FLAG 1; White Blood Count 16.1 X10*3/uL (4.8-10.8)
[2025-05-07 06:57] LABS: Anion Gap 13 (12-20); Blood Urea Nitrogen 35 mg/dL (9-16); Calcium 8.6 mg/dL (8.4-10.2); Carbon Dioxide 24 mmol/L (22-29); Chloride 106 mmol/L (96-108); Creatinine Clr Calc Pharmacy 49.2; Estimated Glomerular Filt Rate 47; Glucose Random 95 mg/dL (60-115); Potassium 5.3 mmol/L (3.3-5.1); Sodium 138 mmol/L (135-145)
[2025-05-07 07:02] LABS: B Type Natriuretic Peptide 3944 pg/mL (<100)
[2025-05-07 07:52] LABS: Glucose, Whole Blood 102 mg/dL (60-115)
[2025-05-07 08:29] LABS: SLIDE REVIEW VERIFIED
--- NOTE | 2025-05-07 09:39 | P.PNCA_ITS ---
Subjective Subjective Date of Service: 05/07/25 Interval history: Patient himself has no overt complaints. He is still in atrial fibrillation. It seems that he has been seen by Hematology and family have decided against chemotherapy. Review of Systems Review of Systems Yes all other systems are reviewed and are negative Constitutional: Reports as per HPI and Reports no additional constitutional complaints Eyes: Reports as per HPI and Denies no additional eye complaints Denies system reviewed and no additional complaints, except as documented and Reports as per HPI Cardiovascular: Reports as per HPI, Reports no additional cardiovascular complaints, Denies acrocyanosis, Denies cool extremities, Denies chest pain, Denies leg edema, Denies lightheadedness, Denies palpitations and Denies dyspnea Respiratory: Reports as per HPI, Denies no additional respiratory complaints and Denies dyspnea Gastrointestinal: Reports as per HPI and Denies no additional gastrointestinal complaints Genitourinary: Reports no additional male genitourinary complaints and Reports as per HPI Musculoskeletal: Reports no additional musculoskeletal complaints and Reports as per HPI Skin/Breast: Reports system reviewed and no additional complaints, except as docu Reports system reviewed and no additional complaints, except as documented and Reports as per HPI Psychiatric: Reports no additional psychiatric complaints and Reports as per HPI Endocrine: Reports no additional endocrine complaints, Reports as per HPI and Denies palpitations Hematologic/Lymphatic: Reports no additional hematologic/lymphatic complaints and Reports as per HPI Allergic/Immunologic: Reports no additional allergic/immunologic complaints and Reports as per HPI Physical Exam Vital Signs: Last Vital Signs Temp 97.3 F 05/07/25 08:00 Pulse 72 05/07/25 08:00 Resp 16 05/07/25 08:00 BP 95/53 L 05/07/25 08:00 Pulse Ox 97 05/07/25 08:00 O2 Del Method Room Air 05/07/25 08:00 BMI result Body Mass Index 27.8 Const General: comfortable and no acute distress Orientation/consciousness: patient oriented x3 HEENT Other: Unremarkable Head: Yes normal to inspection Neck Neck: Yes normal visual inspection Chest Chest palpation & inspection: normal inspection of the chest Resp Auscultation: clear to auscultation bilaterally Cardio Palpation: normal PMI Heart sounds: S1 normal heart sound present, S2 normal heart sound present, no gallops, no murmurs and no rubs GI Palpation (GI): Soft to palpation Back/Spine/Pelvis Other: unremarkable Skin General skin exam: no rashes or lesions noted Neuro General: patient oriented x3 Extrem General: Yes normal to inspection Psych Mental Status: mental status grossly normal Objective Labs and Meds 05/07/25 06:14 05/07/25 06:14 Lab results: Laboratory Results - last 24 hr 05/06/25 05/06/25 05/06/25 11:34 16:21 20:50 WBC RBC Hgb Hct MCV MCH MCHC RDW Plt Count MPV Immature Gran % (Auto) Neut % (Auto) Lymph % (Auto) [place] % (Auto) Eos % (Auto) Baso % (Auto) Lymph # (Auto) [place] # (Auto) Eos # (Auto) Baso # (Auto) Abs Immat Gran (auto) Absolute Neuts (auto) Absolute Nucleated RBC Nucleated RBC % (auto) Smear Tech's Comments Sodium Potassium Chloride Carbon Dioxide Anion Gap BUN Creatinine Estim Creat Clear Calc Estimated GFR POC Glucose 123 H 112 103 Random Glucose Calcium Magnesium B-Natriuretic Peptide 05/07/25 05/07/25 06:14 07:38 WBC 16.1 H RBC 5.40 Hgb 14.9 Hct 46.4 MCV 85.9 MCH 27.6 MCHC 32.1 RDW 18.9 H Plt Count 216 MPV 12.2 Immature Gran % (Auto) 0.5 H Neut % (Auto) 81.0 H Lymph % (Auto) 7.1 L [place] % (Auto) 9.9 Eos % (Auto) 1.0 Baso % (Auto) 0.5 Lymph # (Auto) 1.1 L [place] # (Auto) 1.6 H Eos # (Auto) 0.2 Baso # (Auto) 0.1 Abs Immat Gran (auto) 0.08 H Absolute Neuts (auto) 13.1 H Absolute Nucleated RBC 0.000 Nucleated RBC % (auto) 0.0 Smear Tech's Comments VERIFIED Sodium 138 Potassium 5.3 H Chloride 106 Carbon Dioxide 24 Anion Gap 13 BUN 35 H Creatinine 1.47 H Estim Creat Clear Calc 49.2 Estimated GFR 47 POC Glucose 102 Random Glucose 95 Calcium 8.6 D Magnesium 2.0 B-Natriuretic Peptide 3944 H Imaging Radiologist's impression: Impressions Pulmonary Perfusion Imaging 05/06/25 09:00 IMPRESSION: Very low probability for pulmonary emboli. Electronically signed by: Kei Emmanuel MD 05/06/2025 11:07 AM EDT Progress Note: A&P Assessment and plan (1) Atrial fibrillation with rapid ventricular response: Status: Acute Assessment and Plan: Continue beta-blockers. His rate is still on the faster side in spite of digoxin. Hence we can stop it in rather just use amiodarone for rate control purposes. Not much of a choice otherwise. He has been on anticoagulation. (2) Cardiomyopathy: Status: Acute Assessment and Plan: In the echocardiogram, LVEF is 15-20%. He is on Toprol-XL, Entresto, Jardiance and furosemide. (3) Pancreatic cancer: Status: Acute Assessment and Plan: Per oncology notes, metastatic pancreatic cancer and they do not want any systemic therapy or chemotherapy and there is planned for possibly palliative care/hospice. Plan Overall, guarded prognosis. High risk of decompensation and . Goals of care/code status to be finalized. Discussed with at the bedside. Discussed with Dr. Rawls. Time Spent With Patient Time: Total time managing care of this patient today ____ minutes. Progress Note: Quality Stroke Does the patient have a stroke diagnosis?: No Procedures Date of Service Date of Service: 05/07/25
[2025-05-07] MEDS: Ezetimibe 10 MG TABLET PO (10:55)
[2025-05-07] MEDS: Apixaban 5 MG TABLET PO ×2 (10:55→22:41)
[2025-05-07] MEDS: Empagliflozin 10 MG TABLET PO (10:55)
[2025-05-07] MEDS: Amiodarone HCL 200 MG TABLET 400 MG PO ×2 (10:56→22:42)
--- NOTE | 2025-05-07 11:09 | MHC.CM.PN ---
Addendum entered by Jacque Marquez RN 05/07/25 11:41: CM RECEIVED CALL BACK FROM RORY WHO REPORTS SHE WOULD LIKE [facility], REF PLACED. MARY KAY REPORTS SHE IS IN THE ED D/T PAIN AND WOULD LIKE PT TO STAY INPT UNTIL LATE NEXT WEEK, MARY KAY DOES REPORTS SHE HAS HELP FROM DTR AND PT'S VEGETABLE PREPARER FOR CARE ONCE PT RETURNS HOME AND THAT THERE ARE OTHER FAMILY MEMBERS WHO WILL ALSO ASSIST. MARY KAY ASKING FOR A [place] [employer] H[facility]ICE NURSE AND CM HAS INSTRUCTED HER TO ASK [facility] WHEN THEY CALL HER, CM WILL ALSO SEND MESSAGE VIA [employer]. Original Note: EMR REVIEWED, PER HOSPITALIST PT'S INTERESTED IN HOSPICE, CM ATTEMPTED TO CONTACT PT'S MARY AT NUMBER ON FILE, NO ANSWER AND DETAILED MESSAGE LEFT W/REQUEST FOR CALL BACK TO DETERMINE HOSPICE PREFERENCE, NO FAMILY AT BEDSIDE. ANTIC PT WILL DC HOME ON HOSPICE ONCE RATE CONTROLLED, CM WILL CONT TO FOLLOW DC NEEDS.
[2025-05-07 11:43] LABS: Glucose, Whole Blood 121 mg/dL (60-115)
--- NOTE | 2025-05-07 15:35 | P.PNIM_ITS ---
Subjective Subjective Date of Service: 05/07/25 Interval History: feels short of breath still in AF undecided about hospice yet Review of Systems Review of Systems: Yes all other systems are reviewed and are negative Physical Exam 2 Vital Signs: Vital Signs: Last Vital Signs Temp 97.7 F 05/07/25 12:00 Pulse 70 05/07/25 12:00 Resp 19 05/07/25 12:00 BP 119/79 05/07/25 12:00 Pulse Ox 98 05/07/25 12:00 O2 Del Method Room Air 05/07/25 12:00 BMI result Body Mass Index 27.8 Gen: chronically ill appearing HEENT: sclera anicteric, moist mucus membranes Neck: supple Lungs: diminished Heart: irregular, no murmurs Abd: soft, non-tender, non-distended Ext: no edema Skin: warm/well-perfused Neuro: alert and oriented x3, no focal findings Psych: appropriate affect Objective Data Active Medications Acetaminophen (Acetaminophen 325 Mg Tablet) 650 mg PO Q6H PRN PRN Reason: Pain, Mild 1-3,fever,headache Amiodarone HCl (Amiodarone Hcl 200 Mg Tablet) 400 mg PO BID [facility] Stop: 05/21/25 08:59 Last Admin: 05/07/25 10:56 Dose: 400 mg Documented By: HEENA Apixaban (Apixaban 5 Mg Tablet) 5 mg PO BID [facility] Last Admin: 05/07/25 10:55 Dose: 5 mg Documented By: HEENA Calcium Carbonate (Calcium Carbonate 750 Mg Tab.Chew) 750 mg PO Q4H PRN PRN Reason: Heartburn Levalbuterol HCl 1.25 mg/ (Ipratropium [place] 0.5 mg) 0 mg INHALE Q4H PRN PRN Reason: Shortness of Breath/Wheezing Dextrose (Dextrose 50 % 25 Gm/50 Ml Syringe) 25 gm IVPUSH Q15M PRN; Protocol PRN Reason: per Hypoglycemia Standing Ord. Ezetimibe (Ezetimibe 10 Mg Tablet) 10 mg PO DAILY [facility] Last Admin: 05/07/25 10:55 Dose: 10 mg Documented By: HEENA Empagliflozin (Empagliflozin 10 Mg Tablet) 10 mg PO DAILY [facility] Last Admin: 05/07/25 10:55 Dose: 10 mg Documented By: HEENA Furosemide (Furosemide 20 Mg/2 Ml Vial) 20 mg IVPUSH DAILY [facility]; Protocol Last Admin: 05/07/25 10:57 Dose: Not Given Documented By: HEENA Non-Admin Reason: Decreased Blood Pressure Glucose (Glucose Gel 15 Gm Gel..Gram.) 15 gm PO Q15M PRN; Protocol PRN Reason: per Hypoglycemia Standing Ord. Insulin Human Lispro (Insulin Lispro 100 Unit/Ml 3 Ml Vial) 0 unit SUBCUT QIDACHS [facility]; Protocol Last Admin: 05/07/25 13:52 Dose: Not Given Documented By: HEENA Non-Admin Reason: No Insulin Coverage Levalbuterol HCl (Levalbuterol Hcl 1.25 Mg/3 Ml Vial.Neb) 1.25 mg INHALE Q4H PRN PRN Reason: sob/whz Last Admin: 05/07/25 03:07 Dose: 1.25 mg Documented By: BALDOMERO Magnesium Hydroxide (Milk Of Magnesia 30 Ml Oral.Susp) 30 ml PO DAILY PRN PRN Reason: Constipation Melatonin (Melatonin 3 Mg Tablet) 6 mg PO BEDTIME PRN PRN Reason: Insomnia Metoprolol Succinate (Metoprolol Succinate Er 50 Mg Tab.Er.24h) 150 mg PO DAILY [facility]; Protocol Last Admin: 05/07/25 10:58 Dose: Not Given Documented By: HEENA Non-Admin Reason: Decreased Blood Pressure Morphine Sulfate (Morphine Sulfate 4 Mg/Ml Cartridge) 4 mg IVPUSH Q4H PRN; Protocol PRN Reason: Pain, Severe (Pain Scale 7-10) Ondansetron HCl (Ondansetron Hcl 4 Mg/2 Ml Vial) 4 mg IVPUSH Q8H PRN PRN Reason: Nausea and Vomiting Oxycodone HCl (Oxycodone Hcl Immed Release 5 Mg Tablet) 10 mg PO Q4H PRN PRN Reason: Pain, Moderate(Pain Scale 4-6) Sacubitril/Valsartan (Sacubitril/Valsartan 1 Tab Tablet) 1 tab PO BID [facility]; Protocol Last Admin: 05/07/25 10:58 Dose: Not Given Documented By: HEENA Non-Admin Reason: Decreased Blood Pressure Sodium Chloride (0.9 % Sodium Chloride Flush 3 Ml Syringe) 3 ml IVFLUSH QSHIFT [facility] Last Admin: 05/07/25 10:53 Dose: 3 ml Documented By: HEENA Labs 05/07/25 06:14 05/07/25 06:14 Labs: Laboratory Results - last 24 hr 05/06/25 05/06/25 05/07/25 16:21 20:50 06:14 MCV 85.9 MCH 27.6 MCHC 32.1 RDW 18.9 H Plt Count 216 MPV 12.2 Immature Gran % (Auto) 0.5 H Neut % (Auto) 81.0 H Lymph % (Auto) 7.1 L [place] % (Auto) 9.9 Eos % (Auto) 1.0 Baso % (Auto) 0.5 Lymph # (Auto) 1.1 L [place] # (Auto) 1.6 H Eos # (Auto) 0.2 Baso # (Auto) 0.1 Abs Immat Gran (auto) 0.08 H Absolute Neuts (auto) 13.1 H Absolute Nucleated RBC 0.000 Nucleated RBC % (auto) 0.0 Smear Tech's Comments VERIFIED Anion Gap 13 Estim Creat Clear Calc 49.2 Estimated GFR 47 POC Glucose 112 103 Random Glucose 95 Calcium 8.6 D Magnesium 2.0 B-Natriuretic Peptide 3944 H 05/07/25 05/07/25 07:38 11:31 MCV MCH MCHC RDW Plt Count MPV Immature Gran % (Auto) Neut % (Auto) Lymph % (Auto) [place] % (Auto) Eos % (Auto) Baso % (Auto) Lymph # (Auto) [place] # (Auto) Eos # (Auto) Baso # (Auto) Abs Immat Gran (auto) Absolute Neuts (auto) Absolute Nucleated RBC Nucleated RBC % (auto) Smear Tech's Comments Anion Gap Estim Creat Clear Calc Estimated GFR POC Glucose 102 121 H Random Glucose Calcium Magnesium B-Natriuretic Peptide Assessment and Plan (1) Atrial fibrillation with rapid ventricular response: Status: Acute Plan d3 for 74yo M with metastatic pancreatic CA, chronic HFrEF, DM2, COPD, HTN, and AF sent in by information technology architect for RVR. AF/RVR - Cardiology consulted, continue metoprolol succinate, change from digoxin to amiodarone load 05/07-05/21 then maintenance, changed albuterol to levalbuterol - apixaban for CVA prevention acute/chronic HFrEF - monitor lytes/BNP/I+O/weights - continue metoprolol succinate + Entresto + empagliflozin hyperK, mild - give 1 dose [place], recheck level tomorrow DM2 - correction-dose lispro, DM diet, empagliflozin COPD without acute exacerbation - change albuterol to levalbuterol HLD - ezetimibe HTN - metoprolol succinate + Entresto metastatic pancreatic cancer - followed by Dr Almeida, not under treatment due to HFrEF, considering hospice VTE ppx - apixaban dispo - likely home in next 1-2d possibly with hospice In my clinical judgment, the patient requires continued inpatient hospitalization for the following reasons: rate control, IV diuresis Total time managing care of this patient today: 45 minutes. Quality Stroke Does the patient have a stroke diagnosis?: No VTE Prior VTE?: No VTE Risk Level:: Medical - moderate - high VTE Device Contraindication: Treatment Not Indicated VTE Drug Contraindication: N/A - Med Ordered
[2025-05-07 16:13] LABS: Glucose, Whole Blood 125 mg/dL (60-115)
[2025-05-07] MEDS: Furosemide 20 MG/2 ML VIAL 40 MG IVPUSH (16:43)
[2025-05-07] MEDS: Sodium Zirconium Cyclosilicate 5 GM POWD.PACK PO (16:44)
[2025-05-07] MEDS: Acetaminophen 325 MG TABLET 650 MG PO (17:00)
[2025-05-07 19:42] LABS: Glucose, Whole Blood 177 mg/dL (60-115)
[2025-05-07] MEDS: Insulin Lispro 100 UNIT/ML 3 ML VIAL SUBCUT (22:42)
[2025-05-07] MEDS: Sacubitril/Valsartan 24/26 1 TAB TABLET PO (22:42)
[2025-05-08 04:00] VITALS: BP 139/70; PULSE 76; RESP 17; TEMP 36.3; O2SAT 96
[2025-05-08] MEDS: Acetaminophen 325 MG TABLET 650 MG PO (04:42)
[2025-05-08 07:34] VITALS: BP 129/82; PULSE 86; RESP 18; TEMP 36.1; O2SAT 98
[2025-05-08] MEDS: Metoprolol Succinate ER 50 MG TAB.ER.24H 150 MG PO (07:47)
[2025-05-08] MEDS: Apixaban 5 MG TABLET PO ×2 (07:47→20:04)
[2025-05-08] MEDS: 0.9 % Sodium Chloride Flush 3 ML SYRINGE IVFLUSH ×2 (07:48→20:04)
[2025-05-08] MEDS: Ezetimibe 10 MG TABLET PO (07:48)
[2025-05-08] MEDS: Amiodarone HCL 200 MG TABLET 400 MG PO ×2 (07:48→20:04)
[2025-05-08] MEDS: Sacubitril/Valsartan 24/26 1 TAB TABLET PO ×2 (07:48→20:03)
[2025-05-08] MEDS: Empagliflozin 10 MG TABLET PO (07:48)
[2025-05-08] MEDS: Furosemide 20 MG/2 ML VIAL 40 MG IVPUSH (07:55)
[2025-05-08 08:12] LABS: Glucose, Whole Blood 111 mg/dL (60-115)
[2025-05-08 08:23] LABS: Basophils Percent Auto 0.3 % (0-2); Eosinophils Absolute Auto 0.1 X10*3/uL (0.0-0.4); Eosinophils Percent Auto 0.8 % (0-4); Hematocrit 41.2 % (42.0-52.0); Hemoglobin 13.4 g/dl (14.0-18.0); Imm Gran Abs Auto 0.08 X10*3/uL (0.00-0.03); Imm Gran Pct Auto 0.6 % (0.0-0.4); Lymphocytes Absolute Auto 0.9 X10*3/uL (1.2-4.9); Lymphocytes Percent Auto 6.1 % (20-40); MANUAL DIFF FLAG NO; Mean Corpuscular HGB Conc 32.5 g/dl (31.0-36.0); Mean Corpuscular Hemoglobin 27.4 pg (27.0-33.0); Mean Corpuscular Volume 84.3 fL (80.0-98.0); Mean Platelet Volume 12.5 fL (9.4-12.4); Monocytes Absolute Auto 1.4 X10*3/uL (0.1-1.2); Monocytes Percent Auto 9.8 % (2-11); Neutrophils Absolute Auto 11.7 x10*3/uL (2.0-8.3); Neutrophils Percent Auto 82.4 % (45-73); Platelet Count 221 X10*3/uL (160-400); Red Blood Count 4.89 X10*6/uL (4.60-5.80); Red Cell Distribution Width 18.3 % (11.0-16.0); White Blood Count 14.1 X10*3/uL (4.8-10.8)
[2025-05-08 08:31] LABS: Anion Gap 14 (12-20); Blood Urea Nitrogen 37 mg/dL (9-16); Calcium 8.5 mg/dL (8.4-10.2); Carbon Dioxide 25 mmol/L (22-29); Chloride 103 mmol/L (96-108); Creatinine Clr Calc Pharmacy 48.2; Estimated Glomerular Filt Rate 46; Glucose Random 94 mg/dL (60-115); Potassium 4.5 mmol/L (3.3-5.1); Sodium 137 mmol/L (135-145)
[2025-05-08 10:05] LABS: B Type Natriuretic Peptide 2146 pg/mL (<100)
--- NOTE | 2025-05-08 10:53 | P.PNIM_ITS ---
Subjective Subjective Date of Service: 05/08/25 Interval History: HR improved in 70s-80s plan home hospice Saturday pain controlled no dyspnea This history was taken in Urdu from the patient. Review of Systems Review of Systems: Yes all other systems are reviewed and are negative Physical Exam 2 Vital Signs: Vital Signs: Last Vital Signs Temp 97.0 F 05/08/25 07:34 Pulse 86 05/08/25 07:34 Resp 18 05/08/25 07:34 BP 129/82 05/08/25 07:34 Pulse Ox 98 05/08/25 07:34 O2 Del Method Room Air 05/08/25 07:34 BMI result Body Mass Index 27.8 Gen: chronically ill appearing HEENT: sclera anicteric, moist mucus membranes Neck: supple Lungs: diminished Heart: irregular, no murmurs Abd: soft, non-tender, non-distended Ext: no edema Skin: warm/well-perfused Neuro: alert and oriented x3, no focal findings Psych: appropriate affect Objective Data Active Medications Acetaminophen (Acetaminophen 325 Mg Tablet) 650 mg PO Q6H PRN PRN Reason: Pain, Mild 1-3,fever,headache Last Admin: 05/08/25 04:42 Dose: 650 mg Documented By: SHIKHA Amiodarone HCl (Amiodarone Hcl 200 Mg Tablet) 400 mg PO BID COUNTS INCLUDE 234 BEDS AT THE [facility] Stop: 05/21/25 08:59 Last Admin: 05/08/25 07:48 Dose: 400 mg Documented By: SHARONDA Apixaban (Apixaban 5 Mg Tablet) 5 mg PO BID COUNTS INCLUDE 234 BEDS AT THE [facility] Last Admin: 05/08/25 07:47 Dose: 5 mg Documented By: SHARONDA Calcium Carbonate (Calcium Carbonate 750 Mg Tab.Chew) 750 mg PO Q4H PRN PRN Reason: Heartburn Levalbuterol HCl 1.25 mg/ (Ipratropium [place] 0.5 mg) 0 mg INHALE Q4H PRN PRN Reason: Shortness of Breath/Wheezing Dextrose (Dextrose 50 % 25 Gm/50 Ml Syringe) 25 gm IVPUSH Q15M PRN; Protocol PRN Reason: per Hypoglycemia Standing Ord. Ezetimibe (Ezetimibe 10 Mg Tablet) 10 mg PO DAILY COUNTS INCLUDE 234 BEDS AT THE [facility] Last Admin: 05/08/25 07:48 Dose: 10 mg Documented By: SHARONDA Empagliflozin (Empagliflozin 10 Mg Tablet) 10 mg PO DAILY COUNTS INCLUDE 234 BEDS AT THE [facility] Last Admin: 05/08/25 07:48 Dose: 10 mg Documented By: SHARONDA Glucose (Glucose Gel 15 Gm Gel..Gram.) 15 gm PO Q15M PRN; Protocol PRN Reason: per Hypoglycemia Standing Ord. Insulin Human Lispro (Insulin Lispro 100 Unit/Ml 3 Ml Vial) 0 unit SUBCUT QIDACHS COUNTS INCLUDE 234 BEDS AT THE [facility]; Protocol Last Admin: 05/08/25 08:07 Dose: Not Given Documented By: SHARONDA Non-Admin Reason: No Insulin Coverage Levalbuterol HCl (Levalbuterol Hcl 1.25 Mg/3 Ml Vial.Neb) 1.25 mg INHALE Q4H PRN PRN Reason: sob/whz Last Admin: 05/07/25 03:07 Dose: 1.25 mg Documented By: BALDOMERO Magnesium Hydroxide (Milk Of Magnesia 30 Ml Oral.Susp) 30 ml PO DAILY PRN PRN Reason: Constipation Melatonin (Melatonin 3 Mg Tablet) 6 mg PO BEDTIME PRN PRN Reason: Insomnia Metoprolol Succinate (Metoprolol Succinate Er 50 Mg Tab.Er.24h) 150 mg PO DAILY COUNTS INCLUDE 234 BEDS AT THE [facility]; Protocol Last Admin: 05/08/25 07:47 Dose: 150 mg Documented By: SHARONDA Morphine Sulfate (Morphine Sulfate 4 Mg/Ml Cartridge) 4 mg IVPUSH Q4H PRN; Protocol PRN Reason: Pain, Severe (Pain Scale 7-10) Ondansetron HCl (Ondansetron Hcl 4 Mg/2 Ml Vial) 4 mg IVPUSH Q8H PRN PRN Reason: Nausea and Vomiting Oxycodone HCl (Oxycodone Hcl Immed Release 5 Mg Tablet) 10 mg PO Q4H PRN PRN Reason: Pain, Moderate(Pain Scale 4-6) Sacubitril/Valsartan (Sacubitril/Valsartan 1 Tab Tablet) 1 tab PO BID COUNTS INCLUDE 234 BEDS AT THE [facility]; Protocol Last Admin: 05/08/25 07:48 Dose: 1 tab Documented By: SHARONDA Sodium Chloride (0.9 % Sodium Chloride Flush 3 Ml Syringe) 3 ml IVFLUSH QSHIFT COUNTS INCLUDE 234 BEDS AT THE [facility] Last Admin: 05/08/25 07:48 Dose: 3 ml Documented By: SHARONDA Labs 05/08/25 07:15 05/08/25 07:15 Labs: Laboratory Results - last 24 hr 05/07/25 05/07/25 05/07/25 11:31 15:40 19:38 MCV MCH MCHC RDW Plt Count MPV Immature Gran % (Auto) Neut % (Auto) Lymph % (Auto) [place] % (Auto) Eos % (Auto) Baso % (Auto) Lymph # (Auto) [place] # (Auto) Eos # (Auto) Baso # (Auto) Abs Immat Gran (auto) Absolute Neuts (auto) Absolute Nucleated RBC Nucleated RBC % (auto) Hold Purple Top Anion Gap Estim Creat Clear Calc Estimated GFR POC Glucose 121 H 125 H 177 H Random Glucose Calcium Magnesium B-Natriuretic Peptide 05/08/25 05/08/25 07:15 07:31 MCV 84.3 MCH 27.4 MCHC 32.5 RDW 18.3 H Plt Count 221 MPV 12.5 H Immature Gran % (Auto) 0.6 H Neut % (Auto) 82.4 H Lymph % (Auto) 6.1 L [place] % (Auto) 9.8 Eos % (Auto) 0.8 Baso % (Auto) 0.3 Lymph # (Auto) 0.9 L [place] # (Auto) 1.4 H Eos # (Auto) 0.1 Baso # (Auto) 0.0 Abs Immat Gran (auto) 0.08 H Absolute Neuts (auto) 11.7 H Absolute Nucleated RBC 0.000 Nucleated RBC % (auto) 0.0 Hold Purple Top SEE NOTE Anion Gap 14 Estim Creat Clear Calc 48.2 Estimated GFR 46 POC Glucose 111 Random Glucose 94 Calcium 8.5 Magnesium 2.0 B-Natriuretic Peptide 2146 H Assessment and Plan (1) Atrial fibrillation with rapid ventricular response: Status: Acute Plan d4 for 74yo M with metastatic pancreatic CA, chronic HFrEF, DM2, COPD, HTN, and AF sent in by water resource engineer for RVR AF/RVR - Cardiology consulted, continue metoprolol succinate, change from digoxin to amiodarone load 05/07-05/21 then maintenance 05/22- changed albuterol to levalbuterol - continue apixaban for CVA prevention acute/chronic HFrEF - appears euvolemic, d/c furosemide - continue metoprolol succinate + Entresto + empagliflozin hyperK, mild - resolved after Lokelma given DM2 - correction-dose lispro, DM diet, empagliflozin COPD without acute exacerbation - changed albuterol to levalbuterol HLD - ezetimibe HTN - continue metoprolol succinate + Entresto metastatic pancreatic cancer - followed by Dr Almeida, not under treatment due to HFrEF, considering hospice at home VTE ppx - apixaban dispo - likely home with hospice on 05/10 In my clinical judgment, the patient requires continued inpatient hospitalization for the following reasons: hospice placement Total time managing care of this patient today: 35 minutes. Quality Stroke Does the patient have a stroke diagnosis?: No VTE Prior VTE?: No VTE Risk Level:: Medical - moderate - high VTE Device Contraindication: Treatment Not Indicated VTE Drug Contraindication: N/A - Med Ordered
[2025-05-08] MEDS: oxyCODONE HCl Immed Release 5 MG TABLET 10 MG PO ×2 (10:54→20:03)
[2025-05-08 12:00] VITALS: BP 140/77; PULSE 75; RESP 20; TEMP 36.2; O2SAT 98
[2025-05-08 15:50] VITALS: BP 117/81; PULSE 82; RESP 18; TEMP 35.9; O2SAT 97
[2025-05-08 15:50] LABS: Glucose, Whole Blood 143 mg/dL (60-115)
[2025-05-08 19:39] LABS: Glucose, Whole Blood 162 mg/dL (60-115)
[2025-05-08 19:48] VITALS: BP 111/77; PULSE 68; RESP 18; TEMP 35.7; O2SAT 98
[2025-05-08] MEDS: ondansetron HCL 4 MG/2 ML VIAL IVPUSH (20:04)
[2025-05-08] MEDS: Insulin Lispro 100 UNIT/ML 3 ML VIAL SUBCUT (20:04)
[2025-05-08 23:44] VITALS: BP 119/81; PULSE 65; RESP 20; TEMP 36.7; O2SAT 95
[2025-05-09] VITALS (8 sets, daily range): BP systolic 101–128; BP diastolic 59–79; PULSE 50–67; RESP 14–20; TEMP 36.1–36.4; O2SAT 95–98
[2025-05-09] MEDS: ondansetron HCL 4 MG/2 ML VIAL IVPUSH (04:24)
[2025-05-09 07:13] LABS: Glucose, Whole Blood 103 mg/dL (60-115)
[2025-05-09] MEDS: Metoprolol Succinate ER 50 MG TAB.ER.24H 150 MG PO (07:26)
[2025-05-09] MEDS: Sacubitril/Valsartan 24/26 1 TAB TABLET PO ×2 (07:27→20:01)
[2025-05-09] MEDS: Apixaban 5 MG TABLET PO ×2 (07:27→20:01)
[2025-05-09] MEDS: Amiodarone HCL 200 MG TABLET 400 MG PO ×2 (07:27→20:01)
[2025-05-09] MEDS: Empagliflozin 10 MG TABLET PO (07:27)
[2025-05-09] MEDS: Ezetimibe 10 MG TABLET PO (07:27)
[2025-05-09] MEDS: 0.9 % Sodium Chloride Flush 3 ML SYRINGE IVFLUSH ×3 (07:28→20:01)
[2025-05-09 08:16] LABS: Blood Urea Nitrogen 39 mg/dL (9-16); Calcium 8.6 mg/dL (8.4-10.2); Creatinine Clr Calc Pharmacy 43.1; Estimated Glomerular Filt Rate 40; Glucose Random 109 mg/dL (60-115); Magnesium 2.2 mg/dL (1.6-2.6)
[2025-05-09 08:21] LABS: B Type Natriuretic Peptide 1818 pg/mL (<100)
[2025-05-09 08:29] LABS: Anion Gap 13 (12-20); Carbon Dioxide 22 mmol/L (22-29); Chloride 105 mmol/L (96-108); Potassium 5.4 mmol/L (3.3-5.1); Sodium 135 mmol/L (135-145)
[2025-05-09] MEDS: Sodium Zirconium Cyclosilicate 10 GM POWD.PACK PO (10:07)
--- NOTE | 2025-05-09 10:31 | HO.PM.IMPN ---
Subjective Subjective Date of Service: 05/09/25 Interval History: no dyspnea, HR much better controlled Review of Systems Review of Systems: Yes all other systems are reviewed and are negative Physical Exam Vital Signs: Vital Signs: Last Vital Signs Temp 97.6 F 05/09/25 07:37 Pulse 65 05/09/25 07:37 Resp 17 05/09/25 07:37 BP 127/62 05/09/25 07:37 Pulse Ox 95 05/09/25 07:37 O2 Del Method Room Air 05/09/25 07:37 BMI result Body Mass Index 27.8 Gen: chronically ill appearing HEENT: sclera anicteric, moist mucus membranes Neck: supple Lungs: diminished Heart: irregular, no murmurs Abd: soft, non-tender, non-distended Ext: no edema Skin: warm/well-perfused Neuro: alert and oriented x3, no focal findings Psych: appropriate affect Objective Data Active Medications Acetaminophen (Acetaminophen 325 Mg Tablet) 650 mg PO Q6H PRN PRN Reason: Pain, Mild 1-3,fever,headache Last Admin: 05/08/25 04:42 Dose: 650 mg Documented By: SHIKHA Amiodarone HCl (Amiodarone Hcl 200 Mg Tablet) 400 mg PO BID [facility] Stop: 05/21/25 08:59 Last Admin: 05/09/25 07:27 Dose: 400 mg Documented By: JACKI Apixaban (Apixaban 5 Mg Tablet) 5 mg PO BID [facility] Last Admin: 05/09/25 07:27 Dose: 5 mg Documented By: JACKI Calcium Carbonate (Calcium Carbonate 750 Mg Tab.Chew) 750 mg PO Q4H PRN PRN Reason: Heartburn Levalbuterol HCl 1.25 mg/ (Ipratropium [place] 0.5 mg) 0 mg INHALE Q4H PRN PRN Reason: Shortness of Breath/Wheezing Dextrose (Dextrose 50 % 25 Gm/50 Ml Syringe) 25 gm IVPUSH Q15M PRN; Protocol PRN Reason: per Hypoglycemia Standing Ord. Ezetimibe (Ezetimibe 10 Mg Tablet) 10 mg PO DAILY [facility] Last Admin: 05/09/25 07:27 Dose: 10 mg Documented By: JACKI Empagliflozin (Empagliflozin 10 Mg Tablet) 10 mg PO DAILY [facility] Last Admin: 05/09/25 07:27 Dose: 10 mg Documented By: JACKI Glucose (Glucose Gel 15 Gm Gel..Gram.) 15 gm PO Q15M PRN; Protocol PRN Reason: per Hypoglycemia Standing Ord. Insulin Human Lispro (Insulin Lispro 100 Unit/Ml 3 Ml Vial) 0 unit SUBCUT QIDACHS [facility]; Protocol Last Admin: 05/09/25 07:15 Dose: Not Given Documented By: JACKI Non-Admin Reason: No Insulin Coverage Levalbuterol HCl (Levalbuterol Hcl 1.25 Mg/3 Ml Vial.Neb) 1.25 mg INHALE Q4H PRN PRN Reason: sob/whz Last Admin: 05/07/25 03:07 Dose: 1.25 mg Documented By: BALDOMERO Magnesium Hydroxide (Milk Of Magnesia 30 Ml Oral.Susp) 30 ml PO DAILY PRN PRN Reason: Constipation Melatonin (Melatonin 3 Mg Tablet) 6 mg PO BEDTIME PRN PRN Reason: Insomnia Metoprolol Succinate (Metoprolol Succinate Er 50 Mg Tab.Er.24h) 150 mg PO DAILY [facility]; Protocol Last Admin: 05/09/25 07:26 Dose: 150 mg Documented By: JACKI Morphine Sulfate (Morphine Sulfate 4 Mg/Ml Cartridge) 4 mg IVPUSH Q4H PRN; Protocol PRN Reason: Pain, Severe (Pain Scale 7-10) Ondansetron HCl (Ondansetron Hcl 4 Mg/2 Ml Vial) 4 mg IVPUSH Q8H PRN PRN Reason: Nausea and Vomiting Last Admin: 05/09/25 04:24 Dose: 4 mg Documented By: TROY Oxycodone HCl (Oxycodone Hcl Immed Release 5 Mg Tablet) 10 mg PO Q4H PRN PRN Reason: Pain, Moderate(Pain Scale 4-6) Last Admin: 05/08/25 20:03 Dose: 10 mg Documented By: TROY Sacubitril/Valsartan (Sacubitril/Valsartan 1 Tab Tablet) 1 tab PO BID [facility]; Protocol Last Admin: 05/09/25 07:27 Dose: 1 tab Documented By: JACKI Sodium Chloride (0.9 % Sodium Chloride Flush 3 Ml Syringe) 3 ml IVFLUSH [facility] Last Admin: 05/09/25 07:28 Dose: 3 ml Documented By: JACKI Labs 05/08/25 07:15 05/09/25 07:07 Labs: Laboratory Results - last 24 hr 05/08/25 05/08/25 05/09/25 15:34 19:29 07:07 Anion Gap 13 Estim Creat Clear Calc 43.1 Estimated GFR 40 POC Glucose 143 H 162 H Random Glucose 109 Calcium 8.6 Magnesium 2.2 B-Natriuretic Peptide 1818 H 05/09/25 07:08 Anion Gap Estim Creat Clear Calc Estimated GFR POC Glucose 103 Random Glucose Calcium Magnesium B-Natriuretic Peptide Assessment and Plan (1) Atrial fibrillation with rapid ventricular response: Status: Acute Plan d5 for 74yo M with metastatic pancreatic CA, chronic HFrEF, DM2, COPD, HTN, and AF sent in by earth science technical officer for RVR AF/RVR - Cardiology consulted, continue metoprolol succinate, change from digoxin to amiodarone load 05/07-05/21 then maintenance 05/22- changed albuterol to levalbuterol - continue apixaban for CVA prevention acute/chronic HFrEF - appears euvolemic, d/c'ed furosemide - continue metoprolol succinate + Entresto + empagliflozin hyperK, mild - will give another dose of Lokelma and recheck BMP tomorrow DM2 - correction-dose lispro, DM diet, empagliflozin COPD without acute exacerbation - changed albuterol to levalbuterol HLD - ezetimibe HTN - continue metoprolol succinate + Entresto metastatic pancreatic cancer - followed by Dr Almeida, not under treatment due to HFrEF, considering hospice at home VTE ppx - apixaban dispo - likely home with hospice on 05/10 In my clinical judgment, the patient requires continued inpatient hospitalization for the following reasons: hospice placement Total time managing care of this patient today: 35 minutes. Quality Stroke Does the patient have a stroke diagnosis?: No VTE Prior VTE?: No VTE Risk Level:: Medical - moderate - high VTE Device Contraindication: Treatment Not Indicated VTE Drug Contraindication: N/A - Med Ordered
[2025-05-09 11:16] LABS: Glucose, Whole Blood 137 mg/dL (60-115)
[2025-05-09] MEDS: Insulin Lispro 100 UNIT/ML 3 ML VIAL SUBCUT (16:07)
[2025-05-09] MEDS: Acetaminophen 325 MG TABLET 650 MG PO ×2 (16:09→21:48)
[2025-05-09 16:12] LABS: Glucose, Whole Blood 157 mg/dL (60-115)
[2025-05-09 19:41] LABS: Glucose, Whole Blood 150 mg/dL (60-115)
[2025-05-09] MEDS: levalbuterol HCL 1.25 MG/3 ML VIAL.NEB INHALE (20:31)
[2025-05-10 03:30] VITALS: BP 120/61; PULSE 64; RESP 18; TEMP 36.3; O2SAT 97
[2025-05-10 07:18] VITALS: BP 109/68; PULSE 73; RESP 16; TEMP 36.4; O2SAT 98
[2025-05-10 07:20] LABS: Glucose, Whole Blood 126 mg/dL (60-115)
[2025-05-10 07:30] VITALS: BP 109/68
[2025-05-10] MEDS: Ezetimibe 10 MG TABLET PO (07:30)
[2025-05-10] MEDS: Sacubitril/Valsartan 24/26 1 TAB TABLET PO (07:30)
[2025-05-10] MEDS: Empagliflozin 10 MG TABLET PO (07:30)
[2025-05-10] MEDS: Amiodarone HCL 200 MG TABLET 400 MG PO (07:30)
[2025-05-10] MEDS: Metoprolol Succinate ER 50 MG TAB.ER.24H 150 MG PO (07:30)
[2025-05-10] MEDS: 0.9 % Sodium Chloride Flush 3 ML SYRINGE IVFLUSH (07:30)
[2025-05-10] MEDS: Apixaban 5 MG TABLET PO (07:30)
[2025-05-10 08:06] LABS: Anion Gap 14 (12-20); Blood Urea Nitrogen 51 mg/dL (9-16); Calcium 8.5 mg/dL (8.4-10.2); Carbon Dioxide 25 mmol/L (22-29); Chloride 98 mmol/L (96-108); Creatinine Clr Calc Pharmacy 33.2; Estimated Glomerular Filt Rate 30; Glucose Random 123 mg/dL (60-115); Potassium 4.9 mmol/L (3.3-5.1); Sodium 132 mmol/L (135-145)
[2025-05-10 11:20] VITALS: BP 101/64; PULSE 69; RESP 16; TEMP 36.2; O2SAT 96
[2025-05-10 11:32] LABS: Glucose, Whole Blood 154 mg/dL (60-115)
[2025-05-10] MEDS: Insulin Lispro 100 UNIT/ML 3 ML VIAL SUBCUT (11:43)
--- NOTE | 2025-05-10 12:08 | HO.WOUND ---
Wound Consult: Initial 74yr old?Male admitted to [facility] on 05/05/25 - See progress notes and H&P for detailed history.? Wound consult placed for Coccyx wound POA.? Arrival to bedside patient is dressed and pending discharge - direct care nurse reports open partial thickness tissue loss to coccyx area - Triad and Foam dressing in use. Patient is under Hospice care at home - all topical orders should allow for healing, comfort and dignity. May continue with Triad / barrier cream and protective off loading dressing such as Allevyn foam dressing. Coccyx - Off Load Pressure from site with repositions. May use waffle cushion when up to chair. Routine cleansing, pat dry. Apply thin layer of barrier cream followed with foam dressing. Change every other day and PRN.
--- NOTE | 2025-05-10 12:33 | PM.DS ---
DS: Providers Provider Date of Service: 05/10/25 Date of admission: 05/05/25 20:11 Date of discharge: 05/10/25 Primary care physician: Alina Almeida MD Consults: 05/05/25 21:48 Consult to Cardiology Routine Consulting Provider: Stefan Shaffer Reason for consultation: a fib with RVR Has provider been notified: Yes 05/05/25 22:46 Consult to Hematology / Oncology Routine Consulting Provider: Alina Almeida Reason for consultation: pt of yours admitted with a fib and CHF Has provider been notified: No 05/08/25 16:21 Consult to Wound Care Routine Reason for consultation: 2 cm abraision on coccyx. DS: Diagnosis Discharge Diagnosis (1) Atrial fibrillation with rapid ventricular response: Status: Acute (2) RUTH (acute kidney injury): Status: Acute (3) Pancreatic cancer: Status: Acute (4) Acute exacerbation of CHF (congestive heart failure): Status: Acute DS: Summary Hospital Course Hospital Course: From the history and physical by the admitting hospitalist, SHOBHA Quan, 05/05/25: Patient is a 74-year-old male with a past medical history significant for type 2 diabetes, stage I COPD, hypertension, persistent AFib, and metastatic pancreatic cancer, who presented to the ED after being sent by Dr. Shaffer for AFib with RVR found during his office visit today. His rate was in the 140s and he was sent to the ED for digoxin. It is noted that he had 3 doses of 0.25mg digoxin, timing is unknown. His most recent echo in March of this year showed a EF of 15-20%. The patient is reporting chronic shortness of breath, worse recently requiring him to use his albuterol inhaler and nebulizer cumulatively about 6- 8 times a day. He denies any wheezing or orthopnea. No chest pain, nausea, vomiting, abdominal pain, urinary symptoms including frequency, urgency or dysuria.' d5 for 74yo M with metastatic pancreatic CA, chronic HFrEF, DM2, COPD, HTN, and AF sent in by director of perioperative services for RVR and admitted to the telemetry unit. He was loaded with digoxin then started on amiodarone PO load. Albuterol was changed to levalbuterol. Rate control improved. He was also diuresed with furosemide but then developed RUTH and mild hyperkalemia. Goals of care were discussed in light of the fact that he does not want to undergo chemotherapy. He wishes to go home and start hospice services eventually. He and his met with hospice, but they are not ready for them quite yet, as they want to clean out their house. Time Attestation Discharge Coordination Time (in mins): 45 Quality: Safe Use of Opioids Does Pt have an Active Cancer Diagnosis on the Problem List?: No Quality: Stroke Does the patient have a stroke diagnosis?: No Physical Exam Vital Signs: Vital Signs: Last Vital Signs Temp 97.2 F 05/10/25 11:20 Pulse 69 05/10/25 11:20 Resp 16 05/10/25 11:20 BP 101/64 05/10/25 11:20 Pulse Ox 96 05/10/25 11:20 O2 Del Method Room Air 05/10/25 11:20 BMI result Body Mass Index 27.8 Gen: chronically ill appearing HEENT: sclera anicteric, moist mucus membranes Neck: supple Lungs: diminished Heart: irregular, no murmurs Abd: soft, non-tender, non-distended Ext: no edema Skin: warm/well-perfused Neuro: alert and oriented x3, no focal findings Psych: appropriate affect DS: Data Data Completed and Pending Completed studies during hospitalization [Text1]: Laboratory Results WBC 14.1 X10*3/uL (4.8-10.8) H 05/08/25 07:15 RBC 4.89 X10*6/uL (4.60-5.80) 05/08/25 07:15 Hgb 13.4 g/dl (14.0-18.0) L 05/08/25 07:15 Hct 41.2 % (42.0-52.0) L 05/08/25 07:15 MCV 84.3 fL (80.0-98.0) 05/08/25 07:15 MCH 27.4 pg (27.0-33.0) 05/08/25 07:15 MCHC 32.5 g/dl (31.0-36.0) 05/08/25 07:15 RDW 18.3 % (11.0-16.0) H 05/08/25 07:15 Plt Count 221 X10*3/uL (160-400) 05/08/25 07:15 MPV 12.5 fL (9.4-12.4) H 05/08/25 07:15 Immature Gran % (Auto) 0.6 % (0.0-0.4) H 05/08/25 07:15 Neut % (Auto) 82.4 % (45-73) H 05/08/25 07:15 Lymph % (Auto) 6.1 % (20-40) L 05/08/25 07:15 [place] % (Auto) 9.8 % (2-11) 05/08/25 07:15 Eos % (Auto) 0.8 % (0-4) 05/08/25 07:15 Baso % (Auto) 0.3 % (0-2) 05/08/25 07:15 Lymph # (Auto) 0.9 X10*3/uL (1.2-4.9) L 05/08/25 07:15 [place] # (Auto) 1.4 X10*3/uL (0.1-1.2) H 05/08/25 07:15 Eos # (Auto) 0.1 X10*3/uL (0.0-0.4) 05/08/25 07:15 Baso # (Auto) 0.0 X10*3/uL (0.0-0.2) 05/08/25 07:15 Abs Immat Gran (auto) 0.08 X10*3/uL (0.00-0.03) H 05/08/25 07:15 Absolute Neuts (auto) 11.7 x10*3/uL (2.0-8.3) H 05/08/25 07:15 Absolute Nucleated RBC 0.000 X10*3/uL (0.0-0.012) 05/08/25 07:15 Nucleated RBC % (auto) 0.0 /100WBC (0.0-0.2) 05/08/25 07:15 Smear Tech's Comments VERIFIED 05/07/25 06:14 Hold Purple Top SEE NOTE 05/10/25 07:16 Sodium 132 mmol/L (135-145) L 05/10/25 07:16 Potassium 4.9 mmol/L (3.3-5.1) 05/10/25 07:16 Chloride 98 mmol/L (96-108) 05/10/25 07:16 Carbon Dioxide 25 mmol/L (22-29) 05/10/25 07:16 Anion Gap 14 (12-20) 05/10/25 07:16 BUN 51 mg/dL (9-16) H 05/10/25 07:16 Creatinine 2.18 mg/dL (0.5-1.4) H 05/10/25 07:16 Estim Creat Clear Calc 33.2 05/10/25 07:16 Estimated GFR 30 05/10/25 07:16 POC Glucose 154 mg/dL (60-115) H 05/10/25 11:22 Random Glucose 123 mg/dL (60-115) H 05/10/25 07:16 Calcium 8.5 mg/dL (8.4-10.2) 05/10/25 07:16 Magnesium 2.2 mg/dL (1.6-2.6) 05/09/25 07:07 Total Bilirubin 0.9 mg/dL (0.0-1.0) 05/05/25 16:59 AST 38 U/L (5-37) H 05/05/25 16:59 ALT 14 U/L (0-40) 05/05/25 16:59 Alkaline Phosphatase 438 U/L (39-117) H 05/05/25 16:59 Troponin I High Sens 5389.7 ng/L (<3.5-35.0) H* 05/06/25 05:57 B-Natriuretic Peptide 1818 pg/mL (<100) H 05/09/25 07:07 Total Protein 6.9 g/dL (6.5-8.0) 05/05/25 16:59 Albumin 2.7 g/dL (3.5-5.0) L 05/05/25 16:59 TSH 4.84 uIU/mL (0.32-4.0) H 05/05/25 21:55 Free T4 0.90 ng/dL (0.71-1.85) 05/05/25 21:55 Urine Color Dark Yellow 05/05/25 20:03 Urine Appearance Cloudy 05/05/25 20:03 Urine pH 5.0 (5.0-9.0) 05/05/25 20:03 Ur Specific [place] 1.020 (1.005-1.025) 05/05/25 20:03 Urine Protein 30 (1+) mg/dL (Neg-Trace) H 05/05/25 20:03 Urine Glucose (UA) Negative mg/dL (Negative) 05/05/25 20:03 Urine Ketones Trace mg/dL (Negative) 05/05/25 20:03 Urine Blood Negative (Negative) 05/05/25 20:03 Urine Nitrite Negative (Negative) 05/05/25 20:03 Ur Leukocyte Esterase Small (1+) (Negative) H 05/05/25 20:03 Urine RBC 0-2 /HPF (0-2) 05/05/25 20:03 Urine WBC 6-10 /HPF (0-5) H 05/05/25 20:03 Ur Squamous Epith Cells 0-2 /HPF (0-2) 05/05/25 20:03 Calcium Oxalate Crystal Present 05/05/25 20:03 Other Crystals Present 05/05/25 20:03 Urine Bacteria None Seen (None Seen) 05/05/25 20:03 Hyaline Casts 11-20 /LPF (0-2) 05/05/25 20:03 Granular Casts Present 05/05/25 20:03 Digoxin 0.3 ng/mL (0.8-2.0) L 05/06/25 05:57 Impressions Pulmonary Perfusion Imaging 05/06/25 09:00 IMPRESSION: Very low probability for pulmonary emboli. Electronically signed by: Kei Emmanuel MD 05/06/2025 11:07 AM EDT Discharge Plan Discharge Anticipated Discharge Date/Time: 05/10/25 12:28 Patient Disposition: Home, Self-Care Discharge Diagnosis: metastatic pancreatic cancer Referrals: Alina Almeida MD [Primary Care Provider] - 1 Week Discharge Medications: New amiodarone 200 mg Tablet See Rx Instructions .ROUTE .COMPLEX Qty: 66 0RF Rx Instructions: 400 mg (2x200 mg tabs) twice daily until 05/21, then 200 mg (1x200 mg tab) daily levalbuterol HCl 1.25 mg/3 mL Solution For Nebulization 1.25 mg inhalation Q4H PRN (Reason: sob/whz) Qty: 90 0RF levalbuterol tartrate 45 mcg/actuation HFA aerosol inhaler 2 puff inhalation Q4-6H PRN (Reason: shortness of breath or wheezing) Qty: 15 0RF Continued ezetimibe 10 mg tablet 10 mg PO DAILY PRN (Reason: HIGH CHOLESTROL) dapagliflozin propanediol 5 mg Tablet 10 mg PO DAILY Janumet 50-1,000 mg Tablet 1 tab PO BID PRN (Reason: HIGH BLOOD SUGAR) Entresto 24-26 mg Tablet 1 tab PO BID metformin 500 mg tablet 500 mg PO BID metoprolol succinate 50 mg tablet extended release 24 hr 150 mg PO DAILY Eliquis 5 mg tablet 5 mg PO BID acetaminophen 325 mg Tablet 650 mg PO Q6H PRN (Reason: Pain) Discontinued furosemide 20 mg tablet 20 mg PO DAILY albuterol sulfate 90 mcg/actuation HFA aerosol inhaler 2 puff INHALATION Q6H PRN (Reason: wheezing) albuterol sulfate 2.5 mg /3 mL (0.083 %) solution for nebulization 2.5 mg continuous nebulization Q4H PRN (Reason: SOB) Discharge Orders: Discharge Order (Routine); Ordered 05/10/25 Ordered By: Cass Rawls Diet: Advance to usual diet Activity on Discharge: As tolerated Stand Alone Forms: Patient Portal Discharge page Print Language: Scottish Activity Restrictions/Additional Instructions: Topical Wound Care Recommendations: Coccyx - Off Load Pressure from site with repositions. May use waffle cushion when up to chair. Routine cleansing, pat dry. Apply thin layer of barrier cream followed with foam dressing. Change every other day and as needed. Care Plan Goals: palliation of cancer-related symptoms Health Concerns: metastatic pancreatic cancer Plan of Treatment: to meet with hospice at home and start service at home Assessment: See Discharge Summary.
--- NOTE | 2025-05-10 12:54 | MHC.CM.PN ---
IMM 05/10/25 This morning, [facility] provided an informational meeting for hospice services. They will not discharge with hospice today. Patient and his state that they need to move furniture for the hospice equipment. MD notified of the Hospice SOC delay request. Patient's will provide transportation home.
== END 2025-05-10 13:44 | disposition home or self-care (01) | DRG 291 ==
LOC: HO.ED 19:37 → HO.EDOVER 20:22 → HO.IMC 05-06 00:46
PROVIDERS: Admitting Provider Physician Assistant; Emergency Provider Emergency Medicine; PCP Internal Medicine; Visit Provider Family Medicine
DX: I11.0 Hypertensive heart disease with heart failure (principal); I50.23 Acute on chronic systolic (congestive) heart failure; N17.9 Acute kidney failure, unspecified; C25.0 Malignant neoplasm of head of pancreas; C78.7 Secondary malignant neoplasm of liver and intrahepatic bile duct; I42.9 Cardiomyopathy, unspecified; J44.9 Chronic obstructive pulmonary disease, unspecified; E87.5 Hyperkalemia; Z87.891 Personal history of nicotine dependence; Z79.01 Long term (current) use of anticoagulants; Z79.899 Other long term (current) drug therapy
CPT/HCPCS: 36415; 71046; 78580; 80048; 80053; 80162; 81001; 82947; 83735; 83880; 84439; 84443; 84484; 85025; 93005; 94640; 99212; 99285; A9540; J1160; J1938; J2270; J2405

== ENCOUNTER 2025-05-05 20:11 | Outpatient (BNV) | payer OTHER, SELFPAY | END 2025-05-05 21:25 | PROVIDERS: Admitting Provider Physician Assistant; Emergency Provider Emergency Medicine; PCP Internal Medicine; Visit Provider Radiology Neuroradiology | DX: R06.02 Shortness of breath (principal) | CPT/HCPCS: 71046 ==

== ENCOUNTER 2025-05-05 20:11 | Outpatient (BNV) | payer OTHER, SELFPAY | END 2025-05-06 09:00 | PROVIDERS: Admitting Provider Physician Assistant; Emergency Provider Emergency Medicine; PCP Internal Medicine; Visit Provider Radiology Diagnostic Radiology | DX: I51.7 Cardiomegaly (principal) | CPT/HCPCS: 78580 ==

== ENCOUNTER 2025-05-05 20:11 | Outpatient (BNV) | payer OTHER, SELFPAY | END 2025-05-06 05:25 | PROVIDERS: Admitting Provider Physician Assistant; Emergency Provider Emergency Medicine; PCP Internal Medicine; Visit Provider Internal Medicine | DX: I48.91 Unspecified atrial fibrillation (principal) | CPT/HCPCS: 93010 ==

== ENCOUNTER → 2025-05-05 20:11 | Outpatient (BNV) | payer OTHER, SELFPAY | PROVIDERS: Admitting Provider Physician Assistant; Emergency Provider Emergency Medicine; PCP Internal Medicine; Visit Provider Family Medicine | DX: I48.91 Unspecified atrial fibrillation (principal); N17.9 Acute kidney failure, unspecified; C25.9 Malignant neoplasm of pancreas, unspecified; I50.9 Heart failure, unspecified | CPT/HCPCS: 99223; 99232; 99239; 99499 ==

== ENCOUNTER → 2025-05-05 20:11 | Outpatient (BNV) | payer OTHER, SELFPAY | PROVIDERS: Admitting Provider Physician Assistant; Emergency Provider Emergency Medicine; PCP Internal Medicine; Visit Provider Internal Medicine | DX: I48.91 Unspecified atrial fibrillation (principal); I42.9 Cardiomyopathy, unspecified; C25.9 Malignant neoplasm of pancreas, unspecified | CPT/HCPCS: 99223; 99233 ==

== ENCOUNTER → 2025-05-05 20:11 | Outpatient (BNV) | payer OTHER, SELFPAY | PROVIDERS: Admitting Provider Physician Assistant; Emergency Provider Emergency Medicine; PCP Internal Medicine; Visit Provider Internal Medicine | DX: C25.9 Malignant neoplasm of pancreas, unspecified (principal) | CPT/HCPCS: 99231 ==